=== PATIENT | male | born 1970 | race Caucasian/White ===

== ENCOUNTER 2016-09-14 09:40 | Emergency (ER) | payer OTHER ==
[~2016-09-14] VITALS: Ht 182.9 cm; Wt 96.2 kg
--- NOTE | 2016-09-14 10:02 | ED GI/GU/ABDOMINAL COMPLAINT ---
History of Present Illness General Chief Complaint: General Adult Stated Complaint: FOOD STUCK Source: patient Exam Limitations: no limitations Vital Signs & Intake/Output Vital Signs & Intake/Output Vital Signs Date Time Temp Pulse Resp B/P Pulse O2 O2 Flow FiO2 Ox Delivery Rate 09/14 1502 97.0 88 169/90 95 Room Air 09/14 1228 97.4 90 20 150/80 100 Room Air 09/14 1044 98.0 88 20 145/85 96 Room Air ED Intake and Output 09/15 0000 09/14 1200 Intake Total 1000 Output Total Balance 1000 Intake, IV 1000 Patient 212 lb Weight Allergies Coded Allergies: cat dander (Intermediate, HIVES 09/14/16) Uncoded Allergies: DUST (Severe, HIVES 07/12/13) Reconcile Medications Albuterol Sulfate (Proventil Hfa) 90 MCG HFA.AER.AD 2 PUF INH 4 TIMES/DAY PRN SHORTNESS OF BREATH (Reported) Bisoprolol Fumarate 10 MG TABLET 1 TAB PO DAILY HEART (Reported) Cyclobenzaprine HCl 10 MG TABLET 1 TAB PO TID MUSCLE SPASMS (Reported) Fenofibric Acid (Choline) (Trilipix) 45 MG CAPSULE.DR 1 CAP PO QPM CHOLESTEROL (Reported) Gabapentin 300 MG CAPSULE 1 CAP PO TID SEIZURES (Reported) Ibuprofen 800 MG TABLET 1 TAB PO BID PAIN (Reported) Lisinopril 10 MG TABLET 1 TAB PO DAILY HEART (Reported) Pantoprazole Sodium (Protonix) 40 MG TABLET.DR 1 TAB PO DAILY GERD Pravastatin Sodium 20 MG TABLET 1 TAB PO DAILY CHOLESTEROL (Reported) Triage Note: 46 Y/O MALE C/O "PIECE OF STEAK STUCK IN MY THROAT". STATES FELT MEAT GET STUCK AROUND 1500 YESTERDAY; POINTS TO CHEST WHEN ASKED WHERE HE FEELS IT. PT STATES HE WAS EVAL'D AT [facility] IT DIDNT WORK. THEY COULDNT GET A DOCTOR TO COME IN TO SCOPE ME SO I WAS SUPPOSED TO F/U BUT I CANT GET APPOINTMENT TO SEPTEMBER". PT STATES HE IS UNABLE TO SWALLOW WATER - HAS HALF EMPTY BOTTLE WITH HIM. SWALLOWING SECRETIONS INDEPENDENTLY WITH NO S/S DISTRESS NOTED. NO RESPIRATORY DISTRESS NOTED. SAT >96% RA. HX: FOOD IMPACTIONS REQUIRING ENDOSCOPY PER PT Triage Nurses Notes Reviewed? yes Onset: Abrupt Duration: day(s): (1) Timing: multiple episodes today Quality/Severity: moderate Location: DISTAL ESOPHAGUS Activities at Onset: EATING STEAK Modifying Factors: Worsens With: eating. Associated Symptoms: nausea/vomiting HPI: 46 year old male presents to the ER for chief complaint of feeling food is stuck after eating steak last night at 4 pm. He was seen at [facility] last night and given a shot but could not find a GI doctor to come in. They told him to follow up with a GI doctor in the morning we call and they can seem to the end of September. Patient reports vomiting more than 2 dozen times at home usually self-induced. He states he didn't drink much water but can never swallow and eventually vomited up. Secondary to that he also couldn't his medications this morning. History of pre-if endoscopies last was in May 1999 for a similar scenario. He states they did a biopsy of his lower esophagus. He knows that when he eats anything dry or hard Haily strick a lot of water but despite doing that yesterday a piece of steak got stuck. Past History Travel History Traveled to [facility] past 21 day No Medical History Any Pertinent Medical History? 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 Hx Contributory? No Review of Systems Review of Systems Constitutional: Denies: chills, fever. EENTM: Reports: no symptoms. Respiratory: Reports: no symptoms. Cardiovascular: Reports: no symptoms. GI: Reports: nausea, vomiting. Denies: abdominal pain. Genitourinary: Reports: no symptoms. Musculoskeletal: Reports: no symptoms. Skin: Reports: no symptoms. Neurological/Psychological: Denies: anxiety. Hematologic/Endocrine: Denies: bruising, bleeding. Immunologic/Allergic: Reports: no symptoms. All Other Systems: Reviewed and Negative Physical Exam Physical Exam General Appearance: well developed/nourished, alert, awake, mild distress Head: atraumatic, normal appearance Eyes: Bilateral: normal appearance, PERRL, EOMI. Ears, Nose, Throat, Mouth: hearing grossly normal, moist mucous membrane Neck: normal inspection, supple, full range of motion Respiratory: normal breath sounds, chest non-tender, no respiratory distress Cardiovascular: regular rate/rhythm Peripheral Pulses: 2+ radial (R), 2+ radial (L) Gastrointestinal: normal bowel sounds, soft, non-tender Back: normal inspection, normal range of motion, vertebral tenderness Extremities: normal range of motion Neurologic/Psych: no motor/sensory deficits, alert, oriented x 3 Skin: intact, normal color, warm/dry Core Measures ACS in differential dx? No Severe Sepsis Present: No Septic Shock Present: No Progress Differential Diagnosis: esophageal food bolus, SHATZKIS RIN, ACHALASIA Plan of Care: Orders Procedure Date/time Status Nothing by Mouth 09/14 L Active Laboratory Tests 09/14/16 1046: Anion Gap 13, Estimated GFR > 60, BUN/Creatinine Ratio 19.0, Glucose 132 H, Calcium 9.8, Total Bilirubin 0.9, AST 36, ALT 51, Alkaline Phosphatase 36, Total Protein 7.2, Albumin 4.6, Globulin 2.6, Albumin/Globulin Ratio 1.8 NITRO, GLUCAGON ORDERED. FLUIDS, LABS ORDERED. 10:[address] ARNOL REES. 10:34 AM WILL REMAIN NPO. TO GO FOR ENDOSCOPY AT 1:30/2 PM. D/W DR AMBROSE PIECE OF MEAT FOUND IN DISTAL ESOPHAGUS AND PUSHED INTO STOMACH. PATIENT RECOVERED WELL, DRINKING FLUIDS IN THE ED. (MARINA VELA,CHEPE) Initial ED EKG: none Departure Departure Time of Disposition: 1508 Disposition: HOME OR SELF CARE Condition: Stable Clinical Impression Primary Impression: Esophageal obstruction due to food impaction Referrals: SIL JEFFERSON (PCP/Family) Additional Instructions: TAKE THE PROTONIX DIRECTED EVERY AM. FOLLOW UP WIHT YOUR DOCTOR IN THE OFFICE. RETURN NEEDED. Departure Forms: Customer Survey General Discharge Information Prescriptions: Current Visit Scripts Pantoprazole Sodium (Protonix) 1 TAB PO DAILY #30 TAB Critical Care Note Critical Care Note Critical Care Time: 30-74 min
[2016-09-14] MEDS ORDERED: LISINOPRIL10 M1 PO (10:15)
[2016-09-14] MEDS ORDERED: BISOPROLOL FUMA10 M1 PO (10:15)
[2016-09-14] MEDS ORDERED: TRILIPIX45 M1 PO (10:16)
[2016-09-14] MEDS ORDERED: GABAPENTIN300 M2 PO (10:16)
[2016-09-14] MEDS ORDERED: PRAVASTATIN SOD20 M2 PO (10:16)
[2016-09-14] MEDS ORDERED: CYCLOBENZAPRINE10 M1 PO (10:17)
[2016-09-14] MEDS ORDERED: IBUPROFEN800 M1 PO (10:17)
[2016-09-14] MEDS ORDERED: PROVENTIL HFA6.7 GM INH (10:18)
[2016-09-14 10:26] LABS: ABSOLUTE BASOPHIL COUNT 0 /CUMM (0.0-0.2); ABSOLUTE EOSINOPHIL COUNT 0.2 /CUMM (0.0-0.7); ABSOLUTE GRANULOCYTE CT 10.3 /CUMM (1.4-6.5); ABSOLUTE MONOCYTE COUNT 0.6 /CUMM (0.10-0.60); BASOPHIL % 0.3 % (0.0-2.0); EOSINOPHIL % 1.4 % (0-5); HEMATOCRIT 45.7 % (42-52); MEAN CORPUSCULAR HGB 30.9 PG (27.0-31.0); MEAN CORPUSCULAR HGB CONC 34.5 G/DL (33.0-37.0); MEAN CORPUSCULAR VOLUME 89.4 FL (80.0-94.0); MEAN PLATELET VOLUME 9.9 FL (7.4-10.4); PLATELET COUNT 219 /CUMM (130-400); RBC DISTRIBUTION WIDTH 13.4 % (11.5-14.5); RED BLOOD CELL CT 5.12 /CUMM (4.70-6.10); WHITE BLOOD CELL COUNT 14.1 /CUMM (4.8-10.8)
--- NOTE | 2016-09-14 14:06 | Proc Note Endoscopy ---
Endoscopy Procedure Medical History: unchanged (see paper chart) Mental Status: alert/oriented Heart/Lung Eval Prior to Sedation: within normal limits Candidate for Sedation? Yes Procedure Date: 09/14/16 Procedure Type: EGD with foreign body removal Furniture Maker: Son Delgado MD ASA Classification: II Indications: Dysphagia, foreign body. Instrument: diagnostic gastroscope Meds Received: MAC Patient's Tolerance: good Complications: none Extent Reached: second part of duodenum Procedure: After getting written informed consent the patient was placed in the left lateral decubitus position with pulse oximetry, cardiac monitoring, and supplemental oxygen given. A bite block was inserted and IV sedation was given until the desired effect was achieved. A high definition upper Olympus endoscope was then inserted into the mouth and advanced to the distal esophagus where food bolus was encountered which was able to be pushed into the stomach using gentle pressure with the scope. The scope was unable to be advanced to the second portion of the duodenum with little difficulty. Retroflexed views and photodocumentation was obtained. Findings: Esophagus: The upper esophageal mucosa was grossly normal appearance. There was a food boulus in the lower esophagus which as stated in the procedure section of this report was able to be pushed using pressure with the endoscope into the stomach. After the food bolus was removed the underlying mucosa was very erythematous and bloody and the Z line was not able to be clearly delineated but it appeared to be around 44 cm. There were no obvious esophageal masses or strictures appreciated and after the food bolus was removed the scope was able to traverse the GE junction easily. The hiatal narrowing was at 47 cm from the incisors accounting for a 2-3 cm sliding hiatal hernia. Stomach: The gastric mucosa was grossly normal appearance. There were no ulcers , erosions, or masses appreciated. Distention and peristalsis of the stomach appeared normal. Retroflexed views revealed a small hiatal hernia. Duodenum: The duodenal bulb was mildly erythematous with a few scattered erosions, but there were no ulcers or masses appreciated. The duodenal sweep and folds were grossly normal appearance. Impression: 1. Food bolus in the lower esophagus with resulting esophagitis status post removal by pushing the food bolus into the stomach with the scope. 2. 2-3 subcentimeter sliding hiatal hernia. 3. Erosive duodenitis. Recommendations: 1. I will start Protonix 40 mg per to take regularly for the next 2 months half an hour before his first meal the day. 2. He should follow an antireflux regimen. 3. He should avoid NSAIDs 4. He should follow-up in the office in 1-2 months and consideration will be given for repeat upper endoscopy after a course of the PPI to rule out any other pathology was maybe contributing to his symptoms. CC: SIL JEFFERSON
[2016-09-14 15:02] VITALS: BP 169/90
[2016-09-14] MEDS ORDERED: PROTONIX40 M3 PO (15:09)
== END 2016-09-14 15:24 ==
LOC: ERH 09:40
PROVIDERS: Emergency Medicine
DX: T18.128A Food in esophagus causing other injury, initial encounter (principal); K20.9 Esophagitis, unspecified; K44.9 Diaphragmatic hernia without obstruction or gangrene; K29.80 Duodenitis without bleeding
CPT/HCPCS: 96361; 96374; 99291; J1610

== ENCOUNTER 2017-10-12 09:06 | Emergency (ER) | payer OTHER ==
[~2017-10-12] VITALS: Ht 182.9 cm; Wt 79.4 kg
[~2017-10-12 09:06] MED LIST: BISOPROLOL FUMA10 M1 PO; CYCLOBENZAPRINE10 M1 PO; GABAPENTIN300 M2 PO; IBUPROFEN800 M1 PO; LISINOPRIL10 M1 PO; PRAVASTATIN SOD20 M2 PO; PROTONIX40 M3 PO; PROVENTIL HFA6.7 GM INH; TRILIPIX45 M1 PO
[2017-10-12] MEDS ORDERED: CETIRIZINE HCL10 M2 PO (10:06)
[2017-10-12] MEDS ORDERED: MONTELUKAST SOD10 M1 PO (10:07)
--- NOTE | 2017-10-12 10:07 | ED GENERAL ADULT ---
History of Present Illness General Chief Complaint: Fever Stated Complaint: FEVER Source: patient Exam Limitations: no limitations Vital Signs & Intake/Output Vital Signs & Intake/Output ED Intake and Output 10/13 0000 10/12 1200 Intake Total 0 Output Total Balance 0 Intake, Oral 0 Patient 175 lb Weight Weight Reported by Patient Measurement Method Allergies Coded Allergies: No Known Drug Allergies (Intermediate, NONE 10/12/17) cat dander (Intermediate, HIVES 09/14/16) Uncoded Allergies: DUST (Severe, HIVES 07/12/13) Reconcile Medications Albuterol Sulfate (Proventil Hfa) 90 MCG HFA.AER.AD 2 PUF INH 4 TIMES/DAY PRN SHORTNESS OF BREATH (Reported) Bisoprolol Fumarate 10 MG TABLET 1 TAB PO DAILY HEART (Reported) Budesonide/Formoterol Fumarate (Symbicort 160-4.5 Mcg Inhaler) 160 MCG-4.5 MCG/ ACTUATION HFA.AER.AD 2 PUF INH BID BREATHING PROBLEMS (Reported) Cetirizine HCl 10 MG TABLET 1 TAB PO DAILY ALLERGIES (Reported) Cyclobenzaprine HCl 10 MG TABLET 1 TAB PO TID MUSCLE SPASMS (Reported) Doxycycline Hyclate 100 MG TABLET 1 TAB PO BID uri Fenofibric Acid (Choline) (Trilipix) 45 MG CAPSULE.DR 1 CAP PO QPM CHOLESTEROL (Reported) Gabapentin 300 MG CAPSULE 1 CAP PO TID SEIZURES (Reported) Ibuprofen 800 MG TABLET 1 TAB PO BID PAIN (Reported) Lisinopril 10 MG TABLET 1 TAB PO DAILY HEART (Reported) Montelukast Sodium 10 MG TABLET 1 TAB PO DAILY ALLERGIES (Reported) Pantoprazole Sodium (Protonix) 40 MG TABLET.DR 1 TAB PO DAILY GERD Plant Stanol Nasima (Cholest Off Plus) 450 MG CAPSULE (Unknown Dose) PO DAILY HIGH CHOLESTEROL (Reported) Triage Note: C/O FEVER, NAUSEA, AND SINUS CONGESTION SINCE THIS AM. Triage Nurses Notes Reviewed? yes Onset: Gradual Duration: week(s): Timing: recent history Injury Environment: home Severity: moderate HPI: 47yo male with hx of COPD, asthma, HTN presents to ED complaining of fever, myalgias beginning this AM. 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 Patient reports intermittent chills, night sweats for the past several months. He also reports history of weight loss during this time. Patient has not seen his doctor for these symptoms yet. Patient reports redness to distal right foot which he noticed a couple of days ago, he describes this area is painful. Patient denies chest pain, dyspnea, cough, sore throat, tick bite. Patient current smoker, 1 pack per day. (Violetta Bain) Past History Travel History Traveled to [place] past 21 day No Medical History Any Pertinent Medical History? 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 Hx Contributory? No (Violetta Bain) Review of Systems Review of Systems Constitutional: Reports: see HPI. EENTM: Reports: no symptoms. Respiratory: Reports: no symptoms. Cardiovascular: Reports: no symptoms. GI: Reports: no symptoms. Genitourinary: Reports: no symptoms. Musculoskeletal: Reports: no symptoms. Skin: Reports: see HPI. Neurological/Psychological: Reports: no symptoms. Hematologic/Endocrine: Reports: no symptoms. Immunologic/Allergic: Reports: no symptoms. All Other Systems: Reviewed and Negative (Violteta Bain) Physical Exam Physical Exam General Appearance: well developed/nourished, no apparent distress, alert, awake Head: atraumatic, normal appearance Eyes: Bilateral: normal appearance. Ears, Nose, Throat: normal pharynx, hearing grossly normal Neck: normal inspection, supple, full range of motion Respiratory: normal breath sounds, no respiratory distress, lungs clear Cardiovascular: regular rate/rhythm, murmur Gastrointestinal: normal bowel sounds, soft, non-tender, no organomegaly Back: normal inspection, normal range of motion Extremities: normal inspection, normal range of motion Neurologic/Psych: awake, alert, oriented x 3 Skin: 2x3cm area of erythema and warmth to skin proximal to right great toe, + tenderness Core Measures ACS in differential dx? No CVA/TIA Diagnosis: No Sepsis Present: No Sepsis Focused Exam Completed? No (Tasneem KIMBLE,Violetta Ibarra) Progress Differential Diagnoses I considered the following diagnoses in my evaluation of the patient: [Lyme disease, ehrlichiosis, anaplasmosis, sepsis, malignancy, pneumonia, tuberculosis , influenza] Plan of Care: Orders Procedure Date/time Status BLOOD CULTURE 10/12 1140 Active Add-on Test (ER Only) 10/12 1121 Active COMPREHENSIVE METABOLIC PANEL 10/12 1020 Complete CBC WITHOUT DIFFERENTIAL 10/12 1020 Complete RAPID VIRAL INFLUENZA A 10/12 1007 Complete Laboratory Tests 10/12/17 1032: Anion Gap 15, Estimated GFR > 60, BUN/Creatinine Ratio 23.8, Glucose 132 H, Calcium 9.0, Total Bilirubin 1.3, AST 30, ALT 17 L, Alkaline Phosphatase 45, Total Protein 7.2, Albumin 3.3 L, Globulin 3.9, Albumin/Globulin Ratio 0.8 L, CBC w Diff MAN DIFF ORDERED, RBC 4.78, MCV 77.2 L, MCH 25.7 L, MCHC 33.3, RDW 19.2 H, MPV 9.9, Gran % 85.2 H, Lymphocytes % 13.2 L, Monocytes % 1.2 L, Eosinophils % 0.3, Basophils % 0.1, Absolute Granulocytes 5.2, Segmented Neutrophils 75, Band Neutrophils 8 H, Absolute Lymphocytes 0.8 L, Lymphocytes 16 L, Monocytes 1 L, Absolute Monocytes 0.1, Absolute Eosinophils 0, Absolute Basophils 0, Platelet Estimate DECREASED, Normochromic RBCs VERIFIED, Microcytic Cells 1+, Ovalocytes RARE Microbiology 10/12 1212 BLOOD: Blood Culture - RECD 10/12 1210 BLOOD: Blood Culture - RECD 10/12 1015 NASOPHARYN: Influenza Virus A & B Rapid Smear - COMP Patient's chest x-ray today is unchanged from his previous chest x-ray in July. Patient's labs are stable, no leukocytosis. Rapid flu swab is negative. Has experienced malaise and fever beginning today however has significant history of night sweats and weight loss for the past several months. Patient informed that he would require close follow-up with his primary care doctor for further evaluation of the symptoms. Blood cultures sent to lab and are pending. The patient was discussed with Dr. Pelletier who agrees with this plan. Diagnostic Imaging: Viewed by Me: Radiology Read. Discussed w/RAD: Radiology Read. Radiology Impression: PATIENT: HIMANSHU CANO PRESENT AGE: 47 PATIENT ACCOUNT NO: [id number] : 70 LOCATION: [facility] ORDERING PHYSICIAN: Violetta KIMBLE SERVICE DATE: 10/12/17 EXAM TYPE: RAD - XRY-CHEST XRAY, TWO VIEWS EXAMINATION: XR CHEST, 2 VIEWS CLINICAL INFORMATION: Weight loss. Night sweats. Cough. Rule out tuberculosis, pneumonia COMPARISON: 04/28/2018 TECHNIQUE: PA and lateral views of the chest were obtained. FINDINGS: Borderline cardiomegaly is again noted. No focal consolidation. As previously noted, there is mild prominence of the bronchial markings centrally. No pneumothorax or pleural effusion. Pulmonary vasculature is unremarkable. Trachea is midline. No acute osseous findings. IMPRESSION: Borderline cardiomegaly, unchanged. Mild bronchial wall thickening centrally is unchanged from prior and could be due to reactive airways disease or viral/atypical infection. No focal consolidation. DICTATED BY: Moy Hall MD DATE/TIME DICTATED:10/12/171221 LIBRARY SERVICES ASSISTANT:YUSEF DATE/TIME TRANSCRIBED:10/12/171221 CONFIDENTIAL, DO NOT COPY WITHOUT APPROPRIATE AUTHORIZATION. <Electronically signed in Other Vendor System> SIGNED BY: Moy Hall MD 10/12/171227 Initial ED EKG: none (Tasneem KIMBLE,Violetta Ibarra) Departure Departure Disposition: HOME OR SELF CARE Condition: Stable Clinical Impression Primary Impression: Rash Secondary Impressions: Fever, Night sweats, Weight loss Referrals: Antonella Padron APRN (PCP/Family) Additional Instructions: Take full course of antibiotics. Follow-up with your primary care doctor. It is also recommended you make an appointment with [facility]. If rash is worsening after 48 hours on antibiotics please return to the emergency department. Return with any other worsening symptoms or concerns. Please note that there might be incidental findings in your evaluation that are unrelated to the current emergency department visit. Please notify your primary care doctor about this emergency department visit in order to obtain and review all of the testing performed so that these incidental findings can be monitored as needed. If you had an x-ray performed, please understand that some fractures may not be seen on the initial set of x-rays. If your symptoms persist you might need a repeat set of x-rays to check for such a fracture. If you had a laceration evaluated, please understand that foreign bodies such as glass or wood may not be visible to the naked eye or on plain x-rays. If the wound becomes red, swollen, increasingly more painful or if there is any drainage from the wound, please have it reevaluated by a physician for the possibility of a retained foreign body. If you're unable to follow up as outlined in the discharge instructions please return to the emergency department. Thank you for choosing the [facility] Emergency Department for your care. It was a pleasure to serve you today. Departure Forms: Customer Survey General Discharge Information Prescriptions: Current Visit Scripts Doxycycline Hyclate 1 TAB PO BID #20 TAB (Tasneem KIMBLE,Violetta Ibarra) Departure Comments 10/13/17 1:34 PM I was notified by the lab that the patient's blood cultures were positive. He was called and told to return to the emergency department for reevaluation and admission. (Alok Pelletier DO) Critical Care Note Critical Care Note Critical Care Time: 30-74 min (Violetta Bain)
[2017-10-12] MEDS ORDERED: SYMBICORT 16010.2 GM INH (10:08)
[2017-10-12 10:38] LABS: ABSOLUTE BASOPHIL COUNT 0 /CUMM (0.0-0.2); ABSOLUTE EOSINOPHIL COUNT 0 /CUMM (0.0-0.7); ABSOLUTE GRANULOCYTE CT 5.2 /CUMM (1.4-6.5); ABSOLUTE LYMPH COUNT 0.8 /CUMM (1.2-3.4); ABSOLUTE MONOCYTE COUNT 0.1 /CUMM (0.10-0.60); BASOPHIL % 0.1 % (0.0-2.0); EOSINOPHIL % 0.3 % (0-5); GRANULOCYTE % 85.2 % (42.2-75.2); HEMATOCRIT 36.9 % (42-52); MEAN CORPUSCULAR HGB 25.7 PG (27.0-31.0); MEAN CORPUSCULAR HGB CONC 33.3 G/DL (33.0-37.0); MEAN CORPUSCULAR VOLUME 77.2 FL (80.0-94.0); MEAN PLATELET VOLUME 9.9 FL (7.4-10.4); PLATELET COUNT 89 /CUMM (130-400); RBC DISTRIBUTION WIDTH 19.2 % (11.5-14.5); RED BLOOD CELL CT 4.78 /CUMM (4.70-6.10); WHITE BLOOD CELL COUNT 6.1 /CUMM (4.8-10.8)
[2017-10-12 12:27] VITALS: BP 109/73
--- NOTE | 2017-10-12 12:28 | RADIOLOGY REPORT ---
EXAMINATION: XR CHEST, 2 VIEWS CLINICAL INFORMATION: Weight loss. Night sweats. Cough. Rule out tuberculosis, pneumonia COMPARISON: 04/28/2018 TECHNIQUE: PA and lateral views of the chest were obtained. FINDINGS: Borderline cardiomegaly is again noted. No focal consolidation. As previously noted, there is mild prominence of the bronchial markings centrally. No pneumothorax or pleural effusion. Pulmonary vasculature is unremarkable. Trachea is midline. No acute osseous findings. IMPRESSION: Borderline cardiomegaly, unchanged. Mild bronchial wall thickening centrally is unchanged from prior and could be due to reactive airways disease or viral/atypical infection. No focal consolidation.
[2017-10-12] MEDS ORDERED: DOXYCYCLINE HY100 M4 PO (13:16)
[2017-10-13] MEDS ORDERED: PRAVASTATIN SOD40 M2 PO (20:17)
[2017-10-13] MEDS ORDERED: CHOLEST OFF PL450 MG PO (20:23)
== END 2017-10-12 13:28 ==
LOC: ERH 09:06
PROVIDERS: Physician Assistant
DX: R21 Rash and other nonspecific skin eruption (principal); R50.9 Fever, unspecified; R61 Generalized hyperhidrosis; R63.4 Abnormal weight loss
CPT/HCPCS: 86317; 87798; 71046; 87040; 87147; 87804; 87804-59

== ENCOUNTER 2017-10-13 15:11 | Inpatient (IN) | payer OTHER ==
[~2017-10-13] VITALS: Ht 185.4 cm; Wt 76.4 kg
[~2017-10-13 15:11] MED LIST changes: +CETIRIZINE HCL10 M2 PO; +DOXYCYCLINE HY100 M4 PO; +MONTELUKAST SOD10 M1 PO; +SYMBICORT 16010.2 GM INH
--- NOTE | 2017-10-13 16:00 | ED GENERAL ADULT ---
History of Present Illness General Chief Complaint: General Adult Stated Complaint: SENT IN BY MD HERRING FOR HIGH WBC Source: patient Exam Limitations: no limitations Vital Signs & Intake/Output Vital Signs & Intake/Output Vital Signs Date Time Temp Pulse Resp B/P B/P Pulse O2 O2 Flow FiO2 Mean Ox Delivery Rate 10/13 1926 88 18 113/69 99 Room Air 10/13 1749 97.8 89 22 112/72 100 Room Air 10/13 1526 97.6 95 12 113/75 97 Room Air Allergies Coded Allergies: No Known Drug Allergies (Intermediate, NONE 10/12/17) cat dander (Intermediate, HIVES 09/14/16) Uncoded Allergies: DUST (Severe, HIVES 07/12/13) Reconcile Medications Albuterol Sulfate (Proventil Hfa) 90 MCG HFA.AER.AD 2 PUF INH 4 TIMES/DAY PRN SHORTNESS OF BREATH (Reported) Bisoprolol Fumarate 10 MG TABLET 1 TAB PO DAILY HEART (Reported) Budesonide/Formoterol Fumarate (Symbicort 160-4.5 Mcg Inhaler) 160 MCG-4.5 MCG/ ACTUATION HFA.AER.AD 2 PUF INH BID BREATHING PROBLEMS (Reported) Cetirizine HCl 10 MG TABLET 1 TAB PO DAILY ALLERGIES (Reported) Cyclobenzaprine HCl 10 MG TABLET 1 TAB PO TID MUSCLE SPASMS (Reported) Doxycycline Hyclate 100 MG TABLET 1 TAB PO BID uri Fenofibric Acid (Choline) (Trilipix) 45 MG CAPSULE.DR 1 CAP PO QPM CHOLESTEROL (Reported) Gabapentin 300 MG CAPSULE 1 CAP PO TID SEIZURES (Reported) Ibuprofen 800 MG TABLET 1 TAB PO BID PAIN (Reported) Lisinopril 10 MG TABLET 1 TAB PO DAILY HEART (Reported) Montelukast Sodium 10 MG TABLET 1 TAB PO DAILY ALLERGIES (Reported) Pantoprazole Sodium (Protonix) 40 MG TABLET.DR 1 TAB PO DAILY GERD Triage Note: PT HERE FOR HIGH WBC. PT STATES THEY THINK HE HAS A BLOOD INFECTION. Triage Nurses Notes Reviewed? yes Onset: Abrupt Duration: week(s): Timing: recent history HPI: 09/13/17 47-year-old man recalled for positive blood cultures. He was seen and evaluated in the ED yesterday. He has chronic persistent cough and chills. Has a past medical history of a heart murmur. He is being admitted for positive blood cultures and bacteremia. Rule out endocarditis Past History Travel History Traveled to [place] past 21 day No Medical History Any Pertinent Medical History? 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 Hx Contributory? No Review of Systems Review of Systems Constitutional: Reports: fever. EENTM: Reports: no symptoms. Respiratory: Reports: no symptoms. GI: Denies: abdominal pain. Genitourinary: Reports: no symptoms. Musculoskeletal: Reports: no symptoms. Skin: Denies: rash. Neurological/Psychological: Reports: no symptoms. Hematologic/Endocrine: Reports: no symptoms. Immunologic/Allergic: Reports: no symptoms. Physical Exam Physical Exam General Appearance: alert, awake, anxious, mild distress Head: atraumatic, normal appearance Eyes: Bilateral: normal appearance, PERRL, EOMI. Ears, Nose, Throat: normal pharynx, normal ENT inspection Neck: normal inspection, supple, full range of motion Respiratory: normal breath sounds, chest non-tender, no respiratory distress Cardiovascular: regular rate/rhythm, murmur Peripheral Pulses: 3+ radial (R), 3+ radial (L) Gastrointestinal: non-tender Back: normal range of motion Extremities: no edema Neurologic/Psych: no motor/sensory deficits, awake, alert, oriented x 3 Skin: intact, normal color, warm/dry Core Measures ACS in differential dx? No CVA/TIA Diagnosis: No Sepsis Present: No Sepsis Focused Exam Completed? No Progress Differential Diagnoses I considered the following diagnoses in my evaluation of the patient: [ BACTEREMIA, R/O endocarditis] Plan of Care: Orders Procedure Date/time Status Heart Healthy Diet 10/14 B Active LACTIC ACID 10/13 1914 Active Patient Data 10/13 1900 Active Admit to inpatient 10/13 1845 Active Vital Signs 10/13 1845 Active Code Status 10/13 1845 Active TROPONIN LEVEL 10/13 1725 Complete LACTIC ACID 10/13 1725 Complete Intake & Output 10/13 1724 Active STREP PNEUMO URINARY ANTIGEN 10/13 1637 Complete CULTURE,URINE 10/13 1630 Active URINALYSIS 10/13 1630 Complete EKG 10/13 161 Active BLOOD CULTURE 10/13 1600 Active COMPREHENSIVE METABOLIC PANEL 10/13 1546 Complete CBC WITHOUT DIFFERENTIAL 10/13 154 Complete Laboratory Tests 10/13/17 175: Urine Color YEL, Urine Clarity HAZY H, Urine pH 6.0, Ur Specific Red Level <= 1.005, Urine Protein TRACE H, Urine Ketones NEG, Urine Nitrite NEG, Urine Bilirubin NEG, Urine Urobilinogen 0.2, Ur Leukocyte Esterase NEG, Ur Microscopic SEDIMENT EXAMINED, Urine RBC 1-3, Urine WBC 1-3 H, Urine Hemoglobin LARGE H, Urine Glucose NEG 10/13/17 172: Anion Gap 16, Estimated GFR > 60, BUN/Creatinine Ratio 17.8, Glucose 89, Lactic Acid 1.3, Calcium 9.2, Total Bilirubin 1.1, AST 36, ALT 17 L, Alkaline Phosphatase 52, Troponin I 0.02, Total Protein 7.8, Albumin 3.7, Globulin 4.1, Albumin/Globulin Ratio 0.9 L, CBC w Diff NO MAN DIFF REQ, RBC 5.01, MCV 77.3 L , MCH 25.1 L, MCHC 32.5 L, RDW 19.5 H, MPV 10.3, Gran % 73.5, Lymphocytes % 21.2, Monocytes % 4.1, Eosinophils % 0.9, Basophils % 0.3, Absolute Granulocytes 4.1, Absolute Lymphocytes 1.2, Absolute Monocytes 0.2, Absolute Eosinophils 0, Absolute Basophils 0 10/13/17 1617: Troponin I Cancelled 10/13/17 1615: Lactic Acid Cancelled Microbiology 10/13 175 URINE ROUT: Streptococcus pneumoniae Antigen (M - COMP 10/13 175 URINE ROUT: Urine Culture - RECD 10/13 172 BLOOD: Blood Culture - RECD 10/13 1710 BLOOD: Blood Culture - RECD Initial ED EKG: pending Departure Departure Disposition: STILL A PATIENT Condition: Stable Clinical Impression Primary Impression: Bacteremia Referrals: Antonella Padron APRN (PCP/Family) Departure Forms: Customer Survey General Discharge Information Admission Note Spoke With: Anant VELA,Arnulfo Documentation of Exam: Documentation of any treatments & extenuating circumstances including Concerns Regarding Discharge (functional status, medication knowledge or non-compliance, living conditions, etc.) that warrant an admission rather than observation: [The patient needs admission for IV antibiotics, infectious disease consultation, and echocardiogram,] Critical Care Note Critical Care Note Critical Care Time: non-applicable
[2017-10-13 17:52] LABS: ABSOLUTE BASOPHIL COUNT 0 /CUMM (0.0-0.2); ABSOLUTE EOSINOPHIL COUNT 0 /CUMM (0.0-0.7); ABSOLUTE GRANULOCYTE CT 4.1 /CUMM (1.4-6.5); ABSOLUTE LYMPH COUNT 1.2 /CUMM (1.2-3.4); ABSOLUTE MONOCYTE COUNT 0.2 /CUMM (0.10-0.60); BASOPHIL % 0.3 % (0.0-2.0); EOSINOPHIL % 0.9 % (0-5); GRANULOCYTE % 73.5 % (42.2-75.2); HEMATOCRIT 38.8 % (42-52); MEAN CORPUSCULAR HGB 25.1 PG (27.0-31.0); MEAN CORPUSCULAR HGB CONC 32.5 G/DL (33.0-37.0); MEAN CORPUSCULAR VOLUME 77.3 FL (80.0-94.0); MEAN PLATELET VOLUME 10.3 FL (7.4-10.4); RBC DISTRIBUTION WIDTH 19.5 % (11.5-14.5); WHITE BLOOD CELL COUNT 5.6 /CUMM (4.8-10.8)
--- NOTE | 2017-10-13 17:55 | Admission Certification ---
Admission Certification Certification Statement - As attending physician, I certify that at the time of - admission, based on clinical presentation, severity of - symptoms, need for further diagnostic testing and - therapeutic interventions, and risk of adverse outcomes - without in-hospital treatment, in my clinical assessment, - this patient requires an acute hospital stay for a minimum - of two nights or longer. I have also considered psychsocial - factors such as support system, advanced age, financial - issues, cognitive issues, and failed out-patient treatments, - past re-admission history, safety of patient, and lack of - compliance as applicable. Specific rationale supporting this admission is: Suspected endocarditis
--- NOTE | 2017-10-13 18:04 | PN- Att Addend ---
Attending Addendum Attending Brief Note Patient seen and examined. Plan of care discussed with the medical team and the patient. Available lab work and radiology test reports were reviewed. In summary this is 47-year-old male with history of hypertension hypokalemia and a known heart murmur and follows up with Dr. Gaston. Patient is very weak in his history. He vaguely remembers being sick off and on since last March. He gave up his work in the last March due to back pain. At on she started to develop sweats mostly at night and pains in multiple spots in his body. He recently went to see Dr. Gaston for follow-up of his heart murmur and he was told to go to emergency room. He was seen in ED yesterday where cultures were obtained and patient was discharged home. Today culture turn positive and he was called back to emergency room. Patient currently denies any sore throat. He does admit to having chills at night he did he also has been noticing spots on his skin mostly lower legs and arms and forearms. These spots are painful to touch. Patient continues to smoke but does not drink and does not abuse any drugs. He did have a admission for alcohol abuse at this hospital. His family history is positive for leukemia in aunt and uncle with throat cancer. He currently lives alone and has no children. Reconcile Medications Albuterol Sulfate (Proventil Hfa) 90 MCG HFA.AER.AD 2 PUF INH 4 TIMES/DAY PRN SHORTNESS OF BREATH (Reported) Bisoprolol Fumarate 10 MG TABLET 1 TAB PO DAILY HEART (Reported) Budesonide/Formoterol Fumarate (Symbicort 160-4.5 Mcg Inhaler) 160 MCG-4.5 MCG/ ACTUATION HFA.AER.AD 2 PUF INH BID BREATHING PROBLEMS (Reported) Cetirizine HCl 10 MG TABLET 1 TAB PO DAILY ALLERGIES (Reported) Cyclobenzaprine HCl 10 MG TABLET 1 TAB PO TID MUSCLE SPASMS (Reported) Doxycycline Hyclate 100 MG TABLET 1 TAB PO BID uri Fenofibric Acid (Choline) (Trilipix) 45 MG CAPSULE. 1 CAP PO QPM CHOLESTEROL (Reported) Gabapentin 300 MG CAPSULE 1 CAP PO TID SEIZURES (Reported) Ibuprofen 800 MG TABLET 1 TAB PO BID PAIN (Reported) Lisinopril 10 MG TABLET 1 TAB PO DAILY HEART (Reported) Montelukast Sodium 10 MG TABLET 1 TAB PO DAILY ALLERGIES (Reported) Pantoprazole Sodium (Protonix) 40 MG TABLET.DR 1 TAB PO DAILY GERD Vital Signs Date Time Temp Pulse Resp B/P B/P Pulse O2 O2 Flow FiO2 Mean Ox Delivery Rate 10/13 1749 97.8 89 22 112/72 100 Room Air 10/13 1526 97.6 95 12 113/75 97 Room Air Intake & Output 10/13 1600 10/13 0800 10/13 0000 Intake Total Output Total Balance Patient 174 lb Weight Weight Reported by Patient Measurement Method Exam: General: Patient awake alert oriented without any distress; has poor memory recall CVS: S1 plus S2 with loud systolic ejection murmur at the apex is also heard in the aortic area Chest: Few scattered crepitation without any wheeze. There is no respiratory distress. Abdomen: Soft non-tender, bowel sound present, no guarding or rebound GALLERY OR MUSEUM GUIDE: Awake alert oriented without any focal neuro deficit and follows commands appropriately Extremities: No edema; no clubbing or cyanosis noted Skin: Multiple [place] lesions are noted; petechial lesions are noted in lower extremities; some lesions on forearms are pustular Laboratory Tests 10/13/17 172: Sodium Pending, Potassium Pending, Chloride Pending, Carbon Dioxide Pending, Anion Gap Pending, BUN Pending, Creatinine Pending, BUN/Creatinine Ratio Pending , Glucose Pending, Lactic Acid Pending, Calcium Pending, Total Bilirubin Pending , AST Pending, ALT Pending, Alkaline Phosphatase Pending, Troponin I Pending, Total Protein Pending, Albumin Pending, Globulin Pending, Albumin/Globulin Ratio Pending, CBC w Diff Pending, WBC Pending, RBC Pending, Hgb Pending, Hct Pending, MCV Pending, MCH Pending, MCHC Pending, RDW Pending, Plt Count Pending, MPV Pending 10/13/17 1617: Troponin I Cancelled 10/13/17 1615: Lactic Acid Cancelled Microbiology 10/13 1725 BLOOD: Blood Culture - RECD 10/13 1710 BLOOD: Blood Culture - RECD 10/13 1637 URINE ROUT: Streptococcus pneumoniae Antigen (M - ORD 10/13 1630 URINE ROUT: Urine Culture - ORD Culture from October 12 is growing 2 out of 2 gram-positive cocci in chain CXR: Done yesterday Mild bronchial wall thickening centrally is unchanged from prior and could be due to reactive airways disease or viral/atypical infection. No focal consolidation. 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 * Hold doxycycline at this time
[2017-10-13 18:19] LABS: PLATELET COUNT 62 /CUMM (130-400)
--- NOTE | 2017-10-13 19:59 | History & Physical ---
See Addendum Radha VELA,Dot 10/13/171957: General Information and [facility] MD Statement: I have seen and personally examined HIMANSHU CANO and documented this H&P. The patient is a 47 year old M who presented with a patient stated chief complaint of [positive blood culture-was called by [facility] to come back]. Source of Information: patient Exam Limitations: no limitations History of Present Illness: 47-year-old male with past medical history of hypertension, hyperlipidemia, heart murmur (patient cannot remember exactly what type) for which he follows up with Dr. Gaston. Who presented yesterday to [place] ED with complaints of body aches, headache and fever. Patient was discharged on doxycycline and he got 2 doses. He denies any fever after discharge however he still endorses intermittent muscle pain. Blood culture were obtained and came back positive for GPC in chains. Patient was closed to come back to the hospital today. Patient also complains of red spots on his upper and lower extremities which started 2 week ago. He reports that this is spots are painful to touch and itchy. He reports that he had dental work done 1-1/2 weeks ago but cannot remember if he had any antibiotics before it. Patient denies smoking, alcohol use, recreational drug use. Of note the patient reports that since 06/29/17 he has been feeling weak after having flu symptoms however he did not get tested for the flu. He quit his job due to severe neck pain. patient was supposed to have an appointment with Dr. Gaston for stress test during this week. Patient denies any nausea, vomiting, diarrhea or constipation. He also denies cough, expectoration, dizziness and lightheadedness or chest pain. Allergies/Medications Allergies: Coded Allergies: No Known Drug Allergies (Intermediate, NONE 10/12/17) cat dander (Intermediate, HIVES 09/14/16) Uncoded Allergies: DUST (Severe, HIVES 07/12/13) Home Med list Albuterol Sulfate (Proventil Hfa) 90 MCG HFA.AER.AD 2 PUF INH 4 TIMES/DAY PRN SHORTNESS OF BREATH (Reported) Bisoprolol Fumarate 10 MG TABLET 1 TAB PO DAILY HEART (Reported) Budesonide/Formoterol Fumarate (Symbicort 160-4.5 Mcg Inhaler) 160 MCG-4.5 MCG/ ACTUATION HFA.AER.AD 2 PUF INH BID BREATHING PROBLEMS (Reported) Cetirizine HCl 10 MG TABLET 1 TAB PO DAILY ALLERGIES (Reported) Cyclobenzaprine HCl 10 MG TABLET 1 TAB PO TID MUSCLE SPASMS (Reported) Doxycycline Hyclate 100 MG TABLET 1 TAB PO BID uri Fenofibric Acid (Choline) (Trilipix) 45 MG CAPSULE.DR 1 CAP PO QPM CHOLESTEROL (Reported) Gabapentin 300 MG CAPSULE 1 CAP PO TID SEIZURES (Reported) Ibuprofen 800 MG TABLET 1 TAB PO BID PAIN (Reported) Lisinopril 10 MG TABLET 1 TAB PO DAILY HEART (Reported) Montelukast Sodium 10 MG TABLET 1 TAB PO DAILY ALLERGIES (Reported) Pantoprazole Sodium (Protonix) 40 MG TABLET.DR 1 TAB PO DAILY GERD Plant Stanol Nasima (Cholest Off Plus) 450 MG CAPSULE (Unknown Dose) PO DAILY HIGH CHOLESTEROL (Reported) Past History Travel History Traveled to [place] past 21 day No Medical History Neurological: NONE EENT: NONE Cardiovascular: hypertension, HIGH CHOLESTEROL HEART MURMUR Respiratory: NONE Gastrointestinal: NONE Hepatic: NONE Renal: NONE Musculoskeletal: NONE Psychiatric: NONE Endocrine: NONE Blood Disorders: NONE Cancer(s): NONE 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 Psychosocial History Services at Home: None ETOH Use: denies use Illicit Drug Use: denies illicit drug use Review of Systems Review of Systems Constitutional: Reports: chills, diaphoresis, fever, malaise, weakness. Cardiovascular: Denies: no symptoms. Respiratory: Denies: no symptoms. GI: Denies: no symptoms. Genitourinary: Denies: no symptoms. Musculoskeletal: Denies: no symptoms. Skin: Reports: see HPI, lesions. Exam & Diagnostic Data Last 24 Hrs of Vital Signs/I&O Vital Signs Date Time Temp Pulse Resp B/P B/P Pulse O2 O2 Flow FiO2 Mean Ox Delivery Rate 10/13 2108 97.9 93 20 102/70 97 Room Air 10/13 1926 88 18 113/69 99 Room Air 10/13 1749 97.8 89 22 112/72 100 Room Air 10/13 1526 97.6 95 12 113/75 97 Room Air Intake & Output 10/14 0800 05/17 0000 10/13 1600 Intake Total 1220 Output Total Balance 1220 Intake, IV 1100 Intake, Oral 120 Patient 174 lb 174 lb Weight Weight Reported by Patient Measurement Method Physical Exam General Appearance Alert, Oriented X3, Cooperative, No Acute Distress Skin multiple erythematous pin point spots on both UE and LE, bluish tender lesion most likely janway lesion on the right foot HEENT Atraumatic, PERRLA, EOMI, Mucous Membr. moist/pink Neck Supple, No JVD, No thryomegaly Cardiovascular Normal S1, Normal S2, ejection systolic murmur in the left parasternal area and aortic area Lungs Clear to Auscultation Abdomen Normal Bowel Sounds, Soft, No Tenderness Neurological Normal Speech, Strength at 5/5 X4 Ext, Normal Tone, Sensation Intact, Cranial Nerves 3-12 NL, Reflexes 2+ Extremities No Clubbing, No Cyanosis, No Edema Body Front and Back (Adult) 1) 2) 3) 4) 5) 6) Last 24 Hrs of Labs/Harsha: Laboratory Tests 10/13/17 2217: Lactic Acid 1.1 10/13/17 1751: Urine Color YEL, Urine Clarity HAZY H, Urine pH 6.0, Ur Specific [place] <= 1.005, Urine Protein TRACE H, Urine Ketones NEG, Urine Nitrite NEG, Urine Bilirubin NEG, Urine Urobilinogen 0.2, Ur Leukocyte Esterase NEG, Ur Microscopic SEDIMENT EXAMINED, Urine RBC 1-3, Urine WBC 1-3 H, Urine Hemoglobin LARGE H, Urine Glucose NEG 10/13/17 1725: Anion Gap 16, Estimated GFR > 60, BUN/Creatinine Ratio 17.8, Glucose 89, Lactic Acid 1.3, Calcium 9.2, Total Bilirubin 1.1, AST 36, ALT 17 L, Alkaline Phosphatase 52, Troponin I 0.02, Total Protein 7.8, Albumin 3.7, Globulin 4.1, Albumin/Globulin Ratio 0.9 L, CBC w Diff NO MAN DIFF REQ, RBC 5.01, MCV 77.3 L , MCH 25.1 L, MCHC 32.5 L, RDW 19.5 H, MPV 10.3, Gran % 73.5, Lymphocytes % 21.2, Monocytes % 4.1, Eosinophils % 0.9, Basophils % 0.3, Absolute Granulocytes 4.1, Absolute Lymphocytes 1.2, Absolute Monocytes 0.2, Absolute Eosinophils 0, Absolute Basophils 0 10/13/17 1617: Troponin I Cancelled 10/13/17 1615: Lactic Acid Cancelled Microbiology 10/13 1751 URINE ROUT: Streptococcus pneumoniae Antigen (M - COMP 10/13 1751 URINE ROUT: Urine Culture - RECD 10/13 1725 BLOOD: Blood Culture - RECD 10/13 1710 BLOOD: Blood Culture - RECD Diagnostic Data CXR Results Borderline cardiomegaly, unchanged. Mild bronchial wall thickening centrally is unchanged from prior and could be due to reactive airways disease or viral/atypical infection. No focal consolidation. Assessment/Plan Assessment: 47-year-old male with past medical history of hypertension, hyperlipidemia, heart murmur (patient cannot remember exactly what type) for which he follows up with Dr. Gaston. Who presented yesterday to [place] ED with complaints of body aches, headache and fever. Patient was discharged on doxycycline and he got 2 doses. He denies any fever after discharge however he still endorses intermittent muscle pain. Blood culture were obtained and came back positive for GPC. in chains. Physical exam was positive for ejection systolic murmur heard at the aortic area, widespread erythematous pitecheal rash in both upper and lower extremity. In addition to few Janway lesions. Given the patient history of heart murmur, fever, positive blood culture makes infective endocarditis more likely. However his rash might be due to thrombocytopenia. Vital signs on admission: Blood pressure 115/75, pulse 95, temperature 97.6, pulse 97 on room air, Labs on admission: CBC showed WBC 5.6, hemoglobin 12.6, hematocrit 38.8, platelets 62, BP was normal, UA was positive only for hemoglobin. Chest x-ray from 0 10/12 showed:Borderline cardiomegaly, unchanged. Mild bronchial wall thickening centrally is unchanged from prior and could be due to reactive airways disease or viral/atypical infection. No focal consolidation. EKG: Normal sinus rhythm, heart rate 88, CT 148, QTc 480, no STT wave changes Problem list: GPC bacteremia (? Infective endocarditis) Thrombocytopenia (his platelets dropped from 219 on 09/14 to 62) with no clear reason History of heart murmur Hypertension Hyperlipidemia Chronic back pain Plan: Admit to general medicine floor Vitals every shift Repeat 2 sets of blood culture before starting antibiotics Repeat blood culture in a.m. Start ceftriaxone 2 g IV daily Hold doxycycline Follow-up on the sensitivity results of the blood culture From 0 10/12 Follow-up on urine culture follow up on d-dimer, PT,PTT,FSP Echocardiogram (patient might need JOHNY to rule out vegetations) Can onsider ID cardiology consult appreciated (Dr. Gaston was informed please confirm with him ) Continue home meds Full code Heart healthy diet DVT ALPs As Ranked By This Provider Problem List: 1. Bacteremia 2. Thrombocythemia Core Measures/Misc (02/14) Acute Coronary Syndrome ACS Diagnosis: No Congestive Heart Failure Congestive Heart Failure Diagnosis No Cerebrovascular Accident CVA/TIA Diagnosis: No VTE (View Protocol) VTE Risk Factors Age>40 No Mechanical VTE Prophylaxis d/t N/A MechProphylax Ordered No VTE Pharm Prophylaxis d/t NA PharmProphylax ordered Sepsis (View protocol) Sepsis Present: No Faustino Ruiz MD 10/13/172023: Resident Review Statement Resident Statement: examined this patient, discussed with project intern, agreed with project intern, reviewed EMR data (avail), discussed with nursing, reviewed images, amended to note Other Findings: 47 yo active smoker M with pmh of GERD with esophagitis, duodenitis (sec to NSAIDs), HTN, HLD, ?COPD (no records), known heart murmur (?type) scheduled to follow Dr Gaston, had presented to the ED yesterday with fever, nasal congestion , and muslce pain, was sent home with abx (Doxycycline, received 2 doses so far) after negative flu-test and blood culture submission. His CBC, BEP were WNL, except low platelets (89). His CXR then showed borderline cardiomegaly, and unchanged central bronchial wall thickening. His blood cultures were notified to the ED to be positive and was thus called in for reevaluation and admission. On questioning, he mentions that he has been feeling feverish, and weak, and has many spots (painful as well as painless) over skin on/off since May 2017 when he had flu-like illness but did not get tested for it. He has had dental procedures , including a recent one for dental bridging. He denies IVDU, sick contacts, exotic travels, sore throat, insect bite, Vitals, labs, and images as mentioned above. PE significant for loud harsh systolic murmur more over parasternal area, also heard over apex; multiple reddish, non-tender, non-banching spots (avg diameter 1 mm), over erickson, feet including planter aspect of some toes, forearm, some over anterior abdomen; one lesions over abdomen has central pus; a painful 2 mm scab-like lesion over ball of Right foot with 1 cm diameter erythema (?Osler's node); mild tenderness on deep palpation over RUQ and LUQ but no definite border of either liver or spleen could be found by me. EKG:::::::::::::::::::::::::::::::::::::::::::::: Two sets of blood cultures were sent from the ED today again and he received IV Unasyn 3 gm once AFTER the blood cultures. VSS. He is being admitted to the general medical floor for the following issues: # GPC Bacteremia, to rule out infective endocarditis Patient has non-specific symptoms with fever and ablood culture positive for Gram positive cocci in chains, likely Strep. He has a murmur, with recent dental work, not sure under antibiotic coverage, all of which makes infective endocarditis likely. Although he received Doxycycline, Unasyn so far, he needs abx directed to GPC with higher dose. * Admit to general medical floor * Monitor vitals, intake/output regularly * IV ceftriaxone 3 g daily, pending final culture reports * Echocardiogram, TTE for now * Cardiology consultation * Infectious disease consultation * Cultures need to be repeated until sterile * Another set of blood culture ordered for the morning * Previous antibiotics already discontinued. #Thrombocytopenia Patient's last normal platelet count was in August 2016 with 219, yesterday's was 89, today is 62. This could be related to his bacteremic state, but he is not in sepsis. He does not have exposure to Heparin products recently. No anemia, no abnormal LFT. Patient is NOT bleeding currently. * LDH, peripheral smear (to look for schistocytes) added on * PT, PTT, DIC panel sent * Will watch closely, repeat CBC in AM #We are continuing rest of his home medications for now, no NSAIDs though. Plans to quit smoking from today. Housekeeping: Diet: Heart healthy diet DVT ppx: ALPS only, given his low plt Code status: Full code
[2017-10-13] MEDS ORDERED: PRAVASTATIN SOD40 M2 PO (20:17)
[2017-10-13] MEDS ORDERED: CHOLEST OFF PL450 MG PO (20:23)
[2017-10-13 21:09] VITALS: BP 102/70
[2017-10-14 01:42] LABS: RED BLOOD CELL CT 5.01 /CUMM (4.70-6.10)
[2017-10-14 02:19] LABS: PT 12.1 SEC (9.4-12.5); PTT 28 SEC (25-37)
[2017-10-14 06:56] VITALS: BP 106/64
[2017-10-14 08:40] LABS: ABSOLUTE BASOPHIL COUNT 0 /CUMM (0.0-0.2); ABSOLUTE EOSINOPHIL COUNT 0 /CUMM (0.0-0.7); ABSOLUTE MONOCYTE COUNT 0.2 /CUMM (0.10-0.60); MEAN CORPUSCULAR HGB CONC 33.2 G/DL (33.0-37.0)
[2017-10-14 08:47] LABS: ABSOLUTE GRANULOCYTE CT 2.6 /CUMM (1.4-6.5); ABSOLUTE LYMPH COUNT 0.7 /CUMM (1.2-3.4); BASOPHIL % 0.3 % (0.0-2.0); EOSINOPHIL % 1.4 % (0-5); GRANULOCYTE % 72.1 % (42.2-75.2); MEAN CORPUSCULAR HGB 25.4 PG (27.0-31.0); MEAN CORPUSCULAR VOLUME 76.5 FL (80.0-94.0); RBC DISTRIBUTION WIDTH 19.5 % (11.5-14.5); RED BLOOD CELL CT 4.36 /CUMM (4.70-6.10); WHITE BLOOD CELL COUNT 3.6 /CUMM (4.8-10.8)
[2017-10-14 09:19] LABS: HEMATOCRIT 33.4 % (42-52)
--- NOTE | 2017-10-14 10:41 | PN- Att Addend ---
Attending Addendum Attending Brief Note Patient seen and examined. Plan of care discussed with the medical team and the patient. Available lab work and radiology test reports were reviewed. Patient feels much better and denies any recent fever chills or chest pain difficult breathing. No reported nausea vomiting or abdominal pain. Exam: General: Patient awake alert oriented without any distress; CVS: S1 plus S2 with loud systolic ejection murmur at the apex is also heard in the aortic area Chest: Few scattered crepitation without any wheeze. There is no respiratory distress. 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 It is considered a poor prognostic sign * Possible DIC given elevated d-dimer and fibrinogen level Plan * Continue ceftriaxone 2 g IV daily * Check echocardiogram to confirm endocarditis * Repeat cultures in a.m. * Please obtain echocardiogram report from Dr. Gaston's office * Repeat CBC in a.m. * urine for red cell cast * Check rheumatoid factor Current Medications Sig/Lizzie Start time Last Medication Dose Route Stop Time Status Admin Acetaminophen 650 MG Q6P PRN 10/13 2014 AC 10/14 PO 0611 Acetaminophen 1,000 MG Q6P PRN 10/13 2014 AC IV Acetaminophen 0 .STK-MED ONE 10/13 1924 DC IV Acetaminophen 1,000 MG ONCE ONE 10/13 1845 DC 10/13 IV 10/13 1846 1920 Ampicillin Sodium/ 0 .STK-MED ONE 10/13 1728 DC Sulbactam Sodium .ROUTE Ampicillin Sodium/ 3,000 MG ONCE ONE 10/13 1645 DC 10/13 Sulbactam Sodium IV 10/13 1714 1748 Sodium Chloride 100 ML Bisoprolol Fumarate 10 MG DAILY 10/14 0900 AC 10/14 PO 0831 Budesonide/ 2 PUF BID 10/14 0900 AC 10/14 Formoterol Fumarate INH 0831 Ceftriaxone Sodium 2,000 MG 2200 10/13 2200 AC 10/13 IV 2338 Cyclobenzaprine HCl 10 MG TID 10/14 899 AC 10/14 PO 0830 Enoxaparin Sodium 40 MG DAILY 10/14 09 CAN SC Fenofibrate 48 MG DAILY 10/14 09 AC 10/14 PO 0831 Gabapentin 300 MG TID 10/13 2214 AC 10/14 PO 0830 Lisinopril 10 MG DAILY 10/14 899 AC 10/14 PO 0831 Montelukast Sodium 10 MG DAILY 10/14 09 AC 10/14 PO 0831 Omeprazole 20 MG DAILY AC 10/14 0700 AC 10/14 PO 0608 Sodium Chloride 1,000 ML BOLUS ONE 10/13 1600 DC 10/13 IV 10/13 1659 1748 Laboratory Tests 10/14/17 0746: Anion Gap 13, Estimated GFR > 60, BUN/Creatinine Ratio 16.7, Direct Bilirubin Pending, C-Reactive Prot, Quant Pending, C-React Prot High Sens > 15.0 H, CBC w Diff MAN DIFF ORDERED, RBC 4.36 L, MCV 76.5 L, MCH 25.4 L, MCHC 33.2, RDW 19.5 H, Gran % 72.1, Lymphocytes % 20.8, Monocytes % 5.4, Eosinophils % 1.4, Basophils % 0.3, Absolute Granulocytes 2.6, Segmented Neutrophils Pending, Absolute Lymphocytes 0.7 L, Absolute Monocytes 0.2, Absolute Eosinophils 0, Absolute Basophils 0, ESR Westergren Pending 10/14/17 0600: Haptoglobin Pending 10/14/17 0145: PT 12.1, INR 1.11, APTT 28, Fibrinogen Activity 434 H, D-Dimer High Sensitivty 950 H 10/14/17 0137: D-Dimer High Sensitivty Cancelled 10/14/17 0132: Fibrinogen Activity Cancelled 10/13/17 2217: Lactic Acid 1.1 10/13/17 1751: Urine Color YEL, Urine Clarity HAZY H, Urine pH 6.0, Ur Specific [place] <= 1.005, Urine Protein TRACE H, Urine Ketones NEG, Urine Nitrite NEG, Urine Bilirubin NEG, Urine Urobilinogen 0.2, Ur Leukocyte Esterase NEG, Ur Microscopic SEDIMENT EXAMINED, Urine RBC 1-3, Urine WBC 1-3 H, Urine Hemoglobin LARGE H, Urine Glucose NEG 10/13/17 1725: Anion Gap 16, Estimated GFR > 60, BUN/Creatinine Ratio 17.8, Glucose 89, Lactic Acid 1.3, Calcium 9.2, Total Bilirubin 1.1, AST 36, ALT 17 L, Alkaline Phosphatase 52, Lactate Dehydrogenase 567, Troponin I 0.02, Total Protein 7.8, Albumin 3.7, Globulin 4.1, Albumin/Globulin Ratio 0.9 L, CBC w Diff NO MAN DIFF REQ, RBC 5.01, MCV 77.3 L, MCH 25.1 L, MCHC 32.5 L, RDW 19.5 H, MPV 10.3, Gran % 73.5, Lymphocytes % 21.2, Monocytes % 4.1, Eosinophils % 0.9, Basophils % 0.3, Absolute Granulocytes 4.1, Absolute Lymphocytes 1.2, Absolute Monocytes 0.2 , Absolute Eosinophils 0, Absolute Basophils 0 10/13/17 1617: Troponin I Cancelled 10/13/17 1615: Lactic Acid Cancelled Microbiology 10/14 0859 BLOOD: Blood Culture - RECD 10/14 0746 BLOOD: Blood Culture - RECD 10/13 175 URINE ROUT: Streptococcus pneumoniae Antigen (M - COMP 10/13 175 URINE ROUT: Urine Culture - RES 10/13 1725 BLOOD: Blood Culture - RECD 10/13 1710 BLOOD: Blood Culture - RECD Vital Signs Date Time Temp Pulse Resp B/P B/P Pulse O2 O2 Flow FiO2 Mean Ox Delivery Rate 10/14 0831 94 110/68 10/14 0656 98.0 94 18 106/64 94 10/13 2109 97.9 93 20 102/70 97 Room Air 10/13 1926 88 18 113/69 99 Room Air 10/13 1749 97.8 89 22 112/72 100 Room Air 10/13 1526 97.6 95 12 113/75 97 Room Air Intake & Output 10/14 1600 10/14 0800 10/14 0000 Intake Total 200 1220 Output Total Balance 200 1220 Intake, IV 1100 Intake, Oral 200 120 Patient 165 lb 174 lb Weight
--- NOTE | 2017-10-14 11:19 | PN- Housestaff ---
Subjective Follow-up For: sepsis 2/2 suspected endocarditis Review of Systems Constitutional: Reports: no symptoms. Objective Last 24 Hrs of Vital Signs/I&O Vital Signs Date Time Temp Pulse Resp B/P B/P Pulse O2 O2 Flow FiO2 Mean Ox Delivery Rate 10/14 1354 97.6 102 20 116/78 95 Room Air 10/14 0831 94 110/68 10/14 0656 98.0 94 18 106/64 94 10/13 2109 97.9 93 20 102/70 97 Room Air 10/13 1926 88 18 113/69 99 Room Air 10/13 1749 97.8 89 22 112/72 100 Room Air Intake & Output 10/14 1600 10/14 0800 10/14 0000 Intake Total 1540 424 7628 Output Total Balance 5070 564 2388 Intake, IV 1100 Intake, Oral 1000 200 120 Patient 165 lb 174 lb Weight Physical Exam General Appearance: Alert, Oriented X3, Cooperative, No Acute Distress Assessment/Plan Assessment: 47-year-old male with past medical history of hypertension, hyperlipidemia, heart murmur (patient cannot remember exactly what type) for which he follows up with Dr. Gaston. Who presented yesterday to [facility] with complaints of body aches, headache and fever. Patient was discharged on doxycycline and he got 2 doses. He denies any fever after discharge however he still endorses intermittent muscle pain. Blood culture were obtained and came back positive for GPC. in chains. Physical exam was positive for ejection systolic murmur heard at the aortic area, widespread erythematous pitecheal rash in both upper and lower extremity. In addition to few Janway lesions. Given the patient history of heart murmur, fever, positive blood culture makes infective endocarditis more likely. However his rash might be due to thrombocytopenia. Vital signs on admission: Blood pressure 115/75, pulse 95, temperature 97.6, pulse 97 on room air, Labs on admission: CBC showed WBC 5.6, hemoglobin 12.6, hematocrit 38.8, platelets 62, BP was normal, UA was positive only for hemoglobin. Chest x-ray from 0 10/12 showed:Borderline cardiomegaly, unchanged. Mild bronchial wall thickening centrally is unchanged from prior and could be due to reactive airways disease or viral/atypical infection. No focal consolidation. EKG: Normal sinus rhythm, heart rate 88, [place] 148, QTc 480, no STT wave changes Problem list: GPC bacteremia (? Infective endocarditis) Thrombocytopenia (his platelets dropped from 219 on 09/14 to 62) with no clear reason History of heart murmur Hypertension Hyperlipidemia Chronic back pain Plan: Admit to general medicine floor Vitals every shift Repeat 2 sets of blood culture before starting antibiotics Repeat blood culture in a.m. Start ceftriaxone 2 g IV daily Hold doxycycline Follow-up on the sensitivity results of the blood culture From 0 10/12 Follow-up on urine culture follow up on d-dimer, PT,PTT,FSP Echocardiogram (patient might need JOHNY to rule out vegetations) Can onsider ID cardiology consult appreciated (Dr. Gaston was informed please confirm with him ) Continue home meds Full code Heart healthy diet DVT ALPs Problem List: 1. Thrombocythemia 2. Bacteremia Pain Ratin Pain Location: na Pain Goal: Remain pain free Pain Plan: na Tomorrow's Labs & Rationales: cbc
[2017-10-14 12:54] LABS: ABSOLUTE BASOPHIL COUNT 0 /CUMM (0.0-0.2); ABSOLUTE EOSINOPHIL COUNT 0 /CUMM (0.0-0.7); ABSOLUTE GRANULOCYTE CT 2.7 /CUMM (1.4-6.5); ABSOLUTE LYMPH COUNT 0.8 /CUMM (1.2-3.4); ABSOLUTE MONOCYTE COUNT 0.2 /CUMM (0.10-0.60); BASOPHIL % 0.5 % (0.0-2.0); EOSINOPHIL % 1.2 % (0-5); GRANULOCYTE % 72.2 % (42.2-75.2); HEMATOCRIT 33.6 % (42-52); MEAN CORPUSCULAR HGB 25.6 PG (27.0-31.0); MEAN CORPUSCULAR HGB CONC 33.5 G/DL (33.0-37.0); MEAN CORPUSCULAR VOLUME 76.6 FL (80.0-94.0); MEAN PLATELET VOLUME 10.9 FL (7.4-10.4); RBC DISTRIBUTION WIDTH 19.5 % (11.5-14.5); RED BLOOD CELL CT 4.39 /CUMM (4.70-6.10); WHITE BLOOD CELL COUNT 3.8 /CUMM (4.8-10.8)
[2017-10-14 13:54] VITALS: BP 116/78
--- NOTE | 2017-10-14 16:19 | Cons- Infect Disease ---
General Information and HPI Consulting Request Date of Consult: 10/14/17 Requested By: Anant VELA,Arnulfo Reason for Consult: Positive blood cultures for alpha strep Source of Information: patient, old records History of Present Illness: This is a 47-year-old man with a history of a systolic murmur secondary to mitral valve prolapse, low back pain for the past 6 months, attributed to a work injury, and several months of various complaints including fevers, sweats, anorexia, weight loss and petechial skin lesions, seen in the emergency room one day prior to admission with the acute onset of congestion and nausea, found to be febrile to 100.9, with a platelet count of 89,000 and a negative chest x-ray, discharged on Doxycycline, admitted on October 13 after he was called back to the emergency room because of positive blood cultures for gram-positive cocci in chains. On admission he was afebrile. Laboratory data revealed a white blood cell count of 6000, H&H 13 and 39, platelets 62,000, BUN/creatinine 16 and 0.9, with normal liver enzymes. Urinalysis 1-3 RBC/1-3 WBCs. He was given a dose of Unasyn and then begun on Ceftriaxone. He has remained afebrile since admission and offers no specific complaints at this time. He does report having a lot of dental work over the past several months, most recently 3 weeks prior to admission, and he does report taking antibiotics prior to the dental work. He has had no injections or other medical procedures recently and denies any IV drug abuse. Allergies/Medications Allergies: Coded Allergies: No Known Drug Allergies (Intermediate, NONE 10/12/17) cat dander (Intermediate, HIVES 09/14/16) Uncoded Allergies: DUST (Severe, HIVES 07/12/13) Home Med List: Albuterol Sulfate (Proventil Hfa) 90 MCG HFA.AER.AD 2 PUF INH 4 TIMES/DAY PRN SHORTNESS OF BREATH (Reported) Bisoprolol Fumarate 10 MG TABLET 1 TAB PO DAILY HEART (Reported) Budesonide/Formoterol Fumarate (Symbicort 160-4.5 Mcg Inhaler) 160 MCG-4.5 MCG/ ACTUATION HFA.AER.AD 2 PUF INH BID BREATHING PROBLEMS (Reported) Cetirizine HCl 10 MG TABLET 1 TAB PO DAILY ALLERGIES (Reported) Cyclobenzaprine HCl 10 MG TABLET 1 TAB PO TID MUSCLE SPASMS (Reported) Doxycycline Hyclate 100 MG TABLET 1 TAB PO BID uri Fenofibric Acid (Choline) (Trilipix) 45 MG CAPSULE.DR 1 CAP PO QPM CHOLESTEROL (Reported) Gabapentin 300 MG CAPSULE 1 CAP PO TID SEIZURES (Reported) Ibuprofen 800 MG TABLET 1 TAB PO BID PAIN (Reported) Lisinopril 10 MG TABLET 1 TAB PO DAILY HEART (Reported) Montelukast Sodium 10 MG TABLET 1 TAB PO DAILY ALLERGIES (Reported) Pantoprazole Sodium (Protonix) 40 MG TABLET.DR 1 TAB PO DAILY GERD Plant Stanol Nasima (Cholest Off Plus) 450 MG CAPSULE (Unknown Dose) PO DAILY HIGH CHOLESTEROL (Reported) Past History Travel History Traveled to [place] past 21 day No Medical History Blood Transfusion Hx: No Neurological: NONE EENT: NONE Cardiovascular: hypertension, HIGH CHOLESTEROL, mitral valve prolapse Respiratory: NONE Gastrointestinal: NONE Hepatic: NONE Renal: NONE Musculoskeletal: NONE Psychiatric: NONE Endocrine: NONE Blood Disorders: NONE Cancer(s): NONE 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 Psychosocial History Where Do You Live? Home Services at Home: None Smoking Status: Unknown If Ever Smoked ETOH Use: denies use Illicit Drug Use: denies illicit drug use Review of Systems Review of Systems Cardiovascular: Denies: chest pain. Respiratory: Denies: cough, short of breath. GI: Denies: abdominal pain, diarrhea, changes in stool, vomiting. Genitourinary: Reports: no symptoms. Musculoskeletal: Reports: back pain, muscle pain. Denies: joint pain. Skin: Reports: rash (petecchial). All Other Systems: Reviewed and Negative Exam & Diagnostic Data Last 24 Hrs of Vital Signs/I&O Vital Signs Date Time Temp Pulse Resp B/P B/P Pulse O2 O2 Flow FiO2 Mean Ox Delivery Rate 10/14 1354 97.6 102 20 116/78 95 Room Air 10/14 0831 94 110/68 10/14 0656 98.0 94 18 106/64 94 10/13 2109 97.9 93 20 102/70 97 Room Air 10/13 1926 88 18 113/69 99 Room Air 05/16 1749 97.8 89 22 112/72 100 Room Air Intake & Output 10/14 1600 10/14 0800 10/14 0000 Intake Total 9158 408 9905 Output Total Balance 7183 141 7052 Intake, IV 1100 Intake, Oral 1000 200 120 Patient 165 lb 174 lb Weight Physical Exam Other Physical Findings: He is awake and alert in no acute distress. He is afebrile. Skin reveals scattered petechial lesions on his lower extremities. HEENT exam is negative. Neck is supple with no adenopathy. Lungs are clear. Heart regular rhythm with a 3/6 holosystolic murmur. Abdomen is soft, nontender with positive bowel sounds. Back no CVA tenderness. Extremities no cyanosis, clubbing or edema. Neuro is without focality. Last 24 Hours of Lab Results: Laboratory Tests 10/14 10/14 1036 0746 Chemistry Sodium (137 - 145 mmol/L) 140 Potassium (3.5 - 5.1 mmol/L) 4.4 Chloride (98 - 107 mmol/L) 106 Carbon Dioxide (22 - 30 mmol/L) 21 L Anion Gap (5 - 16) 13 BUN (9 - 20 mg/dL) 15 Creatinine (0.7 - 1.2 mg/dL) 0.9 Estimated GFR (>60 ml/min) > 60 BUN/Creatinine Ratio (7 - 25 %) 16.7 Direct Bilirubin (< 0.4 mg/dL) 0.4 C-Reactive Prot, Quant (<1.0 mg/dL) 5.8 H C-React Prot High Sens (1.0 - 3.0 mg/L) > 15.0 H Hematology CBC w Diff NO MAN DIFF REQ MAN DIFF ORDERED WBC (4.8 - 10.8 /CUMM) 3.8 L 3.6 L RBC (4.70 - 6.10 /CUMM) 4.39 L 4.36 L Hgb (14.0 - 18.0 G/DL) 11.3 L 11.1 L Hct (42 - 52 %) 33.6 L 33.4 L MCV (80.0 - 94.0 FL) 76.6 L 76.5 L MCH (27.0 - 31.0 PG) 25.6 L 25.4 L MCHC (33.0 - 37.0 G/DL) 33.5 33.2 RDW (11.5 - 14.5 %) 19.5 H 19.5 H Plt Count (130 - 400 /CUMM) MPV (7.4 - 10.4 FL) 10.9 H Gran % (42.2 - 75.2 %) 72.2 72.1 Lymphocytes % (20.5 - 51.1 %) 21.4 20.8 Monocytes % (1.7 - 9.3 %) 4.7 5.4 Eosinophils % (0 - 5 %) 1.2 1.4 Basophils % (0.0 - 2.0 %) 0.5 0.3 Absolute Granulocytes (1.4 - 6.5 /CUMM) 2.7 2.6 Segmented Neutrophils (42.2 - 75.2 %) 61 Band Neutrophils (0.0 - 5.0 %) 12 H Absolute Lymphocytes (1.2 - 3.4 /CUMM) 0.8 L 0.7 L Lymphocytes (20.5 - 51.1 %) 23 Monocytes (1.7 - 9.3 %) 4 Absolute Monocytes (0.10 - 0.60 /CUMM) 0.2 0.2 Absolute Eosinophils (0.0 - 0.7 /CUMM) 0 0 Absolute Basophils (0.0 - 0.2 /CUMM) 0 0 Platelet Estimate (ADEQUATE) Poikilocytosis 2+ Anisocytosis 2+ ESR Westergren (0 - 10 MM) 69 H 10/14 10/14 10/14 10/14 0600 0145 0137 0132 Coagulation PT (9.4 - 12.5 SEC) 12.1 INR (0.90 - 1.17) 1.11 APTT (25 - 37 SEC) 28 Fibrinogen Activity (200 - 393 MG/DL) 434 H Cancelled D-Dimer High Sensitivty (0 - 243 ng/ml) 950 H Cancelled Hematology Haptoglobin Pending 10/13 10/13 3107 1751 Chemistry Lactic Acid (0.7 - 2.1 mmol/L) 1.1 Urines Urine Color (YEL,AMB,STR) YEL Urine Clarity (CLEAR) HAZY H Urine pH (5.0 - 8.0) 6.0 Ur Specific Deaver (1.001 - 1.035) <= 1.005 Urine Protein (NEG,<30 MG/DL) TRACE H Urine Ketones (NEG) NEG Urine Nitrite (NEG) NEG Urine Bilirubin (NEG) NEG Urine Urobilinogen (0.1 - 1.0 EU/dl) 0.2 Ur Leukocyte Esterase (NEG) NEG Ur Microscopic SEDIMENT EXAMINED Urine RBC (0 - 5 /HPF) 1-3 Urine WBC (0 - 2 /HPF) 1-3 H Urine Hemoglobin (NEG) LARGE H Urine Glucose (N MG/DL) NEG 10/13 10/13 10/13 1725 1617 1615 Chemistry Sodium (137 - 145 mmol/L) 142 Potassium (3.5 - 5.1 mmol/L) 4.0 Chloride (98 - 107 mmol/L) 102 Carbon Dioxide (22 - 30 mmol/L) 24 Anion Gap (5 - 16) 16 BUN (9 - 20 mg/dL) 16 Creatinine (0.7 - 1.2 mg/dL) 0.9 Estimated GFR (>60 ml/min) > 60 BUN/Creatinine Ratio (7 - 25 %) 17.8 Glucose (65 - 99 mg/dL) 89 Lactic Acid (0.7 - 2.1 mmol/L) 1.3 Cancelled Calcium (8.4 - 10.2 mg/dL) 9.2 Total Bilirubin (0.2 - 1.3 mg/dL) 1.1 AST (17 - 59 U/L) 36 ALT (21 - 72 U/L) 17 L Alkaline Phosphatase (< 127 U/L) 52 Lactate Dehydrogenase (313 - 618 U/L) 567 Troponin I (<0.11 ng/ml) 0.02 Cancelled Total Protein (6.3 - 8.2 g/dL) 7.8 Albumin (3.5 - 5.0 g/dL) 3.7 Globulin (1.9 - 4.2 gm/dL) 4.1 Albumin/Globulin Ratio (1.1 - 2.2 %) 0.9 L Hematology CBC w Diff NO MAN DIFF REQ WBC (4.8 - 10.8 /CUMM) 5.6 RBC (4.70 - 6.10 /CUMM) 5.01 Hgb (14.0 - 18.0 G/DL) 12.6 L Hct (42 - 52 %) 38.8 L MCV (80.0 - 94.0 FL) 77.3 L MCH (27.0 - 31.0 PG) 25.1 L MCHC (33.0 - 37.0 G/DL) 32.5 L RDW (11.5 - 14.5 %) 19.5 H Plt Count (130 - 400 /CUMM) 62 L MPV (7.4 - 10.4 FL) 10.3 Gran % (42.2 - 75.2 %) 73.5 Lymphocytes % (20.5 - 51.1 %) 21.2 Monocytes % (1.7 - 9.3 %) 4.1 Eosinophils % (0 - 5 %) 0.9 Basophils % (0.0 - 2.0 %) 0.3 Absolute Granulocytes (1.4 - 6.5 /CUMM) 4.1 Absolute Lymphocytes (1.2 - 3.4 /CUMM) 1.2 Absolute Monocytes (0.10 - 0.60 /CUMM) 0.2 Absolute Eosinophils (0.0 - 0.7 /CUMM) 0 Absolute Basophils (0.0 - 0.2 /CUMM) 0 Last 24 Hours of Harsha Results: Blood cultures October 12 positive for alpha strep Blood cultures October 13 negative Blood cultures October 14 pending Urine culture October 13 negative Urine strep pneumo antigen October 13 negative Assessment/Plan Assessment/Plan Impression: This is a 47-year-old man with a history of a systolic murmur secondary to mitral valve prolapse, low back pain for the past 6 months and several months of various complaints including fevers, sweats, anorexia, weight loss and petechial skin lesions, admitted on October 13 after blood cultures obtained in the ER on the days prior to admission were reported positive for gram-positive cocci in chains , identified today as alpha strep. The most likely source of his infection is endocarditis, with his known murmur and history of recent dental work. Given his back pain, osteomyelitis or an epidural abscess must also be considered and, if evaluation for endocarditis is negative, further evaluation for these concerns will be necessary. He is currently on Ceftriaxone, which can be continued pending the HARSHA of the alpha strep to Penicillin, which has been requested of the lab. Suggestion: 1. Follow-up final blood cultures 2. Await echocardiogram 3. Would pursue JOHNY if the transthoracic echo is negative 4. Further evaluation of his back pain, as noted above, if above negative 5. Continue Ceftriaxone 2 g IV every 24 hours pending above Consult Acknowledgment - Thank you for your consult request.
--- NOTE | 2017-10-14 20:04 | Cons- Cardiology ---
General Information and HPI Consulting Request Date of Consult: 10/14/17 Requested By: Anant VELA,Arnulfo Reason for Consult: Suspect infective endocarditis. Source of Information: patient, old records Exam Limitations: no limitations History of Present Illness: Mr. Patrick Vidal is a 47-year-old male w/ a long-standing history of tobacco use, COPD, GERD, HTN, HLD, & MVP w/ assoc MR who presented to the ED for the 2nd time in 48 hours w/ c/o a several month h/o feeling unwell w/ "night sweats", chills/inability to get and stay warm, decreased appetite, weakness, petechial skin lesions, palpitations ("heart pounding") & SOB that got progressively worse over the past month and was associated with "congestion" and nausea. Over the past 6 months he has had multiple dental procedures (~6) w/ the last 3 weeks ago and received prophylactic amoxicillin prior to each procedure. We had seen him in 2015 and discovered MVP w/ MR of moderate to severe range on his last echocardiogram from 2015, but he failed to return for scheduled follow- up visits. 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 After his recent office visit we scheduled him for an echocardiogram to assess his left ventricular size and function, diastolic function, the degree of MVP/MR , estimated PA systolic pressure, etc., but when he came to our testing facility on 10/12/2017 was recommended ED evaluation by our staff, as he appeared unwell. He was evaluated in the ED and ultimately discharged to home, but returned on 10/13/2017 with worsening similar complaints and was found to be febrile. Allergies/Medications Allergies: Coded Allergies: No Known Drug Allergies (Intermediate, NONE 10/12/17) cat dander (Intermediate, HIVES 09/14/16) Uncoded Allergies: DUST (Severe, HIVES 07/12/13) Home Med List: Albuterol Sulfate (Proventil Hfa) 90 MCG HFA.AER.AD 2 PUF INH 4 TIMES/DAY PRN SHORTNESS OF BREATH (Reported) Bisoprolol Fumarate 10 MG TABLET 1 TAB PO DAILY HEART (Reported) Budesonide/Formoterol Fumarate (Symbicort 160-4.5 Mcg Inhaler) 160 MCG-4.5 MCG/ ACTUATION HFA.AER.AD 2 PUF INH BID BREATHING PROBLEMS (Reported) Cetirizine HCl 10 MG TABLET 1 TAB PO DAILY ALLERGIES (Reported) Cyclobenzaprine HCl 10 MG TABLET 1 TAB PO TID MUSCLE SPASMS (Reported) Doxycycline Hyclate 100 MG TABLET 1 TAB PO BID uri Fenofibric Acid (Choline) (Trilipix) 45 MG CAPSULE.DR 1 CAP PO QPM CHOLESTEROL (Reported) Gabapentin 300 MG CAPSULE 1 CAP PO TID SEIZURES (Reported) Ibuprofen 800 MG TABLET 1 TAB PO BID PAIN (Reported) Lisinopril 10 MG TABLET 1 TAB PO DAILY HEART (Reported) Montelukast Sodium 10 MG TABLET 1 TAB PO DAILY ALLERGIES (Reported) Pantoprazole Sodium (Protonix) 40 MG TABLET.DR 1 TAB PO DAILY GERD Plant Stanol Nasima (Cholest Off Plus) 450 MG CAPSULE (Unknown Dose) PO DAILY HIGH CHOLESTEROL (Reported) Review of Systems Review of Systems: A 14 point system review was obtained and was noncontributory, other than as above. 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 Psychosocial History Where Do You Live? Home Services at Home: None Smoking Status: Unknown If Ever Smoked ETOH Use: denies use Illicit Drug Use: denies illicit drug use Exam & Diagnostic Data Vital Signs and I&O Vital Signs Date Time Temp Pulse Resp B/P B/P Pulse O2 O2 Flow FiO2 Mean Ox Delivery Rate 10/14 1354 97.6 102 20 116/78 95 Room Air 10/14 0831 94 110/68 10/14 0656 98.0 94 18 106/64 94 10/13 2109 97.9 93 20 102/70 97 Room Air Intake & Output 10/14 1600 10/14 0800 10/14 0000 10/13 1600 10/13 0800 10/13 0000 Intake Total 4265 993 7072 Output Total Balance 6929 775 2451 Intake, IV 1100 Intake, Oral 1000 200 120 Patient 165 lb 174 lb 174 lb Weight Weight Reported by Patient Measurement Method Physical Exam: Well-developed, well-nourished middle-aged male in no acute distress. Vital signs: See above. Skin: Multiple small petechial hemorrhages. HEENT: Normocephalic, atraumatic, EOMI, slightly dry mucous membranes. Neck: No JVD, no bruits. Lungs: Clear to auscultation bilaterally. Heart: S1, S2 with grade 2/6 systolic murmur heard over the precordium. No gallop or rub appreciated. Abdomen: Soft, nontender, positive bowel sounds. Extremities: No edema. Diagnostic Data EKG Results 10/14/2017: Sinus rhythm and within normal limits. CXR Results 10/12/2017: Borderline cardiomegaly, unchanged. Mild bronchial wall thickening centrally is unchanged from prior and could be due to reactive airways disease or viral/atypical infection. No focal consolidation. Assessment/Plan Assessment/Plan [id number] w/ hx of long-standing tobacco use, COPD, GERD, HTN, HLD, & MVP w/ assoc MR who presented to the ED for the 2nd time in 48 hours w/ c/o a several month h/o feeling unwell w/ "night sweats", chills/inability to get and stay warm, decreased appetite, weakness, petechial skin lesions, palpitations ( "heart pounding") & SOB that got progressively worse over the past month and whose 1st 2 blood cultures were positive for alpha strep raising the suspicion of infective endocarditis. Recommendation: * Follow-up blood cultures. * Transthoracic echocardiogram (TTE) to assess for infective endocarditis (IE). * Transesophageal echocardiogram (JOHNY) if TTE negative for IE given strong suspicion that this is present. * Follow-up on ID recommendations regarding dosage and duration of antimicrobial therapy. * Repeat ECG and CXR in a.m. * Check NT-PRO BNP. * DVT prophylaxis. Further recommendations will follow, Thank you. Consult Acknowledgment - Thank you for your consult request.
[2017-10-14 20:10] LABS: ABSOLUTE BASOPHIL COUNT 0 /CUMM (0.0-0.2); ABSOLUTE EOSINOPHIL COUNT 0 /CUMM (0.0-0.7); ABSOLUTE GRANULOCYTE CT 2.9 /CUMM (1.4-6.5); ABSOLUTE LYMPH COUNT 0.9 /CUMM (1.2-3.4); ABSOLUTE MONOCYTE COUNT 0.2 /CUMM (0.10-0.60); BASOPHIL % 0.3 % (0.0-2.0); EOSINOPHIL % 1.2 % (0-5); GRANULOCYTE % 72.5 % (42.2-75.2); HEMATOCRIT 33.3 % (42-52); MEAN CORPUSCULAR HGB 25.5 PG (27.0-31.0); MEAN CORPUSCULAR VOLUME 77.3 FL (80.0-94.0); RBC DISTRIBUTION WIDTH 19.4 % (11.5-14.5); RED BLOOD CELL CT 4.31 /CUMM (4.70-6.10)
[2017-10-14 22:47] VITALS: BP 100/80
[2017-10-15 06:59] VITALS: BP 124/86
--- NOTE | 2017-10-15 07:41 | PN- Housestaff ---
Subjective Follow-up For: sepsis secondary to suspected endocarditis Complaints: pain scale (0-10) Subjective: Patient denies any shortness of breath or chest pain, no palpitations. He does complain of back pain, lower back, but notes that this is chronic secondary to his many accidents and work related incidents. Otherwise he has no complaints. He states that his back pain is better helped by ibuprofen although the medical team has been continuing tylenol for potential platelet issues. Review of Systems Constitutional: Reports: no symptoms. EENTM: Reports: no symptoms. Cardiovascular: Reports: no symptoms. Respiratory: Reports: no symptoms. Gastrointestinal: Reports: no symptoms. Genitourinary: Reports: no symptoms. Musculoskeletal: Reports: back pain, joint pain. Skin: Reports: lesions. Neurological/Psychological: Reports: anxiety. Objective Last 24 Hrs of Vital Signs/I&O Vital Signs Date Time Temp Pulse Resp B/P B/P Pulse O2 O2 Flow FiO2 Mean Ox Delivery Rate 10/15 0846 98 126/84 10/15 0659 97.8 98 18 124/86 91 10/14 2247 97.2 85 20 100/80 95 Room Air 10/14 1354 97.6 102 20 116/78 95 Room Air Intake & Output 10/15 1600 10/15 0800 10/15 0000 Intake Total 360 500 Output Total Balance 360 500 Intake, Oral 360 500 Patient 171 lb Weight Physical Exam General Appearance: Alert, Oriented X3, Cooperative, No Acute Distress Skin: No Rashes, No Breakdown, No Significant Lesion Skin Temp/Moisture Exam: Warm/Dry Sepsis Skin Exam (color): Normal for Ethnicity HEENT: Atraumatic, EOMI, Mucous Membr. moist/pink Neck: Supple, No JVD Assessment/Plan Assessment: 47-year-old male with past medical history of hypertension, hyperlipidemia, MVP heart murmur for which he follows up with Dr. 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 Patient was discharged on doxycyclin. He denied any fever after discharge however he still endorses intermittent muscle pain. Blood culture were obtained and came back positive for GPC in chains so he was called back to the hospital. Physical exam was positive for ejection systolic murmur heard at the aortic area, widespread erythematous pitecheal rash in both upper and lower extremity, and few tender nodules on hands and feet. Given the patient history of heart murmur, fever, positive blood culture infective endocarditis was likely so patient admitted. He was found to have low platelet cound, elevated ddimer and fibirinogen making his "rash" possibly secondary to thrombocytopenia. Vital signs on admission: Blood pressure 115/75, pulse 95, temperature 97.6, pulse 97 on room air, Labs on admission: CBC showed WBC 5.6, hemoglobin 12.6, hematocrit 38.8, platelets 62, BP was normal, UA was positive only for hemoglobin. Chest x-ray from 0 10/12 showed: Borderline cardiomegaly, unchanged. Mild bronchial wall thickening centrally is unchanged from prior and could be due to reactive airways disease or viral/atypical infection. No focal consolidation. EKG: Normal sinus rhythm, heart rate 88, DE 148, QTc 480, no STT wave changes Patient was started on ceftriaxone 2g IV qd. Today his TTE returned positive for MVP vegetation. Patient was admitted to the general medicine floors for evaluation and treatment of the following: Infective endocarditis -ESHA for pcn done, strep viridans, antibiotic switched to pcn g 3 million units q4h. -Follow cultures taken yesterday and the day before but as per ID no new cultures. As per Dr. Heredia, following blood cultures daily is usually done for MRSA and not viridans. -Vitals every shift Thrombocytopenia (his platelets dropped from 219 on 09/14 to 62) with no clear reason -Peripheral smear was done with EDTA to declump platelets, nothing was seen other than some poikilocytes and decreased platelet number. Patient has no history of bleeding or clotting problems, no family history. No alcohol use. -Possibly due to acute infection. Thrombocytopenia may be a prognostic indicator. -Platelets increased to 76 today. Hypertension and hyperlipidemia -Continue home medications Chronic back pain -Patient was on tylenol but stated that ibuprofen works better. -Ibuprofen 600mg bid prn Full code Heart healthy diet DVT ALPs Problem List: 1. Thrombocythemia 2. Bacteremia 3. Endocarditis Pain Ratin Pain Location: LOWER BACK FROM CHRONIC INJURIES Pain Goal: Pain 4 or less Pain Plan: ibuprofen Tomorrow's Labs & Rationales: cbc
[2017-10-15 08:41] LABS: ABSOLUTE BASOPHIL COUNT 0 /CUMM (0.0-0.2); ABSOLUTE EOSINOPHIL COUNT 0.1 /CUMM (0.0-0.7); ABSOLUTE GRANULOCYTE CT 4.7 /CUMM (1.4-6.5); ABSOLUTE LYMPH COUNT 1.4 /CUMM (1.2-3.4); ABSOLUTE MONOCYTE COUNT 0.3 /CUMM (0.10-0.60); BASOPHIL % 0.4 % (0.0-2.0); EOSINOPHIL % 0.9 % (0-5); GRANULOCYTE % 72.7 % (42.2-75.2); HEMATOCRIT 37.8 % (42-52); MEAN CORPUSCULAR HGB 25.1 PG (27.0-31.0); MEAN CORPUSCULAR HGB CONC 32.4 G/DL (33.0-37.0); MEAN CORPUSCULAR VOLUME 77.4 FL (80.0-94.0); MEAN PLATELET VOLUME 10.6 FL (7.4-10.4); RBC DISTRIBUTION WIDTH 19.6 % (11.5-14.5); RED BLOOD CELL CT 4.88 /CUMM (4.70-6.10)
[2017-10-15 09:37] LABS: PLATELET COUNT 76 /CUMM (130-400); WHITE BLOOD CELL COUNT 6.4 /CUMM (4.8-10.8)
--- NOTE | 2017-10-15 10:15 | RADIOLOGY REPORT ---
EXAMINATION: XR PORTABLE CHEST CLINICAL INFORMATION: Sepsis. COMPARISON: Chest done on 10/12/2017. TECHNIQUE: Portable frontal semierect 80 degrees view of the chest was obtained. FINDINGS: The cardiomediastinal silhouette is mildly enlarged. There is mild pulmonary venous congestion present. Both lung choi are symmetrically expanded and are clear. There is no pleural effusion identified. Please note that both lateral CP angles are not optimally included within the [id number] and accordingly evaluation for small effusion is limited. IMPRESSION: Persistent stable mild enlargement of the cardiomediastinal silhouette. Mild pulmonary venous congestion. No focal airspace disease.
--- NOTE | 2017-10-15 14:15 | PN- Att Addend ---
Attending Addendum Attending Brief Note Patient seen and examined. Plan of care discussed with the medical team and the patient. Available lab work and radiology test reports were reviewed. Patient feels much better and denies any recent fever chills or chest pain difficult breathing. No reported nausea vomiting or abdominal pain. He felt anxious this morning and felt like he was having panic attack. Exam: General: Patient awake alert oriented without any distress; slightly anxious CVS: S1 plus S2 with loud systolic ejection murmur at the apex is also heard in the aortic area Chest: Few scattered crepitation without any wheeze. There is no respiratory distress. 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 It is considered a poor prognostic sign * Possible DIC given elevated d-dimer and fibrinogen level Plan * Continue ceftriaxone 2 g IV daily; patient ultimately will need to penicillin which would be optimal therapy for alpha strep; * Check echocardiogram to confirm endocarditis; if negative patient only JOHNY * Repeat cultures in a.m. and repeat cultures daily until cultures are negative * Repeat CBC in a.m. Current Medications Sig/Lizzie Start time Last Medication Dose Route Stop Time Status Admin Acetaminophen 650 MG Q6P PRN 10/13 2014 DC 10/14 PO 1316 Acetaminophen 1,000 MG Q6P PRN 10/13 2014 AC IV Alprazolam 0.25 MG BID PRN 10/15 0930 AC PO 10/22 0929 Bisoprolol Fumarate 10 MG DAILY 10/14 09 AC 10/15 PO 0846 Budesonide/ 2 PUF BID 10/14 899 AC 10/15 Formoterol Fumarate INH 0846 Ceftriaxone Sodium 2,000 MG 0 10/13 2199 AC 10/14 IV 2147 Cyclobenzaprine HCl 10 MG TID 10/14 09 AC 10/15 PO 1322 Fenofibrate 48 MG DAILY 10/14 09 AC 10/15 PO 0846 Gabapentin 300 MG TID 10/13 2214 AC 10/15 PO 1322 Ibuprofen 600 MG TID 10/15 1011 AC 10/15 PO 1025 Lisinopril 10 MG DAILY 10/14 0900 AC 10/15 PO 0846 Montelukast Sodium 10 MG DAILY 10/14 09 AC 10/15 PO 0846 Omeprazole 20 MG DAILY AC 10/14 0700 AC 10/15 PO 0629 Laboratory Tests 10/15/17 0800: CBC w Diff NO MAN DIFF REQ, RBC 4.88, MCV 77.4 L, MCH 25.1 L, MCHC 32.4 L, RDW 19.6 H, MPV 10.6 H, Gran % 72.7, Lymphocytes % 21.6, Monocytes % 4.4, Eosinophils % 0.9, Basophils % 0.4, Absolute Granulocytes 4.7, Absolute Lymphocytes 1.4, Absolute Monocytes 0.3, Absolute Eosinophils 0.1, Absolute Basophils 0 10/14/17 1837: CBC w Diff NO MAN DIFF REQ, RBC 4.31 L, MCV 77.3 L, MCH 25.5 L, MCHC 33.0, RDW 19.4 H, MPV , Gran % 72.5, Lymphocytes % 21.6, Monocytes % 4.4, Eosinophils % 1.2, Basophils % 0.3, Absolute Granulocytes 2.9, Absolute Lymphocytes 0.9 L, Absolute Monocytes 0.2, Absolute Eosinophils 0, Absolute Basophils 0 10/14/17 1622: Tiq-P-Jxtojekktwd Pept 5790 H, Rheum Factor Semi-Quant 11.0, HIV 1&2 Ab Western Blot NONREACTIVE 10/14/17 1036: CBC w Diff NO MAN DIFF REQ, RBC 4.39 L, MCV 76.6 L, MCH 25.6 L, MCHC 33.5, RDW 19.5 H, MPV 10.9 H, Gran % 72.2, Lymphocytes % 21.4, Monocytes % 4.7, Eosinophils % 1.2, Basophils % 0.5, Absolute Granulocytes 2.7, Absolute Lymphocytes 0.8 L, Absolute Monocytes 0.2, Absolute Eosinophils 0, Absolute Basophils 0 10/14/17 0746: Anion Gap 13, Estimated GFR > 60, BUN/Creatinine Ratio 16.7, Direct Bilirubin 0.4, C-Reactive Prot, Quant 5.8 H, C-React Prot High Sens > 15.0 H, CBC w Diff MAN DIFF ORDERED, RBC 4.36 L, MCV 76.5 L, MCH 25.4 L, MCHC 33.2, RDW 19.5 H, Gran % 72.1, Lymphocytes % 20.8, Monocytes % 5.4, Eosinophils % 1.4, Basophils % 0.3, Absolute Granulocytes 2.6, Segmented Neutrophils 61, Band Neutrophils 12 H , Absolute Lymphocytes 0.7 L, Lymphocytes 23, Monocytes 4, Absolute Monocytes 0.2, Absolute Eosinophils 0, Absolute Basophils 0, Platelet Estimate , Poikilocytosis 2+, Anisocytosis 2+, ESR Westergren 69 H 10/14/17 0600: Haptoglobin Pending 10/14/17 0145: PT 12.1, INR 1.11, APTT 28, Fibrinogen Activity 434 H, D-Dimer High Sensitivty 950 H 10/14/17 0137: D-Dimer High Sensitivty Cancelled 10/14/17 0132: Fibrinogen Activity Cancelled 10/13/17 2217: Lactic Acid 1.1 10/13/17 1751: Urine Color YEL, Urine Clarity HAZY H, Urine pH 6.0, Ur Specific Max <= 1.005, Urine Protein TRACE H, Urine Ketones NEG, Urine Nitrite NEG, Urine Bilirubin NEG, Urine Urobilinogen 0.2, Ur Leukocyte Esterase NEG, Ur Microscopic SEDIMENT EXAMINED, Urine RBC 1-3, Urine WBC 1-3 H, Urine Hemoglobin LARGE H, Urine Glucose NEG 10/13/17 1725: Anion Gap 16, Estimated GFR > 60, BUN/Creatinine Ratio 17.8, Glucose 89, Lactic Acid 1.3, Calcium 9.2, Total Bilirubin 1.1, AST 36, ALT 17 L, Alkaline Phosphatase 52, Lactate Dehydrogenase 567, Troponin I 0.02, Total Protein 7.8, Albumin 3.7, Globulin 4.1, Albumin/Globulin Ratio 0.9 L, CBC w Diff NO MAN DIFF REQ, RBC 5.01, MCV 77.3 L, MCH 25.1 L, MCHC 32.5 L, RDW 19.5 H, MPV 10.3, Gran % 73.5, Lymphocytes % 21.2, Monocytes % 4.1, Eosinophils % 0.9, Basophils % 0.3, Absolute Granulocytes 4.1, Absolute Lymphocytes 1.2, Absolute Monocytes 0.2 , Absolute Eosinophils 0, Absolute Basophils 0 10/13/17 1617: Troponin I Cancelled 10/13/17 1615: Lactic Acid Cancelled Microbiology 10/15 0827 BLOOD: Blood Culture - RECD 10/15 0800 BLOOD: Blood Culture - RECD 10/14 0859 BLOOD: Blood Culture - RES 10/14 0746 BLOOD: Blood Culture - RES 10/13 175 URINE ROUT: Streptococcus pneumoniae Antigen (M - COMP 10/13 175 URINE ROUT: Urine Culture - COMP 10/13 172 BLOOD: Blood Culture - RES GRAM POSITIVE COCCI 10/13 171 BLOOD: Blood Culture - RES GRAM POSITIVE COCCI Vital Signs Date Time Temp Pulse Resp B/P B/P Pulse O2 O2 Flow FiO2 Mean Ox Delivery Rate 10/15 0846 98 126/84 10/15 0659 97.8 98 18 124/86 91 10/14 2247 97.2 85 20 100/80 95 Room Air Intake & Output 10/15 1600 10/15 0800 10/15 0000 Intake Total 1000 360 500 Output Total Balance 1000 360 500 Intake, Oral 1000 360 500 Patient 171 lb Weight
[2017-10-15 15:11] VITALS: BP 110/70
--- NOTE | 2017-10-15 15:55 | ECHOCARDIOGRAM REPORT ---
HIMANSHU CANO Age: 47 : 1970 Gender: M Exam Date: 10/14/2017 20:00 Exam Location: [address] [place] [address] Ht (in): 75 Wt (lb): 165 BSA: 1.98 BP: 116 / 78 Ordering Physician: Iveth Whitmore MD Referring Physician: Sudheer Gaston MD Technologist: Teresa Botello [facility] Room Number: 215-01 Indications: CARDIOMYOPATHY Rhythm: Sinus Technical Quality: good FINDINGS Left Ventricle Normal left ventricular size with mild left ventricular hypertrophy. Normal systolic function with no obvious regional wall motion abnormalities. Normal left ventricular diastolic filling pattern for age. The ejection fraction is visually estimated at 60%. Right Ventricle The right ventricle is mildly enlarged with normal function. Right Atrium The right atrium is moderately enlarged. Left Atrium The left atrium is severely enlarged. The interatrial septum is intact. Mitral Valve The mitral valve demonstrates mild prolapse of the posterior leaflet with a vegetation on the leaflet tips. There is severe mitral regurgitation with its jet extending into the pulmonary veins. Aortic Valve Structurally normal aortic valve without significant sclerosis or stenosis. There is no aortic regurgitation. Tricuspid Valve The tricuspid valve is normal in structure and function. There is trace to mild tricuspid regurgitation. Pulmonary artery systolic pressure is moderately elevated to 55mmHg. Pulmonic Valve Structurally normal pulmonic valve. There is trace pulmonic regurgitation. Pericardium Normal pericardium without effusion. No pleural effusion. Great Vessels Normal aortic root dimension. The aortic arch and great vessels are well seen and are normal. CONCLUSIONS 1. Normal EF of 60%. 2. Mild left ventricular hypertrophy. 3. Mild right ventricular enlargement. 4. Moderate right atrial and severe left atrial enlargement. 5. Severe mitral regurgitation. Prolapse of the posterior mitral valve leaflet with a vegetation. 6. Trace to mild tricuspid regurgitation. 7. Trace pulmonic regurgitation. 8. Moderate pulmonary hypertension. Gerardo Wilde M.D. (Electronically Signed) Final Date: 15 Oct 2017 15:54 MEASUREMENTS (Male / Female) Normal Values 2D ECHO LV Diastolic Diameter PLAX 5.6 cm 4.2 - 5.9 / 3.9 - 5.3 cm LV Systolic Diameter PLAX 3.2 cm 2.1 - 4.0 cm LV Fractional Shortening PLAX 42.9 % 25 - 46 % LV Ejection Fraction 2D Teich 73.3 % IVS Diastolic Thickness 1.4 cm LVPW Diastolic Thickness 1.4 cm LV Relative Wall Thickness 0.5 RV Internal Dim ED PLAX 4.0 cm 1.9 - 3.8 cm LVOT Diameter 2.2 cm Aortic Root Diameter 3.5 cm LA Systolic Diameter LX 5.4 cm 3.0 - 4.0 / 2.7 - 3.8 cm LA Volume 98.0 cm 18 - 58 / 22 - 52 cm Ascending Aorta Diameter 3.0 cm DOPPLER AV Peak Velocity 89.6 cm/s AV Peak Gradient 3.2 mmHg AV Mean Velocity 59.0 cm/s AV Mean Gradient 2.0 mmHg AV Velocity Time Integral 15.9 cm LVOT Peak Velocity 76.7 cm/s LVOT Peak Gradient 2.4 mmHg LVOT Mean Velocity 55.7 cm/s LVOT Mean Gradient 1.0 mmHg LVOT Velocity Time Integral 12.5 cm LVOT Stroke Volume 47.5 cm AV Area Cont Eq vti 3.0 cm AV Area Cont Eq pk 3.3 cm MV Peak Velocity 220.0 cm/s MV Peak Gradient 19.4 mmHg MV Mean Velocity 110.0 cm/s MV Mean Gradient 6.0 mmHg Mitral E Point Velocity 172.0 cm/s MV PHT Velocity 228.0 cm/s MV Deceleration [place] 868.0 cm/s MV Pressure Half Time 78.8 ms MV Area PHT 2.8 cm MV Deceleration Time 335.0 ms TR Peak Velocity 352.0 cm/s TR Peak Gradient 49.6 mmHg Right Atrial Pressure 5.0 mmHg Pulmonary Artery Systolic Pressu 54.6 mmHg Right Ventricular Systolic Press 54.6 mmHg PV Peak Velocity 71.0 cm/s PV Peak Gradient 2.0 mmHg PV Mean Velocity 51.7 cm/s PV Mean Gradient 1.0 mmHg PV Velocity Time Integral 14.7 cm LV E' Lateral Velocity 12.4 cm/s Mitral E to LV E' Lateral Ratio 13.9 LV E' Septal Velocity 6.2 cm/s Mitral E to LV E' Septal Ratio 27.6
--- NOTE | 2017-10-15 15:57 | PN- Infect Dx ---
Subjective Subjective: Afebrile. He continues to complain of low back pain. Objective Last 24 Hrs of Vital Signs/I&O Vital Signs Date Time Temp Pulse Resp B/P B/P Pulse O2 O2 Flow FiO2 Mean Ox Delivery Rate 10/15 1511 98.9 95 18 110/70 96 10/15 0846 98 126/84 10/15 0659 97.8 98 18 124/86 91 10/14 2247 97.2 85 20 100/80 95 Room Air Intake & Output 10/15 1600 10/15 0800 10/15 0000 Intake Total 1000 360 500 Output Total Balance 1000 360 500 Intake, Oral 1000 360 500 Patient 171 lb Weight Physical Exam Other Physical Findings: He appears comfortable in no acute distress Skin scattered petechial lesions Lungs are clear Heart no change in his 3/6 holosystolic murmur Extremities no cyanosis, clubbing or edema Results Last 24 Hours of Lab Results: Laboratory Tests 10/15 10/14 0800 1837 Hematology CBC w Diff NO MAN DIFF REQ NO MAN DIFF REQ WBC (4.8 - 10.8 /CUMM) 6.4 4.0 L RBC (4.70 - 6.10 /CUMM) 4.88 4.31 L Hgb (14.0 - 18.0 G/DL) 12.3 L 11.0 L Hct (42 - 52 %) 37.8 L 33.3 L MCV (80.0 - 94.0 FL) 77.4 L 77.3 L MCH (27.0 - 31.0 PG) 25.1 L 25.5 L MCHC (33.0 - 37.0 G/DL) 32.4 L 33.0 RDW (11.5 - 14.5 %) 19.6 H 19.4 H Plt Count (130 - 400 /CUMM) 76 L MPV (7.4 - 10.4 FL) 10.6 H Gran % (42.2 - 75.2 %) 72.7 72.5 Lymphocytes % (20.5 - 51.1 %) 21.6 21.6 Monocytes % (1.7 - 9.3 %) 4.4 4.4 Eosinophils % (0 - 5 %) 0.9 1.2 Basophils % (0.0 - 2.0 %) 0.4 0.3 Absolute Granulocytes (1.4 - 6.5 /CUMM) 4.7 2.9 Absolute Lymphocytes (1.2 - 3.4 /CUMM) 1.4 0.9 L Absolute Monocytes (0.10 - 0.60 /CUMM) 0.3 0.2 Absolute Eosinophils (0.0 - 0.7 /CUMM) 0.1 0 Absolute Basophils (0.0 - 0.2 /CUMM) 0 0 10/14 1622 Chemistry Odz-N-Bwgflqhkyrn Pept (<125 pg/mL) 5790 H Immunology Rheum Factor Semi-Quant (<12 IU/Ml) 11.0 Serology HIV 1&2 Ab Western Blot (NONREACTIVE) NONREACTIVE Last 24 Hours of Harsha Results: Blood cultures October 12 positive for strep mutans, with an HARSHA to Penicillin of less than 0.03 Blood cultures x2 October 13 positive for gram-positive cocci in chains Blood cultures October 14 negative Urine culture October 13 negative Recent Imaging Studies: Chest x-ray October 15 mild pulmonary venous congestion with no focal airspace disease Echocardiogram (per Cardiology) reveals a mitral valve vegetation Assessment/Plan ID Impression: Stable, with temperatures and white blood cell count normal, on Ceftriaxone, 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 His platelet count remains low, though increased from 2 days ago, and is presumably secondary to his infection. His most recent blood cultures are negative and, as long as they remain so, he should not require further blood cultures. Suggestion: 1. Await Cardiology follow-up regarding his vegetation 2.. Discontinue Ceftriaxone 3. Begin Penicillin 3 million units IV every 4 hours
--- NOTE | 2017-10-15 18:56 | PN- Cardiology ---
Subjective Subjective: Feels about the same. Denies shortness of breath at rest. Objective Vital Signs and I&Os Vital Signs Date Time Temp Pulse Resp B/P B/P Pulse O2 O2 Flow FiO2 Mean Ox Delivery Rate 10/15 1511 98.9 95 18 110/70 96 10/15 0846 98 126/84 10/15 0659 97.8 98 18 124/86 91 10/14 2247 97.2 85 20 100/80 95 Room Air Intake & Output 10/15 1600 10/15 0800 10/15 0000 10/14 1600 10/14 0800 10/14 0000 Intake Total 1000 256 444 1225 200 1220 Output Total Balance 1000 948 186 0853 200 1220 Intake, IV 1100 Intake, Oral 1000 419 512 0601 200 120 Patient 171 lb 165 lb 174 lb Weight Physical Exam: Well-developed, well-nourished middle-aged male in no acute distress. Vital signs: See above. Skin: Multiple small petechial hemorrhages. HEENT: Normocephalic, atraumatic, EOMI, slightly dry mucous membranes. Neck: No JVD, no bruits. Lungs: Clear to auscultation bilaterally. Heart: S1, S2 with grade 2-3/6 systolic murmur heard over the precordium. No gallop or rub appreciated. Abdomen: Soft, nontender, positive bowel sounds. Extremities: No edema. Current Medications: Current Medications Sig/Lizzie Start time Last Medication Dose Route Stop Time Status Admin Acetaminophen 650 MG Q6P PRN 10/13 2014 DC 10/14 PO 1316 Acetaminophen 1,000 MG Q6P PRN 10/13 2014 AC IV Alprazolam 0.25 MG BID PRN 10/15 09 AC PO 10/22 0929 Bisoprolol Fumarate 10 MG DAILY 10/14 899 AC 10/15 PO 0846 Budesonide/ 2 PUF BID 10/14 899 AC 10/15 Formoterol Fumarate INH 0846 Ceftriaxone Sodium 2,000 MG 0 10/13 2199 DC 10/14 IV 214 Cyclobenzaprine HCl 10 MG TID 10/14 899 AC 10/15 PO 1322 Fenofibrate 48 MG DAILY 10/14 09 AC 10/15 PO 0846 Gabapentin 300 MG TID 10/13 2214 AC 10/15 PO 1322 Ibuprofen 600 MG .STK-MED ONE 10/15 1757 DC PO 10/15 1758 Ibuprofen 600 MG BID PRN 10/15 1425 AC PO Ibuprofen 600 MG TID 10/15 1011 DC 10/15 PO 1025 Lisinopril 10 MG DAILY 10/14 0900 AC 10/15 PO 0846 Montelukast Sodium 10 MG DAILY 10/14 0900 AC 10/15 PO 0846 Omeprazole 20 MG DAILY AC 10/14 0700 AC 10/15 PO 0629 Patient Medication 1 ED ONE ONE 10/15 1500 NE Teaching ED 10/15 1501 Penicillin G 3 MU Q4 10/15 1800 AC 10/15 Potassium IV 1820 Dextrose/Water 100 ML Results Recent Imaging Studies: CXR 10/15/2017: Persistent stable mild enlargement of the cardiomediastinal silhouette. Mild pulmonary venous congestion. No focal airspace disease. Echocardiogram 10/14/2017: 1. Normal EF of 60%. 2. Mild left ventricular hypertrophy. 3. Mild right ventricular enlargement. 4. Moderate right atrial and severe left atrial enlargement. 5. Severe mitral regurgitation. Prolapse of the posterior mitral valve leaflet with a vegetation. 6. Trace to mild tricuspid regurgitation. 7. Trace pulmonic regurgitation. 8. Moderate pulmonary hypertension. Assessment/Plan Assessment/Plan [id number] w/ hx of long-standing tobacco use, COPD, GERD, HTN, HLD, & MVP w/ assoc MR who presented to the ED for the 2nd time in 48 hours w/ c/o a several month h/o feeling unwell w/ "night sweats", chills/inability to get and stay warm, decreased appetite, weakness, petechial skin lesions, palpitations ( "heart pounding") & SOB that got progressively worse over the past month and whose 1st 2 blood cultures were positive for alpha strep w/ echocardiogram performed on 10/14/2017 c/w probable vegetation on the mitral valve. In patients w/ IE, risk factors for embolization include vegetation size > 10 mm , vegetation mobility, vegetation location on the anterior mitral valve leaflet, prior embolization, and infection with staph aureus, strep bovis, or fungus. Recommendations: * Transfer to telemetry. * Continue antimicrobial therapy as per ID. * CT surgical consultation- Miller Alcantara M.D. called to evaluate patient. * Continue TAO inhibitor, beta-rose, fabric acid derivative fenofibrate * Follow-up blood cultures. * Repeat CXR in a.m. or with complaints of shortness of breath. * Gently diurese. * Continue DVT prophylaxis. Continue telemetry? Yes
[2017-10-15 20:03] VITALS: BP 106/76
[2017-10-15 22:14] VITALS: BP 106/74
[2017-10-16 06:51] VITALS: BP 110/68
--- NOTE | 2017-10-16 08:11 | PN- Housestaff ---
See Addendum Subjective Follow-up For: endocarditis Tele-Events Since Last Visit: NSR 86-94. No overnight events. Subjective: Feels well. Offers no complaints. Review of Systems Constitutional: Reports: no symptoms. Objective Last 24 Hrs of Vital Signs/I&O Vital Signs Date Time Temp Pulse Resp B/P B/P Pulse O2 O2 Flow FiO2 Mean Ox Delivery Rate 10/16 0906 88 110/68 10/16 0651 97.9 88 18 110/68 95 Room Air 10/16 0104 99.0 10/16 0057 99.0 10/15 2255 101.0 10/15 2214 98.8 101 22 106/74 96 10/15 2003 98.1 97 18 106/76 95 10/15 1511 98.9 95 18 110/70 96 Intake & Output 10/16 1600 10/16 0800 10/16 0000 Intake Total 360 1120 Output Total Balance 360 1120 Intake, IV 240 200 Intake, Oral 120 920 Patient 171 lb Weight Physical Exam General Appearance: Alert, Oriented X3, Cooperative, No Acute Distress Skin: No Rashes, No Breakdown Skin Temp/Moisture Exam: Warm/Dry Sepsis Skin Exam (color): Normal for Ethnicity HEENT: Atraumatic Cardiovascular: Normal S1, Normal S2, holosystolic murmur Lungs: Clear to Auscultation, Normal Air Movement Abdomen: Soft, No Tenderness Neurological: Normal Speech Extremities: No Edema Last 24 Hrs of Lab/Harsha Results Last 24 Hrs of Labs/Mics: Laboratory Tests 10/16/17 0630: CBC w Diff NO MAN DIFF REQ, RBC 4.58 L, MCV 77.0 L, MCH 25.6 L, MCHC 33.2, RDW 19.7 H, MPV 10.4, Gran % 69.6, Lymphocytes % 25.2, Monocytes % 3.7, Eosinophils % 1.1, Basophils % 0.4, Absolute Granulocytes 4.8, Absolute Lymphocytes 1.7, Absolute Monocytes 0.3, Absolute Eosinophils 0.1, Absolute Basophils 0 Assessment/Plan Assessment: 47-year-old male with past medical history of hypertension, hyperlipidemia, MVP heart murmur for which he follows up with Dr. Gaston, who presented to [facility] ED with complaints of body aches, headache and fever. Assessment and Plan: Infective endocarditis: - TTE showed vegetation on the leaflet tips of mitral valve - Blood cultures were positive for alpha strep - Continue IV Penicillin G 3MU q4 - cardiology input appreciated Thrombocytopenia: -Possibly due to acute infection. -Platelets increased to 76 yesterday. - unable to be assessed today due to clumping - Monitor daily CBC Hypertension and hyperlipidemia -Continue home medications Chronic back pain -Patient was on tylenol but stated that ibuprofen works better. -Ibuprofen 600mg bid prn Full code Heart healthy diet DVT prophylaxis: ALPs due to thrombocytopenia Problem List: 1. Endocarditis Pain Ratin Pain Location: none Pain Goal: Remain pain free Pain Plan: none Tomorrow's Labs & Rationales: CBC, BEP
[2017-10-16 08:38] LABS: ABSOLUTE BASOPHIL COUNT 0 /CUMM (0.0-0.2); ABSOLUTE EOSINOPHIL COUNT 0.1 /CUMM (0.0-0.7); ABSOLUTE GRANULOCYTE CT 4.8 /CUMM (1.4-6.5); ABSOLUTE LYMPH COUNT 1.7 /CUMM (1.2-3.4); ABSOLUTE MONOCYTE COUNT 0.3 /CUMM (0.10-0.60); BASOPHIL % 0.4 % (0.0-2.0); EOSINOPHIL % 1.1 % (0-5); GRANULOCYTE % 69.6 % (42.2-75.2); HEMATOCRIT 35.2 % (42-52); MEAN CORPUSCULAR HGB 25.6 PG (27.0-31.0); MEAN CORPUSCULAR HGB CONC 33.2 G/DL (33.0-37.0); MEAN PLATELET VOLUME 10.4 FL (7.4-10.4); RBC DISTRIBUTION WIDTH 19.7 % (11.5-14.5); RED BLOOD CELL CT 4.58 /CUMM (4.70-6.10); WHITE BLOOD CELL COUNT 6.8 /CUMM (4.8-10.8)
--- NOTE | 2017-10-16 12:01 | Cons- Thoracic Surgery ---
General Information and HPI Consulting Request Date of Consult: 10/16/17 Requested By: Anant VELA,Arnulfo Reason for Consult: Cardiac surgical evaluation of infection of mitral valve. Source of Information: patient, old records, PCP Exam Limitations: no limitations History of Present Illness: The patient is a 47-year-old gentleman who is been followed as an outpatient by Dr. Gaston for mitral valve regurgitation with known prolapse of the mitral valve. He was recently scheduled for outpatient evaluation in their office with echocardiography. Because of him being generally unwell he was sent to the emergency room and discharged to home. He was called back to the hospital the next day when he developed gram-positive cocci in his blood cultures. Further evaluation including trans-thoracic echocardiography has shown a mitral valve vegetation and cardiac surgical evaluation is asked for help in management and treatment. Allergies/Medications Allergies: Coded Allergies: No Known Drug Allergies (Intermediate, NONE 10/12/17) cat dander (Intermediate, HIVES 09/14/16) Uncoded Allergies: DUST (Severe, HIVES 07/12/13) Home Med List: Albuterol Sulfate (Proventil Hfa) 90 MCG HFA.AER.AD 2 PUF INH 4 TIMES/DAY PRN SHORTNESS OF BREATH (Reported) Bisoprolol Fumarate 10 MG TABLET 1 TAB PO DAILY HEART (Reported) Budesonide/Formoterol Fumarate (Symbicort 160-4.5 Mcg Inhaler) 160 MCG-4.5 MCG/ ACTUATION HFA.AER.AD 2 PUF INH BID BREATHING PROBLEMS (Reported) Cetirizine HCl 10 MG TABLET 1 TAB PO DAILY ALLERGIES (Reported) Cyclobenzaprine HCl 10 MG TABLET 1 TAB PO TID MUSCLE SPASMS (Reported) Doxycycline Hyclate 100 MG TABLET 1 TAB PO BID uri Fenofibric Acid (Choline) (Trilipix) 45 MG CAPSULE.DR 1 CAP PO QPM CHOLESTEROL (Reported) Gabapentin 300 MG CAPSULE 1 CAP PO TID SEIZURES (Reported) Ibuprofen 800 MG TABLET 1 TAB PO BID PAIN (Reported) Lisinopril 10 MG TABLET 1 TAB PO DAILY HEART (Reported) Montelukast Sodium 10 MG TABLET 1 TAB PO DAILY ALLERGIES (Reported) Pantoprazole Sodium (Protonix) 40 MG TABLET.DR 1 TAB PO DAILY GERD Plant Stanol Nasima (Cholest Off Plus) 450 MG CAPSULE (Unknown Dose) PO DAILY HIGH CHOLESTEROL (Reported) Current Medications: Current Medications Sig/Lizzie Start time Last Medication Dose Route Stop Time Status Admin Acetaminophen 1,000 MG .STK-MED ONE 10/15 2252 DC IV 10/15 2253 Acetaminophen 1,000 MG Q6P PRN 10/13 2014 AC 10/15 IV 2255 Alprazolam 0.25 MG BID PRN 10/15 0930 AC PO 10/22 0929 Bisoprolol Fumarate 10 MG DAILY 10/14 09 AC 10/16 PO 0907 Budesonide/ 2 PUF BID 10/14 0900 AC 10/16 Formoterol Fumarate INH 0908 Ceftriaxone Sodium 2,000 MG 2200 10/13 2200 DC 10/14 IV 2147 Cyclobenzaprine HCl 10 MG TID 10/14 09 AC 10/16 PO 0906 Fenofibrate 48 MG DAILY 10/14 09 AC 10/16 PO 0906 Furosemide 20 MG DAILY 10/15 2059 AC 10/16 PO 0907 Gabapentin 300 MG TID 10/13 2214 AC 10/16 PO 0905 Ibuprofen 600 MG .STK-MED ONE 10/15 1757 DC PO 10/15 1758 Ibuprofen 600 MG BID PRN 10/15 1425 AC 10/16 PO 0912 Ibuprofen 600 MG TID 10/15 1011 DC 10/15 PO 1025 Lisinopril 10 MG DAILY 10/14 0900 AC 10/16 PO 0906 Montelukast Sodium 10 MG DAILY 10/14 0900 AC 10/16 PO 0907 Omeprazole 20 MG DAILY AC 10/14 0700 AC 10/16 PO 0542 Patient Medication 1 ED ONE ONE 10/15 1500 AL Teaching ED 10/15 1501 Penicillin G 3 MU Q4 10/15 1800 AC 10/16 Potassium IV 1137 Dextrose/Water 100 ML Past History Medical History Blood Transfusion Hx: No Neurological: NONE EENT: NONE Cardiovascular: hypertension, HIGH CHOLESTEROL mitral valve prolapse Respiratory: NONE Gastrointestinal: NONE Hepatic: NONE Renal: NONE Musculoskeletal: NONE Psychiatric: NONE Endocrine: NONE Blood Disorders: NONE Cancer(s): NONE 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 Psychosocial History Where Do You Live? Home Services at Home: None Smoking Status: Unknown If Ever Smoked ETOH Use: denies use Illicit Drug Use: denies illicit drug use Review of Systems Review of Systems: Review of systems is notable for his presenting complaints of feeling unwell with night sweats chills decreased appetite weakness and noted skin lesions. He is also described palpitations with a feeling of his heart pounding and progressive exertional dyspnea that has gotten worse over the past month. Of note is that he has had multiple dental procedures in the last 3 weeks and did receive prophylactic antibiotics according to his it technical specialist. The rest of the 12 point review of systems is unremarkable. Exam & Diagnostic Data Vital Signs and I&O Vital Signs Date Time Temp Pulse Resp B/P B/P Pulse O2 O2 Flow FiO2 Mean Ox Delivery Rate 10/16 0906 88 110/68 10/16 0651 97.9 88 18 110/68 95 Room Air 10/16 0104 99.0 10/16 0057 99.0 10/15 2255 101.0 10/15 2214 98.8 101 22 106/74 96 10/15 2002 98.1 97 18 106/76 95 10/15 1511 98.9 95 18 110/70 96 Intake & Output 10/16 1600 10/16 0800 10/16 0000 10/15 1600 10/15 0800 10/15 0000 Intake Total 360 1120 1000 360 500 Output Total Balance 360 1120 1000 360 500 Intake, IV 240 200 Intake, Oral 972 454 7925 360 500 Patient 171 lb 171 lb Weight Physical Exam: On physical examination he appears well. His skin shows multiple small petechial hemorrhage areas. There is no cervical or supraclavicular lymphadenopathy. His breath sounds are clear bilaterally with no wheezes rhonchi noted. The cardiac exam shows a regular rhythm and rate with a grade 2- 3 systolic murmur heard over the precordium. The abdomen is soft and nontender with no masses. The periphery shows no cyanosis clubbing or edema. His neurologic exam is grossly normal motor and sensory function. Last 24 Hours of Labs: Laboratory Tests 10/16 06 Hematology CBC w Diff NO MAN DIFF REQ WBC (4.8 - 10.8 /CUMM) 6.8 RBC (4.70 - 6.10 /CUMM) 4.58 L Hgb (14.0 - 18.0 G/DL) 11.7 L Hct (42 - 52 %) 35.2 L MCV (80.0 - 94.0 FL) 77.0 L MCH (27.0 - 31.0 PG) 25.6 L MCHC (33.0 - 37.0 G/DL) 33.2 RDW (11.5 - 14.5 %) 19.7 H Plt Count (130 - 400 /CUMM) MPV (7.4 - 10.4 FL) 10.4 Gran % (42.2 - 75.2 %) 69.6 Lymphocytes % (20.5 - 51.1 %) 25.2 Monocytes % (1.7 - 9.3 %) 3.7 Eosinophils % (0 - 5 %) 1.1 Basophils % (0.0 - 2.0 %) 0.4 Absolute Granulocytes (1.4 - 6.5 /CUMM) 4.8 Absolute Lymphocytes (1.2 - 3.4 /CUMM) 1.7 Absolute Monocytes (0.10 - 0.60 /CUMM) 0.3 Absolute Eosinophils (0.0 - 0.7 /CUMM) 0.1 Absolute Basophils (0.0 - 0.2 /CUMM) 0 Imaging Results: PATIENT: HIMANSHU CANO PRESENT AGE: 47 PATIENT ACCOUNT NO: [id number] : 70 LOCATION: [facility] ORDERING PHYSICIAN: Iveth Whitmore MD SERVICE DATE: 10/14/17 EXAM TYPE: CARD - ECHOCARDIOGRAM HIMANSHU CANO Age: 47 : 1970 Gender: M Exam Date: 10/14/2017 20:00 Exam Location: [address] [address] Ht (in): 75 Wt (lb): 165 BSA: 1.98 BP: 116 / 78 Ordering Physician: Iveth Whitmore MD Referring Physician: Sudheer Gaston MD Technologist: Teresa Botello [facility] Room Number: [id number] Indications: CARDIOMYOPATHY Rhythm: Sinus Technical Quality: good FINDINGS Left Ventricle Normal left ventricular size with mild left ventricular hypertrophy. Normal systolic function with no obvious regional wall motion abnormalities. Normal left ventricular diastolic filling pattern for age. The ejection fraction is visually estimated at 60%. Right Ventricle The right ventricle is mildly enlarged with normal function. Right Atrium The right atrium is moderately enlarged. Left Atrium The left atrium is severely enlarged. The interatrial septum is intact. Mitral Valve The mitral valve demonstrates mild prolapse of the posterior leaflet with a vegetation on the leaflet tips. There is severe mitral regurgitation with its jet extending into the pulmonary veins. Aortic Valve Structurally normal aortic valve without significant sclerosis or stenosis. There is no aortic regurgitation. Tricuspid Valve The tricuspid valve is normal in structure and function. There is trace to mild tricuspid regurgitation. Pulmonary artery systolic pressure is moderately elevated to 55mmHg. Pulmonic Valve Structurally normal pulmonic valve. There is trace pulmonic regurgitation. Pericardium Normal pericardium without effusion. No pleural effusion. Great Vessels Normal aortic root dimension. The aortic arch and great vessels are well seen and are normal. CONCLUSIONS 1. Normal EF of 60%. 2. Mild left ventricular hypertrophy. 3. Mild right ventricular enlargement. 4. Moderate right atrial and severe left atrial enlargement. 5. Severe mitral regurgitation. Prolapse of the posterior mitral valve leaflet with a vegetation. 6. Trace to mild tricuspid regurgitation. 7. Trace pulmonic regurgitation. 8. Moderate pulmonary hypertension. Gerardo Wilde M.D. (Electronically Signed) Final Date: 15 Oct 2017 15:54 MEASUREMENTS (Male / Female) Normal Values 2D ECHO LV Diastolic Diameter PLAX 5.6 cm 4.2 - 5.9 / 3.9 - 5.3 cm LV Systolic Diameter PLAX 3.2 cm 2.1 - 4.0 cm LV Fractional Shortening PLAX 42.9 % 25 - 46 % LV Ejection Fraction 2D Teich 73.3 % IVS Diastolic Thickness 1.4 cm LVPW Diastolic Thickness 1.4 cm LV Relative Wall Thickness 0.5 RV Internal Dim ED PLAX 4.0 cm 1.9 - 3.8 cm LVOT Diameter 2.2 cm Aortic Root Diameter 3.5 cm LA Systolic Diameter LX 5.4 cm 3.0 - 4.0 / 2.7 - 3.8 cm LA Volume 98.0 cm 18 - 58 / 22 - 52 cm Ascending Aorta Diameter 3.0 cm DOPPLER AV Peak Velocity 89.6 cm/s AV Peak Gradient 3.2 mmHg AV Mean Velocity 59.0 cm/s AV Mean Gradient 2.0 mmHg AV Velocity Time Integral 15.9 cm LVOT Peak Velocity 76.7 cm/s LVOT Peak Gradient 2.4 mmHg LVOT Mean Velocity 55.7 cm/s LVOT Mean Gradient 1.0 mmHg LVOT Velocity Time Integral 12.5 cm LVOT Stroke Volume 47.5 cm AV Area Cont Eq vti 3.0 cm AV Area Cont Eq pk 3.3 cm MV Peak Velocity 220.0 cm/s MV Peak Gradient 19.4 mmHg MV Mean Velocity 110.0 cm/s MV Mean Gradient 6.0 mmHg Mitral E Point Velocity 172.0 cm/s MV PHT Velocity 228.0 cm/s MV Deceleration Baldwin 868.0 cm/s MV Pressure Half Time 78.8 ms MV Area PHT 2.8 cm MV Deceleration Time 335.0 ms TR Peak Velocity 352.0 cm/s TR Peak Gradient 49.6 mmHg Right Atrial Pressure 5.0 mmHg Pulmonary Artery Systolic Pressu 54.6 mmHg Right Ventricular Systolic Press 54.6 mmHg PV Peak Velocity 71.0 cm/s PV Peak Gradient 2.0 mmHg PV Mean Velocity 51.7 cm/s PV Mean Gradient 1.0 mmHg PV Velocity Time Integral 14.7 cm LV E' Lateral Velocity 12.4 cm/s Mitral E to LV E' Lateral Ratio 13.9 LV E' Septal Velocity 6.2 cm/s Mitral E to LV E' Septal Ratio 27.6 DICTATED BY: Andry VELA PHD,Gerardo Castrejon DATE/TIME DICTATED:10/15/171554 SALESPERSON SHEET MUSIC:YUSEF DATE/TIME TRANSCRIBED:10/15/171554 CONFIDENTIAL, DO NOT COPY WITHOUT APPROPRIATE AUTHORIZATION. 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 I think a mitral valve surgery is indicated. Based upon the appearance of the echocardiogram there is always the possibility of mitral valve repair for treatment if he can remove the sepsis completely. These decisions usually made intraoperatively depending upon the extent of infection. My one thought is that the patient has had complaints of back pain and I know it is a chronic complaint relating to some work that was done in the fall but there is always the concern that there might be evidence of spine sepsis and abscess. I will leave it at the discretion of infectious disease as to whether or not this needs to be evaluated further. His blood cultures appear to have sterilized and I think transfer should be made according to cardiology wishes in the near future to allow for cardiac catheterization and the mitral valve surgery. Consult Acknowledgment - Thank you for your consult request.
--- NOTE | 2017-10-16 13:32 | PN- Infect Dx ---
Subjective Subjective: T-max 101. He does note occasional pounding of his heart but denies any shortness of breath. Objective Last 24 Hrs of Vital Signs/I&O Vital Signs Date Time Temp Pulse Resp B/P B/P Pulse O2 O2 Flow FiO2 Mean Ox Delivery Rate 10/16 0906 88 110/68 10/16 0651 97.9 88 18 110/68 95 Room Air 10/16 0104 99.0 10/16 0057 99.0 10/15 2255 101.0 10/15 2214 98.8 101 22 106/74 96 10/15 2003 98.1 97 18 106/76 95 10/15 1511 98.9 95 18 110/70 96 Intake & Output 10/16 1600 10/16 0800 10/16 0000 Intake Total 360 1120 Output Total Balance 360 1120 Intake, IV 240 200 Intake, Oral 120 920 Patient 171 lb Weight Physical Exam Other Physical Findings: He appears comfortable in no acute distress Skin scattered petechial lesions persist on the extremities Lungs are clear Heart regular rhythm with a 3/6 systolic murmur Extremities no cyanosis, clubbing or edema Results Last 24 Hours of Lab Results: Laboratory Tests 10/16 629 Hematology CBC w Diff NO MAN DIFF REQ WBC (4.8 - 10.8 /CUMM) 6.8 RBC (4.70 - 6.10 /CUMM) 4.58 L Hgb (14.0 - 18.0 G/DL) 11.7 L Hct (42 - 52 %) 35.2 L MCV (80.0 - 94.0 FL) 77.0 L MCH (27.0 - 31.0 PG) 25.6 L MCHC (33.0 - 37.0 G/DL) 33.2 RDW (11.5 - 14.5 %) 19.7 H Plt Count (130 - 400 /CUMM) MPV (7.4 - 10.4 FL) 10.4 Gran % (42.2 - 75.2 %) 69.6 Lymphocytes % (20.5 - 51.1 %) 25.2 Monocytes % (1.7 - 9.3 %) 3.7 Eosinophils % (0 - 5 %) 1.1 Basophils % (0.0 - 2.0 %) 0.4 Absolute Granulocytes (1.4 - 6.5 /CUMM) 4.8 Absolute Lymphocytes (1.2 - 3.4 /CUMM) 1.7 Absolute Monocytes (0.10 - 0.60 /CUMM) 0.3 Absolute Eosinophils (0.0 - 0.7 /CUMM) 0.1 Absolute Basophils (0.0 - 0.2 /CUMM) 0 Last 24 Hours of Harsha Results: Blood cultures October 14 negative Blood cultures October 15 negative Assessment/Plan ID Impression: Fever overnight, with white blood cell count remaining normal, now on Penicillin , Day 3 of treatment for strep viridans endocarditis, with his echocardiogram revealing a vegetation on the posterior mitral valve leaflet with severe mitral regurgitation. He has been evaluated by Cardiothoracic surgery, who is recommending surgery. Suggestion: 1. Await decision regarding valve replacement/repair 2. Continue Penicillin
[2017-10-16 14:03] VITALS: BP 110/60
--- NOTE | 2017-10-16 15:43 | PN- Cardiology ---
Subjective Subjective: No chest pain. No shortness of breath. No palpitations. No diaphoresis. Objective Vital Signs and I&Os Vital Signs Date Time Temp Pulse Resp B/P B/P Pulse O2 O2 Flow FiO2 Mean Ox Delivery Rate 10/16 1403 97.9 89 20 110/60 96 Room Air 10/16 0906 88 110/68 10/16 0651 97.9 88 18 110/68 95 Room Air 10/16 0104 99.0 10/16 0057 99.0 10/15 2255 101.0 10/15 2214 98.8 101 22 106/74 96 10/15 2002 98.1 97 18 106/76 95 Intake & Output 10/16 1600 10/16 0800 10/16 0000 10/15 1600 10/15 0800 10/15 0000 Intake Total 360 1120 1000 360 500 Output Total Balance 360 1120 1000 360 500 Intake, IV 240 200 Intake, Oral 066 588 2891 360 500 Patient 171 lb 171 lb Weight Physical Exam: Gen: NAD HEENT: normal Lungs: clear to auscultation, normal resp. effort Heart: RRR, S1, S2, 2 out of 6 systolic murmur Abdomen: Soft, nontender, no masses Extremities: No clubbing, cyanosis, or edema. Neuro: Alert and oriented x 3, cranial nerves intact Current Medications: Current Medications Sig/Lizzie Start time Last Medication Dose Route Stop Time Status Admin Acetaminophen 1,000 MG .STK-MED ONE 10/16 2251 DC IV 10/15 225 Acetaminophen 1,000 MG Q6P PRN 10/13 2014 10/15 IV 2255 Alprazolam 0.25 MG BID PRN 10/15 929 AC PO 10/22 09 Bisoprolol Fumarate 10 MG DAILY 10/14 899 AC 10/16 PO 0907 Budesonide/ 2 PUF BID 10/14 899 10/16 Formoterol Fumarate INH 0908 Ceftriaxone Sodium 2,000 MG 0 10/13 2199 DC 10/14 IV 214 Cyclobenzaprine HCl 10 MG TID 10/14 899 AC 10/16 PO 1400 Fenofibrate 48 MG DAILY 10/14 899 AC 10/16 PO 0906 Furosemide 20 MG DAILY 10/15 2058 AC 10/16 PO 0907 Gabapentin 300 MG TID 10/13 2213 AC 10/16 PO 1400 Ibuprofen 600 MG .STK-MED ONE 10/15 1757 DC PO 10/15 1758 Ibuprofen 600 MG BID PRN 10/15 1425 AC 10/16 PO 0912 Lisinopril 10 MG DAILY 10/14 09 AC 10/16 PO 09 Montelukast Sodium 10 MG DAILY 10/14 0900 AC 10/16 PO 09 Omeprazole 20 MG DAILY AC 10/14 0700 AC 10/16 PO 0542 Penicillin G 3 MU Q4 10/15 1800 AC 10/16 Potassium IV 1400 Dextrose/Water 100 ML Results Last 48 Hrs of Labs/Mics: Laboratory Tests 10/16/17 0630: CBC w Diff NO MAN DIFF REQ, RBC 4.58 L, MCV 77.0 L, MCH 25.6 L, MCHC 33.2, RDW 19.7 H, MPV 10.4, Gran % 69.6, Lymphocytes % 25.2, Monocytes % 3.7, Eosinophils % 1.1, Basophils % 0.4, Absolute Granulocytes 4.8, Absolute Lymphocytes 1.7, Absolute Monocytes 0.3, Absolute Eosinophils 0.1, Absolute Basophils 0 10/15/17 0800: CBC w Diff NO MAN DIFF REQ, RBC 4.88, MCV 77.4 L, MCH 25.1 L, MCHC 32.4 L, RDW 19.6 H, MPV 10.6 H, Gran % 72.7, Lymphocytes % 21.6, Monocytes % 4.4, Eosinophils % 0.9, Basophils % 0.4, Absolute Granulocytes 4.7, Absolute Lymphocytes 1.4, Absolute Monocytes 0.3, Absolute Eosinophils 0.1, Absolute Basophils 0 10/14/17 1837: CBC w Diff NO MAN DIFF REQ, RBC 4.31 L, MCV 77.3 L, MCH 25.5 L, MCHC 33.0, RDW 19.4 H, MPV , Gran % 72.5, Lymphocytes % 21.6, Monocytes % 4.4, Eosinophils % 1.2, Basophils % 0.3, Absolute Granulocytes 2.9, Absolute Lymphocytes 0.9 L, Absolute Monocytes 0.2, Absolute Eosinophils 0, Absolute Basophils 0 10/14/17 1622: Cgq-[id number]-Mdtzxheerly Pept 5790 H, Rheum Factor Semi-Quant 11.0, HIV 1&2 Ab Western Blot NONREACTIVE Recent Imaging Studies: Echocardiogram 10/15/17: 1. Normal EF of 60%. 2. Mild left ventricular hypertrophy. 3. Mild right ventricular enlargement. 4. Moderate right atrial and severe left atrial enlargement. 5. Severe mitral regurgitation. Prolapse of the posterior mitral valve leaflet with a vegetation. 6. Trace to mild tricuspid regurgitation. 7. Trace pulmonic regurgitation. 8. Moderate pulmonary hypertension. Assessment/Plan Assessment/Plan Assessment: 1. Hypertension 2. Mitral prolapse with severe mitral regurgitation 3. Endocarditis with blood culture positive for strep viridans, and vegetation noted on posterior mitral valve leaflet Plan: * Continue antibiotic therapy as per ID * Appreciate CT surgery consult. The patient will likely need mitral valve surgery * Continue cardiac medications * Continue telemetry monitoring Continue telemetry? Yes
--- NOTE | 2017-10-16 15:52 | RADIOLOGY REPORT ---
EXAMINATION: XR PORTABLE CHEST CLINICAL INFORMATION: Rule out fluid overload. COMPARISON: Chest x-ray from 10/15/2017. TECHNIQUE: Portable frontal view of the chest was obtained. FINDINGS: The cardiac silhouette remains enlarged. Mediastinal contours are normal. No pleural effusions are seen, though the left costophrenic sulcus is excluded from view. There is normal aeration within the lungs. No vascular congestion is evident. No new airspace opacities are seen. The osseous structures are unremarkable. IMPRESSION: Stable cardiomegaly. No airspace opacities. No new pleural effusions. No pulmonary vascular congestion.
[2017-10-16 22:08] VITALS: BP 108/64
[2017-10-17 06:56] VITALS: BP 98/62
[2017-10-17 08:35] LABS: ABSOLUTE BASOPHIL COUNT 0 /CUMM (0.0-0.2); ABSOLUTE EOSINOPHIL COUNT 0.1 /CUMM (0.0-0.7); ABSOLUTE GRANULOCYTE CT 5.9 /CUMM (1.4-6.5); ABSOLUTE LYMPH COUNT 1.7 /CUMM (1.2-3.4); ABSOLUTE MONOCYTE COUNT 0.3 /CUMM (0.10-0.60); BASOPHIL % 0.4 % (0.0-2.0); EOSINOPHIL % 1.3 % (0-5); GRANULOCYTE % 73.4 % (42.2-75.2); HEMATOCRIT 35.4 % (42-52); MEAN CORPUSCULAR HGB 25.8 PG (27.0-31.0); MEAN CORPUSCULAR HGB CONC 33.1 G/DL (33.0-37.0); MEAN PLATELET VOLUME 10.9 FL (7.4-10.4); RBC DISTRIBUTION WIDTH 20.2 % (11.5-14.5); RED BLOOD CELL CT 4.54 /CUMM (4.70-6.10)
--- NOTE | 2017-10-17 09:06 | PN- Housestaff ---
Rachel VELA,Aj 10/17/17 0906: Subjective Follow-up For: infective endocarditis GPC bacteremia Tele-Events Since Last Visit: sinus rhythm HR 80s, no events Subjective: no overnight events patient has some pruritic new papules on the elbows bilaterally afebrile Review of Systems Constitutional: Reports: see HPI. Objective Last 24 Hrs of Vital Signs/I&O Vital Signs Date Time Temp Pulse Resp B/P B/P Pulse O2 O2 Flow FiO2 Mean Ox Delivery Rate 10/17 0810 89 98/62 10/17 0656 97.6 89 18 98/62 96 Room Air 10/16 2208 97.5 91 18 108/64 97 Room Air 10/16 1403 97.9 89 20 110/60 96 Room Air Intake & Output 10/17 1600 10/17 0800 10/17 0000 Intake Total 760 610 Output Total Balance 760 610 Intake, IV 260 130 Intake, Oral 500 480 Patient 76.459 kg Weight Weight Bed scale Measurement Method Physical Exam General Appearance: Alert, Oriented X3, Cooperative, No Acute Distress Cardiovascular: Regular Rate, Normal S1, Normal S2, 4/6 systolic murmur all choi loudest apical Lungs: Clear to Auscultation, Normal Air Movement Abdomen: Normal Bowel Sounds, Soft, No Tenderness, No Masses Extremities: No Clubbing, No Cyanosis, No Edema, Normal Pulses Current Medications: Current Medications Sig/Lizzie Start time Last Medication Dose Route Stop Time Status Admin Acetaminophen 1,000 MG Q6P PRN 10/13 2014 AC 10/15 IV 2255 Alprazolam 0.25 MG BID PRN 10/15 929 AC PO 10/22 09 Bisoprolol Fumarate 10 MG DAILY 10/14 899 AC 10/16 PO 0907 Budesonide/ 2 PUF BID 10/14 899 AC 10/17 Formoterol Fumarate INH 0811 Cyclobenzaprine HCl 10 MG TID 10/14 899 AC 10/16 PO 204 Fenofibrate 48 MG DAILY 10/14 899 AC 10/17 PO 08 Furosemide 20 MG DAILY 10/15 2058 AC 10/17 PO 08 Gabapentin 300 MG TID 10/13 2213 AC 10/17 PO 0809 Ibuprofen 600 MG BID PRN 10/15 1425 AC 10/16 PO 0912 Lisinopril 10 MG DAILY 10/14 899 AC 10/17 PO 0810 Montelukast Sodium 10 MG DAILY 10/14 0900 AC 10/17 PO 0809 Omeprazole 20 MG DAILY AC 10/14 0700 AC 10/17 PO 0537 Penicillin G 3 MU Q4 10/15 1800 AC 10/17 Potassium IV 0939 Dextrose/Water 100 ML Last 24 Hrs of Lab/Harsha Results Last 24 Hrs of Labs/Mics: Laboratory Tests 10/17/17 0614: Anion Gap 10, Estimated GFR > 60, BUN/Creatinine Ratio 23.3, CBC w Diff NO MAN DIFF REQ, RBC 4.54 L, MCV 78.0 L, MCH 25.8 L, MCHC 33.1, RDW 20.2 H, MPV 10.9 H, Gran % 73.4, Lymphocytes % 21.7, Monocytes % 3.2, Eosinophils % 1.3, Basophils % 0.4, Absolute Granulocytes 5.9, Absolute Lymphocytes 1.7, Absolute Monocytes 0.3, Absolute Eosinophils 0.1, Absolute Basophils 0 Assessment/Plan Assessment: 47-year-old male with past medical history of hypertension, hyperlipidemia, MVP heart murmur for which he follows up with Dr. Gaston, who presented to [place] ED with complaints of body aches, headache and fever. Infective endocarditis: TTE showed vegetation on the leaflet tips of mitral valve LVEF wnl, moderate right atrial and severe left atrial enlargement. Pulmonary HTN Severe mitral regurgitation. Prolapse of the posterior mitral valve leaflet with a vegetation. Blood cultures were positive for alpha strep Continue IV Penicillin G 3MU q4 Cardiology consulted, may need valve replacement after antibiotic therapy Infectious disease consulted, continue antibiotics Bacteremia resolved, blood cultures 10/15/17 NGTD Chest x-ray improved vascular congestion Plan for PICC line placement tomorrow Heart healthy diet DVT ppx-ALPs Full code Problem List: 1. Endocarditis 2. Thrombocythemia 3. Fever 4. Hypertension Pain Ratin Pain Location: n/a Pain Goal: Pain 4 or less Pain Plan: prn Tomorrow's Labs & Rationales: none Tien VELA,Amir 10/17/17 1256: Attending MD Review Statement Attending Statement Attending MD Statement: examined this patient, discuss w/resident/PA/CONTRACT WRITER, agreed w/resident/PA/CONTRACT WRITER, reviewed EMR data (avail), discussed with nursing Attending Assessment/Plan: Pt was seen and examined. Remained afebrile, reports noticing some tiny skin spots over elbow. WBC stable. So far blx cx NGT. Tolerating IV abx OK. Repeat CXR without effusion --will likely need PICC --f/u Cards eval --rest of the plan as per resident's note
[2017-10-17 14:25] VITALS: BP 102/68
--- NOTE | 2017-10-17 15:18 | PN- Cardiology ---
Subjective Subjective: The patient reports that he is comfortable. Shortness of breath. No chest pain. No palpitations. No diaphoresis. No nausea or vomiting. No lightheadedness or dizziness Objective Vital Signs and I&Os Vital Signs Date Time Temp Pulse Resp B/P B/P Pulse O2 O2 Flow FiO2 Mean Ox Delivery Rate 10/17 1425 97.9 88 20 102/68 94 Room Air 10/17 0810 89 98/62 05 0656 97.6 89 18 98/62 96 Room Air 10/16 2208 97.5 91 18 108/64 97 Room Air Intake & Output 10/17 1600 10/17 0800 10/17 0000 10/16 1600 10/16 0800 10/16 0000 Intake Total 760 610 453 255 4132 Output Total Balance 760 610 989 252 9168 Intake, IV 260 130 240 200 Intake, Oral 500 480 400 120 920 Patient 169 lb 171 lb Weight Weight Bed scale Measurement Method Physical Exam: Gen: NAD HEENT: normal Lungs: clear to auscultation, normal resp. effort Heart: RRR, S1, S2, 2 out of 6 systolic murmur Abdomen: Soft, nontender, no masses Extremities: No clubbing, cyanosis, or edema. Neuro: Alert and oriented x 3, cranial nerves intact Current Medications: Current Medications Sig/Lizzie Start time Last Medication Dose Route Stop Time Status Admin Acetaminophen 1,000 MG Q6P PRN 10/13 2014 AC 10/15 IV 2255 Alprazolam 0.25 MG BID PRN 10/15 929 AC PO 10/22 09 Bisoprolol Fumarate 10 MG DAILY 10/14 899 AC 10/16 PO 0907 Budesonide/ 2 PUF BID 10/14 899 AC 10/17 Formoterol Fumarate INH 0811 Cyclobenzaprine HCl 10 MG TID 10/14 899 AC 10/16 PO 2041 Fenofibrate 48 MG DAILY 10/14 899 AC 10/17 PO 08 Furosemide 20 MG DAILY 10/15 2058 AC 10/17 PO 08 Gabapentin 300 MG TID 10/13 2213 AC 10/17 PO 0809 Ibuprofen 600 MG BID PRN 10/15 142 AC 10/16 PO 0912 Lisinopril 10 MG DAILY 10/14 899 AC 10/17 PO 0810 Montelukast Sodium 10 MG DAILY 10/14 899 AC 10/17 PO 0809 Omeprazole 20 MG DAILY AC 10/14 0700 AC 10/17 PO 0537 Penicillin G 3 MU Q4 10/15 1800 AC 10/17 Potassium IV 0939 Dextrose/Water 100 ML Results Last 48 Hrs of Labs/Mics: Laboratory Tests 10/17/17 0614: Anion Gap 10, Estimated GFR > 60, BUN/Creatinine Ratio 23.3, CBC w Diff NO MAN DIFF REQ, RBC 4.54 L, MCV 78.0 L, MCH 25.8 L, MCHC 33.1, RDW 20.2 H, MPV 10.9 H, Gran % 73.4, Lymphocytes % 21.7, Monocytes % 3.2, Eosinophils % 1.3, Basophils % 0.4, Absolute Granulocytes 5.9, Absolute Lymphocytes 1.7, Absolute Monocytes 0.3, Absolute Eosinophils 0.1, Absolute Basophils 0 10/16/17 0630: CBC w Diff NO MAN DIFF REQ, RBC 4.58 L, MCV 77.0 L, MCH 25.6 L, MCHC 33.2, RDW 19.7 H, MPV 10.4, Gran % 69.6, Lymphocytes % 25.2, Monocytes % 3.7, Eosinophils % 1.1, Basophils % 0.4, Absolute Granulocytes 4.8, Absolute Lymphocytes 1.7, Absolute Monocytes 0.3, Absolute Eosinophils 0.1, Absolute Basophils 0 Assessment/Plan Assessment/Plan Assessment: 1. Hypertension 2. Mitral prolapse with severe mitral regurgitation 3. Endocarditis with blood culture positive for strep viridans, and vegetation noted on posterior mitral valve leaflet Plan: * Continue antibiotic therapy as per ID * Will likely need cardiac catheterization and mitral valve surgery in the near future. * Continue cardiac medications * Continue telemetry monitoring Continue telemetry? Yes
[2017-10-17 22:19] VITALS: BP 98/64
[2017-10-18 07:07] VITALS: BP 100/70
--- NOTE | 2017-10-18 07:09 | PN- Housestaff ---
[place] [facility]A,[facility] 10/18/17 0709: Subjective Follow-up For: Endocarditis Thrombocytopenia Tele-Events Since Last Visit: NSR with HR 82-89. No overnight events. Subjective: Patient was seen and examined at bedside. He feels well. Mentions that he has new lesions erupting on his skin which are painless. No other complaints at this time. Review of Systems Constitutional: Reports: no symptoms. Objective Last 24 Hrs of Vital Signs/I&O Vital Signs Date Time Temp Pulse Resp B/P B/P Pulse O2 O2 Flow FiO2 Mean Ox Delivery Rate 10/18 0707 98.0 90 18 100/70 94 Room Air 10/17 2219 97.9 83 18 98/64 96 Room Air 10/17 1425 97.9 88 20 102/68 94 Room Air Intake & Output 10/18 1600 10/18 0800 10/18 0000 Intake Total 220 440 Output Total Balance 220 440 Intake, Oral 220 440 Number 1 Bowel Movements Patient 169 lb Weight Weight Bed scale Measurement Method Physical Exam General Appearance: Alert, Oriented X3, Cooperative, No Acute Distress Skin: janeway lesions Skin Temp/Moisture Exam: Warm/Dry Sepsis Skin Exam (color): Normal for Ethnicity HEENT: Atraumatic Cardiovascular: Normal S1, Normal S2, holosystolic murmur Lungs: Normal Air Movement Abdomen: Soft, No Tenderness Neurological: Normal Speech Extremities: No Edema Assessment/Plan Assessment: 47 yo male with past medical history of hypertension, hyperlipidemia, MVP with known heart murmur presented to [place] ED with complaints of body aches, headache and fever. Assessment and Plan: Infective Endocarditis: * Initial Blood cultures were positive for alpha strep * Repeat blood cultures 10/15/17 were negative for bactermia * Continue IV Penicillin G 3MU q4 * PICC line placement today as he will require antibiotics for chcf management. * TTE showed vegetation on the leaflet tips of mitral valve. * He will likely need surgery for repair of mitral valve in future. However, this is nothing urgent. * Continue PO Lasix 20mg for pulmonary edema Thrombocytopenia: * Likely due to underlying infection * Monitor daily. History of Hypertension and Hyperlipidemia: * Continue lisinopril and fenofibrate. Chronic Back Pain: * Continue Flexeril 10mg TID and Gabapentin 300mg TID Heart healthy diet DVT ppx-ALPs only because of thrombocytopenia Full code Problem List: 1. Endocarditis Pain Ratin Pain Location: none Pain Goal: Remain pain free Pain Plan: none Tomorrow's Labs & Rationales: CBC, BEP Amarilis Quintana 10/18/17 1406: Attending MD Review Statement Attending Statement Attending MD Statement: examined this patient, discuss w/resident/PA/BEAN SNIPPER, agreed w/resident/PA/BEAN SNIPPER, discussed with family, reviewed EMR data (avail), discussed with nursing, discussed with case mgmt, reviewed images, amended to note Attending Assessment/Plan: Patient is admitted here for infective endocarditis and is on iv abx with TTE showing vegetations on prolapse mitral valve with severe mitral regurgitation. Patient is hemodynamically stable with c/o shortness of breath on exertion. He is schedueld for PICC line today. Cardiology, ctvs, ID are consulted as mutlidoscpilanry approach. gi/dvt prophyalxis full code.
--- NOTE | 2017-10-18 10:10 | PN- Cardiology ---
Subjective Subjective: Feels about the same. Denies any chest discomfort, palpitations, shortness of breath at rest, etc. Objective Vital Signs and I&Os Vital Signs Date Time Temp Pulse Resp B/P B/P Pulse O2 O2 Flow FiO2 Mean Ox Delivery Rate 10/18 0944 80 96/64 10/18 0707 98.0 90 18 100/70 94 Room Air 10/17 2219 97.9 83 18 98/64 96 Room Air 10/17 1425 97.9 88 20 102/68 94 Room Air Intake & Output 10/18 1600 10/18 0800 10/18 0000 10/17 1600 10/17 0800 10/17 0000 Intake Total 220 440 400 760 610 Output Total Balance 220 440 400 760 610 Intake, IV 260 130 Intake, Oral 220 440 400 500 480 Number 1 Bowel Movements Patient 169 lb 169 lb Weight Weight Bed scale Bed scale Measurement Method Physical Exam: Well-developed, well-nourished middle-aged male in no acute distress. Vital signs: See above. Skin: Multiple small petechial hemorrhages. HEENT: Normocephalic, atraumatic, EOMI, slightly dry mucous membranes. Neck: No JVD, no bruits. Lungs: Clear to auscultation bilaterally. Heart: S1, S2 with grade 2-3/6 systolic murmur heard over the precordium. No gallop or rub appreciated. Abdomen: Soft, nontender, positive bowel sounds. Extremities: No edema. Current Medications: Current Medications Sig/Lizzie Start time Last Medication Dose Route Stop Time Status Admin Acetaminophen 1,000 MG Q6P PRN 10/13 2014 AC 10/15 IV 2255 Alprazolam 0.25 MG BID PRN 10/15 09 AC 10/17 PO 10/22 0929 1400 Bisoprolol Fumarate 10 MG DAILY 10/14 899 AC 10/17 PO 0900 Budesonide/ 2 PUF BID 10/14 899 AC 10/18 Formoterol Fumarate INH 0915 Cyclobenzaprine HCl 10 MG TID 10/14 899 AC 10/18 PO 09 Fenofibrate 48 MG DAILY 10/14 899 AC 10/18 PO 0914 Furosemide 20 MG DAILY 10/15 2058 AC 10/18 PO 09 Gabapentin 300 MG TID 10/13 2213 AC 10/18 PO 09 Ibuprofen 600 MG BID PRN 10/15 1425 AC 10/16 PO 0912 Lisinopril 10 MG DAILY 10/14 0900 AC 10/17 PO 0810 Montelukast Sodium 10 MG DAILY 10/14 0900 AC 10/18 PO 0914 Omeprazole 20 MG DAILY AC 10/14 0700 AC 10/18 PO 0607 Penicillin G 3 MU Q4 10/15 1800 AC 10/18 Potassium IV 0945 Dextrose/Water 100 ML Results Last 48 Hrs of Labs/Mics: Laboratory Tests 10/17/1714: Anion Gap 10, Estimated GFR > 60, BUN/Creatinine Ratio 23.3, CBC w Diff NO MAN DIFF REQ, RBC 4.54 L, MCV 78.0 L, MCH 25.8 L, MCHC 33.1, RDW 20.2 H, MPV 10.9 H, Gran % 73.4, Lymphocytes % 21.7, Monocytes % 3.2, Eosinophils % 1.3, Basophils % 0.4, Absolute Granulocytes 5.9, Absolute Lymphocytes 1.7, Absolute Monocytes 0.3, Absolute Eosinophils 0.1, Absolute Basophils 0 Assessment/Plan Assessment/Plan Assessment/Plan [id number] w/ hx of long-standing tob use, COPD, GERD, HTN, HLD, & MVP w/ assoc MR who presented w/ c/o a several month h/o feeling unwell w/ "night sweats", chills/inability to get and stay warm, decreased appetite, weakness, petechial skin lesions, palpitations ("heart pounding") & SOB that got progressively worse over the past month and whose 1st 2 blood cultures were positive for Strep viridans w/ echo on 10/14/2017 c/w probable vegetation on the MV. Fortunately, he remains hemodynamically stable and the plan will be to continue Abx Rx to hopefully sterilize the valve and then plan for MV repair/replacement. Recommendations: * Continue on telemetry. * Increase activity with close attention to oxygen saturations. * Continue antimicrobial therapy as per ID. Continue telemetry? Yes
--- NOTE | 2017-10-18 13:37 | PN- Student ---
Subjective Subjective: Patient reported being comfortable overnight and getting enough sleep. He complained of backpain, for which he normally gets prescribed a lidocaine patch. He also noted some new painful red bumps on his elbow as of this weekend. Patient also reports a little SOB, can present at rest or after exertion and was given lorazepam which helped that symptom. ROS was negative for chills, palpatations, chest pain, nausea, vomiting, abdominal pain, diarrhea, and dysuria. Objective Objective: Constitutional: Well developed, well nourished in no acute distress Pulmonary: Lungs clear to auscultation throughout Cardiovascular: 4/6 holosystolic murmur heard best at the apex, soft S1, no gallops or rubs, No pedal edema MSK: Raised peticial rash on shins and elbows, no tenderness Results Results: Vital Signs Date Time Temp Pulse Resp B/P B/P Pulse O2 O2 Flow FiO2 Mean Ox Delivery Rate 10/18 0944 80 96/64 10/18 0707 98.0 90 18 100/70 94 Room Air 10/17 2219 97.9 83 18 98/64 96 Room Air 10/17 1425 97.9 88 20 102/68 94 Room Air Intake & Output 10/18 1600 10/18 0800 10/18 0000 Intake Total 220 440 Output Total Balance 220 440 Intake, Oral 220 440 Number 1 Bowel Movements Patient 169 lb Weight Weight Bed scale Measurement Method Laboratory Tests 10/17/17 0614: Anion Gap 10, Estimated GFR > 60, BUN/Creatinine Ratio 23.3, CBC w Diff NO MAN DIFF REQ, RBC 4.54 L, MCV 78.0 L, MCH 25.8 L, MCHC 33.1, RDW 20.2 H, MPV 10.9 H, Gran % 73.4, Lymphocytes % 21.7, Monocytes % 3.2, Eosinophils % 1.3, Basophils % 0.4, Absolute Granulocytes 5.9, Absolute Lymphocytes 1.7, Absolute Monocytes 0.3, Absolute Eosinophils 0.1, Absolute Basophils 0 10/16/17 0630: CBC w Diff NO MAN DIFF REQ, RBC 4.58 L, MCV 77.0 L, MCH 25.6 L, MCHC 33.2, RDW 19.7 H, MPV 10.4, Gran % 69.6, Lymphocytes % 25.2, Monocytes % 3.7, Eosinophils % 1.1, Basophils % 0.4, Absolute Granulocytes 4.8, Absolute Lymphocytes 1.7, Absolute Monocytes 0.3, Absolute Eosinophils 0.1, Absolute Basophils 0 Assessment/Plan Assessment: 47 yo male with past medical history of HTN, hyperlipidemia, known MVP following up with Dr. Gaston presented to the [facility] ED 10/12 with complaints of headaches , fevers, and body aches. Patient was discharged with 2 doses of doxycycline and then admitted 10/13 after 2 positive blood cultures for gram (+) cocci in chains, TTE was positive for vegitation on posterior mitral valve leaflet. He is currently being treated for alpha-hemolytic strep (viridans) with negative blood cultures as of October 14, and has remained hemodynamically stable. Plan: 1. Vegetation on mitral valve: continue IV penicillin G, monitor vitals and leukocytes to ensure good reponse to antibiotic. The current guidelines for infectious endocarditis with penicillin suseptible strep viridans is 4 weeks of antibiotic treatment from the first day the first negative blood culture is obtained. He should also remain on the tele floor for monitoring in case his heart function were to worsen because of the vegitation inducing stress on the valve. 2. Mitral valve prolapse with severe reguritation: plan for valve replacement. The patient has not development any symptoms of heart failure and his ejection fraction as of 10/14 is normal (60%). He does not require emergency surgery but because he has significant reguritation he should undergo valve replacement. Now that he has negative blood cultures and is in the window of antibiotic treatment he can be considered for valve replacement at any time. According to current guidelines, young age being a huge factor he should recieve a mechanical prosthetic valve rather than a biosynthetic one. 3. HTN: reduce his home dose of beta rose in half. The patient has been presenting with low blood pressure and is currently taking the beta rose dose equivalent of 100mg of metoprolol, this being the case he should be put on a lower dose as his infection may be affecting his volume status.
[2017-10-18 14:00] VITALS: BP 110/80
--- NOTE | 2017-10-18 14:28 | Patient Discharge Instructions ---
Discharge Instructions General Discharge Information You were seen/treated for: Endocarditis spinal osteomylitis Thrombocytopenia Special Instructions: Please follow up with your PCP and casualty underwriter within one week of discharge. Continue Penicillin on a 6 week course of treatment (until November 25). Have your CBC checked in one week Please come back if any signs of bleeding is to start. Please follow up with hematology to further address you low platelet count please follow with infection disease doctor within 1-2 weeks. Diet Continue normal diet: Yes Recommended Diet: Heart Healthy Activity Full Activity/No Limits: Yes Acute Coronary Syndrome Inclusion Criteria At DC or during hospital stay patient has or had the following: ACS DIAGNOSIS No Discharge Core Measures Meds if any: Prescribed or Continued at Discharge Meds if any: NOT Prescribed or Continued at Discharge Congestive Heart Failure Inclusion Criteria At DC or during hospital stay patient has or had the following: CHF DIAGNOSIS No Discharge Core Measures Meds if any: Prescribed or Continued at Discharge Meds if any: NOT Prescribed or Continued at Discharge Cerebrovascular accident Inclusion Criteria At DC or during hospital stay patient has or had the following: CVA/TIA Diagnosis No Discharge Core Measures Meds if any: Prescribed or Continued at Discharge Meds if any: NOT Prescribed or Continued at Discharge Venous thromboembolism Inclusion Criteria VTE Diagnosis No VTE Type NONE VTE Confirmed by (Test) NONE Discharge Core Measures - Per Current guidelines, there needs to be overlap - treatment for the first 5 days of Warfarin therapy. - If discharged on Warfarin prior to 5 days of - overlap therapy, the patient will need to be - assessed for post discharge needs including - *Post discharge parental anticoagulation - *Warfarin and/or parental anticoagulation education - *Follow up date to check INR post discharge At least 5 days overlap therapy as Inpatient No Meds if any: Prescribed or Continued at Discharge Note: Overlap Therapy is Warfarin and Anticoagulant Meds if any: NOT Prescribed or Continued at Discharge
--- NOTE | 2017-10-18 14:32 | Discharge Summary ---
Visit Information Visit Dates Admission Date: 10/13/17 Discharge Date: 10/20/17 Hospital Course Course Attending Physician: Amarilis Quintana MD Primary Care Physician: Antonella Padron APRN Hospital Course: Mr Vidal is a 47 yo male with past medical history of hypertension, hyperlipidemia, MVP with known heart murmur presented to [facility] ED with complaints of body aches, headache and fever. Below is a list of conditions he was seen and treated for: Infective Endocarditis: On admission patient presented with fever, chills and body aches. His initial blood cultures showed alpha strep. He was initially started on IV Ceftriaxone but then switched to IV Penicillin G. Given his history of MVP and recent dental work, an echocardiogram was performed which showed endocarditis on the mitral valve leaflets with severe mitral regurgitation. As this requires shelter antibiotics, a PICC line was placed for the purpose. He will likely need surgical repair of mitral valve as well as cardiac cath in future. He also had complains of back pain. Given his clinical picture, a MRI of the lumbar spine was performed which was concerning for osteomyelitis. He will need to continue his antibiotics till November 25. He was discharged in stable disposition. Thrombocytopenia: His Platelets were found to be low on admisison. This could be likely in the setting of underlying infection. He was given a referral for hematology and recommended to follow up as an outpatient. History of Hypertension and Hyperlipidemia: Continued on Lisinopril and Fenofibrate. Chronic Back Pain: Continued on Flexeril 10mg TID and Gabapentin 300mg TID Allergies: Coded Allergies: No Known Drug Allergies (Intermediate, NONE 10/12/17) cat dander (Intermediate, HIVES 09/14/16) Uncoded Allergies: DUST (Severe, HIVES 07/12/13) Significant Procedures: SERVICE DATE: 10/20/17-799 EXAM TYPE: MRI - MRI-LUMBAR SPINE W & W/O ALONZO FINDINGS: At L2-L3 there is opposing endplate irregularity, diffuse edema within the endplates and bone marrow and corresponding enhancement. There is no epidural collection. No intradiscal collection is seen. There is mild enhancement within the paravertebral space but no defined paraspinal collection or psoas abscess is seen. There is increased STIR signal within the posterior paraspinal muscles which is nonspecific but may reflect myositis. There is mild disc height loss posteriorly at L5-S1. The L3-L4 disc is desiccated. The remaining disc heights are preserved. Apart from L2-L3 no bone marrow edema is seen. The distal spinal cord appears normal. The conus medullaris terminates normally at the upper L2 level. The retroperitoneal structures appear normal. SPINAL LEVELS: L1-L2: No posterior disc abnormality. No spinal canal or neural foraminal stenosis. L2-L3: Partial collapse of the disc space with mild underlying disc bulging and bilateral facet arthropathy. Mild neural foraminal stenosis bilaterally without foraminal nerve root compression. No spinal canal stenosis. L3-L4: Mild disc bulging and mild facet arthropathy. Mild bilateral neural foraminal stenosis without foraminal nerve root compression. No spinal canal stenosis. L4-L5: Mild disc bulging. Mild bilateral facet arthropathy. Mild bilateral neural foraminal stenosis without foraminal nerve root compression. L5-S1: Disc bulging with superimposed central disc protrusion. Mild facet arthropathy. No significant spinal canal or neural foraminal stenosis. IMPRESSION: - At L2-L3 there is opposing endplate irregularity and endplate and bone marrow edema and enhancement which in the setting of sepsis is compatible with discitis osteomyelitis. No evidence of epidural or paravertebral abscess. - No significant spinal canal or neural foraminal stenosis. SERVICE DATE: 10/16/1706 EXAM TYPE: RAD - XRY-PORTABLE CHEST XRAY FINDINGS: The cardiac silhouette remains enlarged. Mediastinal contours are normal. No pleural effusions are seen, though the left costophrenic sulcus is excluded from view. There is normal aeration within the lungs. No vascular congestion is evident. No new airspace opacities are seen. The osseous structures are unremarkable. IMPRESSION: Stable cardiomegaly. No airspace opacities. No new pleural effusions. No pulmonary vascular congestion. SERVICE DATE: 10/15/17- EXAM TYPE: RAD - XRY-PORTABLE CHEST XRAY FINDINGS: The cardiomediastinal silhouette is mildly enlarged. There is mild pulmonary venous congestion present. Both lung choi are symmetrically expanded and are clear. There is no pleural effusion identified. Please note that both lateral CP angles are not optimally included within the [id number] and accordingly evaluation for small effusion is limited. IMPRESSION: Persistent stable mild enlargement of the cardiomediastinal silhouette. Mild pulmonary venous congestion. No focal airspace disease. SERVICE DATE: 10/14/17 EXAM TYPE: CARD - ECHOCARDIOGRAM FINDINGS Left Ventricle Normal left ventricular size with mild left ventricular hypertrophy. Normal systolic function with no obvious regional wall motion abnormalities. Normal left ventricular diastolic filling pattern for age. The ejection fraction is visually estimated at 60%. Right Ventricle The right ventricle is mildly enlarged with normal function. Right Atrium The right atrium is moderately enlarged. Left Atrium The left atrium is severely enlarged. The interatrial septum is intact. Mitral Valve The mitral valve demonstrates mild prolapse of the posterior leaflet with a vegetation on the leaflet tips. There is severe mitral regurgitation with its jet extending into the pulmonary veins. Aortic Valve Structurally normal aortic valve without significant sclerosis or stenosis. There is no aortic regurgitation. Tricuspid Valve The tricuspid valve is normal in structure and function. There is trace to mild tricuspid regurgitation. Pulmonary artery systolic pressure is moderately elevated to 55mmHg. Pulmonic Valve Structurally normal pulmonic valve. There is trace pulmonic regurgitation. Pericardium Normal pericardium without effusion. No pleural effusion. Great Vessels Normal aortic root dimension. The aortic arch and great vessels are well seen and are normal. CONCLUSIONS 1. Normal EF of 60%. 2. Mild left ventricular hypertrophy. 3. Mild right ventricular enlargement. 4. Moderate right atrial and severe left atrial enlargement. 5. Severe mitral regurgitation. Prolapse of the posterior mitral valve leaflet with a vegetation. 6. Trace to mild tricuspid regurgitation. 7. Trace pulmonic regurgitation. 8. Moderate pulmonary hypertension. Disposition Summary Disposition Principal Diagnosis: Endocarditis Thrombocytopenia Osteomyelitis Additional Diagnosis: hypertension hyperlipidemia Chronic Back Pain Mitral Valve Prolapse Discharge Disposition: home health services Discharge Instructions General Discharge Information Code Status: Full Code Patient's Diet: Heart Healthy Patient's Activity: As tolerated Follow-Up Instructions/Appts: Please follow up with your PCP and immunology teacher within one week of discharge. Continue Penicillin on a 6 week course of treatment (until November 25). Have your CBC checked in one week Please come back if any signs of bleeding is to start. Please follow up with hematology to further address you low platelet count please follow with infection disease doctor within 1-2 weeks. Medications at Discharge Discharge Medications: Stop taking the following medications: Lisinopril (Lisinopril) 10 MG TABLET ORAL DAILY Qty = 90 Bisoprolol Fumarate (Bisoprolol Fumarate) 10 MG TABLET ORAL DAILY Qty = 30 Doxycycline Hyclate (Doxycycline Hyclate) 100 MG TABLET ORAL TWICE DAILY Qty = 20 Continue taking these medications: Fenofibric Acid (Choline) (Trilipix) 45 MG CAPSULE.DR 1 Capsule ORAL Every night Qty = 90 Comments: Last Taken: 10/20/17 Time: 9:50 AM Gabapentin (Gabapentin) 300 MG CAPSULE 1 Capsule ORAL THREE TIMES DAILY Qty = 90 Comments: Last Taken: 10/20/17 Time: 9:50 AM Cyclobenzaprine HCl (Cyclobenzaprine HCl) 10 MG TABLET 1 Tablet ORAL THREE TIMES DAILY Qty = 90 Comments: Last Taken: 10/20/17 Time: 9:50 AM Ibuprofen (Ibuprofen) 800 MG TABLET 1 Tablet ORAL TWICE DAILY Qty = 60 Comments: Last Taken: 10/20/17 Time: 9:50 AM Albuterol Sulfate (Proventil Hfa) 90 MCG HFA.AER.AD 2 Puff Inhale through mouth 4 TIMES A DAY as needed for SHORTNESS OF BREATH Comments: Last Taken: NOT GIVEN IN HOSPITAL Time: Pantoprazole Sodium (Protonix) 40 MG TABLET.DR 1 Tablet ORAL DAILY Qty = 30 Comments: Last Taken: 10/20/17 Time: 5:20 AM Cetirizine HCl (Cetirizine HCl) 10 MG TABLET 1 Tablet ORAL DAILY Comments: Last Taken: NOT GIVEN IN HOSPITAL Time: Montelukast Sodium (Montelukast Sodium) 10 MG TABLET 1 Tablet ORAL DAILY Comments: Last Taken: 10/20/17 Time: 9:50 AM Budesonide/Formoterol Fumarate (Symbicort 160-4.5 Mcg Inhaler) 160 MCG-4.5 MCG/ ACTUATION HFA.AER.AD 2 Puff Inhale through mouth TWICE DAILY Qty = 10 Comments: Last Taken: 10/20/17 Time: 9:50 AM Plant Stanol Nasima (Cholest Off Plus) 450 MG CAPSULE Unknown Dose ORAL DAILY Comments: Last Taken: NOT GIVEN IN HOSPITAL Time: Start taking the following new medications: Lisinopril (Lisinopril) 2.5 MG TABLET 1 Tablet ORAL DAILY Qty = 30 No Refills Comments: Last Taken: 10/20/17 Time: 9:50 AM Furosemide (Lasix) 20 MG TABLET 1 Tablet ORAL DAILY Qty = 30 No Refills Comments: Last Taken: 10/20/17 Time: 11:15 AM Penicillin G Potassium (Penicillin G Potassium) 5 MILLION UNIT VIAL 3 Million Units INTRAVEN Every 4 hours Qty = 30 No Refills Instructions: take until Nov 25 Lidocaine (Lidocaine) 5 % ADH..PATCH 1 Patch On the skin DAILY Qty = 7 No Refills Comments: Last Taken: 10/20/17 Time: 9:50 AM Copies To: Antonella Padron APRN Attending MD Review Statement Documenting Attending: Amarilis Quintana MD
--- NOTE | 2017-10-18 14:46 | PN- Infect Dx ---
Subjective Subjective: Afebrile. He reports no chest discomfort or shortness of breath. Objective Last 24 Hrs of Vital Signs/I&O Vital Signs Date Time Temp Pulse Resp B/P B/P Pulse O2 O2 Flow FiO2 Mean Ox Delivery Rate 10/18 0944 80 96/64 10/18 0707 98.0 90 18 100/70 94 Room Air 10/17 2219 97.9 83 18 98/64 96 Room Air Intake & Output 10/18 1600 10/18 0800 10/18 0000 Intake Total 220 440 Output Total Balance 220 440 Intake, Oral 220 440 Number 1 Bowel Movements Patient 168 lb 169 lb Weight Weight Bed scale Measurement Method Physical Exam Other Physical Findings: He appears comfortable in no acute distress on room air Lungs are clear Heart no change in his 3/6 to 4/6 systolic murmur Extremities no cyanosis, clubbing or edema Results Last 24 Hours of Lab Results: Laboratory Tests 10/17 0514 Chemistry Sodium (137 - 145 mmol/L) 138 Potassium (3.5 - 5.1 mmol/L) 4.7 Chloride (98 - 107 mmol/L) 103 Carbon Dioxide (22 - 30 mmol/L) 25 Anion Gap (5 - 16) 10 BUN (9 - 20 mg/dL) 21 H Creatinine (0.7 - 1.2 mg/dL) 0.9 Estimated GFR (>60 ml/min) > 60 BUN/Creatinine Ratio (7 - 25 %) 23.3 Hematology CBC w Diff NO MAN DIFF REQ WBC (4.8 - 10.8 /CUMM) 8.0 RBC (4.70 - 6.10 /CUMM) 4.54 L Hgb (14.0 - 18.0 G/DL) 11.7 L Hct (42 - 52 %) 35.4 L MCV (80.0 - 94.0 FL) 78.0 L MCH (27.0 - 31.0 PG) 25.8 L MCHC (33.0 - 37.0 G/DL) 33.1 RDW (11.5 - 14.5 %) 20.2 H Plt Count (130 - 400 /CUMM) MPV (7.4 - 10.4 FL) 10.9 H Gran % (42.2 - 75.2 %) 73.4 Lymphocytes % (20.5 - 51.1 %) 21.7 Monocytes % (1.7 - 9.3 %) 3.2 Eosinophils % (0 - 5 %) 1.3 Basophils % (0.0 - 2.0 %) 0.4 Absolute Granulocytes (1.4 - 6.5 /CUMM) 5.9 Absolute Lymphocytes (1.2 - 3.4 /CUMM) 1.7 Absolute Monocytes (0.10 - 0.60 /CUMM) 0.3 Absolute Eosinophils (0.0 - 0.7 /CUMM) 0.1 Absolute Basophils (0.0 - 0.2 /CUMM) 0 Last 24 Hours of Harsha Results: Blood cultures October 14 negative Blood cultures October 15 negative Recent Imaging Studies: Chest x-ray October 16 negative Assessment/Plan ID Impression: Stable, with temperatures and white blood cell count remaining normal, on Penicillin, 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 He is felt by Cardiothoracic surgery to be a candidate for valve replacement or repair, though it is felt that this can be done semi-electively. Suggestion: 1. Would pursue placement of a PICC 2. Continue Penicillin to plan on a 4 week course of treatment from his negative blood cultures (until November 11)
--- NOTE | 2017-10-18 15:21 | RADIOLOGY REPORT ---
EXAMINATION: CHEST 1 VIEW CLINICAL INFORMATION: PICC line placement. COMPARISON: October 15 and 2017. TECHNIQUE: An AP view of the chest is provided. FINDINGS: The cardiac silhouette is stable. A right PICC line is in place. The tip terminates within the distal SVC. The mediastinal and hilar contours are unremarkable. There are neither pleural effusions nor pneumothoraces. There are no consolidations. The osseous structures are unremarkable. IMPRESSION: Right-sided PICC line in place. No evidence for acute disease.
[2017-10-18 16:14] LABS: ABSOLUTE BASOPHIL COUNT 0 /CUMM (0.0-0.2); ABSOLUTE EOSINOPHIL COUNT 0.1 /CUMM (0.0-0.7); ABSOLUTE GRANULOCYTE CT 5.3 /CUMM (1.4-6.5); ABSOLUTE LYMPH COUNT 1.5 /CUMM (1.2-3.4); ABSOLUTE MONOCYTE COUNT 0.2 /CUMM (0.10-0.60); BASOPHIL % 0.4 % (0.0-2.0); EOSINOPHIL % 1.3 % (0-5); GRANULOCYTE % 74.1 % (42.2-75.2); MEAN CORPUSCULAR HGB 25.6 PG (27.0-31.0); MEAN CORPUSCULAR HGB CONC 32.8 G/DL (33.0-37.0); MEAN CORPUSCULAR VOLUME 78.2 FL (80.0-94.0); RBC DISTRIBUTION WIDTH 20.1 % (11.5-14.5); RED BLOOD CELL CT 4.22 /CUMM (4.70-6.10); WHITE BLOOD CELL COUNT 7.2 /CUMM (4.8-10.8)
[2017-10-18 16:29] LABS: PT 11.7 SEC (9.4-12.5); PTT 27 SEC (25-37)
[2017-10-18 22:22] VITALS: BP 112/70
[2017-10-19 06:34] VITALS: BP 120/92
--- NOTE | 2017-10-19 07:08 | PN- Housestaff ---
[place] VELA,[facility] 10/19/17 0707: Subjective Follow-up For: Endocarditis Thrombocytopenia Tele-Events Since Last Visit: NSR with HR 87-93. No overnight events. Subjective: Patient was seen and examined at bedside. States he feels the same. Offers no complaints. Looks forward to be discharged home. Review of Systems Constitutional: Reports: no symptoms. Objective Last 24 Hrs of Vital Signs/I&O Vital Signs Date Time Temp Pulse Resp B/P B/P Pulse O2 O2 Flow FiO2 Mean Ox Delivery Rate 10/19 0634 92 120/92 10/19 0600 4.0 10/18 2222 97.8 86 21 112/70 95 10/18 1400 98.7 91 20 110/80 94 10/18 0944 80 96/64 Intake & Output 10/19 0800 10/19 0000 10/18 1600 Intake Total 1040 620 700 Output Total Balance 1040 620 700 Intake, IV 240 220 Intake, Oral 800 400 700 Patient 164 lb 168 lb Weight Physical Exam General Appearance: Alert, Oriented X3, Cooperative, No Acute Distress Skin: No Rashes, No Breakdown Skin Temp/Moisture Exam: Warm/Dry Sepsis Skin Exam (color): Normal for Ethnicity HEENT: Atraumatic Cardiovascular: Normal S1, Normal S2, pansystolic murmur Lungs: Clear to Auscultation, Normal Air Movement Abdomen: Soft, No Tenderness Neurological: Normal Speech Extremities: No Edema Last 24 Hrs of Lab/Harsha Results Last 24 Hrs of Labs/Mics: Laboratory Tests 10/19/17 1015: CBC w Diff NO MAN DIFF REQ, RBC 4.29 L, MCV 78.9 L, MCH 26.0 L, MCHC 32.9 L, RDW 19.9 H, MPV 9.8, Gran % 77.4 H, Lymphocytes % 17.2 L, Monocytes % 3.9, Eosinophils % 1.2, Basophils % 0.3, Absolute Granulocytes 6.3, Absolute Lymphocytes 1.4, Absolute Monocytes 0.3, Absolute Eosinophils 0.1, Absolute Basophils 0 10/19/17 0605: Anion Gap 11, Estimated GFR > 60, BUN/Creatinine Ratio 19.0, CBC w Diff NO MAN DIFF REQ, RBC 4.24 L, MCV 78.9 L, MCH 25.9 L, MCHC 32.8 L, RDW 19.9 H, Gran % 77.9 H, Lymphocytes % 17.9 L, Monocytes % 2.5, Eosinophils % 1.1, Basophils % 0.6, Absolute Granulocytes 7.7 H, Absolute Lymphocytes 1.8, Absolute Monocytes 0.2, Absolute Eosinophils 0.1, Absolute Basophils 0.1, VERONICA Titer Pending, Anti-Nuclear Antibody Pending 10/18/17 1550: Anion Gap 11, Estimated GFR > 60, BUN/Creatinine Ratio 16.4, Iron 67, TIBC 394, Ferritin 144.0, Lactate Dehydrogenase 505, PT 11.7, INR 1.07, APTT 27, Fibrinogen Activity 494 H, CBC w Diff NO MAN DIFF REQ, RBC 4.22 L, MCV 78.2 L , MCH 25.6 L, MCHC 32.8 L, RDW 20.1 H, Gran % 74.1, Lymphocytes % 21.1, Monocytes % 3.1, Eosinophils % 1.3, Basophils % 0.4, Absolute Granulocytes 5.3, Absolute Lymphocytes 1.5, Absolute Monocytes 0.2, Absolute Eosinophils 0.1, Absolute Basophils 0 Assessment/Plan Assessment: 47 yo male with past medical history of hypertension, hyperlipidemia, MVP with known heart murmur presented to [facility] with complaints of body aches, headache and fever. Assessment and Plan: mild protein malnutrition Infective Endocarditis: * Initial Blood cultures were positive for alpha strep * Repeat blood cultures 10/15/17 were negative for bactermia * Continue IV Penicillin G 3MU q4 for a 4 week course until November 11 * TTE showed vegetation on the leaflet tips of mitral valve. * He will likely need surgery for repair of mitral valve in future. However, this is nothing urgent. * Continue PO Lasix 20mg for pulmonary edema * His blood pressure has been on the low side. Can discontinue his BB and go down on his Lisinopril. Thrombocytopenia: * Likely due to underlying infection * Improved to 128K today. * Continue to follow. Microcytic Anemia * MCV <80 * Will obtain iron studies History of Hypertension and Hyperlipidemia: * Continue lisinopril and fenofibrate. Chronic Back Pain: * Continue Flexeril 10mg TID and Gabapentin 300mg TID Heart healthy diet DVT ppx-ALPs only because of thrombocytopenia Full code Problem List: 1. Thrombocythemia Pain Ratin Pain Location: none Pain Goal: Remain pain free Pain Plan: none Tomorrow's Labs & Rationales: CBC, BEP Amarilis Quintana 10/19/17 1106: Attending MD Review Statement Attending Statement Attending MD Statement: examined this patient, discuss w/resident/PA/PROGRAMMING DEVELOPMENT PROJECT MANAGER, agreed w/resident/PA/PROGRAMMING DEVELOPMENT PROJECT MANAGER, discussed with family, reviewed EMR data (avail), discussed with nursing, discussed with case mgmt, reviewed images, amended to note Attending Assessment/Plan: Patient is admitted here for infective endocarditis and is on iv abx with TTE showing vegetations on prolapse mitral valve with severe mitral regurgitation. Patient is hemodynamically stable with c/o shortness of breath on exertion. On room air. He is s/p PICC line for iv penicillin as per ID. Hypertension : bp meds on hold. Ask cardiology to resume/choice meds. Thrombocytopenia :His platelet counts were undetectable, obtain repeat sample. fibrinogen activity 490s. Ask ID if ok to use penicillins. Cardiology, ctvs, ID are consulted as mutlidiscpilanry approach. gi/dvt prophyalxis full code.
[2017-10-19 07:56] LABS: ABSOLUTE BASOPHIL COUNT 0.1 /CUMM (0.0-0.2); ABSOLUTE EOSINOPHIL COUNT 0.1 /CUMM (0.0-0.7); ABSOLUTE GRANULOCYTE CT 7.7 /CUMM (1.4-6.5); ABSOLUTE LYMPH COUNT 1.8 /CUMM (1.2-3.4); ABSOLUTE MONOCYTE COUNT 0.2 /CUMM (0.10-0.60); BASOPHIL % 0.6 % (0.0-2.0); EOSINOPHIL % 1.1 % (0-5); GRANULOCYTE % 77.9 % (42.2-75.2); HEMATOCRIT 33.5 % (42-52); MEAN CORPUSCULAR HGB 25.9 PG (27.0-31.0); MEAN CORPUSCULAR HGB CONC 32.8 G/DL (33.0-37.0); MEAN CORPUSCULAR VOLUME 78.9 FL (80.0-94.0); RBC DISTRIBUTION WIDTH 19.9 % (11.5-14.5); RED BLOOD CELL CT 4.24 /CUMM (4.70-6.10); WHITE BLOOD CELL COUNT 9.8 /CUMM (4.8-10.8)
[2017-10-19 10:44] LABS: ABSOLUTE BASOPHIL COUNT 0 /CUMM (0.0-0.2); ABSOLUTE EOSINOPHIL COUNT 0.1 /CUMM (0.0-0.7); ABSOLUTE GRANULOCYTE CT 6.3 /CUMM (1.4-6.5); ABSOLUTE LYMPH COUNT 1.4 /CUMM (1.2-3.4); ABSOLUTE MONOCYTE COUNT 0.3 /CUMM (0.10-0.60); BASOPHIL % 0.3 % (0.0-2.0); EOSINOPHIL % 1.2 % (0-5); GRANULOCYTE % 77.4 % (42.2-75.2); HEMATOCRIT 33.8 % (42-52); MEAN CORPUSCULAR HGB CONC 32.9 G/DL (33.0-37.0); MEAN CORPUSCULAR VOLUME 78.9 FL (80.0-94.0); MEAN PLATELET VOLUME 9.8 FL (7.4-10.4); RBC DISTRIBUTION WIDTH 19.9 % (11.5-14.5); RED BLOOD CELL CT 4.29 /CUMM (4.70-6.10); WHITE BLOOD CELL COUNT 8.2 /CUMM (4.8-10.8)
[2017-10-19 11:03] LABS: PLATELET COUNT 128 /CUMM (130-400)
--- NOTE | 2017-10-19 13:54 | PN- Infect Dx ---
Subjective Subjective: Afebrile. He complains of fatigue and occasional episodes of shortness of breath. He also complains of his usual, chronic low back pain. Objective Last 24 Hrs of Vital Signs/I&O Vital Signs Date Time Temp Pulse Resp B/P B/P Pulse O2 O2 Flow FiO2 Mean Ox Delivery Rate 10/19 0817 97 112/84 10/19 0634 92 120/92 10/19 0600 4.0 10/18 2222 97.8 86 21 112/70 95 10/18 1400 98.7 91 20 110/80 94 Intake & Output 10/19 1600 10/19 0800 10/19 0000 Intake Total 1040 620 Output Total Balance 1040 620 Intake, IV 240 220 Intake, Oral 800 400 Patient 164 lb Weight Physical Exam Other Physical Findings: He appears comfortable in no acute distress Skin facial flushing Lungs are clear Heart regular rhythm with a 3/6 to 4/6 systolic murmur Extremities no cyanosis, clubbing or edema; PICC in place in the right upper extremity Results Last 24 Hours of Lab Results: Laboratory Tests 10/19 10/19 1015 0605 Chemistry Sodium (137 - 145 mmol/L) 142 Potassium (3.5 - 5.1 mmol/L) 4.9 Chloride (98 - 107 mmol/L) 103 Carbon Dioxide (22 - 30 mmol/L) 28 Anion Gap (5 - 16) 11 BUN (9 - 20 mg/dL) 19 Creatinine (0.7 - 1.2 mg/dL) 1.0 Estimated GFR (>60 ml/min) > 60 BUN/Creatinine Ratio (7 - 25 %) 19.0 Hematology CBC w Diff NO MAN DIFF REQ NO MAN DIFF REQ WBC (4.8 - 10.8 /CUMM) 8.2 9.8 RBC (4.70 - 6.10 /CUMM) 4.29 L 4.24 L Hgb (14.0 - 18.0 G/DL) 11.1 L 11.0 L Hct (42 - 52 %) 33.8 L 33.5 L MCV (80.0 - 94.0 FL) 78.9 L 78.9 L MCH (27.0 - 31.0 PG) 26.0 L 25.9 L MCHC (33.0 - 37.0 G/DL) 32.9 L 32.8 L RDW (11.5 - 14.5 %) 19.9 H 19.9 H Plt Count (130 - 400 /CUMM) 128 L MPV (7.4 - 10.4 FL) 9.8 Gran % (42.2 - 75.2 %) 77.4 H 77.9 H Lymphocytes % (20.5 - 51.1 %) 17.2 L 17.9 L Monocytes % (1.7 - 9.3 %) 3.9 2.5 Eosinophils % (0 - 5 %) 1.2 1.1 Basophils % (0.0 - 2.0 %) 0.3 0.6 Absolute Granulocytes (1.4 - 6.5 /CUMM) 6.3 7.7 H Absolute Lymphocytes (1.2 - 3.4 /CUMM) 1.4 1.8 Absolute Monocytes (0.10 - 0.60 /CUMM) 0.3 0.2 Absolute Eosinophils (0.0 - 0.7 /CUMM) 0.1 0.1 Absolute Basophils (0.0 - 0.2 /CUMM) 0 0.1 Immunology VERONICA Titer Pending Anti-Nuclear Antibody Pending 10/18 1550 Chemistry Sodium (137 - 145 mmol/L) 141 Potassium (3.5 - 5.1 mmol/L) 4.0 Chloride (98 - 107 mmol/L) 102 Carbon Dioxide (22 - 30 mmol/L) 28 Anion Gap (5 - 16) 11 BUN (9 - 20 mg/dL) 18 Creatinine (0.7 - 1.2 mg/dL) 1.1 Estimated GFR (>60 ml/min) > 60 BUN/Creatinine Ratio (7 - 25 %) 16.4 Iron (49 - 181 ug/dL) 67 TIBC (261 - 462 ug/dL) 394 Ferritin (17.9 - 464 ng/mL) 144.0 Lactate Dehydrogenase (313 - 618 U/L) 505 Coagulation PT (9.4 - 12.5 SEC) 11.7 INR (0.90 - 1.17) 1.07 APTT (25 - 37 SEC) 27 Fibrinogen Activity (200 - 393 MG/DL) 494 H Hematology CBC w Diff NO MAN DIFF REQ WBC (4.8 - 10.8 /CUMM) 7.2 RBC (4.70 - 6.10 /CUMM) 4.22 L Hgb (14.0 - 18.0 G/DL) 10.8 L Hct (42 - 52 %) 33.0 L MCV (80.0 - 94.0 FL) 78.2 L MCH (27.0 - 31.0 PG) 25.6 L MCHC (33.0 - 37.0 G/DL) 32.8 L RDW (11.5 - 14.5 %) 20.1 H Plt Count (130 - 400 /CUMM) Gran % (42.2 - 75.2 %) 74.1 Lymphocytes % (20.5 - 51.1 %) 21.1 Monocytes % (1.7 - 9.3 %) 3.1 Eosinophils % (0 - 5 %) 1.3 Basophils % (0.0 - 2.0 %) 0.4 Absolute Granulocytes (1.4 - 6.5 /CUMM) 5.3 Absolute Lymphocytes (1.2 - 3.4 /CUMM) 1.5 Absolute Monocytes (0.10 - 0.60 /CUMM) 0.2 Absolute Eosinophils (0.0 - 0.7 /CUMM) 0.1 Absolute Basophils (0.0 - 0.2 /CUMM) 0 Last 24 Hours of Harsha Results: Blood cultures October 14 negative Blood cultures October 15 negative Recent Imaging Studies: Chest x-ray October 18 negative Assessment/Plan ID Impression: Stable, with temperatures and white blood cell count remaining normal, on Penicillin, Day 6 of treatment for strep viridans mitral valve endocarditis, with severe mitral regurgitation also noted. He is felt by Cardiothoracic surgery to be a candidate for valve replacement or repair, which apparently will be scheduled semi-electively. His back pain is chronic, but the possibility of osteomyelitis or an epidural abscess could be considered, and it may be reasonable to do an MRI at some point. Suggestion: 1. Would pursue an MRI of the lumbosacral spine (can do as an outpatient) 2. Continue Penicillin to complete a 4 week course of treatment from his negative blood cultures (until November 11)
[2017-10-19 14:00] VITALS: BP 120/80
--- NOTE | 2017-10-19 19:00 | PN- Cardiology ---
Subjective Subjective: Still complaining of some back discomfort. Ambulating with acceptable O2 saturations. Objective Vital Signs and I&Os Vital Signs Date Time Temp Pulse Resp B/P B/P Pulse O2 O2 Flow FiO2 Mean Ox Delivery Rate 10/19 1400 97.9 95 20 120/80 94 10/19 0817 97 112/84 10/19 0634 92 120/92 10/19 0600 4.0 10/18 2221 97.8 86 21 112/70 95 Intake & Output 10/19 1600 10/19 0800 10/19 0000 10/18 1600 10/18 0800 10/18 0000 Intake Total 1040 620 700 220 440 Output Total Balance 1040 620 700 220 440 Intake, IV 240 220 Intake, Oral 800 400 700 220 440 Number 1 Bowel Movements Patient 164 lb 168 lb 169 lb Weight Weight Bed scale Measurement Method Physical Exam: Well-developed, well-nourished middle-aged male in no acute distress. Vital signs: See above. Skin: Multiple small petechial hemorrhages. HEENT: Normocephalic, atraumatic, EOMI, slightly dry mucous membranes. Neck: No JVD, no bruits. Lungs: Clear to auscultation bilaterally. Heart: S1, S2 with grade 2-3/6 systolic murmur heard over the precordium. No gallop or rub appreciated. Abdomen: Soft, nontender, positive bowel sounds. Extremities: No edema. Current Medications: Current Medications Sig/Lizzie Start time Last Medication Dose Route Stop Time Status Admin Acetaminophen 1,000 MG Q6P PRN 10/13 2014 AC 10/15 IV 2255 Alprazolam 0.25 MG BID PRN 10/15 929 AC 10/17 PO 10/22 0929 1400 Bisoprolol Fumarate 10 MG DAILY 10/14 899 AC 10/17 PO 09 Budesonide/ 2 PUF BID 10/14 899 AC 10/19 Formoterol Fumarate INH 0819 Cyclobenzaprine HCl 10 MG TID 10/14 899 AC 10/19 PO 1419 Fenofibrate 48 MG DAILY 10/14 09 AC 10/19 PO 0815 Furosemide 20 MG DAILY 10/15 2058 AC 10/19 PO 0815 Gabapentin 300 MG TID 10/13 2213 AC 10/19 PO 1419 Ibuprofen 600 MG .STK-MED ONE 10/19 022 DC PO 05/22 0222 Ibuprofen 600 MG BID PRN 10/15 1425 AC 10/19 PO 0600 Lidocaine 1 PAT DAILY 10/19 0900 AC 10/19 EXT 0821 Lisinopril 10 MG DAILY 10/14 0900 AC 10/17 PO 0810 Montelukast Sodium 10 MG DAILY 10/14 0900 AC 10/19 PO 0816 Omeprazole 20 MG DAILY AC 10/14 0700 AC 10/19 PO 0600 Penicillin G 3 MU Q4 10/15 1800 AC 10/19 Potassium IV 1706 Dextrose/Water 100 ML Results Last 48 Hrs of Labs/Mics: Laboratory Tests 10/19/17 1015: CBC w Diff NO MAN DIFF REQ, RBC 4.29 L, MCV 78.9 L, MCH 26.0 L, MCHC 32.9 L, RDW 19.9 H, MPV 9.8, Gran % 77.4 H, Lymphocytes % 17.2 L, Monocytes % 3.9, Eosinophils % 1.2, Basophils % 0.3, Absolute Granulocytes 6.3, Absolute Lymphocytes 1.4, Absolute Monocytes 0.3, Absolute Eosinophils 0.1, Absolute Basophils 0 10/19/17 0605: Anion Gap 11, Estimated GFR > 60, BUN/Creatinine Ratio 19.0, Iron 59, TIBC 367, Ferritin 134.0, CBC w Diff NO MAN DIFF REQ, RBC 4.24 L, MCV 78.9 L, MCH 25.9 L, MCHC 32.8 L, RDW 19.9 H, Gran % 77.9 H, Lymphocytes % 17.9 L, Monocytes % 2.5, Eosinophils % 1.1, Basophils % 0.6, Absolute Granulocytes 7.7 H, Absolute Lymphocytes 1.8, Absolute Monocytes 0.2, Absolute Eosinophils 0.1, Absolute Basophils 0.1, VERONICA Titer Pending, Anti-Nuclear Antibody Pending 10/18/17 1550: Anion Gap 11, Estimated GFR > 60, BUN/Creatinine Ratio 16.4, Iron 67, TIBC 394, Ferritin 144.0, Lactate Dehydrogenase 505, PT 11.7, INR 1.07, APTT 27, Fibrinogen Activity 494 H, CBC w Diff NO MAN DIFF REQ, RBC 4.22 L, MCV 78.2 L , MCH 25.6 L, MCHC 32.8 L, RDW 20.1 H, Gran % 74.1, Lymphocytes % 21.1, Monocytes % 3.1, Eosinophils % 1.3, Basophils % 0.4, Absolute Granulocytes 5.3, Absolute Lymphocytes 1.5, Absolute Monocytes 0.2, Absolute Eosinophils 0.1, Absolute Basophils 0 Recent Imaging Studies: CXR 10/18/2017: Right-sided PICC line in place. No evidence for acute disease. Assessment/Plan Assessment/Plan [id number] w/ hx of long-standing tob use, COPD, GERD, HTN, HLD, & MVP w/ assoc MR who presented w/ c/o a several month h/o feeling unwell w/ "night sweats", chills/inability to get and stay warm, decreased appetite, weakness, petechial skin lesions, palpitations ("heart pounding") & SOB that got progressively worse over the past month and whose 1st 2 blood cultures were positive for Strep viridans w/ echo on 10/14/2017 c/w probable vegetation on the MV. Fortunately, he remains hemodynamically stable and the plan will be to continue Abx Rx to hopefully sterilize the valve and then plan for MV repair/replacement. Recommendations: * Continue on telemetry. * Increase activity with close attention to oxygen saturations. * Continue antimicrobial therapy as per ID. * DVT prophylaxis. Continue telemetry? Yes
[2017-10-19 23:26] VITALS: BP 118/80
[2017-10-20 06:17] LABS: ABSOLUTE BASOPHIL COUNT 0 /CUMM (0.0-0.2); ABSOLUTE EOSINOPHIL COUNT 0.1 /CUMM (0.0-0.7); ABSOLUTE LYMPH COUNT 1.5 /CUMM (1.2-3.4); ABSOLUTE MONOCYTE COUNT 0.3 /CUMM (0.10-0.60); BASOPHIL % 0.3 % (0.0-2.0); EOSINOPHIL % 0.9 % (0-5); GRANULOCYTE % 78.9 % (42.2-75.2); HEMATOCRIT 33.9 % (42-52); MEAN CORPUSCULAR HGB 26.1 PG (27.0-31.0); MEAN CORPUSCULAR HGB CONC 32.8 G/DL (33.0-37.0); MEAN CORPUSCULAR VOLUME 79.5 FL (80.0-94.0); MEAN PLATELET VOLUME 10.3 FL (7.4-10.4); RBC DISTRIBUTION WIDTH 20.4 % (11.5-14.5); RED BLOOD CELL CT 4.26 /CUMM (4.70-6.10); WHITE BLOOD CELL COUNT 8.8 /CUMM (4.8-10.8)
[2017-10-20 06:47] VITALS: BP 120/80
--- NOTE | 2017-10-20 07:08 | PN- Housestaff ---
See Addendum Subjective Follow-up For: Endocarditis Thrombocytopenia Tele-Events Since Last Visit: NSR with HR 86-97. No further events. Subjective: Patient seen and examined. Reports feeling well. Offers no complaints. Is eager to go home today. Review of Systems Constitutional: Reports: no symptoms. Objective Last 24 Hrs of Vital Signs/I&O Vital Signs Date Time Temp Pulse Resp B/P B/P Pulse O2 O2 Flow FiO2 Mean Ox Delivery Rate 10/20 0947 98 114/70 10/20 0647 97.9 96 20 120/80 96 Room Air 10/19 2326 97.6 85 16 118/80 94 Room Air 10/19 1400 97.9 95 20 120/80 94 Intake & Output 10/20 1600 10/20 0800 10/20 0000 Intake Total 340 100 Output Total Balance 340 100 Intake, IV 240 Intake, Oral 100 100 Patient 168 lb Weight Weight Bed scale Measurement Method Physical Exam General Appearance: Alert, Oriented X3, Cooperative, No Acute Distress Skin: No Rashes, No Breakdown Skin Temp/Moisture Exam: Warm/Dry Sepsis Skin Exam (color): Normal for Ethnicity HEENT: Atraumatic Cardiovascular: Normal S1, Normal S2, holosystolic murmur Lungs: Clear to Auscultation, Normal Air Movement Abdomen: Soft, No Tenderness Neurological: Normal Speech Extremities: No Edema Last 24 Hrs of Lab/Harsha Results Last 24 Hrs of Labs/Mics: Laboratory Tests 10/20/17 1236: CBC w Diff NO MAN DIFF REQ, RBC 4.23 L, MCV 79.2 L, MCH 26.0 L, MCHC 32.9 L, RDW 20.3 H, MPV 10.2, Gran % 81.2 H, Lymphocytes % 13.9 L, Monocytes % 3.5, Eosinophils % 1.2, Basophils % 0.2, Absolute Granulocytes 8.2 H, Absolute Lymphocytes 1.4, Absolute Monocytes 0.4, Absolute Eosinophils 0.1, Absolute Basophils 0, ESR Westergren Pending 10/20/17 0520: CBC w Diff MAN DIFF ORDERED, RBC 4.26 L, MCV 79.5 L, MCH 26.1 L, MCHC 32.8 L , RDW 20.4 H, MPV 10.3, Gran % 78.9 H, Lymphocytes % 17.0 L, Monocytes % 2.9, Eosinophils % 0.9, Basophils % 0.3, Absolute Granulocytes 7.0 H, Absolute Lymphocytes 1.5, Absolute Monocytes 0.3, Absolute Eosinophils 0.1, Absolute Basophils 0, Platelet Estimate DECREASED, Polychromasia 1+, Anisocytosis 1+ Assessment/Plan Assessment: 47 yo male with past medical history of hypertension, hyperlipidemia, MVP with known heart murmur presented to [facility] ED with complaints of body aches, headache and fever. Assessment and Plan: mild protein malnutrition Infective Endocarditis: * Initial Blood cultures were positive for alpha strep * Repeat blood cultures 10/15/17 were negative for bactermia * MRI of lumbar spine today is concerning of osteomyelitis. * Continue IV Penicillin G 3MU q4 for a 6 week course now to treat possible underlying osteomyelitis. * He will likely need surgery for repair of mitral valve in future. However, this is nothing urgent. * Continue PO Lasix 20mg for pulmonary edema. Would continue this on discharge. His blood pressure has been on the low side. He's off beta rose now and lisinopril has been decreased to 2.5mg. Thrombocytopenia: resolved * Improved to 130 today. Microcytic Anemia * MCV 79.2 * Iron studies wnl. History of Hypertension and Hyperlipidemia: * Continue lisinopril and fenofibrate. Chronic Back Pain: * Continue Flexeril 10mg TID and Gabapentin 300mg TID Heart healthy diet DVT ppx-ALPs only because of thrombocytopenia Full code Problem List: 1. Endocarditis Pain Ratin Pain Location: none Pain Goal: Remain pain free Pain Plan: none Tomorrow's Labs & Rationales: none
[2017-10-20] MEDS ORDERED: LISINOPRIL5 M1 PO (08:10)
[2017-10-20] MEDS ORDERED: LISINOPRIL2.5 M1 PO ×2 (08:53→09:59)
[2017-10-20] MEDS ORDERED: LASIX20 M1 PO ×2 (08:53→09:59)
[2017-10-20 09:47] VITALS: BP 114/70
[2017-10-20] MEDS ORDERED: [UNRECOGNIZED DRUG - CODE] IV ×2 (10:01→12:31)
[2017-10-20] MEDS ORDERED: LIDOCAINE1 EACH TOP (10:11)
--- NOTE | 2017-10-20 11:41 | PN- Infect Dx ---
See Addendum Subjective Subjective: Afebrile. He continues to complain of back pain but otherwise feels improved, with no complaints of chest pain or shortness of breath. Objective Last 24 Hrs of Vital Signs/I&O Vital Signs Date Time Temp Pulse Resp B/P B/P Pulse O2 O2 Flow FiO2 Mean Ox Delivery Rate 10/20 0947 98 114/70 10/20 0647 97.9 96 20 120/80 96 Room Air 10/19 2326 97.6 85 16 118/80 94 Room Air 10/19 1400 97.9 95 20 120/80 94 Intake & Output 10/20 1600 10/20 0800 10/20 0000 Intake Total 340 100 Output Total Balance 340 100 Intake, IV 240 Intake, Oral 100 100 Patient 168 lb Weight Weight Bed scale Measurement Method Physical Exam Other Physical Findings: He appears comfortable in no acute distress Lungs are clear Heart regular rhythm with no change in his 3/6 to 4/6 systolic murmur Extremities no cyanosis, clubbing or edema; PICC in the right upper extremity with no inflammation at the site Results Last 24 Hours of Lab Results: Laboratory Tests 10/20 0520 Hematology CBC w Diff MAN DIFF ORDERED WBC (4.8 - 10.8 /CUMM) 8.8 RBC (4.70 - 6.10 /CUMM) 4.26 L Hgb (14.0 - 18.0 G/DL) 11.1 L Hct (42 - 52 %) 33.9 L MCV (80.0 - 94.0 FL) 79.5 L MCH (27.0 - 31.0 PG) 26.1 L MCHC (33.0 - 37.0 G/DL) 32.8 L RDW (11.5 - 14.5 %) 20.4 H Plt Count (130 - 400 /CUMM) 64 L MPV (7.4 - 10.4 FL) 10.3 Gran % (42.2 - 75.2 %) 78.9 H Lymphocytes % (20.5 - 51.1 %) 17.0 L Monocytes % (1.7 - 9.3 %) 2.9 Eosinophils % (0 - 5 %) 0.9 Basophils % (0.0 - 2.0 %) 0.3 Absolute Granulocytes (1.4 - 6.5 /CUMM) 7.0 H Absolute Lymphocytes (1.2 - 3.4 /CUMM) 1.5 Absolute Monocytes (0.10 - 0.60 /CUMM) 0.3 Absolute Eosinophils (0.0 - 0.7 /CUMM) 0.1 Absolute Basophils (0.0 - 0.2 /CUMM) 0 Platelet Estimate (ADEQUATE) DECREASED Polychromasia 1+ Anisocytosis 1+ Last 24 Hours of Harsha Results: Blood cultures since October 14 remain negative Assessment/Plan ID Impression: Stable, with temperatures and white blood cell count remaining normal, on Penicillin, Day 7 of treatment for strep viridans mitral valve endocarditis, with severe mitral regurgitation also noted. His thrombocytopenia persists, most likely secondary to infection, but could also be secondary to one of his medications. He is felt by Cardiothoracic surgery to be a candidate for valve replacement or repair, which apparently will be scheduled semi-electively. His back pain is chronic but he is scheduled for an MRI today to rule out the possibility that he has seeded the spine to cause an osteomyelitis or epidural abscess. Suggestion: 1. Await MRI of the lumbosacral spine 2. Reevaluate and discontinue all nonessential medications 3. Continue Penicillin to complete a 4 week course of treatment from his negative blood cultures (until November 11) 4. Will need follow-up CBCs to follow his platelet count
--- NOTE | 2017-10-20 12:05 | PN- Cardiology ---
See Addendum Subjective Subjective: Back from MRI where lumbo-sacral spine was imaged. Admits to some low back pain, but is otherwise without complaints. Denies any shortness of breath. Objective Vital Signs and I&Os Vital Signs Date Time Temp Pulse Resp B/P B/P Pulse O2 O2 Flow FiO2 Mean Ox Delivery Rate 10/20 0847 98 114/70 10/20 0647 97.9 96 20 120/80 96 Room Air 10/19 2326 97.6 85 16 118/80 94 Room Air 10/19 1400 97.9 95 20 120/80 94 Intake & Output 10/20 1600 10/20 0800 10/20 0000 10/19 1600 10/19 0800 10/19 0000 Intake Total 860 413 8784 620 Output Total Balance 032 562 3947 620 Intake, IV 240 240 220 Intake, Oral 100 100 800 400 Patient 168 lb 164 lb Weight Weight Bed scale Measurement Method Physical Exam: Well-developed, well-nourished middle-aged male in no acute distress. Vital signs: See above. Neck: No JVD, no bruits. Lungs: Clear to auscultation. Heart: S1, S2 with grade 2-3/6 systolic murmur heard over the precordium. Abdomen: Soft, nontender, positive bowel sounds. Extremities: No edema. Current Medications: Current Medications Sig/Lizzie Start time Last Medication Dose Route Stop Time Status Admin Acetaminophen 1,000 MG Q6P PRN 10/13 2014 AC 10/15 IV 2255 Alprazolam 0.25 MG BID PRN 10/15 929 AC 10/17 PO 10/22 0929 1400 Bisoprolol Fumarate 10 MG DAILY 10/14 899 DC 10/17 PO 09 Budesonide/ 2 PUF BID 10/14 899 AC 10/20 Formoterol Fumarate INH 0947 Cyclobenzaprine HCl 10 MG TID 10/14 899 AC 10/20 PO 0943 Fenofibrate 48 MG DAILY 10/14 899 AC 10/20 PO 0947 Furosemide 20 MG DAILY 10/15 2058 AC 10/20 PO 1136 Gabapentin 300 MG TID 10/13 2213 AC 10/20 PO 0944 Ibuprofen 600 MG BID PRN 10/15 1425 AC 10/20 PO 0953 Lidocaine 1 PAT DAILY 10/19 899 AC 10/20 EXT 0944 Lisinopril 5 MG DAILY 10/20 899 DC PO Lisinopril 2.5 MG DAILY 10/20 09 AC 10/20 PO 09 Lisinopril 10 MG DAILY 10/14 09 DC 10/17 PO 0810 Montelukast Sodium 10 MG DAILY 10/14 09 AC 10/20 PO 09 Omeprazole 20 MG DAILY AC 10/14 0700 AC 10/20 PO 0521 Penicillin G 3 MU Q4 10/15 1800 AC 10/20 Potassium IV 0939 Dextrose/Water 100 ML Results Last 48 Hrs of Labs/Mics: Laboratory Tests 10/20/17 0520: CBC w Diff MAN DIFF ORDERED, RBC 4.26 L, MCV 79.5 L, MCH 26.1 L, MCHC 32.8 L , RDW 20.4 H, MPV 10.3, Gran % 78.9 H, Lymphocytes % 17.0 L, Monocytes % 2.9, Eosinophils % 0.9, Basophils % 0.3, Absolute Granulocytes 7.0 H, Absolute Lymphocytes 1.5, Absolute Monocytes 0.3, Absolute Eosinophils 0.1, Absolute Basophils 0, Platelet Estimate DECREASED, Polychromasia 1+, Anisocytosis 1+ 10/19/17 1015: CBC w Diff NO MAN DIFF REQ, RBC 4.29 L, MCV 78.9 L, MCH 26.0 L, MCHC 32.9 L, RDW 19.9 H, MPV 9.8, Gran % 77.4 H, Lymphocytes % 17.2 L, Monocytes % 3.9, Eosinophils % 1.2, Basophils % 0.3, Absolute Granulocytes 6.3, Absolute Lymphocytes 1.4, Absolute Monocytes 0.3, Absolute Eosinophils 0.1, Absolute Basophils 0 10/19/17 0605: Anion Gap 11, Estimated GFR > 60, BUN/Creatinine Ratio 19.0, Iron 59, TIBC 367, Ferritin 134.0, CBC w Diff NO MAN DIFF REQ, RBC 4.24 L, MCV 78.9 L, MCH 25.9 L, MCHC 32.8 L, RDW 19.9 H, Gran % 77.9 H, Lymphocytes % 17.9 L, Monocytes % 2.5, Eosinophils % 1.1, Basophils % 0.6, Absolute Granulocytes 7.7 H, Absolute Lymphocytes 1.8, Absolute Monocytes 0.2, Absolute Eosinophils 0.1, Absolute Basophils 0.1, VERONICA Titer ND, Anti-Nuclear Antibody NEG 1:40 IFA ASSAY 10/18/17 1550: Anion Gap 11, Estimated GFR > 60, BUN/Creatinine Ratio 16.4, Iron 67, TIBC 394, Ferritin 144.0, Lactate Dehydrogenase 505, PT 11.7, INR 1.07, APTT 27, Fibrinogen Activity 494 H, CBC w Diff NO MAN DIFF REQ, RBC 4.22 L, MCV 78.2 L , MCH 25.6 L, MCHC 32.8 L, RDW 20.1 H, Gran % 74.1, Lymphocytes % 21.1, Monocytes % 3.1, Eosinophils % 1.3, Basophils % 0.4, Absolute Granulocytes 5.3, Absolute Lymphocytes 1.5, Absolute Monocytes 0.2, Absolute Eosinophils 0.1, Absolute Basophils 0 Assessment/Plan Assessment/Plan [id number] w/ hx of long-standing tob use, COPD, GERD, HTN, HLD, & MVP w/ assoc MR who presented w/ c/o a several month h/o feeling unwell w/ "night sweats", chills/inability to get and stay warm, decreased appetite, weakness, petechial skin lesions, palpitations ("heart pounding") & SOB that got progressively worse over the past month and whose 1st 2 blood cultures were positive for Strep viridans w/ echo on 10/14/2017 c/w probable vegetation on the MV. Fortunately, he remains hemodynamically stable and the plan will be to continue Abx Rx to hopefully sterilize the valve and then plan for MV repair/replacement. Recommendations: * Continue on telemetry. * Follow-up MRI results. * Continue present management. * Probable discharge to home later today. * Will follow-up in the office within the week. * DVT prophylaxis until discharge. Continue telemetry? Yes
--- NOTE | 2017-10-20 12:10 | MRI REPORT ---
EXAMINATION: MR LUMBAR SPINE WITHOUT AND WITH CONTRAST CLINICAL INFORMATION: Rule out osteomyelitis. COMPARISON: Lumbar spine radiographs April 26, 2017. TECHNIQUE: MRI of the lumbar spine was obtained using routine sequences without and with intravenous contrast. A total of contrast mL Gadavist was intravenously administered. FINDINGS: At L2-L3 there is opposing endplate irregularity, diffuse edema within the endplates and bone marrow and corresponding enhancement. There is no epidural collection. No intradiscal collection is seen. There is mild enhancement within the paravertebral space but no defined paraspinal collection or psoas abscess is seen. There is increased STIR signal within the posterior paraspinal muscles which is nonspecific but may reflect myositis. There is mild disc height loss posteriorly at L5-S1. The L3-L4 disc is desiccated. The remaining disc heights are preserved. Apart from L2-L3 no bone marrow edema is seen. The distal spinal cord appears normal. The conus medullaris terminates normally at the upper L2 level. The retroperitoneal structures appear normal. SPINAL LEVELS: L1-L2: No posterior disc abnormality. No spinal canal or neural foraminal stenosis. L2-L3: Partial collapse of the disc space with mild underlying disc bulging and bilateral facet arthropathy. Mild neural foraminal stenosis bilaterally without foraminal nerve root compression. No spinal canal stenosis. L3-L4: Mild disc bulging and mild facet arthropathy. Mild bilateral neural foraminal stenosis without foraminal nerve root compression. No spinal canal stenosis. L4-L5: Mild disc bulging. Mild bilateral facet arthropathy. Mild bilateral neural foraminal stenosis without foraminal nerve root compression. L5-S1: Disc bulging with superimposed central disc protrusion. Mild facet arthropathy. No significant spinal canal or neural foraminal stenosis. IMPRESSION: - At L2-L3 there is opposing endplate irregularity and endplate and bone marrow edema and enhancement which in the setting of sepsis is compatible with discitis osteomyelitis. No evidence of epidural or paravertebral abscess. - No significant spinal canal or neural foraminal stenosis.
[2017-10-20 12:57] LABS: ABSOLUTE BASOPHIL COUNT 0 /CUMM (0.0-0.2); ABSOLUTE EOSINOPHIL COUNT 0.1 /CUMM (0.0-0.7); ABSOLUTE GRANULOCYTE CT 8.2 /CUMM (1.4-6.5); ABSOLUTE LYMPH COUNT 1.4 /CUMM (1.2-3.4); ABSOLUTE MONOCYTE COUNT 0.4 /CUMM (0.10-0.60); BASOPHIL % 0.2 % (0.0-2.0); EOSINOPHIL % 1.2 % (0-5); HEMATOCRIT 33.5 % (42-52); MEAN CORPUSCULAR HGB CONC 32.9 G/DL (33.0-37.0); MEAN CORPUSCULAR VOLUME 79.2 FL (80.0-94.0); MEAN PLATELET VOLUME 10.2 FL (7.4-10.4); RBC DISTRIBUTION WIDTH 20.3 % (11.5-14.5); RED BLOOD CELL CT 4.23 /CUMM (4.70-6.10); WHITE BLOOD CELL COUNT 10.1 /CUMM (4.8-10.8)
[2017-10-20 13:16] LABS: GRANULOCYTE % 81.2 % (42.2-75.2); PLATELET COUNT 130 /CUMM (130-400)
== END 2017-10-20 13:10 | disposition home health service (06) | DRG 193 ==
LOC: ERH 15:11 → ERHI 18:45 → 2NB 18:45 → 1NO 18:45 → ENRESERV 19:14 → ENTRNSPT 20:07 → EDTRNSPTSTS 20:12 → EDTRNSPT 20:23 → 2NB 20:31 → CMPTRNSPT 20:38 → 1NO 10-15 19:57 → ENPENDDIS 10-20 12:38 → ENTRNSPT 10-20 12:53 → EDTRNSPTSTS 10-20 13:01 → EDTRNSPT 10-20 13:01 → 1NO 10-20 13:10 → CMPTRNSPT 10-20 13:16
PROVIDERS: Emergency Medicine; Internal Medicine; Student in an Organized Health Care Education/Training Program
PROC: 02HV33Z Insertion of Infusion Device into Superior Vena Cava, Percutaneous Approach (ICD-10-PCS; principal; 2017-10-18)
DX: I33.0 Acute and subacute infective endocarditis (principal); R78.81 Bacteremia; I10 Essential (primary) hypertension; E78.5 Hyperlipidemia, unspecified; Z72.0 Tobacco use; D69.6 Thrombocytopenia, unspecified; R01.1 Cardiac murmur, unspecified; K21.0 Gastro-esophageal reflux disease with esophagitis; B95.4 Other streptococcus as the cause of diseases classified elsewhere; I34.0 Nonrheumatic mitral (valve) insufficiency; E44.1 Mild protein-calorie malnutrition; Z68.22 Body mass index [BMI] 22.0-22.9, adult; D50.9 Iron deficiency anemia, unspecified; M54.9 Dorsalgia, unspecified
CPT/HCPCS: 1NSP; 2NBSP; 72149; 36415; 36592; 71045; 72158; 81001; 82436; 83010; 86431; 87040; 87071; 87086; 87147; 87389; 87450; 93005; 93010; 93306; 94060-59; 94726; 96365; 96366; 96375; 99406-59; A9579; C1769; J0131; J0696; J1650; J3490

== ENCOUNTER 2017-12-22 08:31 | Inpatient (IN) | payer OTHER ==
[~2017-12-22] VITALS: Ht 182.9 cm; Wt 82.4 kg
[~2017-12-22 08:31] MED LIST changes: +CHOLEST OFF PL450 MG PO; +LASIX20 M1 PO; +LIDOCAINE1 EACH TOP; +LISINOPRIL2.5 M1 PO; +LISINOPRIL5 M1 PO; +PRAVASTATIN SOD40 M2 PO; +[UNRECOGNIZED DRUG - CODE] IV
--- NOTE | 2017-12-22 09:16 | ED DYSPNEA/ASTHMA COMPLAINT ---
History of Present Illness General Chief Complaint: Dyspnea (COPD, CHF, Other) Stated Complaint: SIB DR CAMACHO FOR SOB Source: patient, old records Exam Limitations: no limitations Vital Signs & Intake/Output Vital Signs & Intake/Output Vital Signs Date Time Temp Pulse Resp B/P B/P Pulse O2 O2 Flow FiO2 Mean Ox Delivery Rate 12/24 0800 89 120/90 12/24 0612 97.1 89 18 120/90 92 Room Air 12/23 2240 97.9 92 20 124/82 92 Room Air ED Intake and Output 12/24 0000 12/23 1200 Intake Total 600 220 Output Total 600 Balance 0 220 Intake, Oral 600 220 Output, Urine 600 Patient 186 lb Weight Weight Bed scale Measurement Method Allergies Coded Allergies: Penicillins (RASH 12/22/17) Reconcile Medications Albuterol Sulfate (Proventil Hfa) 90 MCG HFA.AER.AD 2 PUF INH 4 TIMES/DAY PRN SHORTNESS OF BREATH (Reported) Bisoprolol Fumarate 5 MG TABLET 0.5 TAB PO DAILY HEART (Reported) Budesonide/Formoterol Fumarate (Symbicort 160-4.5 Mcg Inhaler) 160 MCG-4.5 MCG/ ACTUATION HFA.AER.AD 2 PUF INH BID BREATHING PROBLEMS (Reported) Cetirizine HCl 10 MG TABLET 1 TAB PO DAILY ALLERGIES (Reported) Cyclobenzaprine HCl 10 MG TABLET 1 TAB PO TID MUSCLE SPASMS (Reported) Fenofibric Acid (Choline) (Trilipix) 45 MG CAPSULE.DR 1 CAP PO QPM CHOLESTEROL (Reported) Furosemide (Lasix) 20 MG TABLET 1 TAB PO DAILY Fluid Overload Gabapentin 300 MG CAPSULE 1 CAP PO TID SEIZURES (Reported) Ibuprofen 800 MG TABLET 1 TAB PO BID PAIN (Reported) Lidocaine 5 % ADH..PATCH 1 PAT TOP DAILY Back Pain Lisinopril 2.5 MG TABLET 1 TAB PO DAILY Heart Health Montelukast Sodium 10 MG TABLET 1 TAB PO DAILY ALLERGIES (Reported) Pantoprazole Sodium (Protonix) 40 MG TABLET.DR 1 TAB PO DAILY GERD Plant Stanol Nasima (Cholest Off Plus) 450 MG CAPSULE (Unknown Dose) PO DAILY HIGH CHOLESTEROL (Reported) Triage Note: PT TO ED C/O DIFF BREATHING, SOB X 1 WEEK. STATES WORSE WITH EXERTION. SENT TO ED BY DR CAMACHO. PT DENIES CHEST PAIN, ONLY C/O LBP. PT HAD BLOOD INFECTION AFTER DENTAL WORK 1 MONTH AGO. PT WAS ON IV PCN FOR 6 WEEKS, LAST DOSE 11/25. NO OBVIOUS RESP DISTRESS NOTED. RA SATS 94%. TAKEN FOR EKG. Triage Nurses Notes Reviewed? yes Onset: Gradual Duration: week(s): Timing: recent history Severity: moderate HPI: 47yo male with hx of HTN, COPD, presents to ED complaining of worsening dyspnea x 1 week. Patient was admitted 10/13-10/20 for sepsis with ?endocarditis. He was discharged with picc line and was receieving IV PCN for osteomyelitis. Patient finished antibiotics 11/25. Patient states he was feeling better at that time. Patient states that for the past week he has increasing shortness of breath, worse with exertion. Patient also reports increasing malaise, night sweats. Patient states his low back pain relating to osteomyelitis improved however he does suffer from chronic low back pain. Patient informed his horticultural manager, Dr. Camacho who referred him here to emergency department for repeat sepsis workup. Patient denies chest pain, vomiting, diarrhea. (Violetta Bain) Past History Travel History Traveled to [place] past 21 day No Medical History Any Pertinent Medical History? see below for history Neurological: NONE EENT: NONE Cardiovascular: hypertension, HIGH CHOLESTEROL mitral valve prolapse Respiratory: NONE Gastrointestinal: NONE Hepatic: NONE Renal: NONE Musculoskeletal: NONE Psychiatric: NONE Endocrine: NONE Blood Disorders: NONE Cancer(s): NONE ROBOTIC WELDER/Reproductive: NONE History of MRSA: No History of VRE: No History of CDIFF: No Surgical History Surgical History: non-contributory Psychosocial History Who do you live with Family Services at Home None What is your primary language Belarusian Tobacco Use: Quit >30 days ago ETOH Use: denies use Illicit Drug Use: denies illicit drug use Family History Family History, If Any: aunt (cancer thyroid). Hx Contributory? No (Violetta Bain) Review of Systems Review of Systems Constitutional: Reports: see HPI. EENTM: Reports: no symptoms. Respiratory: Reports: see HPI. Cardiovascular: Reports: see HPI. GI: Reports: no symptoms. Genitourinary: Reports: no symptoms. Musculoskeletal: Reports: see HPI. Skin: Reports: no symptoms. Neurological/Psychological: Reports: no symptoms. Hematologic/Endocrine: Reports: no symptoms. Immunologic/Allergic: Reports: no symptoms. All Other Systems: Reviewed and Negative (Warriors Mark PA,Violetta Ibarra) Physical Exam Physical Exam General Appearance: well developed/nourished, no apparent distress, alert, awake Head: atraumatic, normal appearance Eyes: Bilateral: normal appearance. Ears, Nose, Throat: hearing grossly normal Neck: normal inspection, supple, full range of motion Respiratory: normal breath sounds, no respiratory distress, lungs clear Cardiovascular: regular rate/rhythm, systolic murmur Gastrointestinal: normal bowel sounds, soft, non-tender, no organomegaly Extremities: normal inspection, normal capillary refill Neurologic/Psych: no motor/sensory deficits Skin: intact, normal color, warm/dry Core Measures ACS in differential dx? Yes CVA/TIA Diagnosis No Sepsis Present: No Sepsis Focused Exam Completed? No (Tasneem KIMBLE,Violetta Ibarra) Progress Differential Diagnosis: asthma, AMI, bronchitis, COPD, pulmonary embolism, pneumonia, unstable angina, endocarditis, sepsis Plan of Care: Orders Procedure Date/time Status MAGNESIUM 12/25 0600 Active CBC WITHOUT DIFFERENTIAL 12/25 0600 Active BASIC ELECTROLYTES PLUS BUN&CR 12/25 0600 Active Heart Healthy Diet 12/24 L Active LIPID PANEL 12/24 1100 Complete PARTIAL THROMBOPLASTIN TIME 12/24 1057 Complete PROTHROMBIN TIME 12/24 1057 Complete URINALYSIS 12/24 1056 Complete CBC WITHOUT DIFFERENTIAL 12/24 1056 Complete TROPONIN LEVEL 12/24 1049 Complete BASIC ELECTROLYTES PLUS BUN&CR 12/24 1049 Complete EKG 12/24 1046 Active SWALLOW EVALUATION 12/24 UNK Active NIH Stroke Scale 12/24 UNK Active Current Medications Sig/Lizzie Start time Last Medication Dose Stop Time Status Admin Aspirin 81 MG DAILY 12/25 0900 AC (Aspirin) Furosemide 40 MG DAILY 12/25 0900 AC (Lasix) Atorvastatin Calcium 40 MG 1700 12/24 1700 AC (Lipitor) Benzocaine/Menthol 1 JORDAN Q4 HRS NEEDED PRN 12/23 1900 AC 12/23 (Chloraseptic 1917 Lozenges) Fenofibrate 48 MG DAILY 12/23 0900 AC 12/24 (Tricor) 0801 Heparin Sodium 5,000 UNIT Q8 12/22 2200 AC 12/24 (Porcine) 0512 Budesonide/ 2 PUF BID 12/22 2100 AC 12/24 Formoterol Fumarate 0759 (Symbicort) Cyclobenzaprine HCl 10 MG TID 12/22 2100 AC 12/24 (Flexeril 10MG Tab) 0800 Acetaminophen 650 MG Q4P PRN 12/22 1530 AC 12/23 (Tylenol) 1846 Acetaminophen 1,000 MG Q6P PRN 12/22 153 AC (Ofirmev) N/A 1 UNIT (No Carrier) Morphine Sulfate 2 MG Q6P PRN 12/22 1530 AC (MORPHINE SULFATE) Albuterol Sulfate 2 PUF 4 TIMES/DAY PRN 12/22 151 AC (Ventolin) Omeprazole 40 MG DAILY AC 12/22 1515 AC 12/24 (Prilosec) 0511 Gabapentin 300 MG TID 12/22 151 AC 12/24 (Neurontin) 08 Lisinopril 2.5 MG DAILY 12/22 151 AC 12/24 (Prinivil) 08 Laboratory Tests 12/24/17 1110: Urine Color STRAW, Urine Clarity CLEAR, Urine pH 7.5, Ur Specific Luna 1.010, Urine Protein NEG, Urine Ketones NEG, Urine Nitrite NEG, Urine Bilirubin NEG, Urine Urobilinogen 0.2, Ur Leukocyte Esterase NEG, Ur Microscopic SEDIMENT EXAMINED, Urine RBC 1-3, Urine Bacteria RARE H, Urine Hemoglobin SMALL H, Urine Glucose NEG 12/24/17 1100: Anion Gap 14, Estimated GFR > 60, BUN/Creatinine Ratio 26.4 H, Troponin I < 0.01, Triglycerides 101, Cholesterol 140, LDL Cholesterol, Calc 98, HDL Cholesterol 22 L, Cholesterol/HDL Ratio 6 H, PT 13.5 H, INR 1.24 H, APTT 28, CBC w Diff NO MAN DIFF REQ, RBC 4.63 L, MCV 80.6, MCH 26.6 L, MCHC 33.0, RDW 17.3 H, Gran % 83.3 H, Lymphocytes % 13.5 L, Monocytes % 2.3, Eosinophils % 0.9, Basophils % 0, Absolute Granulocytes 10.4 H, Absolute Lymphocytes 1.7, Absolute Monocytes 0.3, Absolute Eosinophils 0.1, Absolute Basophils 0 12/24/17 1056: Triglycerides Cancelled, Cholesterol Cancelled, LDL Cholesterol, Calc Cancelled, HDL Cholesterol Cancelled, Cholesterol/HDL Ratio Cancelled 12/24/17 0635: Anion Gap 16, Estimated GFR > 60, BUN/Creatinine Ratio 28.2 H, CBC w Diff NO MAN DIFF REQ, RBC 4.48 L, MCV 81.3, MCH 26.7 L, MCHC 32.8 L, RDW 17.6 H, Gran % 76.3 H, Lymphocytes % 19.1 L, Monocytes % 3.4, Eosinophils % 0.8, Basophils % 0.4, Absolute Granulocytes 8.8 H, Absolute Lymphocytes 2.2, Absolute Monocytes 0.4, Absolute Eosinophils 0.1, Absolute Basophils 0.1 Patient's chest x-ray shows mild effusion, labs show leukocytosis of 14. This is elevated compared to old labs. Remainder of labs show elevated d-dimer. Given patient's recent history of endocarditis at Hospital admission will assess for PE with CTA. CTA shows no evidence of pulmonary embolism. Spoke with on-call horticultural manager Dr. Wilde regarding this patient. He agrees with plan for hospital stay given the patient's recent history. He recommends telemetry admission. Likely repeat echocardiogram. Dr. Ivy spoke with hospitalist, Dr. Vu regarding telemetry admission. Diagnostic Imaging: Viewed by Me: Radiology Read, CT Scan. Discussed w/RAD: Radiology Read, CT Scan. Radiology Impression: PATIENT: HIMANSHU CANO PRESENT AGE: 47 PATIENT ACCOUNT NO: [id number] : 70 LOCATION: [facility] ORDERING PHYSICIAN: Violetta KIMBLE SERVICE DATE: 12/22/17 EXAM TYPE: CAT - CTA CHEST-PULMONARY EMBOLISM EXAMINATION: CT CHEST PE STUDY CLINICAL INFORMATION : Dyspnea. Recent endocarditis. Rule out PE. COMPARISON: Chest x-ray dated 12/22. TECHNIQUE: Prior to contrast administration, localization images were obtained. After the administration of 95 mL of intravenous Optiray 320, multidetector CT volume acquisition of the chest was performed. 3-D postprocessing was performed with multiplanar reconstructions and MIP images obtained at the acquisition workstation under concurrent physician supervision. DLP: 513.84 mGy-cm. FINDINGS: Pulmonary arteries: The bolus timing on this study was acceptable for visualization of the pulmonary arterial tree. There are no intraluminal pulmonary arterial filling defects present to suggest pulmonary embolism in the main pulmonary artery, right and left main pulmonary artery, lobar and segmental branches. Lungs: There is a small right sided pleural effusion, which is seen layering posteriorly up to the level of the aortic arch and appears simple with no visceral or parietal pleural thickening or nodularity or abnormal enhancement seen. Subjacent areas of dependent groundglass opacities are seen in the right lower lobe, consistent with subsegmental atelectasis. There are also linear areas of subsegmental atelectasis in the left lower lobe. No focal lung consolidation is seen. Biapical irregular pleural-based reticular nodular opacities are noted, most consistent with scarring. There are also multiple subtle groundglass opacity centrilobular nodules seen in the upper lobes with underlying mild centrilobular emphysema. Findings raise the suspicion of subtle respiratory bronchiolitis. No suspicious pulmonary nodules, masses, or pneumothorax. The central airways are patent. Aorta and heart: The heart is enlarged with primarily left heart chamber enlargement seen. Right atrium is also slightly enlarged. There is reflux of contrast seen into the IVC and intrahepatic veins, which are mildly dilated. These findings may be due to subtle right heart strain versus forceful injection of the contrast. No intraventricular septal bowing to the left side is seen. The aorta and great vessels are normal in caliber. There is no pericardial effusion Lymphatic structures: There are several mediastinal lymph nodes, several of which are borderline enlarged, including a right upper paratracheal lymph node (series 2, image 181), measuring 1.1 cm in short axis and a subcarinal/azygous esophageal lymph node, measuring 1.3 cm (series 2, image 267. In addition, bilateral right greater than left hilar lymph nodes are seen measuring up to 1.2 cm on the right side and 0.9 cm on the left side. No significant axillary adenopathy is seen. Upper abdomen: Limited evaluation of the upper abdominal viscera demonstrates no focal abnormality. Bones: Moderate vertebral endplate spurring is seen in the lower thoracic spine and mild vertebral endplate spurring in the upper and mid thoracic spine. No suspicious bone findings. IMPRESSION: 1. No evidence of pulmonary embolism. 2. Mild centrilobular emphysema and subtle bilateral upper lobe groundglass opacity nodular densities seen, suggesting subtle respiratory bronchiolitis. 3. No focal pneumonia. 4. Enlarged heart. Reflux of contrast into the intrahepatic IVC and hepatic veins, either related to forceful contrast injection versus elevated right heart pressures. Clinical correlation requested. 5. Multiple borderline enlarged mediastinal and bilateral hilar lymph nodes are seen. Findings may be due to reactive adenopathy. Other inflammatory or neoplastic etiologies (including lymphoma) are not completely excluded and short interval follow-up CT scan in 3 months is recommended for reassessment. VTE: Negative. DICTATED BY: Kalina Hernandez MD DATE/TIME DICTATED:12/22/171220 PHYTOPATHOLOGY TEACHER:YUSEF DATE/TIME TRANSCRIBED:12/22/171220 CONFIDENTIAL, DO NOT COPY WITHOUT APPROPRIATE AUTHORIZATION. <Electronically signed in Other Vendor System> SIGNED BY: Kalina Hernandez MD 12/22/17 1246 CXR Impression: PATIENT: HIMANSHU CANO PRESENT AGE: 47 PATIENT ACCOUNT NO: [id number] : 70 LOCATION: [facility] ORDERING PHYSICIAN: Violetta KIMBLE SERVICE DATE: 12/22/17 EXAM TYPE: RAD - XRY-CHEST XRAY, TWO VIEWS EXAMINATION: XR CHEST CLINICAL INFORMATION: Dyspnea. Night sweats. COMPARISON: 10/18/2017 TECHNIQUE: 2 views of the chest were obtained. FINDINGS: Stable cardiomegaly and pulmonary venous congestion without overt edema. Small right pleural effusion. No discrete consolidation. No pneumothorax. No acute or suspicious osseous abnormalities. IMPRESSION: 1. No focal consolidation. 2. Stable cardiomegaly and pulmonary venous congestion without overt edema. 3. Small right pleural effusion. DICTATED BY: MODE VAZQUEZ MD DATE/TIME DICTATED:12/22/17951 PHYTOPATHOLOGY TEACHER:YUSEF DATE/TIME TRANSCRIBED:12/22/17951 CONFIDENTIAL, DO NOT COPY WITHOUT APPROPRIATE AUTHORIZATION. <Electronically signed in Other Vendor System> SIGNED BY: MODE VAZQUEZ MD 12/22/17 0957 Initial ED EKG: sinus rhythm @93bpm, nonspecific ST changes Prior EKG: unchanged (10/15/17) (Tasneem KIMBLE,Violetta Ibarra) Departure Departure Disposition: STILL A PATIENT Condition: Stable Clinical Impression Primary Impression: Dyspnea Qualifiers: Dyspnea type: unspecified Qualified Code: R06.00 - Dyspnea, unspecified Secondary Impressions: Night sweats, Weakness Referrals: Antonella Padron APRN (PCP/Family) Departure Forms: Customer Survey General Discharge Information Admission Note Spoke With: Faizan Vu MD Documentation of Exam: Documentation of any treatments & extenuating circumstances including Concerns Regarding Discharge (functional status, medication knowledge or non-compliance, living conditions, etc.) that warrant an admission rather than observation: [ patient with history of recent sepsis with likely endocarditis and osteomyelitis returns with worsening similar symptoms including dyspnea, night sweats, weakness requiring sepsis/endocarditis work up, follow-up with blood cultures, echocardiogram, cardiology consult, premature discharge medically unsafe] (Violetta Bain) PA/BEAUTY CONSULTANT Co-Sign Statement Statement: ED Attending supervision documentation- [] I saw and evaluated the patient. I have also reviewed all the pertinent lab results and diagnostic results. I agree with the findings and the plan of care as documented in the PA's/BEAUTY CONSULTANT's documentation. [X] I have reviewed the ED Record and agree with the PA's/BEAUTY CONSULTANT's documentation. [] Additions or exceptions (if any) to the PAs/BEAUTY CONSULTANT's note and plan are summarized below: [] (Jimy Ivy DO) Critical Care Note Critical Care Note Critical Care Time: 30-74 min (Violetta Bain)
[2017-12-22] MEDS ORDERED: BISOPROLOL FUMAR5 M1 PO (09:43)
--- NOTE | 2017-12-22 09:57 | RADIOLOGY REPORT ---
EXAMINATION: XR CHEST CLINICAL INFORMATION: Dyspnea. Night sweats. COMPARISON: 10/18/2017 TECHNIQUE: 2 views of the chest were obtained. FINDINGS: Stable cardiomegaly and pulmonary venous congestion without overt edema. Small right pleural effusion. No discrete consolidation. No pneumothorax. No acute or suspicious osseous abnormalities. IMPRESSION: 1. No focal consolidation. 2. Stable cardiomegaly and pulmonary venous congestion without overt edema. 3. Small right pleural effusion.
[2017-12-22 10:22] LABS: ABSOLUTE BASOPHIL COUNT 0 /CUMM (0.0-0.2); ABSOLUTE EOSINOPHIL COUNT 0.1 /CUMM (0.0-0.7); ABSOLUTE GRANULOCYTE CT 11.6 /CUMM (1.4-6.5); ABSOLUTE LYMPH COUNT 2.4 /CUMM (1.2-3.4); ABSOLUTE MONOCYTE COUNT 0.4 /CUMM (0.10-0.60); BASOPHIL % 0.3 % (0.0-2.0); EOSINOPHIL % 0.3 % (0-5); GRANULOCYTE % 80.2 % (42.2-75.2); HEMATOCRIT 36.7 % (42-52); MEAN CORPUSCULAR HGB 26.7 PG (27.0-31.0); MEAN CORPUSCULAR HGB CONC 32.7 G/DL (33.0-37.0); MEAN CORPUSCULAR VOLUME 81.8 FL (80.0-94.0); MEAN PLATELET VOLUME 11.6 FL (7.4-10.4); PLATELET COUNT 190 /CUMM (130-400); RBC DISTRIBUTION WIDTH 17.3 % (11.5-14.5); RED BLOOD CELL CT 4.49 /CUMM (4.70-6.10); WHITE BLOOD CELL COUNT 14.4 /CUMM (4.8-10.8)
--- NOTE | 2017-12-22 12:46 | CT SCAN REPORT ---
EXAMINATION: CT CHEST PE STUDY CLINICAL INFORMATION: Dyspnea. Recent endocarditis. Rule out PE. COMPARISON: Chest x-ray dated 12/22/2017. TECHNIQUE: Prior to contrast administration, localization images were obtained. After the administration of 95 mL of intravenous Optiray 320, multidetector CT volume acquisition of the chest was performed. 3-D postprocessing was performed with multiplanar reconstructions and MIP images obtained at the acquisition workstation under concurrent physician supervision. DLP: 513.84 mGy-cm. FINDINGS: Pulmonary arteries: The bolus timing on this study was acceptable for visualization of the pulmonary arterial tree. There are no intraluminal pulmonary arterial filling defects present to suggest pulmonary embolism in the main pulmonary artery, right and left main pulmonary artery, lobar and segmental branches. Lungs: There is a small right sided pleural effusion, which is seen layering posteriorly up to the level of the aortic arch and appears simple with no visceral or parietal pleural thickening or nodularity or abnormal enhancement seen. Subjacent areas of dependent groundglass opacities are seen in the right lower lobe, consistent with subsegmental atelectasis. There are also linear areas of subsegmental atelectasis in the left lower lobe. No focal lung consolidation is seen. Biapical irregular pleural-based reticular nodular opacities are noted, most consistent with scarring. There are also multiple subtle groundglass opacity centrilobular nodules seen in the upper lobes with underlying mild centrilobular emphysema. Findings raise the suspicion of subtle respiratory bronchiolitis. No suspicious pulmonary nodules, masses, or pneumothorax. The central airways are patent. Aorta and heart: The heart is enlarged with primarily left heart chamber enlargement seen. Right atrium is also slightly enlarged. There is reflux of contrast seen into the IVC and intrahepatic veins, which are mildly dilated. These findings may be due to subtle right heart strain versus forceful injection of the contrast. No intraventricular septal bowing to the left side is seen. The aorta and great vessels are normal in caliber. There is no pericardial effusion Lymphatic structures: There are several mediastinal lymph nodes, several of which are borderline enlarged, including a right upper paratracheal lymph node (series 2, image 181), measuring 1.1 cm in short axis and a subcarinal/azygous esophageal lymph node, measuring 1.3 cm (series 2, image 267. In addition, bilateral right greater than left hilar lymph nodes are seen measuring up to 1.2 cm on the right side and 0.9 cm on the left side. No significant axillary adenopathy is seen. Upper abdomen: Limited evaluation of the upper abdominal viscera demonstrates no focal abnormality. Bones: Moderate vertebral endplate spurring is seen in the lower thoracic spine and mild vertebral endplate spurring in the upper and mid thoracic spine. No suspicious bone findings. IMPRESSION: 1. No evidence of pulmonary embolism. 2. Mild centrilobular emphysema and subtle bilateral upper lobe groundglass opacity nodular densities seen, suggesting subtle respiratory bronchiolitis. 3. No focal pneumonia. 4. Enlarged heart. Reflux of contrast into the intrahepatic IVC and hepatic veins, either related to forceful contrast injection versus elevated right heart pressures. Clinical correlation requested. 5. Multiple borderline enlarged mediastinal and bilateral hilar lymph nodes are seen. Findings may be due to reactive adenopathy. Other inflammatory or neoplastic etiologies (including lymphoma) are not completely excluded and short interval follow-up CT scan in 3 months is recommended for reassessment. VTE: Negative.
--- NOTE | 2017-12-22 14:44 | History & Physical ---
Hernan Benitez 12/22/17 1443: General Information and HPI MD Statement: I have seen and personally examined HIMANSHU VIDAL and documented this H&P. The patient is a 47 year old M who presented with a patient stated chief complaint of [Weakness & Dyspnea]. Source of Information: patient Exam Limitations: no limitations History of Present Illness: Mr. Vidal is a 47 year old male with a past history of COPD, HTN, HLD who was admitted to [facility] in September of this year for bacterial endocarditis with mitral valve vegitations and insufficiency. He finished his course of antibiotics on 11/25 of this year and is now presenting to the ED with c/o generalized weakness and dyspnea. These symptoms started approximately one week prior to admission, when the patient began noticing increasing shortness of breath with activity, and needing to rest after walking short distances of approximately 30 feet. Prior to this, the patient was able to do yard work without discomfort. Over this same period, the patient reports a pressure-like sensation in his chest and back. The patient went to his black off worker's office and was instructed to go to the ED for these symptoms, but waited overnight and came in the next day as these symptoms persisted. He denies orthopnea, peripheral edema, headache, abdominal pain, but endorses night sweats that began about the same time as the weakness. He also reports a 20lb weight gain over the last month. The patient has a history of being outdoors recently, having gone on a camping trip in early November. He reports cutting back on his smoking since his admission in September, when he smoked a pack per day, but now states that he only occasionally "cheats" and has a cigarette. The patient occasionally drinks alcohol, but his last drink was approximately 2 weeks prior to the start of symptoms. Allergies/Medications Allergies: Coded Allergies: Penicillins (RASH 12/22/17) Home Med list Albuterol Sulfate (Proventil Hfa) 90 MCG HFA.AER.AD 2 PUF INH 4 TIMES/DAY PRN SHORTNESS OF BREATH (Reported) Bisoprolol Fumarate 5 MG TABLET 0.5 TAB PO DAILY HEART (Reported) Budesonide/Formoterol Fumarate (Symbicort 160-4.5 Mcg Inhaler) 160 MCG-4.5 MCG/ ACTUATION HFA.AER.AD 2 PUF INH BID BREATHING PROBLEMS (Reported) Cetirizine HCl 10 MG TABLET 1 TAB PO DAILY ALLERGIES (Reported) Cyclobenzaprine HCl 10 MG TABLET 1 TAB PO TID MUSCLE SPASMS (Reported) Fenofibric Acid (Choline) (Trilipix) 45 MG CAPSULE.DR 1 CAP PO QPM CHOLESTEROL (Reported) Furosemide (Lasix) 20 MG TABLET 1 TAB PO DAILY Fluid Overload Gabapentin 300 MG CAPSULE 1 CAP PO TID SEIZURES (Reported) Ibuprofen 800 MG TABLET 1 TAB PO BID PAIN (Reported) Lidocaine 5 % ADH..PATCH 1 PAT TOP DAILY Back Pain Lisinopril 2.5 MG TABLET 1 TAB PO DAILY Heart Health Montelukast Sodium 10 MG TABLET 1 TAB PO DAILY ALLERGIES (Reported) Pantoprazole Sodium (Protonix) 40 MG TABLET.DR 1 TAB PO DAILY GERD Plant Stanol Nasima (Cholest Off Plus) 450 MG CAPSULE (Unknown Dose) PO DAILY HIGH CHOLESTEROL (Reported) Compliance With Home Meds: GOOD Past History Travel History Traveled to [place] past 21 day No Medical History Neurological: NONE EENT: NONE Cardiovascular: hypertension, HIGH CHOLESTEROL mitral valve prolapse Respiratory: NONE Gastrointestinal: NONE Hepatic: NONE Renal: NONE Musculoskeletal: NONE Psychiatric: NONE Endocrine: NONE Blood Disorders: NONE Cancer(s): NONE 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 Psychosocial History Services at Home: None Smoking Status: Current Some Day Smoker ETOH Use: occasional use Illicit Drug Use: denies illicit drug use Living Will? no Review of Systems Review of Systems Constitutional: Reports: weakness. Denies: chills, fever, unexplained weight loss. EENTM: Denies: visual changes. Cardiovascular: Reports: chest pain, palpitations. Denies: orthopena, peripheral edema, syncope. Respiratory: Reports: cough, short of breath. Denies: orthopnea. GI: Denies: abdominal pain, constipation, diarrhea, melena, nausea, vomiting. Musculoskeletal: Denies: joint swelling, muscle stiffness, neck pain. Neurological/Psychological: Denies: confusion, headache, numbness, paresthesia. Exam & Diagnostic Data Last 24 Hrs of Vital Signs/I&O Vital Signs Date Time Temp Pulse Resp B/P B/P Pulse O2 O2 Flow FiO2 Mean Ox Delivery Rate 12/22 1358 97.8 87 20 124/93 96 Room Air 12/22 1104 94 18 136/79 95 Room Air 12/22 0838 97.1 97 20 122/83 94 Room Air Intake & Output 12/22 1600 12/22 0800 12/22 0000 Intake Total 0 Output Total Balance 0 Intake, Oral 0 Patient 63.276 kg Weight Weight Reported by Patient Measurement Method Physical Exam General Appearance Alert, Oriented X3, Cooperative, No Acute Distress HEENT Atraumatic, PERRLA, EOMI Neck Supple, No JVD, No thryomegaly, +2 Carotid Pulse wo Bruit, No LAD Lymphatic Axillary nl, Cervical nl Cardiovascular Regular Rate, Normal S1, Normal S2, Loud systolic murmur 4/6 Lungs Clear to Auscultation, Faint crackles at the bases bilaterally Abdomen Normal Bowel Sounds, Soft, No Tenderness Neurological Normal Gait, Normal Speech, Strength at 5/5 X4 Ext, Normal Tone, Sensation Intact Extremities No Clubbing, No Cyanosis, No Edema, Faint DP and PT pulses, normal radial pulse Last 24 Hrs of Labs/Harsha: Laboratory Tests 12/22/17 1634: Troponin I < 0.01 12/22/17 1010: Anion Gap 15, Estimated GFR > 60, BUN/Creatinine Ratio 28.3 H, Glucose 105 H, Calcium 9.4, Total Bilirubin 1.0, AST 35, ALT 29, Alkaline Phosphatase 34, Troponin I < 0.01, Total Protein 7.6, Albumin 4.3, Globulin 3.3, Albumin/ Globulin Ratio 1.3, D-Dimer High Sensitivty 378 H, CBC w Diff NO MAN DIFF REQ, RBC 4.49 L, MCV 81.8, MCH 26.7 L, MCHC 32.7 L, RDW 17.3 H, MPV 11.6 H, Gran % 80.2 H, Lymphocytes % 16.3 L, Monocytes % 2.9, Eosinophils % 0.3, Basophils % 0.3, Absolute Granulocytes 11.6 H, Absolute Lymphocytes 2.4, Absolute Monocytes 0.4, Absolute Eosinophils 0.1, Absolute Basophils 0 Microbiology 12/22 1020 BLOOD: Blood Culture - RECD 12/22 1010 BLOOD: Blood Culture - RECD Assessment/Plan Assessment: 47 year old male with history of COPD, recently seen in September of this year for bacterial endocarditis and mitral valve prolapse, presenting with dyspnea, weakness and night sweats. Patient denied orthopnea, exam was without peripheral edema. CXR in the ED showed stable cardiomegaly and pulmonary venous congestion without overt edema, and small right pleural effusion. WBC's also elevated at 14.4, but patient has remained afebrile. Problems: 1. Mitral valvular insufficiency 2. Recent history of bacterial endocarditis 3. Chest/back pain Plan: * Cardiology consulted * Lasix 20mg IV daily * Serial troponins & EKG's * Echocardiogram * ID consulted * Follow-up blood cultures * Continue home dose of Lisinopril, Symbicort, Ventolin, Fenofibrate Full code Labs: CBC & BEP Prophylaxis: ALPS & Heparin DVT prophylaxis Diet: Regular As Ranked By This Provider Problem List: 1. Weakness 2. Dyspnea Qualifiers Dyspnea type: unspecified Qualified Code: R06.00 - Dyspnea, unspecified 3. Night sweats 4. Mitral insufficiency Core Measures/Misc (02/14) Acute Coronary Syndrome ACS Diagnosis: No Congestive Heart Failure Congestive Heart Failure Diagnosis No Cerebrovascular Accident CVA/TIA Diagnosis: No VTE (View Protocol) VTE Risk Factors Age>40 No Mechanical VTE Prophylaxis d/t N/A MechProphylax Ordered No VTE Pharm Prophylaxis d/t NA PharmProphylax ordered Sepsis (View protocol) Sepsis Present: No If YES complete Sepsis Event Note If YES complete Sepsis Event Note Gill Keller MD 12/22/17 1444: Core Measures/Misc (02/14) Sepsis (View protocol) If YES complete Sepsis Event Note If YES complete Sepsis Event Note Resident Review Statement Other Findings: 47-year-old male with past medical history of hypertension, hyperlipidemia, COPD , mitral valve prolapse, infective endocarditis in September 2017 for which he follows up with Dr. Gaston. Patient was in usual state of health until a week ago following which he developed sore throat, felt warm, chills. He gives history of camping on December 05. He does not remember any tick bite. Patient did not take any medications for the above symptoms. He felt very short of breath yesterday and went to Dr. Gaston's office who suggested to come to ER, but decided to stay at home and came to [facility] today morning. He denies chest pain, chest pressure, headache, fall, loss of consciousness, palpitations, diarrhea, vomiting. He gave a history of 20 pound weight gain in the last 2-3 weeks. History of chronic back pain which is the same for the past few weeks. He also gives history of redness following removal of his PICC line but no evidence of any rash. Patient was last admitted in September for endocarditis and treated with penicillin. Admission vitals Temperature 97.1, pulse rate 97, respiratory rate 20, blood pressure 122/83, saturation 94 at room air. Admission labs WBC 14.4, hemoglobin 12, platelet count 190, sodium 142, potassium 4.3, BUN 34, creatinine 1.2, calcium 9.4, total bilirubin 1, troponin 0 0.01 Chest x-ray 1. No focal consolidation. 2. Stable cardiomegaly and pulmonary venous congestion without overt edema. 3. Small right pleural effusion. Chest CTA 1. No evidence of pulmonary embolism. 2. Mild centrilobular emphysema and subtle bilateral upper lobe groundglass opacity nodular densities seen, suggesting subtle respiratory bronchiolitis. 3. No focal pneumonia. 4. Enlarged heart. Reflux of contrast into the intrahepatic IVC and hepatic veins, either related to forceful contrast injection versus elevated right heart pressures. Clinical correlation requested. 5. Multiple borderline enlarged mediastinal and bilateral hilar lymph nodes are seen. Findings may be due to reactive adenopathy. Other inflammatory or neoplastic etiologies (including lymphoma) are not completely excluded and short interval follow-up CT scan in 3 months is recommended for reassessment. Examination Patient comfortable at rest, not in acute distress. Saturating 98% on room air. Head To Toe-no evidence of any rash. CVS-S1-S2, systolic murmur. Vitals-normal vesicular breath sounds Abdomen-soft Bilateral extremities-pulses felt no pedal edema Assessment and plan 1. Shortness of breath-this can be secondary due to his previous history of endocarditis pushing him into heart failure. Patient was seen by Dr. Gaston who suggested mitral valve repair. This can also be a relapse of his endocarditis. We will do echocardiogram and get a cardiology consult. We will will ID on board. Follow-up blood cultures. Follow-up ESR. Serial troponins and EKG. First set of troponin EKG negative. We will continue Lasix IV. For hypertension we will continue lisinopril. For his back pain gabapentin and morphine and Tylenol as needed. 2. Heart healthy diet. 3. Full code 4. DVT prophylaxis-heparin. Max VELA,Olaugustoshar 12/22/17 1557: Core Measures/Misc (02/14) Sepsis (View protocol) If YES complete Sepsis Event Note If YES complete Sepsis Event Note Attending MD Review Statement Attending Statement Attending MD Statement: examined this patient, discuss w/resident/PA/PUBLIC SAFETY POLICE, agreed w/resident/PA/PUBLIC SAFETY POLICE, reviewed EMR data (avail), discussed with nursing, discussed with case mgmt, amended to note Attending Assessment/Plan: 70-year-old male with history of hypertension, mitral valve prolapse. Admitted to [facility] in September when he was found to have alpha strep bacteremia. Echocardiogram revealed mitral valve endocarditis with severe regurgitation. PICC line was placed and he completed 6 weeks of antibiotic therapy with penicillin G. He reports doing well following discharge. He reports that as recently as last week he was up on a roof doing routine household work. Within the last few days he complained of progressive shortness of breath. It has progressed to the point where he is short of breath with minimal exertion. Denies any orthopnea. Denies any leg swelling. Denies any fever but does admit to chills and night sweats. Presented for evaluation today. In the emergency room he arrived afebrile hemodynamically stable. WBC was elevated at 14,000. Was referred to medical service for further evaluation. On examination he does not appear to be in acute distress at rest. His require oxygen supplementation. He has no jugular venous distention. Heart sounds are regular with a loud 3/6 systolic normal. Lungs are clear to auscultation bilaterally. Abdomen is distended soft, nontender with normal bowel sounds. He has no peripheral edema. Imaging reveals. Suggestive of bronchiolitis. No focal pneumonia. Reactive adenopathy rule out neoplastic etiology such as lymphoma or inflammatory disease. Problems: 1. Dyspnea; likely due to further decompensation of his valvular heart disease. 2. Mitral valve prolapse 3. Recent mitral valve endocarditis. Plan: -Admit to the inpatient medical service. -Telemetry monitoring. -2 sets of blood cultures. Hold off antibiotic therapy for now. ID consultation. -Cardiology consultation. Will likely benefit from earlier surgical intervention for his MVP. -Continue bronchodilator regimen. No evidence of bronchospasm at present. -Recommend diuresis with Lasix 20 mg IV daily. DVT prophylaxis.
--- NOTE | 2017-12-22 16:38 | Cons- Infect Disease ---
General Information and HPI Consulting Request Date of Consult: 12/22/17 Requested By: Nan Santana MD Reason for Consult: History of endocarditis Source of Information: patient, old records History of Present Illness: This is a 47-year-old man with a history of mitral valve prolapse, hypertension and chronic low back pain, hospitalized 2 months prior to admission with a several month history of various complaints including fevers, sweats, anorexia, weight loss and petechial skin lesions, found to have mitral valve endocarditis secondary to strep viridans, with severe mitral regurgitation on echocardiogram, and L2/L3 discitis/osteomyelitis, discharged on Lasix 20 mg daily and treated with a 6 week course of Penicillin, with a decrease in his ESR from 76 to 19, admitted today after returning to the emergency room with 1 week of increasing shortness of breath, with chest and back "heaviness", early satiety, sweats, with no documented fevers, and a 20 pound weight gain. On admission he was afebrile. Laboratory data revealed a white blood cell count of 14,000, BUN/ creatinine 34 and 1.2, with normal liver enzymes, troponin less than 0.01. Chest x-ray revealed pulmonary venous congestion. CTA of the chest was negative for pulmonary embolism but revealed a small right pleural effusion, evidence of atelectasis in both lower lobes and multiple subtle groundglass opacities and centrilobular nodules in the upper lobes with underlying mild centrilobular emphysema, suspicious for subtle respiratory bronchiolitis. Allergies/Medications Allergies: Coded Allergies: Penicillins (RASH 12/22/17) Home Med List: Albuterol Sulfate (Proventil Hfa) 90 MCG HFA.AER.AD 2 PUF INH 4 TIMES/DAY PRN SHORTNESS OF BREATH (Reported) Bisoprolol Fumarate 5 MG TABLET 0.5 TAB PO DAILY HEART (Reported) Budesonide/Formoterol Fumarate (Symbicort 160-4.5 Mcg Inhaler) 160 MCG-4.5 MCG/ ACTUATION HFA.AER.AD 2 PUF INH BID BREATHING PROBLEMS (Reported) Cetirizine HCl 10 MG TABLET 1 TAB PO DAILY ALLERGIES (Reported) Cyclobenzaprine HCl 10 MG TABLET 1 TAB PO TID MUSCLE SPASMS (Reported) Fenofibric Acid (Choline) (Trilipix) 45 MG CAPSULE.DR 1 CAP PO QPM CHOLESTEROL (Reported) Furosemide (Lasix) 20 MG TABLET 1 TAB PO DAILY Fluid Overload Gabapentin 300 MG CAPSULE 1 CAP PO TID SEIZURES (Reported) Ibuprofen 800 MG TABLET 1 TAB PO BID PAIN (Reported) Lidocaine 5 % ADH..PATCH 1 PAT TOP DAILY Back Pain Lisinopril 2.5 MG TABLET 1 TAB PO DAILY [facility] Montelukast Sodium 10 MG TABLET 1 TAB PO DAILY ALLERGIES (Reported) Pantoprazole Sodium (Protonix) 40 MG TABLET.DR 1 TAB PO DAILY GERD Plant Stanol Nasima (Cholest Off Plus) 450 MG CAPSULE (Unknown Dose) PO DAILY HIGH CHOLESTEROL (Reported) Past History Travel History Traveled to [place] past 21 day No Medical History Neurological: NONE EENT: NONE Cardiovascular: hypertension, HIGH CHOLESTEROL mitral valve prolapse Respiratory: NONE Gastrointestinal: NONE Hepatic: NONE Renal: NONE Musculoskeletal: chronic back pain Psychiatric: NONE Endocrine: NONE Blood Disorders: NONE Cancer(s): NONE 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 Psychosocial History Services at Home: None ETOH Use: denies use Illicit Drug Use: denies illicit drug use Review of Systems Review of Systems Constitutional: Denies: chills, fever. GI: Reports: bloating. All Other Systems: Reviewed and Negative Exam & Diagnostic Data Last 24 Hrs of Vital Signs/I&O Vital Signs Date Time Temp Pulse Resp B/P B/P Pulse O2 O2 Flow FiO2 Mean Ox Delivery Rate 12/22 1358 97.8 87 20 124/93 96 Room Air 12/22 1104 94 18 136/79 95 Room Air 12/22 0838 97.1 97 20 122/83 94 Room Air Intake & Output 12/22 1600 12/22 0800 12/22 0000 Intake Total 0 Output Total Balance 0 Intake, Oral 0 Patient 140 lb Weight Weight Reported by Patient Measurement Method Physical Exam Other Physical Findings: He is awake and alert in no acute distress. He is afebrile. Skin reveals no rash. HEENT exam is negative. Neck is supple with no adenopathy. Lungs are clear. Heart regular rhythm with a 3/6 to 4/6 holoystolic murmur. Abdomen is distended, nontender, with positive bowel sounds. Back no CVA tenderness. Extremities no cyanosis, clubbing or edema. Neuro is without focality. Last 24 Hours of Lab Results: Laboratory Tests 12/22 1010 Chemistry Sodium (137 - 145 mmol/L) 142 Potassium (3.5 - 5.1 mmol/L) 4.3 Chloride (98 - 107 mmol/L) 105 Carbon Dioxide (22 - 30 mmol/L) 22 Anion Gap (5 - 16) 15 BUN (9 - 20 mg/dL) 34 H Creatinine (0.7 - 1.2 mg/dL) 1.2 Estimated GFR (>60 ml/min) > 60 BUN/Creatinine Ratio (7 - 25 %) 28.3 H Glucose (65 - 99 mg/dL) 105 H Calcium (8.4 - 10.2 mg/dL) 9.4 Total Bilirubin (0.2 - 1.3 mg/dL) 1.0 AST (17 - 59 U/L) 35 ALT (21 - 72 U/L) 29 Alkaline Phosphatase (< 127 U/L) 34 Troponin I (<0.11 ng/ml) < 0.01 Total Protein (6.3 - 8.2 g/dL) 7.6 Albumin (3.5 - 5.0 g/dL) 4.3 Globulin (1.9 - 4.2 gm/dL) 3.3 Albumin/Globulin Ratio (1.1 - 2.2 %) 1.3 Coagulation D-Dimer High Sensitivty (0 - 243 ng/ml) 378 H Hematology CBC w Diff NO MAN DIFF REQ WBC (4.8 - 10.8 /CUMM) 14.4 H RBC (4.70 - 6.10 /CUMM) 4.49 L Hgb (14.0 - 18.0 G/DL) 12.0 L Hct (42 - 52 %) 36.7 L MCV (80.0 - 94.0 FL) 81.8 MCH (27.0 - 31.0 PG) 26.7 L MCHC (33.0 - 37.0 G/DL) 32.7 L RDW (11.5 - 14.5 %) 17.3 H Plt Count (130 - 400 /CUMM) 190 MPV (7.4 - 10.4 FL) 11.6 H Gran % (42.2 - 75.2 %) 80.2 H Lymphocytes % (20.5 - 51.1 %) 16.3 L Monocytes % (1.7 - 9.3 %) 2.9 Eosinophils % (0 - 5 %) 0.3 Basophils % (0.0 - 2.0 %) 0.3 Absolute Granulocytes (1.4 - 6.5 /CUMM) 11.6 H Absolute Lymphocytes (1.2 - 3.4 /CUMM) 2.4 Absolute Monocytes (0.10 - 0.60 /CUMM) 0.4 Absolute Eosinophils (0.0 - 0.7 /CUMM) 0.1 Absolute Basophils (0.0 - 0.2 /CUMM) 0 Last 24 Hours of Harsha Results: Blood cultures December 22 negative Diagnostic Data Recent Imaging Findings: Chest x-ray revealed pulmonary venous congestion. CTA of the chest was negative for pulmonary embolism but revealed a small right pleural effusion, evidence of atelectasis in both lower lobes and multiple subtle groundglass opacities and centrilobular nodules in the upper lobes with underlying mild centrilobular emphysema, suspicious for subtle respiratory bronchiolitis. Assessment/Plan Assessment/Plan Impression: This is a 47-year-old man hospitalized 2 months prior to admission with mitral valve endocarditis secondary to strep viridans, with severe mitral regurgitation on echocardiogram, and L2/L3 discitis/osteomyelitis, treated with a 6 week course of Penicillin, with a decrease in his ESR from 76 to 19, admitted today with 1 week of increasing shortness of breath, chest and back "heaviness", early satiety, sweats, with no documented fevers, and a 20 pound weight gain, found to be afebrile with a mild leukocytosis, a chest x-ray with mild pulmonary congestion and a CTA of the chest with multiple subtle groundglass opacities and centrilobular nodules in the upper lobes. His clinical presentation is suggestive of congestive heart failure, likely secondary to the severe mitral regurgitation noted on his echocardiogram on his recent admission, which likely worsened secondary to the endocarditis. Of note cardiothoracic surgery evaluation on his last admission suggested the need for valve surgery (repair or replacement) at some point, but this was not felt to be urgent. The possibility of a relapse of his endocarditis must be considered, though he did receive an adequate course of treatment with 6 weeks of Penicillin. His back pain has improved significantly, but the possibility of a persistent infection in the lumbar spine could also be considered. He does have a mild leukocytosis but this may be multifactorial and, in the absence of any obvious infection, feel that he can be followed off antibiotics. Suggestion: 1. Echocardiogram 2. Repeat ESR 3. Aggressive diuresis per Cardiology 4. Follow-up recent blood cultures 5. Consider Cardiothoracic surgery evaluation based on above 6. Follow off antibiotics pending above Consult Acknowledgment - Thank you for your consult request.
[2017-12-22 21:43] VITALS: BP 116/94
--- NOTE | 2017-12-23 06:18 | PN- Housestaff ---
Hernan Benitez 12/23/1718: Subjective Follow-up For: Dyspnea Mitral valve insufficiency History of bacterial endocarditis Tele-Events Since Last Visit: Overnight the patient was in normal sinus rhythm Subjective: Patient seen resting comfortably in the bed. His mother is visiting this morning. He reports that he is feeling better already, and that he can walk to and from the kitchen to get some coffee without losing his breath. However, during the exam, the patient complained that his shortness of breath had returned, and he was sitting in the bed for the duration of the exam. He denies chest pain, fever, dizziness, nausea/vomiting. Review of Systems Constitutional: Denies: chills, fever, weakness. Cardiovascular: Denies: chest pain, orthopena, palpitations. Respiratory: Reports: cough. Denies: sputum production. Gastrointestinal: Denies: abdominal pain, nausea, vomiting. Objective Last 24 Hrs of Vital Signs/I&O Vital Signs Date Time Temp Pulse Resp B/P B/P Pulse O2 O2 Flow FiO2 Mean Ox Delivery Rate 12/23 1332 97.1 95 18 130/94 97 Room Air 12/23 0900 88 128/90 12/23 0630 97.5 88 18 118/86 96 12/23 0000 Room Air 12/22 2143 97.5 90 18 116/94 96 12/22 2100 Room Air 12/22 2000 87 116/81 12/22 2000 98.6 87 16 116/81 99 Intake & Output 12/23 1600 12/23 0800 12/23 0000 Intake Total 480 220 250 Output Total 650 Balance 480 220 -400 Intake, Oral 480 220 250 Output, Urine 650 Patient 86.891 kg Weight Weight Bed scale Measurement Method Physical Exam General Appearance: Alert, Oriented X3, Cooperative, No Acute Distress Neck: Supple, No thryomegaly, +JVD Cardiovascular: Regular Rate, Loud systolic murmur Lungs: Clear to Auscultation Abdomen: Normal Bowel Sounds, Soft, No Tenderness Neurological: Normal Gait, Normal Speech, Strength at 5/5 X4 Ext, Normal Tone Extremities: No Clubbing, No Cyanosis, No Edema, Normal Pulses Assessment/Plan Assessment: 47 year old male with history of COPD, HTN, HLD who was admitted to [facility] in September of this year for bacterial endocarditis with mitral valve vegitations and insufficiency, presenting for dyspnea and generalized weakness. On exam, the patient had a clear murmur of mitral regurgitation, and prior echo showed severe mitral insufficiency, but the patient did not demonstrate janeway lesions or osler nodes. Significantly, the patient did demonstrate visible JVD, although he does not demonstrate peripheral edema, he may benefit from diuresis. WBC count today to 13.5, down from 14.4, patient was afebrile overnight. Serial troponins and EKG's were negative, as was CTA performed last night in the ED Problems: 1. Mitral valvular insufficiency 2. Recent history of bacterial endocarditis 3. Chest/back pain Plan: * Lasix 40mg IV daily * Monitor creatinine while patient is being diuresed * Follow-up Echocardiogram * Off antibiotics for now * Follow-up blood cultures Problem List: 1. Mitral insufficiency 2. Weakness 3. Dyspnea Pain Ratin Pain Location: none Pain Goal: Pain 4 or less Pain Plan: per pathway Tomorrow's Labs & Rationales: CBC & BEP Amarilis Quintana 12/23/17 1239: Attending MD Review Statement Attending Statement Attending MD Statement: examined this patient, discuss w/resident/PA/DINING ROOM HELPER, agreed w/resident/PA/DINING ROOM HELPER, discussed with family, reviewed EMR data (avail), discussed with nursing, discussed with case mgmt, reviewed images, amended to note Attending Assessment/Plan: Patient with h/o mitral valve prolapse with endocardties followed by ID and cardiology Dr Gaston as outpatient comes with generlased weakness. Afebrile, no complaints. vitals stable. Patient seen by ID and cardiology which recommend to obtain ECHO and if valve dysfunction/persitent vegetations consider CTVS consult for possible valve replacement. Follow blood cultures, f/u ID. Contineu current care..
[2017-12-23 06:30] VITALS: BP 118/86
--- NOTE | 2017-12-23 07:37 | Cons- Cardiology ---
General Information and HPI Consulting Request Date of Consult: 12/23/17 Requested By: Max VELA,Nan History of Present Illness: Mr. Vidal is a 47 year old male with history of COPD, hypertension, dyslipidemia and mitral valve prolapse with MR who was recently treated for strep virideans endocarditis with penicillin. He finished his antibiotics on November 25. Over the past few days this patient has noted exercise intolerance characterized by shotness of breath that occurs after walking just a couple steps. He also has mild orthopnea. Otherwise he is without any exertional chest discomfort. He also has some mild lightheadedness and has noted palpitations for an extended period of time which are unchanged. He does report diaphoresis and anorexia but not subjective fever or chills. He was also noted to have a discitis/osteomyelitis at the time of his prior hospital admission. We had seen him in 2016 and discovered MVP w/ MR of moderate to severe range on his last echocardiogram from 2015, but he failed to return for scheduled follow- up visits. Allergies/Medications Allergies: Coded Allergies: Penicillins (RASH 12/22/17) Home Med List: Albuterol Sulfate (Proventil Hfa) 90 MCG HFA.AER.AD 2 PUF INH 4 TIMES/DAY PRN SHORTNESS OF BREATH (Reported) Bisoprolol Fumarate 5 MG TABLET 0.5 TAB PO DAILY HEART (Reported) Budesonide/Formoterol Fumarate (Symbicort 160-4.5 Mcg Inhaler) 160 MCG-4.5 MCG/ ACTUATION HFA.AER.AD 2 PUF INH BID BREATHING PROBLEMS (Reported) Cetirizine HCl 10 MG TABLET 1 TAB PO DAILY ALLERGIES (Reported) Cyclobenzaprine HCl 10 MG TABLET 1 TAB PO TID MUSCLE SPASMS (Reported) Fenofibric Acid (Choline) (Trilipix) 45 MG CAPSULE.DR 1 CAP PO QPM CHOLESTEROL (Reported) Furosemide (Lasix) 20 MG TABLET 1 TAB PO DAILY Fluid Overload Gabapentin 300 MG CAPSULE 1 CAP PO TID SEIZURES (Reported) Ibuprofen 800 MG TABLET 1 TAB PO BID PAIN (Reported) Lidocaine 5 % ADH..PATCH 1 PAT TOP DAILY Back Pain Lisinopril 2.5 MG TABLET 1 TAB PO DAILY Heart Health Montelukast Sodium 10 MG TABLET 1 TAB PO DAILY ALLERGIES (Reported) Pantoprazole Sodium (Protonix) 40 MG TABLET.DR 1 TAB PO DAILY GERD Plant Stanol Nasima (Cholest Off Plus) 450 MG CAPSULE (Unknown Dose) PO DAILY HIGH CHOLESTEROL (Reported) Review of Systems Review of Systems: A twelve point review of systems is unremarkable. 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 Psychosocial History Where Do You Live? Home Services at Home: None Smoking Status: Current Some Day Smoker ETOH Use: occasional use Illicit Drug Use: denies illicit drug use Living Will? no Exam & Diagnostic Data Vital Signs and I&O Vital Signs Date Time Temp Pulse Resp B/P B/P Pulse O2 O2 Flow FiO2 Mean Ox Delivery Rate 12/23 0630 97.5 88 18 118/86 96 12/23 0000 Room Air 12/22 2143 97.5 90 18 116/94 96 12/22 2100 Room Air 12/22 2000 87 116/81 12/22 2000 98.6 87 16 116/81 99 12/22 1358 97.8 87 20 124/93 96 Room Air 12/22 1104 94 18 136/79 95 Room Air 12/22 0838 97.1 97 20 122/83 94 Room Air Intake & Output 12/23 0812/23 0000 12/22 1600 12/22 0800 12/22 0000 12/21 1600 Intake Total 250 0 Output Total 650 Balance -400 0 Intake, Oral 250 0 Output, Urine 650 Patient 192 lb 140 lb Weight Weight Bed scale Reported by Patient Measurement Method Physical Exam: General; WD/WN male in NAD; alert and oriented x 3 HEENT: NC/AT, PERRL, EOMI Neck: no JVD, no carotid bruit Heart: RRR with 3/6 systolic murmur at the LLSB and RUSB Lungs: clear bilaterally Abdomen: soft, NT, +ve bowel sounds Extremities: no edema Assessment/Plan Assessment/Plan * This patient has symptoms similar to those noted during his prior bout of endocarditis and he does have an elevated WBC count and increased sedimentation rate. I suspect he has an incompletely treated bout of endocarditis. Begin antibiotics if recommended by Dr. Heredia and obtain an echocardiogram. This patient will likely benefit from a mitral valve replacement if no active bacteremia. Obtain blood cultures. * I do not think this patient has significant decompensated left heart failure but he does have increased RV pressures related to his MR and this will cause shortness of breath. He may feel better bringing down these pressures by diuresis. Begin Lasix 40mg IV daily. Consult Acknowledgment - Thank you for your consult request.
[2017-12-23 08:11] LABS: ABSOLUTE BASOPHIL COUNT 0.1 /CUMM (0.0-0.2); ABSOLUTE EOSINOPHIL COUNT 0.1 /CUMM (0.0-0.7); ABSOLUTE GRANULOCYTE CT 10.3 /CUMM (1.4-6.5); ABSOLUTE LYMPH COUNT 2.7 /CUMM (1.2-3.4); ABSOLUTE MONOCYTE COUNT 0.4 /CUMM (0.10-0.60); BASOPHIL % 0.5 % (0.0-2.0); EOSINOPHIL % 0.6 % (0-5); GRANULOCYTE % 76.4 % (42.2-75.2); HEMATOCRIT 35.8 % (42-52); MEAN CORPUSCULAR HGB 26.6 PG (27.0-31.0); MEAN CORPUSCULAR HGB CONC 32.5 G/DL (33.0-37.0); MEAN CORPUSCULAR VOLUME 81.9 FL (80.0-94.0); RBC DISTRIBUTION WIDTH 17.6 % (11.5-14.5); RED BLOOD CELL CT 4.36 /CUMM (4.70-6.10); WHITE BLOOD CELL COUNT 13.5 /CUMM (4.8-10.8)
--- NOTE | 2017-12-23 11:27 | PN- Infect Dx ---
Subjective Subjective: Afebrile. He feels improved with no further chest discomfort and with decreased shortness of breath. Objective Last 24 Hrs of Vital Signs/I&O Vital Signs Date Time Temp Pulse Resp B/P B/P Pulse O2 O2 Flow FiO2 Mean Ox Delivery Rate 12/23 0900 88 128/90 12/23 0630 97.5 88 18 118/86 96 12/23 0000 Room Air 12/22 2143 97.5 90 18 116/94 96 12/22 2100 Room Air 12/22 2000 87 116/81 12/22 2000 98.6 87 16 116/81 99 12/22 1358 97.8 87 20 124/93 96 Room Air Intake & Output 12/23 1600 12/23 0800 12/23 0000 Intake Total 220 250 Output Total 650 Balance 220 -400 Intake, Oral 220 250 Output, Urine 650 Patient 192 lb Weight Weight Bed scale Measurement Method Physical Exam Other Physical Findings: He appears comfortable in no acute distress Lungs are clear Heart regular rhythm with a 4/6 systolic murmur Abdomen is distended, nontender with positive bowel sounds Extremities no cyanosis, clubbing or edema Results Last 24 Hours of Lab Results: Laboratory Tests 12/23 12/22 12/22 0600 2215 1634 Chemistry Sodium (137 - 145 mmol/L) 141 Potassium (3.5 - 5.1 mmol/L) 4.6 Chloride (98 - 107 mmol/L) 104 Carbon Dioxide (22 - 30 mmol/L) 23 Anion Gap (5 - 16) 14 BUN (9 - 20 mg/dL) 35 H Creatinine (0.7 - 1.2 mg/dL) 1.3 H Estimated GFR (>60 ml/min) 59 L BUN/Creatinine Ratio (7 - 25 %) 26.9 H Troponin I (<0.11 ng/ml) < 0.01 < 0.01 Hematology CBC w Diff NO MAN DIFF REQ WBC (4.8 - 10.8 /CUMM) 13.5 H RBC (4.70 - 6.10 /CUMM) 4.36 L Hgb (14.0 - 18.0 G/DL) 11.6 L Hct (42 - 52 %) 35.8 L MCV (80.0 - 94.0 FL) 81.9 MCH (27.0 - 31.0 PG) 26.6 L MCHC (33.0 - 37.0 G/DL) 32.5 L RDW (11.5 - 14.5 %) 17.6 H Plt Count (130 - 400 /CUMM) MPV (7.4 - 10.4 FL) 12.0 H Gran % (42.2 - 75.2 %) 76.4 H Lymphocytes % (20.5 - 51.1 %) 19.8 L Monocytes % (1.7 - 9.3 %) 2.7 Eosinophils % (0 - 5 %) 0.6 Basophils % (0.0 - 2.0 %) 0.5 Absolute Granulocytes (1.4 - 6.5 /CUMM) 10.3 H Absolute Lymphocytes (1.2 - 3.4 /CUMM) 2.7 Absolute Monocytes (0.10 - 0.60 /CUMM) 0.4 Absolute Eosinophils (0.0 - 0.7 /CUMM) 0.1 Absolute Basophils (0.0 - 0.2 /CUMM) 0.1 ESR Westergren (0 - 10 MM) 35 H Last 24 Hours of Harsha Results: Blood cultures x 2 December 22 negative Assessment/Plan ID Impression: Stable, with temperatures remaining normal but with a persistent leukocytosis, off antibiotics, with his blood cultures so far negative. His presenting complaints and chest x-ray are suggestive of fluid overload, and he is being diuresed more aggressively. Suspect that his worsening CHF is secondary to severe mitral regurgitation, for which he will likely require surgery. The possibility of a relapse of his endocarditis must be considered and will await his recent blood culture results. Suggestion: 1. Follow-up Echocardiogram 2. Further diuresis per Cardiology 3. Follow-up recent blood cultures 4. Cardiothoracic surgery evaluation based on above 5. Continue to follow off antibiotics pending above
--- NOTE | 2017-12-23 11:48 | PN- Student ---
Subjective Subjective: is a 47 y/o male with a past medical history of a dental procedure complicated by endocarditis for which he frecently finished a 6 weeks course of Penicillin for on 11/25/17. He also has COPD, HTN, and HLD. The patient presented to the ER with a 1 week history of SoB, abdominal distension, weakness, non-productive cough, and night sweats. He reports gaining. He rated the severity of his shortness of breath as 8/10 and finds relief in using his symbicort inhaler. The patient also reported tingling sensations of his shoulders when performing strenuous exercises. The patient has a smoking history of 33 pack years but recently quit; he occassionally smokes a cigarette. He used to doesnt drink alcohol anymore; December 01 was the last reported time he used alcohol. He does not use any drugs for recreational purposes. His moms side of the family has a history of cancer. His fathers side has a history of arthritis. The patient is currently taking the following medicatoins: Albuterol (90mcg PRN SoB), Bisoprolol (5mg PO daily), Cetirizine (10mg PO daily), Cyclobenzaprine ( 10mg TID), Fenofibric (45mg qPM), Furosemide (20mg PO daily), Gabapentin (300mg TID), Ibuprofen (800mg PO BID), Lidocaine (5% patch), Lisinopril (2.5mg PO daily ), Montelukast (10mg PO daily), Pantoprazole (40mg PO daily), Plant Stanol Nasima (450mg PO daily) Objective Objective: Wheezing was heard diffusely upon ascultating the patients lung choi. A grade 3/6 holosystolic murmur was appreciated upon asculating the patients LLSB. Vivas a-waves were prominent upon inspection. No oral cyanosis was appreciated on examination. No janeway lesions or oslar nodes. No cervical lymphadenopathy. No pedal edema. CXR showes mild pulmonary congestion. [facility] CTA was negative for PE but revealed a small right pleural effusion and mild centrilobar emphysema. ESR high (35) WBC high (14.4) Troponin 0.01 Temperature 97.5 Blood cultures pending Results Results: Laboratory Tests 12/23/17 0600: Anion Gap 14, Estimated GFR 59 L, BUN/Creatinine Ratio 26.9 H, CBC w Diff NO MAN DIFF REQ, RBC 4.36 L, MCV 81.9, MCH 26.6 L, MCHC 32.5 L, RDW 17.6 H, MPV 12.0 H, Gran % 76.4 H, Lymphocytes % 19.8 L, Monocytes % 2.7, Eosinophils % 0.6, Basophils % 0.5, Absolute Granulocytes 10.3 H, Absolute Lymphocytes 2.7, Absolute Monocytes 0.4, Absolute Eosinophils 0.1, Absolute Basophils 0.1 12/22/17 2215: Troponin I < 0.01, ESR Westergren 35 H 12/22/17 1634: Troponin I < 0.01 12/22/17 1010: Anion Gap 15, Estimated GFR > 60, BUN/Creatinine Ratio 28.3 H, Glucose 105 H, Calcium 9.4, Total Bilirubin 1.0, AST 35, ALT 29, Alkaline Phosphatase 34, Troponin I < 0.01, Total Protein 7.6, Albumin 4.3, Globulin 3.3, Albumin/ Globulin Ratio 1.3, D-Dimer High Sensitivty 378 H, CBC w Diff NO MAN DIFF REQ, RBC 4.49 L, MCV 81.8, MCH 26.7 L, MCHC 32.7 L, RDW 17.3 H, MPV 11.6 H, Gran % 80.2 H, Lymphocytes % 16.3 L, Monocytes % 2.9, Eosinophils % 0.3, Basophils % 0.3, Absolute Granulocytes 11.6 H, Absolute Lymphocytes 2.4, Absolute Monocytes 0.4, Absolute Eosinophils 0.1, Absolute Basophils 0 Microbiology 12/22 1020 BLOOD: Blood Culture - RECD 12/22 1010 BLOOD: Blood Culture - RECD Assessment/Plan Assessment: Obtain echo; if persistent vegetations or valve dysfunction then consider valve replacement. Awaiting blood cultures; follow up with infectious disease if needed. Patient is recieving IV Lasix 40mg.
[2017-12-23 13:32] VITALS: BP 130/94
--- NOTE | 2017-12-23 15:43 | Patient Discharge Instructions ---
Discharge Instructions General Discharge Information You were seen/treated for: Mitral regurgitation Infectious endocarditis Watch for these problems: With sudden chest pain, shortness of breath, dizziness, palpitations, dizziness, please go to your nearest emergency room. Special Instructions: Please follow up with your primary care provider and boilers inspector after discharge. Diet Continue normal diet: Yes Recommended Diet: Heart Healthy Activity Full Activity/No Limits: No Activity Self Limited: Yes Acute Coronary Syndrome Inclusion Criteria At DC or during hospital stay patient has or had the following: ACS DIAGNOSIS No Discharge Core Measures Meds if any: Prescribed or Continued at Discharge Meds if any: NOT Prescribed or Continued at Discharge Congestive Heart Failure Inclusion Criteria At DC or during hospital stay patient has or had the following: CHF DIAGNOSIS No Discharge Core Measures Meds if any: Prescribed or Continued at Discharge Meds if any: NOT Prescribed or Continued at Discharge Cerebrovascular accident Inclusion Criteria At DC or during hospital stay patient has or had the following: CVA/TIA Diagnosis No Discharge Core Measures Meds if any: Prescribed or Continued at Discharge Meds if any: NOT Prescribed or Continued at Discharge Venous thromboembolism Inclusion Criteria VTE Diagnosis No VTE Type NONE VTE Confirmed by (Test) NONE Discharge Core Measures - Per Current guidelines, there needs to be overlap - treatment for the first 5 days of Warfarin therapy. - If discharged on Warfarin prior to 5 days of - overlap therapy, the patient will need to be - assessed for post discharge needs including - *Post discharge parental anticoagulation - *Warfarin and/or parental anticoagulation education - *Follow up date to check INR post discharge At least 5 days overlap therapy as Inpatient No Meds if any: Prescribed or Continued at Discharge Note: Overlap Therapy is Warfarin and Anticoagulant Meds if any: NOT Prescribed or Continued at Discharge
--- NOTE | 2017-12-23 16:29 | Cons- Thoracic Surgery ---
General Information and HPI Consulting Request Date of Consult: 12/23/17 Requested By: Nan Santana MD Reason for Consult: Cardiac surgical evaluation for patient with history of mitral valve endocarditis and severe mitral regurgitation. Source of Information: patient, old records, PCP Exam Limitations: no limitations History of Present Illness: Patient is a 47-year-old gentleman with a history of mitral valve endocarditis. I evaluated him in September when he was admitted with that episode. He has a known history of moderate to severe mitral regurgitation and the evaluation at that time was for him to complete his therapy and then be reevaluated according to his mitral valve status for possible surgery. He has completed his antibiotics. He came into the emergency room yesterday with complaints of weakness and dyspnea. He was found to be in heart failure. A cardiac surgical evaluation is asked for help in management and treatment. Allergies/Medications Allergies: Coded Allergies: Penicillins (RASH 12/22/17) Home Med List: Albuterol Sulfate (Proventil Hfa) 90 MCG HFA.AER.AD 2 PUF INH 4 TIMES/DAY PRN SHORTNESS OF BREATH (Reported) Bisoprolol Fumarate 5 MG TABLET 0.5 TAB PO DAILY HEART (Reported) Budesonide/Formoterol Fumarate (Symbicort 160-4.5 Mcg Inhaler) 160 MCG-4.5 MCG/ ACTUATION HFA.AER.AD 2 PUF INH BID BREATHING PROBLEMS (Reported) Cetirizine HCl 10 MG TABLET 1 TAB PO DAILY ALLERGIES (Reported) Cyclobenzaprine HCl 10 MG TABLET 1 TAB PO TID MUSCLE SPASMS (Reported) Fenofibric Acid (Choline) (Trilipix) 45 MG CAPSULE.DR 1 CAP PO QPM CHOLESTEROL (Reported) Furosemide (Lasix) 20 MG TABLET 1 TAB PO DAILY Fluid Overload Gabapentin 300 MG CAPSULE 1 CAP PO TID SEIZURES (Reported) Ibuprofen 800 MG TABLET 1 TAB PO BID PAIN (Reported) Lidocaine 5 % ADH..PATCH 1 PAT TOP DAILY Back Pain Lisinopril 2.5 MG TABLET 1 TAB PO DAILY Heart Health Montelukast Sodium 10 MG TABLET 1 TAB PO DAILY ALLERGIES (Reported) Pantoprazole Sodium (Protonix) 40 MG TABLET.DR 1 TAB PO DAILY GERD Plant Stanol Nasima (Cholest Off Plus) 450 MG CAPSULE (Unknown Dose) PO DAILY HIGH CHOLESTEROL (Reported) Current Medications: Current Medications Sig/Lizzie Start time Last Medication Dose Route Stop Time Status Admin Acetaminophen 650 MG Q4P PRN 12/22 1530 AC 12/22 PO 2113 Acetaminophen 1,000 MG Q6P PRN 12/22 1530 AC N/A 1 UNIT IV Albuterol Sulfate 2 PUF 4 TIMES/DAY PRN 12/22 1515 AC INH Budesonide/ 2 PUF BID 12/22 2100 AC 12/23 Formoterol Fumarate INH 0859 Cyclobenzaprine HCl 10 MG TID 12/22 2100 AC 12/23 PO 1410 Fenofibrate 48 MG DAILY 12/23 0900 AC 12/23 PO 0900 Furosemide 40 MG BID 12/23 2100 CAN IV Furosemide 40 MG DAILY 12/23 1149 AC IV Furosemide 20 MG ONCE ONE 12/23 1045 DC 12/23 IV 12/23 1046 1242 Furosemide 0 .STK-MED ONE 12/22 1950 DC IV Furosemide 20 MG DAILY 12/22 1530 DC 12/23 IV 0900 Gabapentin 0 .STK-MED ONE 12/22 1950 DC PO Gabapentin 300 MG TID 12/22 1510 AC 12/23 PO 1410 Heparin Sodium 5,000 UNIT Q8 12/22 2200 AC 12/23 (Porcine) SC 1410 Lisinopril 2.5 MG DAILY 12/22 1510 AC 12/23 PO 0900 Morphine Sulfate 2 MG Q6P PRN 12/22 1530 AC IV Omeprazole 0 .STK-MED ONE 12/22 1951 DC PO Omeprazole 40 MG DAILY AC 12/22 1515 AC 12/23 PO 0526 Past History Medical History Blood Transfusion Hx: No Neurological: migraine EENT: allergies Cardiovascular: hypertension, HIGH CHOLESTEROL mitral valve prolapse Respiratory: COPD, pneumonia Gastrointestinal: NONE, GERD Hepatic: NONE Renal: NONE Musculoskeletal: chronic back pain, NECK FRACTURE Psychiatric: NONE, alcohol dependence, CLEAR FOR 2 YEARS Endocrine: NONE Blood Disorders: NONE 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 Psychosocial History Where Do You Live? Home Services at Home: None Smoking Status: Current Some Day Smoker ETOH Use: occasional use Illicit Drug Use: denies illicit drug use Living Will? no Review of Systems Review of Systems: Notable for the dyspnea which is been progressive. He has had a 20 pound weight gain over the last month. He has had a general chest heaviness but no anginal type chest pain. The dyspnea is calm with very short distances of approximately 30 feet of walking. Prior to this the patient was able to do yard work without any problems. He has had no fevers night sweats or chills. The rest of his 12 point review of systems is unremarkable. Exam & Diagnostic Data Vital Signs and I&O Vital Signs Date Time Temp Pulse Resp B/P B/P Pulse O2 O2 Flow FiO2 Mean Ox Delivery Rate 12/23 1332 97.1 95 18 130/94 97 Room Air 12/23 0900 88 128/90 12/23 0630 97.5 88 18 118/86 96 12/23 0000 Room Air 12/22 2143 97.5 90 18 116/94 96 12/22 2100 Room Air 12/22 2000 87 116/81 12/22 2000 98.6 87 16 116/81 99 Intake & Output 12/23 1600 12/23 0800 12/23 0000 12/22 1600 12/22 0800 12/22 0000 Intake Total 480 220 250 0 Output Total 650 Balance 480 220 -400 0 Intake, Oral 480 220 250 0 Output, Urine 650 Patient 192 lb 140 lb Weight Weight Bed scale Reported by Patient Measurement Method Physical Exam: On physical examination he appears well. His skin is warm and well perfused no suspicious lesions noted. The sclerae are anicteric his mucous membranes are moist. There is no cervical or subclavicular lymphadenopathy. His breath sounds are showing some crackles at both bases with no wheezes noted. His cardiac exam shows a regular rhythm and rate with a fairly prominent systolic ejection murmur. The abdomen is soft and nontender with no masses. The periphery shows no cyanosis clubbing and some faint peripheral edema. His neurologic exam is grossly normal for motor and sensory function. Last 24 Hours of Labs: Laboratory Tests 12/23 12/22 12/22 0600 2215 1634 Chemistry Sodium (137 - 145 mmol/L) 141 Potassium (3.5 - 5.1 mmol/L) 4.6 Chloride (98 - 107 mmol/L) 104 Carbon Dioxide (22 - 30 mmol/L) 23 Anion Gap (5 - 16) 14 BUN (9 - 20 mg/dL) 35 H Creatinine (0.7 - 1.2 mg/dL) 1.3 H Estimated GFR (>60 ml/min) 59 L BUN/Creatinine Ratio (7 - 25 %) 26.9 H Troponin I (<0.11 ng/ml) < 0.01 < 0.01 Hematology CBC w Diff NO MAN DIFF REQ WBC (4.8 - 10.8 /CUMM) 13.5 H RBC (4.70 - 6.10 /CUMM) 4.36 L Hgb (14.0 - 18.0 G/DL) 11.6 L Hct (42 - 52 %) 35.8 L MCV (80.0 - 94.0 FL) 81.9 MCH (27.0 - 31.0 PG) 26.6 L MCHC (33.0 - 37.0 G/DL) 32.5 L RDW (11.5 - 14.5 %) 17.6 H Plt Count (130 - 400 /CUMM) MPV (7.4 - 10.4 FL) 12.0 H Gran % (42.2 - 75.2 %) 76.4 H Lymphocytes % (20.5 - 51.1 %) 19.8 L Monocytes % (1.7 - 9.3 %) 2.7 Eosinophils % (0 - 5 %) 0.6 Basophils % (0.0 - 2.0 %) 0.5 Absolute Granulocytes (1.4 - 6.5 /CUMM) 10.3 H Absolute Lymphocytes (1.2 - 3.4 /CUMM) 2.7 Absolute Monocytes (0.10 - 0.60 /CUMM) 0.4 Absolute Eosinophils (0.0 - 0.7 /CUMM) 0.1 Absolute Basophils (0.0 - 0.2 /CUMM) 0.1 ESR Westergren (0 - 10 MM) 35 H Other Results: I reviewed his echocardiogram with Dr. Wilde. The vegetation that was present and may appears resolved. He has severe mitral regurgitation with a probable P2 torn cord. There is a fair amount of tricuspid regurgitation. Assessment/Plan Assessment/Plan 47-year-old with severe mitral regurgitation which is now symptomatic. I think the endocarditis is resolved. He needs aggressive medical management and fluid mobilization. It is clear that over the last month his situation has worsened and he is probably now in a position of needing consideration for elective valve surgery. The ideal circumstances always want of mitral valve repair. However in the setting of endocarditis this can be somewhat difficult. Obviously a patient in this age group you would not want to have to re-intervene on the valve so mechanical valve would probably be the choice. For right now there is no indication for any urgent interventions. He needs to be medically optimized and could even be considered for outpatient catheterization and then consideration for surgery. I discussed this plan with Dr. Wilde and he agrees and we will see how his clinical course is in terms of management of his congestive heart failure. Copies To: Andry VELA PHD,Gerardo Castrejon Consult Acknowledgment - Thank you for your consult request.
[2017-12-23 22:40] VITALS: BP 124/82
[2017-12-24 06:12] VITALS: BP 120/90
--- NOTE | 2017-12-24 06:34 | PN- Housestaff ---
Hernan Benitez 12/24/17 0633: Subjective Follow-up For: Dyspnea Mitral Regurgitation History of bacterial endocarditis Tele-Events Since Last Visit: Normal sinus rhythm, with sinus tachycardia to 101 bpm overnight. Subjective: Patient seen resting comfortably in the bed. In no acute distress. He currently complains of a sore throat, denies cough. He also denies chest pain, but reports that he still is experiencing shortness of breath, is able to walk to the kitchen at back for coughing. Denies fever, dizziness, nausea/vomiting. Review of Systems Constitutional: Reports: weakness. Denies: chills, fever. Cardiovascular: Denies: chest pain, edema, orthopena, palpitations. Respiratory: Reports: short of breath. Denies: cough, sputum production. Gastrointestinal: Denies: abdominal pain, nausea, vomiting. Objective Last 24 Hrs of Vital Signs/I&O Vital Signs Date Time Temp Pulse Resp B/P B/P Pulse O2 O2 Flow FiO2 Mean Ox Delivery Rate 12/24 0612 97.1 89 18 120/90 92 Room Air 12/23 2240 97.9 92 20 124/82 92 Room Air 12/23 1332 97.1 95 18 130/94 97 Room Air 12/23 0900 88 128/90 Intake & Output 12/24 0800 12/24 0000 12/23 1600 Intake Total 120 120 480 Output Total 700 600 Balance -580 -480 480 Intake, Oral 120 120 480 Output, Urine 700 600 Patient 84.397 kg Weight Weight Bed scale Measurement Method Physical Exam General Appearance: Alert, Oriented X3, Cooperative, No Acute Distress HEENT: Atraumatic, PERRLA, EOMI, Mucous Membr. moist/pink Neck: Supple, No thryomegaly, +JVD Cardiovascular: Regular Rate, Loud murmur of mitral regurgitation, 4/6 Lungs: Clear to Auscultation, Normal Air Movement Abdomen: Normal Bowel Sounds, Soft, No Tenderness Neurological: Normal Gait, Normal Speech, Strength at 5/5 X4 Ext, Normal Tone, Sensation Intact Extremities: No Clubbing, No Cyanosis, No Edema, Normal Pulses Assessment/Plan Assessment: 47 year old male with history of COPD, HTN, HLD who was admitted to [facility] in September of this year for bacterial endocarditis with mitral valve vegitations and insufficiency, presenting for dyspnea and generalized weakness. On exam, the patient has a clear murmur of mitral regurgitation, current echocardiogram showed likely torn P2 cord. Significantly, the patient does demonstrate visible JVD, although he does not demonstrate peripheral edema currently receiving Lasix for diuresis. WBC count today to 12.5, up from 11.6, patient was afebrile overnight. Serial troponins and EKG's were negative, as was CTA performed last night in the ED. Nursing visited the patient and called with concern about left facial droop and confusion this morning. Upon assessment, these findings were confirmed and found to be concerning for possible stroke. Stroke code was called, please see event note. CT head found no acute bleed. MRI was negative for acute intracranial abnormality. Bilateral duplex carotid ultrasound was also within normal limits, showing patent arteries bilaterally without significant stenosis. Head and neck CTA were also found to be normal. The patient's symptoms resolved shortly after the stroke code was called, NIH stroke score was 1. His workup was negative and bedside swallow evaluation for dysphagia was also negative, so diet was resumed. Problems: 1. Mitral valvular insufficiency 2. Recent history of bacterial endocarditis 3. Chest/back pain 4. Possible TIA Plan: * Lasix 40mg PO daily * Start aspirin one-time dose 325 mg, daily dose 81 mg * Monitor creatinine while patient is being diuresed * Follow-up Echocardiogram * Off antibiotics for now * Serial neuro checks * Follow-up blood cultures Full code Heart healthy diet CBC, magnesium and BEP Heparin DVT prophylaxis Problem List: 1. Mitral insufficiency 2. Weakness 3. Dyspnea Pain Ratin Pain Location: none Pain Goal: Pain 4 or less Pain Plan: per pathway Tomorrow's Labs & Rationales: cbc & BEP Amarilis Quintana 12/24/17 1202: Attending MD Review Statement Attending Statement Attending MD Statement: examined this patient, discuss w/resident/PA/PEGGER, agreed w/resident/PA/PEGGER, discussed with family, reviewed EMR data (avail), discussed with nursing, discussed with case mgmt, reviewed images, amended to note Attending Assessment/Plan: Patient with h/o mitral valve prolapse with endocardties followed by ID and cardiology Dr Gaston as outpatient comes with generlased weakness. Patient had transient episode of dizziness following lasix administration this am, stroke alert called. CT head negative. NIHSS score 1. He improved thereafter. Neurology consulted. Afebrile, Vitals stable. Patient seen by ID and cardiology. He is being monitored off antibiotics. ECHO obtained suggestive with MVP. Plan for Valve replacement as per cardiology/CTVS. Plan for cardiac catheterization as per cardiology. Follow blood cultures, f/u ID. Continue current care..
--- NOTE | 2017-12-24 07:40 | ECHOCARDIOGRAM REPORT ---
HIMANSHU CANO Age: 47 : 1970 Gender: M Exam Date: 12/22/2017 19:52 Exam Location: 1 [address] Ht (in): 72 Wt (lb): 139 BSA: 1.78 BP: 124 / 93 Ordering Physician: Gill Keller MD Referring Physician: Sudheer Gaston MD Technologist: [facility] Room Number: 179-01 Indications: Valvular disease Rhythm: Sinus Technical Quality: good FINDINGS Left Ventricle Normal left ventricular size, wall thickness and systolic function with no obvious regional wall motion abnormalities. Normal left ventricular diastolic filling pattern for age. The ejection fraction is visually estimated at 60%. Right Ventricle The right ventricle is normal in size and function. Right Atrium The right atrium is mildly enlarged. Left Atrium The left atrium is markedly enlarged. The interatrial septum is intact. Mitral Valve The mitral valve is demonstrate moderate prolapse of the posterior mitral valve leaflet with a suspected torn chordae. No obvious vegetation. There is severe mitral regurgitation. Aortic Valve Structurally normal aortic valve without significant sclerosis or stenosis. There is no aortic regurgitation. Tricuspid Valve The tricuspid valve is normal in structure and function. There is mild tricuspid regurgitation. Pulmonary artery systolic pressure is severely elevated to 67mmHg. Pulmonic Valve Structurally normal pulmonic valve. There is mild pulmonic regurgitation. Pericardium Normal pericardium without effusion. No pleural effusion. Great Vessels Normal aortic root dimension. The aortic arch and great vessels are well seen and are normal. CONCLUSIONS 1. Normal EF of 60%. 2. Mild right atrial and severe left atrial enlargement. 3. Severe mitral regurgitation with prolapse of the posterior mitral valve leaflet and suspected torn chordae. 4. Mild tricuspid regurgitation. 5. Mild pulmonic regurgitation. 6. Severe pulmonary hypertension. Gerardo Wilde M.D. (Electronically Signed) Final Date: 24 December 2017 07:38 MEASUREMENTS (Male / Female) Normal Values 2D ECHO LV Diastolic Diameter PLAX 6.3 cm 4.2 - 5.9 / 3.9 - 5.3 cm LV Systolic Diameter PLAX 3.6 cm 2.1 - 4.0 cm LV Fractional Shortening PLAX 42.9 % 25 - 46 % LV Ejection Fraction 2D Teich 72.9 % IVS Diastolic Thickness 1.2 cm LVPW Diastolic Thickness 1.2 cm LV Relative Wall Thickness 0.4 RV Internal Dim ED PLAX 5.3 cm 1.9 - 3.8 cm LVOT Diameter 2.1 cm Aortic Root Diameter 3.4 cm LA Systolic Diameter LX 5.3 cm 3.0 - 4.0 / 2.7 - 3.8 cm LA Volume 136.0 cm 18 - 58 / 22 - 52 cm Ascending Aorta Diameter 2.8 cm DOPPLER AV Peak Velocity 334.0 cm/s AV Peak Gradient 44.6 mmHg AV Mean Velocity 255.0 cm/s AV Mean Gradient 29.0 mmHg AV Velocity Time Integral 72.1 cm LVOT Peak Velocity 102.0 cm/s LVOT Peak Gradient 4.2 mmHg LVOT Mean Velocity 65.5 cm/s LVOT Mean Gradient 2.0 mmHg LVOT Velocity Time Integral 13.8 cm LVOT Stroke Volume 47.8 cm AV Area Cont Eq vti 0.7 cm AV Area Cont Eq pk 1.1 cm MV Peak Velocity 233.0 cm/s MV Peak Gradient 21.7 mmHg MV Mean Velocity 125.0 cm/s MV Mean Gradient 8.0 mmHg Mitral E Point Velocity 178.0 cm/s MV PHT Velocity 241.0 cm/s MV Deceleration [place] 823.0 cm/s MV Pressure Half Time 87.8 ms MV Area PHT 2.5 cm MV Deceleration Time 211.0 ms TR Peak Velocity 395.0 cm/s TR Peak Gradient 62.4 mmHg Right Atrial Pressure 5.0 mmHg Pulmonary Artery Systolic Pressure 67.4 mmHg Right Ventricular Systolic Pressure 67.4 mmHg PV Peak Velocity 248.0 cm/s PV Peak Gradient 24.6 mmHg PV Mean Velocity 172.0 cm/s PV Mean Gradient 14.0 mmHg PV Velocity Time Integral 62.4 cm LV E' Lateral Velocity 10.7 cm/s Mitral E to LV E' Lateral Ratio 16.6 LV E' Septal Velocity 12.7 cm/s Mitral E to LV E' Septal Ratio 14.0
[2017-12-24 08:19] LABS: ABSOLUTE BASOPHIL COUNT 0.1 /CUMM (0.0-0.2); ABSOLUTE EOSINOPHIL COUNT 0.1 /CUMM (0.0-0.7); ABSOLUTE GRANULOCYTE CT 8.8 /CUMM (1.4-6.5); ABSOLUTE LYMPH COUNT 2.2 /CUMM (1.2-3.4); ABSOLUTE MONOCYTE COUNT 0.4 /CUMM (0.10-0.60); BASOPHIL % 0.4 % (0.0-2.0); EOSINOPHIL % 0.8 % (0-5); GRANULOCYTE % 76.3 % (42.2-75.2); HEMATOCRIT 36.4 % (42-52); MEAN CORPUSCULAR HGB 26.7 PG (27.0-31.0); MEAN CORPUSCULAR HGB CONC 32.8 G/DL (33.0-37.0); MEAN CORPUSCULAR VOLUME 81.3 FL (80.0-94.0); RBC DISTRIBUTION WIDTH 17.6 % (11.5-14.5); RED BLOOD CELL CT 4.48 /CUMM (4.70-6.10)
[2017-12-24 08:56] LABS: WHITE BLOOD CELL COUNT 11.6 /CUMM (4.8-10.8)
--- NOTE | 2017-12-24 09:22 | PN- Infect Dx ---
Subjective Subjective: Afebrile. He feels improved with decreased shortness of breath and no further complaints of early satiety. Objective Last 24 Hrs of Vital Signs/I&O Vital Signs Date Time Temp Pulse Resp B/P B/P Pulse O2 O2 Flow FiO2 Mean Ox Delivery Rate 12/24 0800 89 120/90 12/24 0612 97.1 89 18 120/90 92 Room Air 12/23 2240 97.9 92 20 124/82 92 Room Air 12/23 1332 97.1 95 18 130/94 97 Room Air Intake & Output 12/24 1600 12/24 0800 12/24 0000 Intake Total 120 120 Output Total 700 600 Balance -580 -480 Intake, Oral 120 120 Output, Urine 700 600 Patient 186 lb Weight Weight Bed scale Measurement Method Physical Exam Other Physical Findings: He appears comfortable in no acute distress Lungs bibasilar crackles Heart regular rhythm with a 4/6 systolic murmur Extremities no cyanosis, clubbing or edema Results Last 24 Hours of Lab Results: Laboratory Tests 12/24 0635 Chemistry Sodium (137 - 145 mmol/L) 145 Potassium (3.5 - 5.1 mmol/L) 4.3 Chloride (98 - 107 mmol/L) 103 Carbon Dioxide (22 - 30 mmol/L) 26 Anion Gap (5 - 16) 16 BUN (9 - 20 mg/dL) 31 H Creatinine (0.7 - 1.2 mg/dL) 1.1 Estimated GFR (>60 ml/min) > 60 BUN/Creatinine Ratio (7 - 25 %) 28.2 H Hematology CBC w Diff NO MAN DIFF REQ WBC (4.8 - 10.8 /CUMM) 11.6 H RBC (4.70 - 6.10 /CUMM) 4.48 L Hgb (14.0 - 18.0 G/DL) 11.9 L Hct (42 - 52 %) 36.4 L MCV (80.0 - 94.0 FL) 81.3 MCH (27.0 - 31.0 PG) 26.7 L MCHC (33.0 - 37.0 G/DL) 32.8 L RDW (11.5 - 14.5 %) 17.6 H Plt Count (/CUMM) Gran % (42.2 - 75.2 %) 76.3 H Lymphocytes % (20.5 - 51.1 %) 19.1 L Monocytes % (1.7 - 9.3 %) 3.4 Eosinophils % (0 - 5 %) 0.8 Basophils % (0.0 - 2.0 %) 0.4 Absolute Granulocytes (1.4 - 6.5 /CUMM) 8.8 H Absolute Lymphocytes (1.2 - 3.4 /CUMM) 2.2 Absolute Monocytes (0.10 - 0.60 /CUMM) 0.4 Absolute Eosinophils (0.0 - 0.7 /CUMM) 0.1 Absolute Basophils (0.0 - 0.2 /CUMM) 0.1 Last 24 Hours of Harsha Results: Blood cultures x 2 December 22 remain negative Recent Imaging Studies: Echocardiogram December 22 reveals severe mitral regurgitation with prolapse of the posterior mitral valve leaflet and suspected torn chordae, with an ejection fraction of 60% Assessment/Plan ID Impression: Stable, with temperatures remaining normal and white blood cell count decreasing , off antibiotics, with his blood cultures remaining negative. His presenting complaints and chest x-ray were suggestive of congestive heart failure, and he appears to be improving with diuresis. Cardiothoracic surgery evaluation noted, with plans for valve surgery at some point in the near future. Suggestion: 1. Follow-up recent blood cultures 2. Continue diuresis per Cardiology 3. Eventual valve replacement per Cardiothoracic surgery 4. Continue to follow off antibiotics pending above
--- NOTE | 2017-12-24 10:50 | Event Note ---
Event Note Event Note: Situation-a rapid response was called at 10:40 AM today in view of garbled speech and left angle of mouth drooping and dizziness for the past 10-15 minutes. Background-Mr. Vidal is a 47 year old male with a past history of COPD, HTN, HLD who was admitted to [facility] in September of this year for bacterial endocarditis with mitral valve vegitations and insufficiency. He finished his course of antibiotics on 11/25, and presented this admission with complaints of weakness, shortness of breath and chest discomfort. Assessment-patient conscious, oriented 3. Slurring of speech present. No facial weakness. Cranial nerves III to XII-intact. Sensation intact. Cerebellar signs-negative. Cardiovascular [id number] systolic murmur Respiratory system-normal vesicular breath sounds Abdomen-soft bowel sounds heard. Plan-stroke alert was called. Spoke to on-call neurologist Dr. Peterson who advised to take a stat CAT scan of the head, MRA of the head, ultrasound Doppler. Aspirin and statin. Core Measures/Misc (02/14) Acute Coronary Syndrome ACS Diagnosis: No Congestive Heart Failure Congestive Heart Failure Diagnosis No Cerebrovascular Accident CVA/TIA Diagnosis: Yes NIH Stroke Scale: Total 1 Date Last Known Well: 12/24/17 Symptom Start Date: 12/24/17 tPA Risk/Benefit discussion I have discussed the risks, benefits, and alternatives of Alteplase treatment including: - If given promptly, can resolve or have major improvement in stroke symptoms. - Bleeding (hemorrhage) is the most common risk that can occur. - Bleeding may occur into the brain and cause~terminal manager serious disability~ including - this is rare, affecting about 1% of patients. - Alternative treatments with proven benefit for patients with stroke include aspirin and care in a specialized unit where staff members pay careful attention to a variety of basic aspects of care. tPA given? No Reason tPA not ordered Medical Contraindication Swallow Evaluation Pass Current/Past Hx AFib/AFlutter No VTE (View Protocol) VTE Risk Factors Age>40 No Mechanical VTE Prophylaxis d/t Other No VTE Pharm Prophylaxis d/t Other Sepsis (View protocol) Sepsis Present: No If YES complete Sepsis Event Note If YES complete Sepsis Event Note
[2017-12-24 11:10] LABS: ABSOLUTE BASOPHIL COUNT 0 /CUMM (0.0-0.2); ABSOLUTE EOSINOPHIL COUNT 0.1 /CUMM (0.0-0.7); ABSOLUTE GRANULOCYTE CT 10.4 /CUMM (1.4-6.5); ABSOLUTE LYMPH COUNT 1.7 /CUMM (1.2-3.4); ABSOLUTE MONOCYTE COUNT 0.3 /CUMM (0.10-0.60); BASOPHIL % 0 % (0.0-2.0); EOSINOPHIL % 0.9 % (0-5); HEMATOCRIT 37.3 % (42-52); MEAN CORPUSCULAR HGB 26.6 PG (27.0-31.0); MEAN CORPUSCULAR VOLUME 80.6 FL (80.0-94.0); RBC DISTRIBUTION WIDTH 17.3 % (11.5-14.5); RED BLOOD CELL CT 4.63 /CUMM (4.70-6.10); WHITE BLOOD CELL COUNT 12.4 /CUMM (4.8-10.8)
[2017-12-24 11:27] LABS: PT 13.5 SEC (9.4-12.5); PTT 28 SEC (25-37)
--- NOTE | 2017-12-24 11:30 | CT SCAN REPORT ---
EXAMINATION: CT HEAD WITHOUT CONTRAST CLINICAL INFORMATION: Dizziness. Stroke alert. COMPARISON: None TECHNIQUE: Contiguous axial imaging was performed from the skull base to vertex without intravenous administration of contrast. DLP: 606 mGy-cm FINDINGS: There is no evidence of acute intracranial hemorrhage or territorial infarction. No abnormal mass effect or midline shift is seen. Coleman to white matter differentiation is well preserved. No extra-axial fluid collections are identified. The ventricles are normal in size. There is no abnormal attenuation within the brain parenchyma. The osseous structures and soft tissues are normal. The mastoid air cells, middle ear cavities, and visualized portions of the paranasal sinuses are well aerated. IMPRESSION: No acute intracranial pathology. This critical result was communicated with Dr. Benitez at 11:26AM on 12/24/2017 and the content and urgency was understood at the time of direct communication.
[2017-12-24 11:31] LABS: GRANULOCYTE % 83.3 % (42.2-75.2)
--- NOTE | 2017-12-24 12:18 | CT SCAN REPORT ---
EXAMINATION: CT HEAD ANGIOGRAM, CT NECK ANGIOGRAM CLINICAL INFORMATION: Dizziness. Confusion. Left facial droop. Evaluate for stroke. COMPARISON: CT head 12/24/2017. TECHNIQUE: Television Specialist images were obtained. A CT angiogram of the head and neck was performed in the arterial phase after the intravenous administration of 95 mL Optiray 320. Postcontrast images of the head were also obtained. MIP reconstructions were generated in multiple orientations at the acquisition workstation. Multiple three-dimensional surface rendered images and maximum intensity projection images were generated on a dedicated 3-D lab workstation. Arterial stenoses are measured in accordance with NASCET criteria or similar method if applicable. Total exam dose-length product 2016.16 mGy-cm FINDINGS: Head: Postcontrast images reveal no abnormal intracranial mass or enhancement. There is no intracranial mass effect or midline shift. Lateral and third ventricles are normal. No hydrocephalus. Coleman-white matter differentiation is grossly preserved and there is no evidence of acute territorial infarct. The calvarium and skull base are intact. Mastoid air cells and middle ear cavities are well aerated. Visualized paranasal sinuses are well-aerated. CT angiogram neck: The aortic arch apex is normal and the origins of the major aortic branches are widely patent. Common carotid arteries and carotid bifurcations are normal. No stenosis of the cervical carotid or vertebral arteries. CT angiogram head: The intracranial internal carotid arteries are widely patent. Intradural vertebral artery segments and basilar artery are patent. Anterior, middle, and posterior cerebral artery complexes are normal. No high-grade stenosis or proximal occlusion is visualized within the intracranial vessels. IMPRESSION: Normal CT angiogram of the head and neck.
--- NOTE | 2017-12-24 12:52 | ULTRASOUND REPORT ---
EXAMINATION: BILATERAL DUPLEX CAROTID ULTRASOUND CLINICAL INDICATION: Stroke. Dizziness. Confusion. Subtle facial droop. COMPARISON: None. TECHNIQUE: TECHNIQUE: Real-time ultrasound and Doppler techniques (integrating B-mode 2D vascular images, Doppler spectral analysis and color flow Doppler imaging) were utilized to interrogate the extracranial carotid and vertebral arteries bilaterally. The degree of stenosis determined by criteria similar to NASCET. FINDINGS: On the right, there is no significant plaque present at the carotid bifurcation. In the distal CCA, the peak systolic velocity is 119 cm/sec. In the proximal ICA, the peak systolic velocity is 69.9 cm/sec, and the end diastolic velocity is 35.4 cm/sec. The ICA/CCA ratio is 0.87. On the LEFT, there is minimal atherosclerotic plaque noted at the distal left common carotid artery. In the distal CCA, the peak systolic velocity is 133 cm/sec. In the proximal ICA, the peak systolic velocity is 72 cm/sec, and the end diastolic velocity is 29 cm/sec. The ICA/CCA ratio is 0.54. The vertebral arteries show antegrade flow with normal waveforms bilaterally. IMPRESSION: 1. The right carotid arterial tree appears normal. 2. The left internal carotid artery shows no hemodynamically significant stenosis. 3. Both vertebral arteries are patent and show antegrade flow.
--- NOTE | 2017-12-24 13:40 | MRI REPORT ---
EXAMINATION: MR BRAIN WITHOUT CONTRAST CLINICAL INFORMATION: Code stroke. Dizziness, confusion, subtle facial droop. COMPARISON: CTA of the head and neck and head CTA from 12/24/2017. TECHNIQUE: MRI of the brain without contrast was obtained. Of note a FLAIR sequence is not included. FINDINGS: There is no acute brain ischemia. There are punctate foci of susceptibility artifact in the inferior right cerebellar hemisphere and in the left thalamus without CT correlate, compatible with foci of hemosiderin or cavernomas. There is no associated edema. The ventricles, sulci, and extra-axial series of spaces appear normal in caliber and configuration. Signal within the brain parenchyma otherwise appears unremarkable. No extra-axial collection, mass effect, or shift of the normally midline structures. The major arterial and venous flow voids are maintained. The craniocervical junction and supersellar region appear unremarkable. Marrow signal is preserved. No upper cervical adenopathy. There is mild mucosal thickening in the right maxillary sinus with a few retention cysts. The nasal cavity, nasopharynx, and mastoid air cells are clear. The orbits appear unremarkable. IMPRESSION: No acute intercranial abnormality. Specifically, no acute brain ischemia.
[2017-12-24 14:00] VITALS: BP 124/80
--- NOTE | 2017-12-24 15:32 | Cons- Neurology ---
General Information and HPI Consulting Request Date of Consult: 12/24/17 Requested By: Nan Santana MD Reason for Consult: transient facial droop and confusion Source of Information: patient, old records, staff Exam Limitations: no limitations History of Present Illness: This is a pleasant 47 year old man who had a recent bout of endocarditis that was treated with antibiotics in September, now in the hospital again due to SOB and chest and back heaviness. While in the hospital being evaluated for that, he developed sudden left facial droop and was confused. An MRI brain was overall normal. The symptoms went on for 3 hours than resolved. He recalls feeling wobbly and not lucid. 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 He notes that he was given a high dose of Lasix IV earlier today after which he felt cramping in hte legs and developed hte TIA like symptoms. Allergies/Medications Allergies: Coded Allergies: Penicillins (RASH 12/22/17) Home Med List: Albuterol Sulfate (Proventil Hfa) 90 MCG HFA.AER.AD 2 PUF INH 4 TIMES/DAY PRN SHORTNESS OF BREATH (Reported) Bisoprolol Fumarate 5 MG TABLET 0.5 TAB PO DAILY HEART (Reported) Budesonide/Formoterol Fumarate (Symbicort 160-4.5 Mcg Inhaler) 160 MCG-4.5 MCG/ ACTUATION HFA.AER.AD 2 PUF INH BID BREATHING PROBLEMS (Reported) Cetirizine HCl 10 MG TABLET 1 TAB PO DAILY ALLERGIES (Reported) Cyclobenzaprine HCl 10 MG TABLET 1 TAB PO TID MUSCLE SPASMS (Reported) Fenofibric Acid (Choline) (Trilipix) 45 MG CAPSULE.DR 1 CAP PO QPM CHOLESTEROL (Reported) Furosemide (Lasix) 20 MG TABLET 1 TAB PO DAILY Fluid Overload Gabapentin 300 MG CAPSULE 1 CAP PO TID SEIZURES (Reported) Ibuprofen 800 MG TABLET 1 TAB PO BID PAIN (Reported) Lidocaine 5 % ADH..PATCH 1 PAT TOP DAILY Back Pain Lisinopril 2.5 MG TABLET 1 TAB PO DAILY Heart Health Montelukast Sodium 10 MG TABLET 1 TAB PO DAILY ALLERGIES (Reported) Pantoprazole Sodium (Protonix) 40 MG TABLET.DR 1 TAB PO DAILY GERD Plant Stanol Nasima (Cholest Off Plus) 450 MG CAPSULE (Unknown Dose) PO DAILY HIGH CHOLESTEROL (Reported) Current Medications: Current Medications Sig/Lizzie Start time Last Medication Dose Route Stop Time Status Admin Acetaminophen 650 MG .STK-MED ONE 12/23 1843 DC PO 12/23 1844 Acetaminophen 650 MG Q4P PRN 12/22 1530 AC 12/23 PO 1846 Acetaminophen 1,000 MG Q6P PRN 12/22 1530 AC N/A 1 UNIT IV Albuterol Sulfate 2 PUF 4 TIMES/DAY PRN 12/22 1515 AC INH Aspirin 81 MG DAILY 12/25 0900 AC PO Aspirin 81 MG DAILY 12/24 1200 DC PO Aspirin 325 MG ONCE ONE 12/24 1130 DC PO 12/24 1131 Atorvastatin Calcium 40 MG 1700 12/24 1700 AC PO Benzocaine/Menthol 1 JORDAN Q4 HRS NEEDED PRN 12/23 1900 AC 12/23 PO 1917 Budesonide/ 2 PUF BID 12/22 2100 AC 12/24 Formoterol Fumarate INH 0759 Cyclobenzaprine HCl 10 MG TID 12/22 2100 AC 12/24 PO 0800 Fenofibrate 48 MG DAILY 12/23 0900 AC 12/24 PO 0801 Furosemide 40 MG DAILY 12/25 0900 AC PO Furosemide 40 MG DAILY 12/23 1149 DC 12/24 IV 0800 Gabapentin 300 MG TID 12/22 1510 AC 12/24 PO 0800 Heparin Sodium 5,000 UNIT Q8 12/22 2200 AC 12/24 (Porcine) SC 0512 Lisinopril 2.5 MG DAILY 12/22 1510 AC 12/24 PO 0800 Morphine Sulfate 2 MG Q6P PRN 12/22 1530 AC IV Omeprazole 40 MG DAILY AC 12/22 1515 AC 12/24 PO 0511 Patient Medication 1 ED ONE ONE 12/24 1430 DC Teaching ED 12/24 1431 Past History Travel History Traveled to [place] past 21 day No Medical History Blood Transfusion Hx: No Neurological: migraine EENT: allergies Cardiovascular: hypertension, HIGH CHOLESTEROL mitral valve prolapse Respiratory: COPD, pneumonia Gastrointestinal: NONE, GERD Hepatic: NONE Renal: NONE Musculoskeletal: chronic back pain, NECK FRACTURE Psychiatric: NONE, alcohol dependence, CLEAR FOR 2 YEARS Endocrine: NONE Blood Disorders: NONE Cancer(s): NONE 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 Psychosocial History Where Do You Live? Home Services at Home: None Smoking Status: Current Some Day Smoker ETOH Use: occasional use Illicit Drug Use: denies illicit drug use Living Will? no Exam & Diagnostic Data Vital Signs and I&O Vital Signs Date Time Temp Pulse Resp B/P B/P Pulse O2 O2 Flow FiO2 Mean Ox Delivery Rate 12/24 1400 97.8 89 20 124/80 96 12/24 0800 89 120/90 12/24 0612 97.1 89 18 120/90 92 Room Air 12/23 2240 97.9 92 20 124/82 92 Room Air Intake & Output 12/24 1600 12/24 0800 12/24 0000 Intake Total 120 120 Output Total 700 600 Balance -580 -480 Intake, Oral 120 120 Output, Urine 700 600 Patient 186 lb Weight Weight Bed scale Measurement Method Physical Exam: Alert and oriented x3. Knows current events. EOMI, BENITO, no nystagmus, face symmetric, VF intact, tongue midline and uvula raises in midline. SCM is strong. Fluent and comprehends. Can repeat. Non-dysarthric. Strength intact 5/5 throughout distribution. Reflexes symmetic. Toes down going. FNF normal. Romberg negative and gait stable. Last 48 Hours of Lab Results: Laboratory Tests 12/24 12/24 1110 1100 Chemistry Sodium (137 - 145 mmol/L) 144 Potassium (3.5 - 5.1 mmol/L) 4.0 Chloride (98 - 107 mmol/L) 101 Carbon Dioxide (22 - 30 mmol/L) 29 Anion Gap (5 - 16) 14 BUN (9 - 20 mg/dL) 29 H Creatinine (0.7 - 1.2 mg/dL) 1.1 Estimated GFR (>60 ml/min) > 60 BUN/Creatinine Ratio (7 - 25 %) 26.4 H Troponin I (<0.11 ng/ml) < 0.01 Triglycerides (<150 mg/dL) 101 Cholesterol (< 200 MG/DL) 140 LDL Cholesterol, Calc (65 - 129 mg/dL) 98 HDL Cholesterol (40 - 60 mg/dL) 22 L Cholesterol/HDL Ratio (0.00 - 4.88 %) 6 H Coagulation PT (9.4 - 12.5 SEC) 13.5 H INR (0.90 - 1.17) 1.24 H APTT (25 - 37 SEC) 28 Hematology CBC w Diff NO MAN DIFF REQ WBC (4.8 - 10.8 /CUMM) 12.4 H RBC (4.70 - 6.10 /CUMM) 4.63 L Hgb (14.0 - 18.0 G/DL) 12.3 L Hct (42 - 52 %) 37.3 L MCV (80.0 - 94.0 FL) 80.6 MCH (27.0 - 31.0 PG) 26.6 L MCHC (33.0 - 37.0 G/DL) 33.0 RDW (11.5 - 14.5 %) 17.3 H Plt Count (/CUMM) Gran % (42.2 - 75.2 %) 83.3 H Lymphocytes % (20.5 - 51.1 %) 13.5 L Monocytes % (1.7 - 9.3 %) 2.3 Eosinophils % (0 - 5 %) 0.9 Basophils % (0.0 - 2.0 %) 0 Absolute Granulocytes (1.4 - 6.5 /CUMM) 10.4 H Absolute Lymphocytes (1.2 - 3.4 /CUMM) 1.7 Absolute Monocytes (0.10 - 0.60 /CUMM) 0.3 Absolute Eosinophils (0.0 - 0.7 /CUMM) 0.1 Absolute Basophils (0.0 - 0.2 /CUMM) 0 Urines Urine Color (YEL,AMB,STR) STRAW Urine Clarity (CLEAR) CLEAR Urine pH (5.0 - 8.0) 7.5 Ur Specific [place] (1.001 - 1.035) 1.010 Urine Protein (NEG,<30 MG/DL) NEG Urine Ketones (NEG) NEG Urine Nitrite (NEG) NEG Urine Bilirubin (NEG) NEG Urine Urobilinogen (0.1 - 1.0 EU/dl) 0.2 Ur Leukocyte Esterase (NEG) NEG Ur Microscopic SEDIMENT EXAMINED Urine RBC (0 - 5 /HPF) 1-3 Urine Bacteria (NEG/NONE) RARE H Urine Hemoglobin (NEG) SMALL H Urine Glucose (N MG/DL) NEG 12/24 12/24 1056 0635 Chemistry Sodium (137 - 145 mmol/L) 145 Potassium (3.5 - 5.1 mmol/L) 4.3 Chloride (98 - 107 mmol/L) 103 Carbon Dioxide (22 - 30 mmol/L) 26 Anion Gap (5 - 16) 16 BUN (9 - 20 mg/dL) 31 H Creatinine (0.7 - 1.2 mg/dL) 1.1 Estimated GFR (>60 ml/min) > 60 BUN/Creatinine Ratio (7 - 25 %) 28.2 H Triglycerides Cancelled Cholesterol Cancelled LDL Cholesterol, Calc Cancelled HDL Cholesterol Cancelled Cholesterol/HDL Ratio Cancelled Hematology CBC w Diff NO MAN DIFF REQ WBC (4.8 - 10.8 /CUMM) 11.6 H RBC (4.70 - 6.10 /CUMM) 4.48 L Hgb (14.0 - 18.0 G/DL) 11.9 L Hct (42 - 52 %) 36.4 L MCV (80.0 - 94.0 FL) 81.3 MCH (27.0 - 31.0 PG) 26.7 L MCHC (33.0 - 37.0 G/DL) 32.8 L RDW (11.5 - 14.5 %) 17.6 H Plt Count (/CUMM) Gran % (42.2 - 75.2 %) 76.3 H Lymphocytes % (20.5 - 51.1 %) 19.1 L Monocytes % (1.7 - 9.3 %) 3.4 Eosinophils % (0 - 5 %) 0.8 Basophils % (0.0 - 2.0 %) 0.4 Absolute Granulocytes (1.4 - 6.5 /CUMM) 8.8 H Absolute Lymphocytes (1.2 - 3.4 /CUMM) 2.2 Absolute Monocytes (0.10 - 0.60 /CUMM) 0.4 Absolute Eosinophils (0.0 - 0.7 /CUMM) 0.1 Absolute Basophils (0.0 - 0.2 /CUMM) 0.1 12/23 12/22 12/22 0600 2215 1634 Chemistry Sodium (137 - 145 mmol/L) 141 Potassium (3.5 - 5.1 mmol/L) 4.6 Chloride (98 - 107 mmol/L) 104 Carbon Dioxide (22 - 30 mmol/L) 23 Anion Gap (5 - 16) 14 BUN (9 - 20 mg/dL) 35 H Creatinine (0.7 - 1.2 mg/dL) 1.3 H Estimated GFR (>60 ml/min) 59 L BUN/Creatinine Ratio (7 - 25 %) 26.9 H Troponin I (<0.11 ng/ml) < 0.01 < 0.01 Hematology CBC w Diff NO MAN DIFF REQ WBC (4.8 - 10.8 /CUMM) 13.5 H RBC (4.70 - 6.10 /CUMM) 4.36 L Hgb (14.0 - 18.0 G/DL) 11.6 L Hct (42 - 52 %) 35.8 L MCV (80.0 - 94.0 FL) 81.9 MCH (27.0 - 31.0 PG) 26.6 L MCHC (33.0 - 37.0 G/DL) 32.5 L RDW (11.5 - 14.5 %) 17.6 H Plt Count (130 - 400 /CUMM) MPV (7.4 - 10.4 FL) 12.0 H Gran % (42.2 - 75.2 %) 76.4 H Lymphocytes % (20.5 - 51.1 %) 19.8 L Monocytes % (1.7 - 9.3 %) 2.7 Eosinophils % (0 - 5 %) 0.6 Basophils % (0.0 - 2.0 %) 0.5 Absolute Granulocytes (1.4 - 6.5 /CUMM) 10.3 H Absolute Lymphocytes (1.2 - 3.4 /CUMM) 2.7 Absolute Monocytes (0.10 - 0.60 /CUMM) 0.4 Absolute Eosinophils (0.0 - 0.7 /CUMM) 0.1 Absolute Basophils (0.0 - 0.2 /CUMM) 0.1 ESR Westergren (0 - 10 MM) 35 H Imaging/Other Studies: INDINGS: There is no acute brain ischemia. There are punctate foci of susceptibility artifact in the inferior right cerebellar hemisphere and in the left thalamus without CT correlate, compatible with foci of hemosiderin or cavernomas. There is no associated edema. The ventricles, sulci, and extra-axial series of spaces appear normal in caliber and configuration. Signal within the brain parenchyma otherwise appears unremarkable. No extra-axial collection, mass effect, or shift of the normally midline structures. The major arterial and venous flow voids are maintained. The craniocervical junction and supersellar region appear unremarkable. Marrow signal is preserved. No upper cervical adenopathy. There is mild mucosal thickening in the right maxillary sinus with a few retention cysts. The nasal cavity, nasopharynx, and mastoid air cells are clear. The orbits appear unremarkable. IMPRESSION: No acute intercranial abnormality. Specifically, no acute brain ischemia. Assessment/Plan Assessment: 47 year old man with a likely TIA versus side effect of Lasix. Currently with a white count, SOB and some pain. Unclear as to what the cause is. Recommendations: 1. Continue with baby aspirin. 2. Monitor for new symptoms. 3. Elucidate source of white count. Consult Acknowledgment - Thank you for your consult request.
--- NOTE | 2017-12-24 15:45 | Discharge Summary ---
Visit Information Visit Dates Admission Date: 12/22/17 Hospital Course Course Attending Physician: Nan Santana MD Primary Care Physician: Antonella Padron APRN Allergies: Coded Allergies: adhesive tape (Mild, RASH 12/25/17) Penicillins (RASH 12/22/17) Pertinent Lab Results: Mitral leaflet thickening is present. There is marked prolapse / eversion of the midportion of the posterior mitral leaflet (P2) with obvious ruptured chordae and severe eccentric MR. Left atrial enlargement is present and there is moderate systolic flow reversal documented in multiple pulmonary veins. The left atrial appendage is normal with no evidence of thrombus. Disposition Summary Disposition Principal Diagnosis: Mitral valve prolapse Additional Diagnosis: Recent endocarditis. Discharge Instructions Medications at Discharge Discharge Medications: Stop taking the following medications: Furosemide (Lasix) 20 MG TABLET ORAL DAILY Qty = 30 Bisoprolol Fumarate (Bisoprolol Fumarate) 5 MG TABLET ORAL DAILY Qty = 15 Continue taking these medications: Fenofibric Acid (Choline) (Trilipix) 45 MG CAPSULE.DR 1 Capsule ORAL Every night Qty = 90 Comments: Last Taken: 10/20/17 Time: 9:50 AM Gabapentin (Gabapentin) 300 MG CAPSULE 1 Capsule ORAL THREE TIMES DAILY Qty = 90 Comments: Last Taken: 10/20/17 Time: 9:50 AM Cyclobenzaprine HCl (Cyclobenzaprine HCl) 10 MG TABLET 1 Tablet ORAL THREE TIMES DAILY Qty = 90 Comments: Last Taken: 10/20/17 Time: 9:50 AM Ibuprofen (Ibuprofen) 800 MG TABLET 1 Tablet ORAL TWICE DAILY Qty = 60 Comments: Last Taken: 10/20/17 Time: 9:50 AM Albuterol Sulfate (Proventil Hfa) 90 MCG HFA.AER.AD 2 Puff Inhale through mouth 4 TIMES A DAY as needed for SHORTNESS OF BREATH Comments: Last Taken: NOT GIVEN IN HOSPITAL Time: Pantoprazole Sodium (Protonix) 40 MG TABLET.DR 1 Tablet ORAL DAILY Qty = 30 Comments: Last Taken: 10/20/17 Time: 5:20 AM Cetirizine HCl (Cetirizine HCl) 10 MG TABLET 1 Tablet ORAL DAILY Comments: Last Taken: NOT GIVEN IN HOSPITAL Time: Montelukast Sodium (Montelukast Sodium) 10 MG TABLET 1 Tablet ORAL DAILY Comments: Last Taken: 10/20/17 Time: 9:50 AM Budesonide/Formoterol Fumarate (Symbicort 160-4.5 Mcg Inhaler) 160 MCG-4.5 MCG/ ACTUATION HFA.AER.AD 2 Puff Inhale through mouth TWICE DAILY Qty = 10 Comments: Last Taken: 10/20/17 Time: 9:50 AM Plant Stanol Nasima (Cholest Off Plus) 450 MG CAPSULE Unknown Dose ORAL DAILY Comments: Last Taken: NOT GIVEN IN HOSPITAL Time: Lisinopril (Lisinopril) 2.5 MG TABLET 1 Tablet ORAL DAILY Qty = 30 Comments: Last Taken: 10/20/17 Time: 9:50 AM Lidocaine (Lidocaine) 5 % ADH..PATCH 1 Patch On the skin DAILY Qty = 7 Comments: Last Taken: 10/20/17 Time: 9:50 AM Start taking the following new medications: Atorvastatin Calcium (Atorvastatin Calcium) 40 MG TABLET 1 Tablet ORAL DAILY Qty = 30 No Refills Instructions: . Metoprolol Tartrate (Metoprolol Tartrate) 25 MG TABLET 1 Tablet ORAL TWICE DAILY Qty = 60 No Refills Instructions: . Furosemide (Lasix) 40 MG TABLET 40 Milligram ORAL DAILY Qty = 30 No Refills Instructions: .. Attending MD Review Statement Documenting Attending: Max VELA,Nan Other Findings: Patient to follow-up with Gerardo Wilde MD as an outpatient.
--- NOTE | 2017-12-24 17:09 | PN- Cardiology ---
Subjective Subjective: * Shortness of breath is improved. * echo shows significant mitral regurgitation with no definite vegetation * patient had a stroke alert earlier today * increased WBC count persists Objective Vital Signs and I&Os Vital Signs Date Time Temp Pulse Resp B/P B/P Pulse O2 O2 Flow FiO2 Mean Ox Delivery Rate 12/24 1400 97.8 89 20 124/80 96 12/24 0800 89 120/90 12/24 0612 97.1 89 18 120/90 92 Room Air 12/23 2240 97.9 92 20 124/82 92 Room Air Intake & Output 12/24 1600 12/24 0800 12/24 0000 12/23 1600 12/23 0800 12/23 0000 Intake Total 600 120 120 480 220 250 Output Total 800 700 600 650 Balance -200 -580 -480 480 220 -400 Intake, Oral 600 120 120 480 220 250 Number 1 Bowel Movements Output, Urine 800 700 600 650 Patient 186 lb 192 lb Weight Weight Bed scale Bed scale Measurement Method Physical Exam: General; WD/WN male in NAD; alert and oriented x 3 HEENT: NC/AT, PERRL, EOMI Neck: no JVD, no carotid bruit Heart: RRR with 3/6 systolic murmur at the LLSB and RUSB Lungs: clear bilaterally Abdomen: soft, NT, +ve bowel sounds Extremities: no edema Assessment/Plan Assessment/Plan * This patient has symptoms similar to those noted during his prior bout of endocarditis and he does have an elevated WBC count and increased sedimentation rate. I suspect he has an incompletely treated bout of endocarditis although no obvious vegetation was noted on his echocardiogram. In consideration of a possibly embolic stroke I would begin antibiotics to ensure complete resolution of the endocarditis. This patient will likely benefit from a mitral valve replacement if no active bacteremia. Obtain blood cultures. * I do not think this patient has significant decompensated left heart failure but he does have increased RV pressures related to his MR and this will cause shortness of breath. He may feel better bringing down these pressures by diuresis. Continue Lasix 40mg IV daily. Continue telemetry? Yes
[2017-12-24 21:39] VITALS: BP 140/90
[2017-12-25 06:39] VITALS: BP 128/98
--- NOTE | 2017-12-25 08:18 | PN- Housestaff ---
See Addendum Subjective Follow-up For: Dyspnea Mitral valve regurgitation History of bacterial endocarditis Possible TIA, stroke code Subjective: Patient seen seated in the fish tank room. He is able to walk around short distances, but still complains of shortness of breath with prolonged exertion. He denies chest pain, headache, weakness or confusion. He does note a rash surrounding his IV site in the right antecubital fossa, with "bumps" extending towards his wrist. He also complains of a sore spot at his previous PICC line insertion site, and denies fever but does complain of continued night sweats. Review of Systems Constitutional: Reports: diaphoresis, weakness. Denies: chills, fever, malaise. EENTM: Denies: visual changes. Cardiovascular: Denies: chest pain, edema, orthopena, palpitations. Respiratory: Reports: short of breath. Denies: cough, wheezing. Gastrointestinal: Denies: bloating, nausea, vomiting. Objective Last 24 Hrs of Vital Signs/I&O Vital Signs Date Time Temp Pulse Resp B/P B/P Pulse O2 O2 Flow FiO2 Mean Ox Delivery Rate 12/25 0639 98.1 92 20 128/98 95 12/24 2139 98.2 90 20 140/90 94 12/24 1400 97.8 89 20 124/80 96 Intake & Output 12/25 1600 12/25 0800 12/25 0000 Intake Total 480 480 Output Total Balance 480 480 Intake, Oral 480 480 Number 1 Bowel Movements Physical Exam General Appearance: Alert, Oriented X3, Cooperative, No Acute Distress HEENT: Atraumatic, PERRLA, EOMI, Mucous Membr. moist/pink Neck: Supple, No thryomegaly, +2 Carotid Pulse wo Bruit, jvd+ Cardiovascular: Regular Rate, Normal S1, 4/6 systolic murmur, loudest at the apex Lungs: Clear to Auscultation Abdomen: Normal Bowel Sounds, Soft, No Tenderness Neurological: Normal Gait, Normal Speech, Strength at 5/5 X4 Ext Current Medications: Current Medications Sig/Lizzie Start time Last Medication Dose Route Stop Time Status Admin Acetaminophen 650 MG Q4P PRN 12/22 1530 AC 12/23 PO 1846 Acetaminophen 1,000 MG Q6P PRN 12/22 1530 AC N/A 1 UNIT IV Albuterol Sulfate 2 PUF 4 TIMES/DAY PRN 12/22 1515 AC INH Aspirin 81 MG DAILY 12/25 0900 AC PO Aspirin 81 MG DAILY 12/24 1200 DC PO Aspirin 325 MG ONCE ONE 12/24 1130 DC 12/24 PO 12/24 1131 1525 Atorvastatin Calcium 40 MG 1700 12/24 1700 AC 12/24 PO 1527 Benzocaine/Menthol 1 JORDAN Q4 HRS NEEDED PRN 12/23 1900 AC 12/24 PO 202 Budesonide/ 2 PUF BID 12/22 2100 AC 12/24 Formoterol Fumarate INH 2022 Cyclobenzaprine HCl 10 MG TID 12/22 2100 AC 12/24 PO 202 Fenofibrate 48 MG DAILY 12/23 0900 AC 12/24 PO 0801 Furosemide 40 MG DAILY 12/25 0900 AC PO Furosemide 40 MG DAILY 12/23 1149 DC 12/24 IV 0800 Gabapentin 300 MG TID 12/22 1510 AC 12/24 PO 202 Heparin Sodium 5,000 UNIT Q8 12/22 2200 AC 12/25 (Porcine) SC 0552 Lisinopril 2.5 MG DAILY 12/22 1510 AC 12/24 PO 0800 Morphine Sulfate 2 MG Q6P PRN 12/22 1530 AC IV Omeprazole 40 MG DAILY AC 12/22 1515 AC 12/25 PO 0552 Patient Medication 1 ED ONE ONE 12/24 1430 [facility] Teaching ED 12/24 1431 Last 24 Hrs of Lab/Harsha Results Last 24 Hrs of Labs/Mics: Laboratory Tests 12/25/17 0615: Sodium Pending, Potassium Pending, Chloride Pending, Carbon Dioxide Pending, Anion Gap Pending, BUN Pending, Creatinine Pending, BUN/Creatinine Ratio Pending , Magnesium Pending, CBC w Diff Pending, WBC Pending, RBC Pending, Hgb Pending, Hct Pending, MCV Pending, MCH Pending, MCHC Pending, RDW Pending, Plt Count Pending, MPV Pending 12/24/17 1110: Urine Color STRAW, Urine Clarity CLEAR, Urine pH 7.5, Ur Specific [place] 1.010, Urine Protein NEG, Urine Ketones NEG, Urine Nitrite NEG, Urine Bilirubin NEG, Urine Urobilinogen 0.2, Ur Leukocyte Esterase NEG, Ur Microscopic SEDIMENT EXAMINED, Urine RBC 1-3, Urine Bacteria RARE H, Urine Hemoglobin SMALL H, Urine Glucose NEG 12/24/17 1100: Anion Gap 14, Estimated GFR > 60, BUN/Creatinine Ratio 26.4 H, Troponin I < 0.01, Triglycerides 101, Cholesterol 140, LDL Cholesterol, Calc 98, HDL Cholesterol 22 L, Cholesterol/HDL Ratio 6 H, PT 13.5 H, INR 1.24 H, APTT 28, CBC w Diff NO MAN DIFF REQ, RBC 4.63 L, MCV 80.6, MCH 26.6 L, MCHC 33.0, RDW 17.3 H, Gran % 83.3 H, Lymphocytes % 13.5 L, Monocytes % 2.3, Eosinophils % 0.9, Basophils % 0, Absolute Granulocytes 10.4 H, Absolute Lymphocytes 1.7, Absolute Monocytes 0.3, Absolute Eosinophils 0.1, Absolute Basophils 0 12/24/17 1056: Triglycerides Cancelled, Cholesterol Cancelled, LDL Cholesterol, Calc Cancelled, HDL Cholesterol Cancelled, Cholesterol/HDL Ratio Cancelled Assessment/Plan Assessment: 47 year old male with history of COPD, HTN, HLD who was admitted to [facility] in [facility] of this year for bacterial endocarditis with mitral valve vegitations and insufficiency, presenting for dyspnea and generalized weakness. On exam, the patient has a clear murmur of mitral regurgitation, current echocardiogram showed likely torn P2 cord. Significantly, the patient does demonstrate visible JVD, although he does not demonstrate peripheral edema currently receiving Lasix for diuresis. WBC count today was back down to 10.0. BUN also improved to 23, down from 31 yesterday morning. Blood cultures found to be negative preliminary. Problems: 1. Mitral valvular insufficiency 2. Recent history of bacterial endocarditis 3. Chest/back pain 4. Possible TIA Plan: * Lasix 40mg PO daily * Aspirin daily dose 81 mg * Monitor creatinine while patient is being diuresed * Off antibiotics for now * Serial neuro checks * Follow-up blood cultures * Updated allergy list to include adhesives Full code Heart healthy diet CBC, magnesium and BEP Heparin DVT prophylaxis Problem List: 1. Mitral insufficiency 2. Weakness 3. Dyspnea 4. Endocarditis Pain Ratin Pain Location: none Pain Goal: Pain 4 or less Pain Plan: Per pathway Tomorrow's Labs & Rationales: CBC and BEP
[2017-12-25 08:19] LABS: ABSOLUTE BASOPHIL COUNT 0 /CUMM (0.0-0.2); ABSOLUTE EOSINOPHIL COUNT 0.1 /CUMM (0.0-0.7); ABSOLUTE GRANULOCYTE CT 7.7 /CUMM (1.4-6.5); ABSOLUTE LYMPH COUNT 1.8 /CUMM (1.2-3.4); ABSOLUTE MONOCYTE COUNT 0.3 /CUMM (0.10-0.60); BASOPHIL % 0.4 % (0.0-2.0); EOSINOPHIL % 1.2 % (0-5); GRANULOCYTE % 76.9 % (42.2-75.2); HEMATOCRIT 36.6 % (42-52); MEAN CORPUSCULAR HGB 26.5 PG (27.0-31.0); MEAN CORPUSCULAR HGB CONC 32.3 G/DL (33.0-37.0); RBC DISTRIBUTION WIDTH 17.1 % (11.5-14.5); RED BLOOD CELL CT 4.47 /CUMM (4.70-6.10)
--- NOTE | 2017-12-25 12:18 | PN- Cardiology ---
Subjective Subjective: Patient feels well today. No recurrent neurologic symptoms. Remains afebrile. Objective Vital Signs and I&Os Vital Signs Date Time Temp Pulse Resp B/P B/P Pulse O2 O2 Flow FiO2 Mean Ox Delivery Rate 12/25 0844 124/84 12/25 0639 98.1 92 20 128/98 95 12/24 2139 98.2 90 20 140/90 94 12/24 1400 97.8 89 20 124/80 96 Intake & Output 12/25 1600 12/25 0800 12/25 0000 12/24 1600 12/24 0812/24 0000 Intake Total 480 480 600 120 120 Output Total 800 700 600 Balance 480 480 -200 -580 -480 Intake, Oral 480 480 600 120 120 Number 1 1 Bowel Movements Output, Urine 800 700 600 Patient 186 lb Weight Weight Bed scale Measurement Method Physical Exam: General: no apparent distress. Alert. Eyes: No obvious scleral icterus. HEENT: No jugular venous distention or abnormal jugular venous pulsations. Cardiovascular: Normal intensity S1/S2. Regular, 3/6 systolic murmur Respiratory: Lungs clear to auscultation bilaterally. Abdomen: Soft, nontender with no guarding or rebound tenderness. Musculoskeletal: No clubbing or cyanosis noted Skin: warm Neurologic: No gross focal deficits noted. Current Medications: Current Medications Sig/Lizzie Start time Last Medication Dose Route Stop Time Status Admin Acetaminophen 650 MG Q4P PRN 12/22 1530 AC 12/23 PO 1846 Acetaminophen 1,000 MG Q6P PRN 12/22 1530 AC N/A 1 UNIT IV Albuterol Sulfate 2 PUF 4 TIMES/DAY PRN 12/22 1515 AC INH Aspirin 81 MG DAILY 12/25 09 AC 12/25 PO 0944 Atorvastatin Calcium 40 MG 1700 12/24 1700 AC 12/24 PO 1527 Benzocaine/Menthol 1 JORDAN Q4 HRS NEEDED PRN 12/23 1900 AC 12/24 PO 2028 Budesonide/ 2 PUF BID 12/22 2100 12/25 Formoterol Fumarate INH 0944 Cyclobenzaprine HCl 10 MG TID 12/22 2100 12/25 PO 0944 Fenofibrate 48 MG DAILY 12/23 09 AC 12/25 PO 0944 Furosemide 40 MG DAILY 12/25 09 AC 12/25 PO 0944 Gabapentin 300 MG TID 12/22 1510 AC 12/25 PO 0944 Heparin Sodium 5,000 UNIT Q8 12/22 2200 AC 12/25 (Porcine) SC 0552 Lisinopril 2.5 MG DAILY 12/22 1510 AC 12/25 PO 0944 Morphine Sulfate 2 MG Q6P PRN 12/22 1530 AC IV Omeprazole 40 MG DAILY AC 12/22 1515 12/25 PO 0552 Patient Medication 1 ED ONE ONE 12/24 1430 [place] Teaching ED 12/24 1431 Results Last 48 Hrs of Labs/Mics: Laboratory Tests 12/25/17 0615: Anion Gap 12, Estimated GFR > 60, BUN/Creatinine Ratio 20.9, Magnesium 1.9, CBC w Diff NO MAN DIFF REQ, RBC 4.47 L, MCV 82.0, MCH 26.5 L, MCHC 32.3 L, RDW 17.1 H, Gran % 76.9 H, Lymphocytes % 18.4 L, Monocytes % 3.1, Eosinophils % 1.2, Basophils % 0.4, Absolute Granulocytes 7.7 H, Absolute Lymphocytes 1.8, Absolute Monocytes 0.3, Absolute Eosinophils 0.1, Absolute Basophils 0 12/24/17 1110: Urine Color STRAW, Urine Clarity CLEAR, Urine pH 7.5, Ur Specific [place] 1.010, Urine Protein NEG, Urine Ketones NEG, Urine Nitrite NEG, Urine Bilirubin NEG, Urine Urobilinogen 0.2, Ur Leukocyte Esterase NEG, Ur Microscopic SEDIMENT EXAMINED, Urine RBC 1-3, Urine Bacteria RARE H, Urine Hemoglobin SMALL H, Urine Glucose NEG 12/24/17 1100: Anion Gap 14, Estimated GFR > 60, BUN/Creatinine Ratio 26.4 H, Troponin I < 0.01, Triglycerides 101, Cholesterol 140, LDL Cholesterol, Calc 98, HDL Cholesterol 22 L, Cholesterol/HDL Ratio 6 H, PT 13.5 H, INR 1.24 H, APTT 28, CBC w Diff NO MAN DIFF REQ, RBC 4.63 L, MCV 80.6, MCH 26.6 L, MCHC 33.0, RDW 17.3 H, Gran % 83.3 H, Lymphocytes % 13.5 L, Monocytes % 2.3, Eosinophils % 0.9, Basophils % 0, Absolute Granulocytes 10.4 H, Absolute Lymphocytes 1.7, Absolute Monocytes 0.3, Absolute Eosinophils 0.1, Absolute Basophils 0 12/24/17 1056: Triglycerides Cancelled, Cholesterol Cancelled, LDL Cholesterol, Calc Cancelled, HDL Cholesterol Cancelled, Cholesterol/HDL Ratio Cancelled 12/24/17 0635: Anion Gap 16, Estimated GFR > 60, BUN/Creatinine Ratio 28.2 H, CBC w Diff NO MAN DIFF REQ, RBC 4.48 L, MCV 81.3, MCH 26.7 L, MCHC 32.8 L, RDW 17.6 H, Gran % 76.3 H, Lymphocytes % 19.1 L, Monocytes % 3.4, Eosinophils % 0.8, Basophils % 0.4, Absolute Granulocytes 8.8 H, Absolute Lymphocytes 2.2, Absolute Monocytes 0.4, Absolute Eosinophils 0.1, Absolute Basophils 0.1 Recent Imaging Studies: Telemetry tracings were personally reviewed and shows sinus rhythm with a short wide complex run and SVT burst possibly due to aberrant conduction MRI No acute intercranial abnormality. Specifically, no acute brain ischemia. Assessment/Plan Assessment/Plan 1. Recent endocarditis 2. Severe mitral regurgitation 3. Possible TIA 4. Nonsustained arrhythmia on telemetry 5. Leukocytosis, improving No recurrent neurological complaints today. He appears euvolemic on exam. Leukocytosis is resolving. He is being monitored off antibiotics per ID. Given the nonsustained run on telemetry along with his severe mitral regurgitation recommend starting metoprolol tartrate 12.5 mg p.o. twice daily. Roman Escalera MD [facility] Continue telemetry? Yes
[2017-12-25 14:37] VITALS: BP 116/90
[2017-12-25 22:23] VITALS: BP 122/84
[2017-12-26 07:01] VITALS: BP 120/80
--- NOTE | 2017-12-26 08:10 | PN- Infect Dx ---
Subjective Subjective: Afebrile without complaints. He notes improvement in his shortness of breath. The episode of imbalance, slurred speech and facial droop on December 24 is noted, with resolution of these symptoms and with no recurrence. It appears that he has lost 20 pounds since admission. Objective Last 24 Hrs of Vital Signs/I&O Vital Signs Date Time Temp Pulse Resp B/P B/P Pulse O2 O2 Flow FiO2 Mean Ox Delivery Rate 12/26 0701 97.6 92 18 120/80 95 Room Air 12/25 2223 98.3 92 16 122/84 91 Room Air 12/25 2110 122/82 12/25 1728 100 114/90 12/25 1437 98.3 92 20 116/90 93 Room Air 12/25 0944 124/84 Intake & Output 12/26 1600 12/26 0800 12/26 0000 Intake Total 480 Output Total Balance 480 Intake, Oral 480 Patient 171 lb Weight Physical Exam Other Physical Findings: He appears comfortable in no acute distress Lungs are clear Heart regular rhythm with no change in his 4/6 systolic murmur Extremities no cyanosis, clubbing or edema Neuro without any obvious focality Results Last 24 Hours of Lab Results: Laboratory Tests 12/26 0620 Chemistry Sodium Pending Potassium Pending Chloride Pending Carbon Dioxide Pending Anion Gap Pending BUN Pending Creatinine Pending BUN/Creatinine Ratio Pending Magnesium Pending Hematology CBC w Diff Pending WBC Pending RBC Pending Hgb Pending Hct Pending MCV Pending MCH Pending MCHC Pending RDW Pending Plt Count Pending MPV Pending Last 24 Hours of Harsha Results: Blood cultures 2 December 22 remain negative Recent Imaging Studies: CT of the head December [address] angiogram of the head and neck December 24 negative MRI of the head December 24 no acute process Carotid Dopplers December 24 negative Assessment/Plan ID Impression: Stable, with his temperatures and white blood cell count now both normal, off antibiotics status post a 6 week course of IV antibiotics for strep viridans endocarditis and osteomyelitis, with his admission blood cultures remaining negative. His recent episode of slurred speech and facial droop does raise concern for an embolic process, though his imaging is negative. He has been evaluated by Cardiothoracic surgery, with plans for valve surgery in the near future. He remains on Lasix for CHF, which is the most likely explanation for his presenting symptoms, and he appears to have diuresed, with a 20 pound weight loss since admission. Suggestion: 1. Repeat blood cultures 2 2. Continue diuresis per Cardiology 3. Further decision regarding valve surgery per Cardiothoracic surgery 4. Continue to follow off antibiotics pending above [place] MD will be covering until December 29
[2017-12-26 08:40] LABS: ABSOLUTE BASOPHIL COUNT 0 /CUMM (0.0-0.2); ABSOLUTE EOSINOPHIL COUNT 0.2 /CUMM (0.0-0.7); ABSOLUTE GRANULOCYTE CT 7.1 /CUMM (1.4-6.5); ABSOLUTE LYMPH COUNT 1.9 /CUMM (1.2-3.4); ABSOLUTE MONOCYTE COUNT 0.4 /CUMM (0.10-0.60); BASOPHIL % 0.5 % (0.0-2.0); EOSINOPHIL % 1.9 % (0-5); GRANULOCYTE % 74.1 % (42.2-75.2); HEMATOCRIT 38.3 % (42-52); MEAN CORPUSCULAR HGB 26.8 PG (27.0-31.0); MEAN CORPUSCULAR HGB CONC 33.2 G/DL (33.0-37.0); MEAN CORPUSCULAR VOLUME 80.9 FL (80.0-94.0); RBC DISTRIBUTION WIDTH 16.8 % (11.5-14.5); RED BLOOD CELL CT 4.73 /CUMM (4.70-6.10); WHITE BLOOD CELL COUNT 9.6 /CUMM (4.8-10.8)
--- NOTE | 2017-12-26 09:02 | PN- Housestaff ---
Megan Barba 12/26/17 0902: Subjective Follow-up For: Dyspnea Mitral valve regurgitation History of bacterial endocarditis Possible TIA, stroke alert was called Complaints: no complaints Subjective: Pt seen & examined lying in bed in NAD. No compliants/no caute events overnight Review of Systems Constitutional: Reports: see HPI. Objective Last 24 Hrs of Vital Signs/I&O Vital Signs Date Time Temp Pulse Resp B/P B/P Pulse O2 O2 Flow FiO2 Mean Ox Delivery Rate 12/27 0820 95 118/90 12/27 0819 95 118/90 12/27 0547 97.4 94 18 112/86 94 12/26 2234 97.6 92 18 110/80 91 Room Air 12/26 1454 98.0 87 18 110/76 93 Room Air Intake & Output 12/27 1600 12/27 0800 12/27 0000 Intake Total 100 100 Output Total Balance 100 100 Intake, Oral 100 100 Patient 182 lb 182 lb Weight Physical Exam General Appearance: Alert, Oriented X3, Cooperative Skin: No Rashes, No Breakdown, No Significant Lesion HEENT: Atraumatic, Mucous Membr. moist/pink Neck: Supple Cardiovascular: Regular Rate, Normal S1, Normal S2 Lungs: Clear to Auscultation Abdomen: Soft, No Tenderness Neurological: Normal Speech Extremities: No Clubbing, No Cyanosis, No Edema Assessment/Plan Assessment: 47 year old male with history of COPD, HTN, HLD who was admitted to [facility] in September of this year for bacterial endocarditis with mitral valve vegitations and insufficiency, presenting for dyspnea and generalized weakness. On exam, the patient has a clear murmur of mitral regurgitation, current echocardiogram showed likely torn P2 cord. Significantly, the patient does demonstrate visible JVD, although he does not demonstrate peripheral edema currently receiving Lasix for diuresis. WBC count today was back down to 10.0. BUN also improved to 23, down from 31 yesterday morning. Blood cultures found to be negative preliminary. Echo: Mitral valve prolapse Vitals; stable, afebrile, on RA Problems: 1. Mitral valvular insufficiency 2. Recent history of bacterial endocarditis 3. Chest/back pain 4. Possible TIA Plan: * Leukocytosis has improved from 12.4 to 9.6 today * Lasix 40mg PO daily * Aspirin daily dose 81 mg * Serial neuro checks and cardiac monitoring * Possible cardiac cath, please follow cardiology recs * MVP: for possible replacement, folow cardiology recs please * Bld Cx havce been negative. As per ID recs, we have ordered rpt bld cx Code status: Full code Diet:Heart healthy CBC, magnesium and BEP Heparin DVT prophylaxis Problem List: 1. Endocarditis 2. Dyspnea 3. Weakness 4. Mitral insufficiency Pain Ratin Pain Location: none Pain Goal: Remain pain free Pain Plan: follow pain pathway Tomorrow's Labs & Rationales: cbc, bep Amarilis Quintana 12/26/17 1228: Attending MD Review Statement Attending Statement Attending MD Statement: examined this patient, discuss w/resident/PA/C[employer] VAN SALESPERSON, agreed w/resident/PA/C[employer] VAN SALESPERSON, discussed with family, reviewed EMR data (avail), discussed with nursing, discussed with case mgmt, reviewed images, amended to note Attending Assessment/Plan: No new complaints. Labs noted with improvement in leukocytosis. He is being monitored off antibiotics. ECHO obtained suggestive with MVP. Plan for Valve replacement as per cardiology/CTVS. Plan for cardiac catheterization as per cardiology. Follow blood cultures negative so far, f/u ID recommend repeat blood culture x 2. Continue current care..
[2017-12-26 14:54] VITALS: BP 110/76
[2017-12-26 22:34] VITALS: BP 110/80
[2017-12-27 05:47] VITALS: BP 112/86
--- NOTE | 2017-12-27 07:11 | PN- Housestaff ---
See Addendum Subjective Follow-up For: DYSPNEA WEAKNESS MITRAL INSUFFICIENCY HX OF ENDOCARDITIS Tele-Events Since Last Visit: Normal sinus rhythm overnight Subjective: Patient seen resting comfortably in the bed. In no acute distress. Overnight, no acute events. Patient still reports weakness and dyspnea when getting up walking, but feels like he can tolerate more than he could upon admission and is able to walk to the end of the hallway now. Patient denies chest pain, palpitations, dizziness, or fever. Review of Systems Constitutional: Reports: weakness. Denies: chills, fever. Objective Last 24 Hrs of Vital Signs/I&O Vital Signs Date Time Temp Pulse Resp B/P B/P Pulse O2 O2 Flow FiO2 Mean Ox Delivery Rate 12/27 0547 97.4 94 18 112/86 94 12/26 2234 97.6 92 18 110/80 91 Room Air 12/26 1454 98.0 87 18 110/76 93 Room Air 12/26 0850 118/88 12/26 0850 118/88 Intake & Output 12/27 0800 12/27 0000 12/26 1600 Intake Total 100 750 Output Total Balance 100 750 Intake, Oral 100 750 Number 1 Bowel Movements Patient 82.752 kg Weight Physical Exam General Appearance: Alert, Oriented X3, Cooperative, No Acute Distress HEENT: Atraumatic, PERRLA, EOMI Cardiovascular: Regular Rate, Normal S1, LOUD SYSTOLIC MURMUR APPRECIATED Lungs: Clear to Auscultation, Normal Air Movement Abdomen: Normal Bowel Sounds, Soft, No Tenderness Neurological: Normal Gait, Normal Speech, Strength at 5/5 X4 Ext, Normal Tone Extremities: No Clubbing, No Cyanosis, No Edema Current Medications: Current Medications Sig/Lizzie Start time Last Medication Dose Route Stop Time Status Admin Acetaminophen 650 MG Q4P PRN 12/22 1530 AC 12/23 PO 1846 Acetaminophen 1,000 MG Q6P PRN 12/22 1530 AC 12/26 N/A 1 UNIT IV 1618 Albuterol Sulfate 2 PUF 4 TIMES/DAY PRN 12/22 1515 AC INH Aspirin 81 MG DAILY 12/25 0900 AC 12/26 PO 0851 Atorvastatin Calcium 40 MG 1700 12/24 1700 AC 12/26 PO 1558 Benzocaine/Menthol 1 JORDAN Q4 HRS NEEDED PRN 12/23 1900 AC 12/25 PO 1445 Budesonide/ 2 PUF BID 12/22 2100 AC 12/26 Formoterol Fumarate INH 2103 Cyclobenzaprine HCl 10 MG TID 12/22 2100 AC 12/26 PO 2102 Diphenhydramine HCl 1 RICCO DAILY NEEDED PRN 12/25 1245 AC 12/27 TOP 0607 Fenofibrate 48 MG DAILY 12/23 0900 AC 12/26 PO 0850 Furosemide 40 MG DAILY 12/25 0900 AC 12/26 PO 0850 Gabapentin 300 MG TID 12/22 1510 AC 12/26 PO 2102 Heparin Sodium 5,000 UNIT Q8 12/22 2200 AC 12/27 (Porcine) SC 0607 Lisinopril 2.5 MG DAILY 12/22 1510 AC 12/26 PO 0850 Metoprolol Tartrate 12.5 MG BID 12/25 1530 AC 12/26 PO 2102 Morphine Sulfate 2 MG Q6P PRN 12/22 1530 AC IV Omeprazole 40 MG DAILY AC 12/22 1515 AC 12/27 PO 0606 Last 24 Hrs of Lab/Harsha Results Last 24 Hrs of Labs/Mics: Microbiology 12/26 1607 BLOOD: Blood Culture - RECD 12/26 160 BLOOD: Blood Culture - RECD Assessment/Plan Assessment: 47 year old male with history of COPD, HTN, HLD who was admitted to in September of this year for bacterial endocarditis with mitral valve vegitations and insufficiency, presenting for dyspnea and generalized weakness. WBC count today increased to 13.0, patient denies fever. BUN up to 28, but still improved from admission. First set of blood cultures found to be negative , repeating second round to rule out continued endocarditisultrasound found no evidence of vegetations, but did find torn P2 cord. Problems: 1. Mitral valvular insufficiency 2. Recent history of bacterial endocarditis 3. Chest/back pain 4. Possible TIA Plan: * Lasix 40mg PO daily * Continue metoprolol 12.5 mg p.o. twice daily * Aspirin daily dose 81 mg * Monitor creatinine while patient is being diuresed * Off antibiotics for now, follow-up second round of blood cultures * Serial neuro checks Full code Heart healthy diet CBC, magnesium and BEP Heparin DVT prophylaxis Problem List: 1. Mitral insufficiency 2. Weakness 3. Dyspnea Pain Ratin Pain Location: NONE Pain Goal: Pain 4 or less Pain Plan: Per pathway Tomorrow's Labs & Rationales: None
[2017-12-27 08:07] LABS: ABSOLUTE BASOPHIL COUNT 0.1 /CUMM (0.0-0.2); ABSOLUTE EOSINOPHIL COUNT 0.2 /CUMM (0.0-0.7); ABSOLUTE MONOCYTE COUNT 0.4 /CUMM (0.10-0.60); BASOPHIL % 0.4 % (0.0-2.0); MEAN CORPUSCULAR HGB 26.4 PG (27.0-31.0)
[2017-12-27 08:35] LABS: ABSOLUTE GRANULOCYTE CT 10.3 /CUMM (1.4-6.5); EOSINOPHIL % 1.8 % (0-5); GRANULOCYTE % 79.1 % (42.2-75.2); HEMATOCRIT 41.6 % (42-52); MEAN CORPUSCULAR HGB CONC 32.3 G/DL (33.0-37.0); MEAN CORPUSCULAR VOLUME 81.8 FL (80.0-94.0); RBC DISTRIBUTION WIDTH 17.2 % (11.5-14.5); RED BLOOD CELL CT 5.08 /CUMM (4.70-6.10)
--- NOTE | 2017-12-27 12:03 | PN- Cardiology ---
Subjective Subjective: * Events of Wednesday noted. No current complaints of chest discomfort or shortness of breath. He does report some bleeding and discoloration of his tongue. Family does not feel that he is speaking normally. * Elevated WBC count has normalized. No fever. Blood culture results pending. Objective Vital Signs and I&Os Vital Signs Date Time Temp Pulse Resp B/P B/P Pulse O2 O2 Flow FiO2 Mean Ox Delivery Rate 12/27 0820 95 118/90 12/27 0819 95 118/90 12/27 0547 97.4 94 18 112/86 94 12/26 2234 97.6 92 18 110/80 91 Room Air 12/26 1454 98.0 87 18 110/76 93 Room Air Intake & Output 12/27 1600 12/27 0800 12/27 0000 12/26 1600 12/26 0812/26 0000 Intake Total 100 100 750 480 Output Total Balance 100 100 750 480 Intake, Oral 100 100 750 480 Number 1 Bowel Movements Patient 182 lb 182 lb 171 lb Weight Physical Exam: General; WD/WN male in NAD; alert and oriented x 3 HEENT: NC/AT, PERRL, EOMI, possible thrush Neck: no JVD, no carotid bruit Heart: RRR with 3/6 systolic murmur at the LLSB and RUSB Lungs: clear bilaterally Abdomen: soft, NT, +ve bowel sounds Extremities: no edema Assessment/Plan Assessment/Plan * This patient had symptoms similar to those noted during his prior bout of endocarditis accompanied by an elevated WBC count and increased sedimentation rate. I suspect that he has an incompletely treated bout of endocarditis although no obvious vegetation was noted on his echocardiogram. In consideration of a possibly embolic stroke I would also have concern about embolism. At present we are checking his blood cultures and following expectantly off antibiotics. If his culture remain clear and he is asymptomatic then we will puruse a cardiac catheterization followed by mitral valve repair next week. * I do not think this patient has significant decompensated left heart failure but he does have increased RV pressures related to his MR and this will cause shortness of breath. He may feel better bringing down these pressures by diuresis. Continue Lasix 40mg po daily. * Begin Nystatin S and S for possible mild thrush. * The patient sounds normal to me although his mother does not think he is speaking normally. Would have neurology follow up. Continue telemetry? No
[2017-12-27] MEDS ORDERED: LASIX40 M1 PO (13:57)
[2017-12-27 14:09] VITALS: BP 129/69
--- NOTE | 2017-12-27 15:22 | PN- Infect Dx ---
Subjective Subjective: No fever. MP rash to the tape used to secure peripheral iv R arm. Denies ur sx. No CP. Review of Systems Comments: 12 points reviewed as noted, otherwise negative. Objective Last 24 Hrs of Vital Signs/I&O Vital Signs Date Time Temp Pulse Resp B/P B/P Pulse O2 O2 Flow FiO2 Mean Ox Delivery Rate 12/27 1409 98.1 96 18 129/69 92 Trach Mask 12/27 0820 95 118/90 12/27 0819 95 118/90 12/27 0547 97.4 94 18 112/86 94 12/26 2234 97.6 92 18 110/80 91 Room Air Intake & Output 12/27 1600 12/27 0800 12/27 0000 Intake Total 700 100 100 Output Total Balance 700 100 100 Intake, Oral 700 100 100 Number 1 Bowel Movements Patient 182 lb 182 lb Weight Physical Exam Other Physical Findings: He appears comfortable in no acute distress HEENT: AT, sclera anicteric Neck: No IBRAHIMA Lungs are clear, BS present, no rales Heart regular rhythm; 4/6 systolic murmur Abd: soft, NT Extremities no cyanosis, clubbing or edema Neuro without any obvious focality Results Last 24 Hours of Lab Results: Laboratory Tests 12/27 0710 Chemistry Sodium (137 - 145 mmol/L) 143 Potassium (3.5 - 5.1 mmol/L) 5.1 Chloride (98 - 107 mmol/L) 102 Carbon Dioxide (22 - 30 mmol/L) 24 Anion Gap (5 - 16) 17 H BUN (9 - 20 mg/dL) 28 H Creatinine (0.7 - 1.2 mg/dL) 1.2 Estimated GFR (>60 ml/min) > 60 BUN/Creatinine Ratio (7 - 25 %) 23.3 Hematology CBC w Diff NO MAN DIFF REQ WBC (4.8 - 10.8 /CUMM) 13.0 H RBC (4.70 - 6.10 /CUMM) 5.08 Hgb (14.0 - 18.0 G/DL) 13.4 L Hct (42 - 52 %) 41.6 L MCV (80.0 - 94.0 FL) 81.8 MCH (27.0 - 31.0 PG) 26.4 L MCHC (33.0 - 37.0 G/DL) 32.3 L RDW (11.5 - 14.5 %) 17.2 H Plt Count (/CUMM) Gran % (42.2 - 75.2 %) 79.1 H Lymphocytes % (20.5 - 51.1 %) 15.4 L Monocytes % (1.7 - 9.3 %) 3.3 Eosinophils % (0 - 5 %) 1.8 Basophils % (0.0 - 2.0 %) 0.4 Absolute Granulocytes (1.4 - 6.5 /CUMM) 10.3 H Absolute Lymphocytes (1.2 - 3.4 /CUMM) 2.0 Absolute Monocytes (0.10 - 0.60 /CUMM) 0.4 Absolute Eosinophils (0.0 - 0.7 /CUMM) 0.2 Absolute Basophils (0.0 - 0.2 /CUMM) 0.1 Last 24 Hours of Harsha Results: SPEC #: [id number] YANNA: 12/26/17 STATUS: RES RECD: 12/26/[address]: Freda VELA,[facility] SOURCE: BLOOD ENTR: 12/26/17 [facility] DR: Max VELA,Nan SPDESC: 2ND/VENOUS Antonella Padron APRN ORDERED: BLOOD CULTURE COMMENT: AEROBIC BOTTLE LEACKING IN BACTEC BOTTLE REMOVED Procedure Result > BLOOD CULTURE REPORT Preliminary 12/27/17 No growth after 1 day incubation. Specimen is examined continuously for 5 days before final report unless culture becomes positive. Recent Imaging Studies: Head MRI IMPRESSION: No acute intercranial abnormality. Specifically, no acute brain ischemia. DICTATED BY: Eneida Knowles MD DATE/TIME DICTATED:12/24/171332 CHICKEN HATCHERY HELPER:YUSEF DATE/TIME TRANSCRIBED:12/24/171332 2D echo CONCLUSIONS 1. Normal EF of 60%. 2. Mild right atrial and severe left atrial enlargement. 3. Severe mitral regurgitation with prolapse of the posterior mitral valve leaflet and suspected torn chordae. 4. Mild tricuspid regurgitation. 5. Mild pulmonic regurgitation. 6. Severe pulmonary hypertension. Gerardo Wilde M.D. 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 Congestive heart failure, likely secondary to the severe mitral regurgitation noted on his echocardiogram on his recent admission, which likely worsened secondary to the endocarditis. Of note cardiothoracic surgery evaluation on his last admission suggested the need for valve surgery (repair or replacement) at some point, but this was not felt to be urgent. The possibility of a relapse of his endocarditis must be considered, though he did receive an adequate course of treatment with 6 weeks of Penicillin. His back pain has improved significantly, but the possibility of a persistent infection in the lumbar spine could also be considered. Persistent leukocytosis but this may be multifactorial, currently followed off antibiotics. Suggestion: 1. JOHNY; f/u cardiology and cardio thoracic sx recom; valve replacement planned 2. Follow-up recent blood cultures; obtain ESR; CRP; if elevated MRI lumbar spine evaluate residiual discitis. 3. Follow off antibiotics pending above 4. Call if fever/hypotension.
[2017-12-27 23:23] VITALS: BP 108/70
[2017-12-28 06:16] VITALS: BP 106/70
--- NOTE | 2017-12-28 06:48 | PN- Housestaff ---
Hernan Benitez 12/28/17 0646: Subjective Follow-up For: Dyspnea/weakness Mitral valve insufficiency Recent history of infective endocarditis Tele-Events Since Last Visit: Normal sinus rhythm overnight Subjective: Patient seen resting comfortably in the bed. In no acute distress. Overnight he complained of continued sweating, soaking pillow. Patient also complains of some back pain, which he attributes to his position in bed. 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 If possible, the patient would be excited to be discharged before Wednesday, as he has a family reunion that day. Review of Systems Constitutional: Reports: diaphoresis, weakness. Denies: chills. Objective Last 24 Hrs of Vital Signs/I&O Vital Signs Date Time Temp Pulse Resp B/P B/P Pulse O2 O2 Flow FiO2 Mean Ox Delivery Rate 12/28 06 97.7 86 20 106/70 92 Room Air 12/27 2323 98.1 93 18 108/70 92 12/27 1409 98.1 96 18 129/69 92 Trach Mask 12/27 0820 95 118/90 12/27 0819 95 118/90 Intake & Output 12/28 0800 12/28 0000 12/27 1600 Intake Total 50 50 700 Output Total Balance 50 50 700 Intake, Oral 50 50 700 Number 1 Bowel Movements Patient 82.752 kg Weight Physical Exam General Appearance: Alert, Oriented X3, Cooperative, No Acute Distress HEENT: Atraumatic, PERRLA, EOMI Neck: Supple, No JVD Cardiovascular: Regular Rate, Normal S1, LOUD SYSTOLIC MURMUR APPRECIATED Lungs: Clear to Auscultation, Normal Air Movement Abdomen: Normal Bowel Sounds, Soft, No Tenderness Current Medications: Current Medications Sig/Lizzie Start time Last Medication Dose Route Stop Time Status Admin Acetaminophen 650 MG Q4P PRN 12/22 1530 AC 12/23 PO 1846 Acetaminophen 1,000 MG Q6P PRN 12/22 1530 AC 12/26 N/A 1 UNIT IV 1618 Albuterol Sulfate 2 PUF 4 TIMES/DAY PRN 12/22 1515 AC INH Aspirin 81 MG DAILY 12/25 09 AC 12/27 PO 0818 Atorvastatin Calcium 40 MG 1700 07/27 1700 AC 12/27 PO 1614 Benzocaine/Menthol 1 JORDAN Q4 HRS NEEDED PRN 12/23 1900 AC 12/25 PO 1445 Budesonide/ 2 PUF BID 12/22 2100 AC 12/27 Formoterol Fumarate INH 2117 Cyclobenzaprine HCl 10 MG TID 12/22 2100 AC 12/27 PO 2118 Diphenhydramine HCl 1 RICCO DAILY NEEDED PRN 12/25 1245 AC 12/27 TOP 0826 Fenofibrate 48 MG DAILY 12/23 0900 AC 12/27 PO 0820 Furosemide 40 MG DAILY 12/25 0900 AC 12/27 PO 0820 Gabapentin 300 MG TID 12/22 1510 AC 12/27 PO 2118 Heparin Sodium 5,000 UNIT Q8 12/22 2200 AC 12/28 (Porcine) SC 0627 Hydrocortisone 1 RICCO BID 12/27 0951 AC 12/27 EXT 2118 Lisinopril 2.5 MG DAILY 12/22 1510 AC 12/27 PO 0820 Metoprolol Tartrate 12.5 MG BID 12/25 1530 AC 12/27 PO 2118 Morphine Sulfate 2 MG Q6P PRN 12/22 1530 AC IV Nystatin 5 ML 4 TIMES/DAY 12/27 1700 AC 12/27 PO 2123 Omeprazole 40 MG DAILY AC 12/22 1515 AC 12/28 PO 0627 Last 24 Hrs of Lab/Harsha Results Last 24 Hrs of Labs/Mics: Laboratory Tests 12/28/17 0614: Sodium Pending, Potassium Pending, Chloride Pending, Carbon Dioxide Pending, Anion Gap Pending, BUN Pending, Creatinine Pending, BUN/Creatinine Ratio Pending , Magnesium Pending, C-React Prot High Sens Pending, CBC w Diff Pending, WBC Pending, RBC Pending, Hgb Pending, Hct Pending, MCV Pending, MCH Pending, MCHC Pending, RDW Pending, Plt Count Pending, MPV Pending, ESR Westergren Pending 12/27/17 0710: Anion Gap 17 H, Estimated GFR > 60, BUN/Creatinine Ratio 23.3, CBC w Diff NO MAN DIFF REQ, RBC 5.08, MCV 81.8, MCH 26.4 L, MCHC 32.3 L, RDW 17.2 H, Gran % 79.1 H, Lymphocytes % 15.4 L, Monocytes % 3.3, Eosinophils % 1.8, Basophils % 0.4, Absolute Granulocytes 10.3 H, Absolute Lymphocytes 2.0, Absolute Monocytes 0.4, Absolute Eosinophils 0.2, Absolute Basophils 0.1 Assessment/Plan Assessment: 47 year old male with history of COPD, HTN, HLD who was admitted to [facility] in September of this year for bacterial endocarditis with mitral valve vegitations and insufficiency, presenting for dyspnea and generalized weakness. WBC count today 10.2, patient denies fever. Creatinine today 1.1. First set of blood cultures found to be negative, repeating second round to rule out continued underlying infection. Transthoracic echocardiogram found no evidence of vegetations, but did find torn P2 cord. JOHNY ordered, will hopefully be done tomorrow, as will MRI spine to investigate continuing infection. Problems: 1. Mitral valvular insufficiency 2. Recent history of bacterial endocarditis 3. Chest/back pain 4. Possible TIA (unlikely, episode more likely side-effect of Lasix use) Plan: * For JOHNY tomorrow * For MRI spine tomorrow * Lasix 40mg PO daily * Continue metoprolol 12.5 mg p.o. twice daily * Aspirin daily dose 81 mg * Monitor creatinine while patient is being diuresed * Off antibiotics for now, follow-up second round of blood cultures * Serial neuro checks Full code Heart healthy diet CBC, magnesium and BEP Heparin DVT prophylaxis Problem List: 1. Mitral insufficiency 2. Weakness 3. Dyspnea 4. Endocarditis Pain Ratin Pain Location: none Pain Goal: Pain 4 or less Pain Plan: per pathway Tomorrow's Labs & Rationales: CBC, BEP & Mg++ [facility]10: Attending MD Review Statement Attending Statement Attending MD Statement: examined this patient, discuss w/resident/PA/[place], agreed w/resident/PA/[place], reviewed EMR data (avail), discussed with nursing, discussed with case mgmt, amended to note Attending Assessment/Plan: 6 patient seen and examined. Resting comfortably not in any acute distress. No issues overnight. No new complaints this morning. Reports feeling better. Reports being able to ambulate with less shortness of breath compared to presentation. He is afebrile he remains hemodynamically stable. Leukocytosis yesterday has resolved today. ESR however is trending up today. Based on the recommendations of the ID service patient will undergo a JOHNY to evaluate further for vegetations. He will eventually require cardiac catheterization now valvular surgery. 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 In other to further evaluate his rising ESR, he will undergo MRI to evaluate previously noted discitis.
[2017-12-28 07:49] LABS: ABSOLUTE BASOPHIL COUNT 0 /CUMM (0.0-0.2); ABSOLUTE EOSINOPHIL COUNT 0.2 /CUMM (0.0-0.7); ABSOLUTE GRANULOCYTE CT 7.8 /CUMM (1.4-6.5); ABSOLUTE LYMPH COUNT 1.7 /CUMM (1.2-3.4); ABSOLUTE MONOCYTE COUNT 0.5 /CUMM (0.10-0.60); BASOPHIL % 0.3 % (0.0-2.0); EOSINOPHIL % 2.2 % (0-5); HEMATOCRIT 38.6 % (42-52); MEAN CORPUSCULAR HGB 26.3 PG (27.0-31.0); MEAN CORPUSCULAR HGB CONC 32.4 G/DL (33.0-37.0); MEAN CORPUSCULAR VOLUME 81.4 FL (80.0-94.0); RBC DISTRIBUTION WIDTH 17.1 % (11.5-14.5); RED BLOOD CELL CT 4.74 /CUMM (4.70-6.10); WHITE BLOOD CELL COUNT 10.2 /CUMM (4.8-10.8)
[2017-12-28 08:24] LABS: GRANULOCYTE % 75.9 % (42.2-75.2)
--- NOTE | 2017-12-28 12:23 | PN- Infect Dx ---
Subjective Subjective: Patient resting comfortably in the bed. In no acute distress. Overnight he complained of continued sweating, soaking the pillow. Reports mild back pain. Review of Systems Comments: 12 points reviewed as noted, otherwise negative. Objective Last 24 Hrs of Vital Signs/I&O Vital Signs Date Time Temp Pulse Resp B/P B/P Pulse O2 O2 Flow FiO2 Mean Ox Delivery Rate 12/28 0749 90 110/60 12/28 0749 90 110/60 12/28 0616 97.7 86 20 106/70 92 Room Air 12/27 2323 98.1 93 18 108/70 92 12/27 1409 98.1 96 18 129/69 92 Trach Mask Intake & Output 12/28 1600 12/28 0800 12/28 0000 Intake Total 50 50 Output Total Balance 50 50 Intake, Oral 50 50 Physical Exam Other Physical Findings: He appears comfortable in no acute distress HEENT: AT, sclera anicteric Neck: No IBRAHIMA Lungs are clear, BS present, no rales Heart regular rhythm; 3/6 ARLENE Abd: soft, NT Extremities no cyanosis, clubbing or edema kin: mild rash R antecubital fossa and wrist (d/t allergic reaction to tape) Neuro without any obvious focality Results Last 24 Hours of Lab Results: Laboratory Tests 12/28 0614 Chemistry Sodium (137 - 145 mmol/L) 140 Potassium (3.5 - 5.1 mmol/L) 4.7 Chloride (98 - 107 mmol/L) 100 Carbon Dioxide (22 - 30 mmol/L) 28 Anion Gap (5 - 16) 12 BUN (9 - 20 mg/dL) 27 H Creatinine (0.7 - 1.2 mg/dL) 1.1 Estimated GFR (>60 ml/min) > 60 BUN/Creatinine Ratio (7 - 25 %) 24.5 Magnesium (1.6 - 2.3 mg/dL) 2.1 C-React Prot High Sens (1.0 - 3.0 mg/L) 9.3 H Hematology CBC w Diff NO MAN DIFF REQ WBC (4.8 - 10.8 /CUMM) 10.2 RBC (4.70 - 6.10 /CUMM) 4.74 Hgb (14.0 - 18.0 G/DL) 12.5 L Hct (42 - 52 %) 38.6 L MCV (80.0 - 94.0 FL) 81.4 MCH (27.0 - 31.0 PG) 26.3 L MCHC (33.0 - 37.0 G/DL) 32.4 L RDW (11.5 - 14.5 %) 17.1 H Plt Count (/CUMM) Gran % (42.2 - 75.2 %) 75.9 H Lymphocytes % (20.5 - 51.1 %) 16.7 L Monocytes % (1.7 - 9.3 %) 4.9 Eosinophils % (0 - 5 %) 2.2 Basophils % (0.0 - 2.0 %) 0.3 Absolute Granulocytes (1.4 - 6.5 /CUMM) 7.8 H Absolute Lymphocytes (1.2 - 3.4 /CUMM) 1.7 Absolute Monocytes (0.10 - 0.60 /CUMM) 0.5 Absolute Eosinophils (0.0 - 0.7 /CUMM) 0.2 Absolute Basophils (0.0 - 0.2 /CUMM) 0 ESR Westergren (0 - 10 MM) 43 H Last 24 Hours of Harsha Results: SPEC #: [id number] YANNA: 12/26/17 STATUS: RES RECD: 12/26/[address]: Freda VELA,Megan SOURCE: BLOOD ENTR: 12/26/17 [facility] DR: Max VELA,Nan SPDESC: 2ND/VENOUS Antonella Padron APRN ORDERED: BLOOD CULTURE COMMENT: AEROBIC BOTTLE LEACKING IN BACTEC BOTTLE REMOVED Procedure Result > BLOOD CULTURE REPORT Preliminary 12/27/17120 No growth after 1 day incubation. Specimen is examined continuously for 5 days before final report unless culture becomes positive. Recent Imaging Studies: Carotid US FINDINGS: On the right, there is no significant plaque present at the carotid bifurcation. In the distal CCA, the peak systolic velocity is 119 cm/sec. In the proximal ICA, the peak systolic velocity is 69.9 cm/sec, and the end diastolic velocity is 35.4 cm/sec. The ICA/CCA ratio is 0.87. On the LEFT, there is minimal atherosclerotic plaque noted at the distal left common carotid artery. In the distal CCA, the peak systolic velocity is 133 cm/sec. In the proximal ICA, the peak systolic velocity is 72 cm/sec, and the end diastolic velocity is 29 cm/sec. The ICA/CCA ratio is 0.54. The vertebral arteries show antegrade flow with normal waveforms bilaterally. IMPRESSION: 1. The right carotid arterial tree appears normal. 2. The left internal carotid artery shows no hemodynamically significant stenosis. 3. Both vertebral arteries are patent and show antegrade flow. 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 Congestive heart failure, likely secondary to the severe mitral regurgitation noted on his echocardiogram on his recent admission, which likely worsened secondary to the endocarditis. Of note cardiothoracic surgery evaluation on his last admission suggested the need for valve surgery (repair or replacement) at some point, but this was not felt to be urgent. The possibility of a relapse of his endocarditis must be considered, though he did receive an adequate course of treatment with 6 weeks of Penicillin. His back pain has improved significantly, but the possibility of a persistent infection in the lumbar spine could also be considered. Mild leukocytosis: WBC trending down, currently followed off antibiotics. Suggestion: 1. JOHNY; f/u cardiology and cardio thoracic sx recom; valve replacement planned 2. ESR trending up; obtain MRI lumbar spine evaluate residual discitis. 3. Cont to follow off antibiotics pending above 4. Call if fever/hypotension.
[2017-12-28 14:24] VITALS: BP 112/68
--- NOTE | 2017-12-28 16:10 | PN- Cardiology ---
Subjective Subjective: * Patient is now ambulating without shortness of breath. No lightheadedness. * afebrile with normal WBC count * No new neurologic deficits. Objective Vital Signs and I&Os Vital Signs Date Time Temp Pulse Resp B/P B/P Pulse O2 O2 Flow FiO2 Mean Ox Delivery Rate 12/28 1424 97.8 91 20 112/68 93 Room Air 12/28 0749 90 110/60 12/28 0749 90 110/60 12/28 0616 97.7 86 20 106/70 92 Room Air 12/27 2323 98.1 93 18 108/70 92 Intake & Output 12/28 1600 12/28 0800 12/28 0000 12/27 1600 12/27 0800 12/27 0000 Intake Total 480 50 50 700 100 100 Output Total Balance 480 50 50 700 100 100 Intake, Oral 480 50 50 700 100 100 Number 1 Bowel Movements Patient 182 lb 182 lb Weight Physical Exam: General; WD/WN male in NAD; alert and oriented x 3 HEENT: NC/AT, PERRL, EOMI, possible thrush Neck: no JVD, no carotid bruit Heart: RRR with 3/6 systolic murmur at the LLSB and RUSB Lungs: clear bilaterally Abdomen: soft, NT, +ve bowel sounds Extremities: no edema Assessment/Plan Assessment/Plan * This patient had symptoms similar to those noted during his prior bout of endocarditis accompanied by an elevated WBC count and increased sedimentation rate. I suspect that he has an incompletely treated bout of endocarditis although no obvious vegetation was noted on his echocardiogram. In consideration of a possibly embolic stroke I would also have concern about embolism. His blood cultures are negative for bacteremia. At present we are following expectantly off antibiotics. If his culture remain clear and he is asymptomatic then we will puruse a cardiac catheterization followed by mitral valve repair next week. He is also being assessed for a discitis as a source of infection. Finally, a JOHNY has been planned to assess for any residual vegetation. * I do not think this patient has significant decompensated left heart failure but he does have increased RV pressures related to his MR and this will cause shortness of breath. He may feel better bringing down these pressures by diuresis. Continue Lasix 40mg po daily. * Begin Nystatin S and S for possible mild thrush. Continue telemetry? Yes
[2017-12-28 22:07] VITALS: BP 110/70
[2017-12-29 06:59] VITALS: BP 112/80
--- NOTE | 2017-12-29 07:06 | PN- Housestaff ---
Hernan Benitez 12/29/17 0705: Subjective Follow-up For: Dyspnea/weakness Mitral valve insufficiency Recent history of infective endocarditis Tele-Events Since Last Visit: Normal sinus rhythm overnight Review of Systems Constitutional: Reports: diaphoresis. Denies: chills, fever, malaise. Objective Last 24 Hrs of Vital Signs/I&O Vital Signs Date Time Temp Pulse Resp B/P B/P Pulse O2 O2 Flow FiO2 Mean Ox Delivery Rate 12/29 0659 98.0 88 12 112/80 97 Room Air 12/28 2207 97.8 94 20 110/70 94 Room Air 12/28 2135 96 118/76 12/28 1424 97.8 91 20 112/68 93 Room Air 12/28 0749 90 110/60 12/28 0749 90 110/60 Intake & Output 12/29 0812/29 0000 12/28 1600 Intake Total 480 480 Output Total Balance 480 480 Intake, Oral 480 480 Patient 81.76 kg Weight Weight Bed scale Measurement Method Physical Exam General Appearance: Alert, Oriented X3, Cooperative, No Acute Distress Neck: Supple, No JVD Cardiovascular: Regular Rate, Normal S1, Normal S2, Loud systolic murmur Lungs: Clear to Auscultation Abdomen: Normal Bowel Sounds, Soft, No Tenderness Neurological: Normal Gait, Normal Speech, Strength at 5/5 X4 Ext Current Medications: Current Medications Sig/Lizzie Start time Last Medication Dose Route Stop Time Status Admin Acetaminophen 650 MG Q4P PRN 12/22 1530 AC 12/23 PO 1846 Acetaminophen 1,000 MG Q6P PRN 12/22 1530 AC 12/26 N/A 1 UNIT IV 1618 Albuterol Sulfate 2 PUF 4 TIMES/DAY PRN 12/22 1515 AC INH Aspirin 81 MG DAILY 12/25 0900 AC 12/28 PO 0748 Atorvastatin Calcium 40 MG 1700 12/24 1700 AC 12/28 PO 1656 Benzocaine/Menthol 1 JORDAN Q4 HRS NEEDED PRN 12/23 1900 AC 12/25 PO 1445 Budesonide/ 2 PUF BID 12/22 2100 AC 12/28 Formoterol Fumarate INH 2149 Cyclobenzaprine HCl 10 MG TID 12/22 2100 AC 12/28 PO 2135 Diphenhydramine HCl 1 RICCO DAILY NEEDED PRN 12/25 1245 AC 12/27 TOP 0826 Fenofibrate 48 MG DAILY 12/23 0900 AC 12/28 PO 0749 Furosemide 40 MG DAILY 12/25 0900 AC 12/28 PO 0748 Gabapentin 300 MG TID 12/22 1510 AC 12/28 PO 2132 Heparin Sodium 5,000 UNIT Q8 12/22 2200 AC 12/29 (Porcine) SC 0640 Hydrocortisone 1 RICCO BID 12/27 0951 AC 12/28 EXT 2135 Lisinopril 2.5 MG DAILY 12/22 1510 AC 12/28 PO 0749 Metoprolol Tartrate 12.5 MG BID 12/25 1530 AC 12/28 PO 2135 Morphine Sulfate 2 MG Q6P PRN 12/22 1530 AC IV Nystatin 5 ML 4 TIMES/DAY 12/27 1700 AC 12/28 PO 2132 Omeprazole 40 MG DAILY AC 12/22 1515 AC 12/29 PO 0640 Sodium Chloride 1,000 ML Q10H 12/28 2200 CAN IV 12/29 1400 Last 24 Hrs of Lab/Harsha Results Last 24 Hrs of Labs/Mics: Laboratory Tests 12/29/17 0649: Sodium Pending, Potassium Pending, Chloride Pending, Carbon Dioxide Pending, Anion Gap Pending, BUN Pending, Creatinine Pending, BUN/Creatinine Ratio Pending , Magnesium Pending, CBC w Diff Pending, WBC Pending, RBC Pending, Hgb Pending, Hct Pending, MCV Pending, MCH Pending, MCHC Pending, RDW Pending, Plt Count Pending, MPV Pending Assessment/Plan Assessment: 47 year old male with history of COPD, HTN, HLD who was admitted to [facility] in September of this year for bacterial endocarditis with mitral valve vegitations and insufficiency, presenting for dyspnea and generalized weakness. WBC count today 7.4, patient denies fever. Creatinine today 1.0. Second round of blood cultures still negative, pending final results. Transthoracic echocardiogram found no evidence of vegetations, but did find torn P2 cord. JOHNY and MRI spine today to investigate possible infection. If JOHNY and MRI negative, and cleared by cardiology, patient will be prepared for discharge, with instructions to follow-up with cardiology for catheterization and valve replacement. Problems: 1. Mitral valvular insufficiency 2. Recent history of bacterial endocarditis 3. Chest/back pain 4. Possible TIA (unlikely, episode more likely side-effect of Lasix use) Plan: * F/u JOHNY results * F/u MRI spine results * Continue Lasix 40mg PO daily * Continue metoprolol 12.5 mg p.o. twice daily * Aspirin daily dose 81 mg * Off antibiotics for now, follow-up second round of blood cultures * Serial neuro checks Full code Heart healthy diet CBC, magnesium and BEP Heparin DVT prophylaxis Problem List: 1. Mitral insufficiency 2. Weakness 3. Dyspnea Pain Ratin Pain Location: none Pain Goal: Pain 4 or less Pain Plan: Per pathway Tomorrow's Labs & Rationales: None Sean Santana MDchristianolester 12/29/17 1106: Attending MD Review Statement Attending Statement Attending MD Statement: examined this patient, discuss w/resident/PA/SENIOR MANAGER ASSET PROTECTION, agreed w/resident/PA/SENIOR MANAGER ASSET [employer], reviewed EMR data (avail), discussed with nursing, discussed with case mgmt, amended to note Attending Assessment/Plan: Patient resting comfortably and not in acute distress. No issues overnight. No events on telemetry monitoring. Continues to report feeling well. Continues to report ability to ambulate freely around the unit little shortness of breath. On examination he does not appear volume overloaded. Reports losing significant amount of weight since hospitalization. Weights recorded in the EHR do not appear accurate. We will continue diuresis with Lasix. He will go home on this regimen. He is scheduled to follow-up with the cardiology service as an outpatient for scheduling of cardiac catheterization and ventricle valvular heart surgery. He is afebrile and his leukocytosis has resolved. His ESR however appears to be trending upwards. There is concern from the infectious disease and cardiology service that he has incompletely treated endocarditis and is scheduled to undergo JOHNY today. He is also scheduled to undergo MRI of the lumbosacral spine today. If these diagnostic procedures fail to reveal any evidence of an infectious process it is safe to say that he is clinically stable to be discharged home today and should follow-up with the cardiology service as an outpatient. If needed of these procedures raise concern for and ongoing infectious process, need for antibiotic therapy will need to be revisited.
[2017-12-29 07:55] LABS: ABSOLUTE BASOPHIL COUNT 0 /CUMM (0.0-0.2); ABSOLUTE EOSINOPHIL COUNT 0.2 /CUMM (0.0-0.7); ABSOLUTE GRANULOCYTE CT 5.2 /CUMM (1.4-6.5); ABSOLUTE LYMPH COUNT 1.6 /CUMM (1.2-3.4); ABSOLUTE MONOCYTE COUNT 0.4 /CUMM (0.10-0.60); BASOPHIL % 0.7 % (0.0-2.0); EOSINOPHIL % 2.2 % (0-5); GRANULOCYTE % 70.5 % (42.2-75.2); MEAN CORPUSCULAR HGB 26.3 PG (27.0-31.0); MEAN CORPUSCULAR HGB CONC 32.4 G/DL (33.0-37.0); MEAN CORPUSCULAR VOLUME 81.2 FL (80.0-94.0); RBC DISTRIBUTION WIDTH 17.1 % (11.5-14.5); RED BLOOD CELL CT 4.69 /CUMM (4.70-6.10); WHITE BLOOD CELL COUNT 7.4 /CUMM (4.8-10.8)
[2017-12-29] MEDS ORDERED: ATORVASTATIN CA40 M1 PO (13:17)
[2017-12-29] MEDS ORDERED: LASIX40 M1 PO (13:17)
[2017-12-29] MEDS ORDERED: METOPROLOL TART25 M1 PO (13:44)
[2017-12-29 14:22] VITALS: BP 114/84
--- NOTE | 2017-12-29 17:21 | ECHOCARDIOGRAM REPORT ---
HIMANSHU CANO Age: 47 : Gender: M 1 Exam Date: 12/29/2017 11:35 Exam Location: [facility] Ht (in): 69 Wt (lb): 170 BSA: 1.95 BP: 118 / 84 Ordering Physician: Hernan Benitez MD Referring Physician: Hernan Benitez MD Technologist: Khang Segura [facility] Room Number: 179-1 Indications: Other nonrheumatic mitral valve disorders Rhythm: Sinus Technical Quality: good Medications Lidocaine Gully. Propofol administered by Anesthesiology. Ease of Transducer Insertion No Difficulty Complications None. Technical Difficulty FINDINGS Left Ventricle Left ventricular dilatation. Normal left ventricular ejection fraction estimated at 60-65%. Right Ventricle Right ventricular dilatation. Right Atrium Right atrial dilatation. Left Atrium Left atrial dilatation. LA Appendage Normal left atrial appendage. IA Septum Normal interatrial septum. Mitral Valve Mitral valve thickened. Severe prolapse of the posterior mitral valve leaflet. Posterior leaflet prolapse of the mitral valve involves the middle scallop. Severe mitral regurgitation. Systolic flow reversal in the pulmonary veins. Aortic Valve Trileaflet aortic valve. Diffuse thickening (sclerosis) of the aortic valve cusps without reduced excursion. No aortic stenosis. No aortic regurgitation. Tricuspid Valve Pulmonic Valve Pulmonic valve not well visualized, grossly normal. Pericardium No pericardial effusion. Great Vessels Normal size aortic root and proximal ascending aorta. Grade I plaque seen in the aortic arch. CONCLUSIONS 1. THere are no definite vegetative lesions identified on this examination. 2. Minimal to mild aortic sclerosis is present with no valvular stenosis or insufficiency. 3. Mitral leaflet thickening is present. There is marked prolapse / eversion of the midportion of the posterior mitral leaflet (P2) with obvious ruptured chordae and severe eccentric MR. Left atrial enlargement is present and there is moderate systolic flow reversal documented in multiple pulmonary veins. The left atrial appendage is normal with no evidence of thrombus. 4. There is no pericardial fluid detected. 5. The left ventricular chamber is mildly enlarged with a normal ejection fraction and no obvious focal wall motion abnormalities. 6. Right heart chamber enlargement is present with mild tricuspid insufficiency. The RV systolic pressure could not be accurately assessed on this examination. 7. There is no evidence of atrial level shunt. A contrast saline injection was not performed, however, due to poor IV access., 8. Minimal plaque is present in the distal aortic arch. 9. Although there are no obvious mitral valve vegetations detected on this examination, this study cannot completely exclude the possibility of vegetations associated with the severe PML prolapse. Samy Freeman M.D. (Electronically Signed) Final Date: 29 December 2017 17:19 MEASUREMENTS (Male / Female) Normal Values
--- NOTE | 2017-12-29 17:58 | PN- Cardiology ---
Subjective Subjective: * Doing well. Patient is ambulating without shortness of breath. * No definite vegetation on JOHNY. Afebrile with normal WBC count. Objective Vital Signs and I&Os Vital Signs Date Time Temp Pulse Resp B/P B/P Pulse O2 O2 Flow FiO2 Mean Ox Delivery Rate 12/29 1422 97.9 89 20 114/84 96 Room Air 12/29 0809 112/80 08 0808 112/80 12/29 0800 95 Room Air Room Air 12/29 0659 98.0 88 12 112/80 97 Room Air 12/28 2207 97.8 94 20 110/70 94 Room Air 12/28 2135 96 118/76 Intake & Output 12/29 1600 12/29 0812/29 0000 12/28 1600 12/28 0800 12/28 0000 Intake Total 480 20 480 480 50 50 Output Total Balance 480 20 480 480 50 50 Intake, Oral 480 20 480 480 50 50 Patient 180 lb Weight Weight Bed scale Measurement Method Physical Exam: General; WD/WN male in NAD; alert and oriented x 3 HEENT: NC/AT, PERRL, EOMI, possible thrush Neck: no JVD, no carotid bruit Heart: RRR with 3/6 systolic murmur at the LLSB and RUSB Lungs: clear bilaterally Abdomen: soft, NT, +ve bowel sounds Extremities: no edema Assessment/Plan Assessment/Plan * This patient had symptoms similar to those noted during his prior bout of endocarditis accompanied by an elevated WBC count and increased sedimentation rate. I suspected that he had an incompletely treated bout of endocarditis although no obvious vegetation was noted on his echocardiogram or JOHNY. He is afebrile and his WBC count has normalized. An MRI to assess for a discitis is pending. * I do not think this patient has significant decompensated left heart failure but he does have increased RV pressures related to his MR and this will cause shortness of breath. He has felt better after diuresis to bring down his RV pressures. Continue Lasix 40mg po daily. * The patient is stable for discharge. We will plan on an outpatient cardiac catheterization followed by mitral valve repair. Continue his current cardiac medications. Continue telemetry? No
--- NOTE | 2017-12-29 18:50 | MRI REPORT ---
MR LUMBAR SPINE WITHOUT AND WITH CONTRAST CLINICAL INFORMATION: Elevated white count, ESR, and back pain. COMPARISON: Lumbar spine MRI 10/20/2017. TECHNIQUE: MRI of the lumbar spine was obtained before and after intravenous administration of 8 mL of Gadavist FINDINGS: Progressive sclerotic changes involving the opposing L2 and L3 endplates. The degree of opposing endplate enhancement and T2 signal changes involving the opposing L2-L3 endplates is slightly decreased. Similar intradiscal enhancement at L2-L3. Best seen on the sagittal T1 noncontrast series is cortical endplate erosion at L2-L3 that is similar to the previous study. There are likely a few small opposing endplate Schmorl's nodes at this level. There is no significant paravertebral soft tissue swelling nor enhancement. No associated epidural collections. Vertebral body heights are maintained. Stable moderate posterior disc volume loss at L5-S1. Partial disc desiccation at L3-L4 and disc desiccation at L5-S1. Conus terminates at the L1 level. L1-L2: The disc contour is normal. There is no central canal stenosis and there is no foraminal stenosis. L2-L3: Diffuse annular disc bulge and mild to moderate bilateral hypertrophic facet arthropathy. There is no central canal stenosis. There is mild foraminal encroachment bilaterally. L3-L4: There is a diffuse annular disc bulge and there is mild to moderate bilateral hypertrophic facet arthropathy. There is no central canal stenosis. There is mild foraminal encroachment bilaterally. L4-L5: There is a diffuse annular disc bulge and there is moderate bilateral hypertrophic facet arthropathy. There is no central canal stenosis. There is stable moderate bilateral foraminal stenosis with probable mild mass effect on the exiting L4 nerve roots bilaterally. L5-S1: There is a shallow right paracentral disc protrusion that again likely contacts without resulting in mass effect on the traversing right S1 nerve root within the right subarticular zone. Background annular disc bulge and moderate bilateral facet arthropathy. There is no central canal stenosis. Mild right-sided foraminal encroachment. IMPRESSION: - Progressive sclerotic changes and slightly decreased though persistent enhancement and T2 signal change involving the opposing L2-L3 endplates and involving the L2-L3 intervertebral disc with associated opposing endplate erosion and probable Schmorl's node herniation. 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 Evolving sterile signal changes in the setting of Schmorl's node herniation could appear similar. There are no paravertebral abscesses and there is no epidural abscess. There is no evidence of infection elsewhere within the lumbar spine. - There is stable degenerative changes throughout the lumbar spine. At L5-S1 there is a stable shallow right paracentral disc protrusion that likely contacts without resulting in mass effect on the traversing right S1 nerve root. There is stable moderate to severe disc volume loss at L2-L3.
[2017-12-29 23:21] VITALS: BP 110/74
[2017-12-30 06:47] VITALS: BP 110/78
--- NOTE | 2017-12-30 07:14 | PN- Housestaff ---
Hernan Benitez 12/30/17 0714: Subjective Follow-up For: Dyspnea/weakness Mitral valve insufficiency Recent history of infective endocarditis Tele-Events Since Last Visit: Normal sinus rhythm overnight Subjective: Patient seen resting comfortably in the bed. In no acute distress. Patient denies chest pain, palpitations, shortness of breath, or dizziness. Patient did complain of minor back pain lower back, attributed to sleeping position. Made aware of the MRI results and the intention to discuss with infectious disease, as to whether the MRI results require further workup or if the patient is ready to be discharged home for follow-up as an outpatient cardiac catheterization with cardiology, and possible valve replacement in the future. Review of Systems Constitutional: Reports: diaphoresis, weakness. Denies: chills, fever. Objective Last 24 Hrs of Vital Signs/I&O Vital Signs Date Time Temp Pulse Resp B/P B/P Pulse O2 O2 Flow FiO2 Mean Ox Delivery Rate 12/30 0647 97.8 89 18 110/78 95 Room Air 12/29 2321 96.8 90 18 110/74 94 Room Air 12/29 2115 100 114/70 12/29 1422 97.9 89 20 114/84 96 Room Air 12/29 0809 112/80 12/29 0808 112/80 12/29 0800 95 Room Air Room Air Intake & Output 12/30 0800 12/30 0000 12/29 1600 Intake Total 500 480 Output Total Balance 500 480 Intake, Oral 500 480 Patient 82.355 kg Weight Weight Bed scale Measurement Method Physical Exam General Appearance: Alert, Oriented X3, Cooperative, No Acute Distress HEENT: Atraumatic, PERRLA, EOMI, Mucous Membr. moist/pink Neck: Supple, No JVD, No thryomegaly Cardiovascular: Regular Rate, Normal S1, Loud systolic murmur appreciated Lungs: Clear to Auscultation Abdomen: Normal Bowel Sounds, Soft, No Tenderness Neurological: Normal Gait, Normal Speech, Strength at 5/5 X4 Ext Extremities: No Clubbing, No Cyanosis, No Edema Current Medications: Current Medications Sig/Lizzie Start time Last Medication Dose Route Stop Time Status Admin Acetaminophen 650 MG Q4P PRN 12/22 1530 AC 12/23 PO 1846 Acetaminophen 1,000 MG Q6P PRN 12/22 1530 AC 12/26 N/A 1 UNIT IV 1618 Albuterol Sulfate 2 PUF 4 TIMES/DAY PRN 12/22 1515 AC INH Aspirin 81 MG DAILY 12/25 0900 AC 12/29 PO 0808 Atorvastatin Calcium 40 MG 1700 12/24 1700 AC 12/29 PO 1655 Benzocaine/Menthol 1 JORDAN Q4 HRS NEEDED PRN 12/23 1900 AC 12/25 PO 1445 Budesonide/ 2 PUF BID 12/22 2100 AC 12/29 Formoterol Fumarate INH 2116 Cyclobenzaprine HCl 10 MG TID 12/22 2100 AC 12/29 PO 2115 Diphenhydramine HCl 25 MG DAILY NEEDED PRN 12/29 0900 AC 12/29 PO 1604 Diphenhydramine HCl 1 RICCO DAILY NEEDED PRN 12/25 1245 AC 12/29 TOP 1605 Fenofibrate 48 MG DAILY 12/23 0900 AC 12/29 PO 0808 Fentanyl Citrate 0 .STK-MED ONE 12/29 1109 DC .ROUTE Furosemide 40 MG DAILY 12/25 0900 AC 12/29 PO 0808 Gabapentin 300 MG TID 12/22 1510 AC 12/29 PO 2115 Heparin Sodium 5,000 UNIT Q8 12/22 2200 AC 12/30 (Porcine) SC 0456 Hydrocortisone 1 RICCO BID 12/27 0951 AC 12/29 EXT 2116 Lidocaine 0 .STK-MED ONE 12/29 0941 DC TOP Lisinopril 2.5 MG DAILY 12/22 1510 AC 12/29 PO 0809 Metoprolol Tartrate 12.5 MG BID 12/25 1530 AC 12/29 PO 2115 Morphine Sulfate 2 MG Q6P PRN 12/22 1530 DC IV Nystatin 5 ML 4 TIMES/DAY 12/27 1700 AC 12/29 PO 2115 Omeprazole 40 MG DAILY AC 12/22 1515 AC 12/30 PO 0456 Last 24 Hrs of Lab/Harsha Results Last 24 Hrs of Labs/Mics: Laboratory Tests 12/29/17 0830: Anion Gap 15, Estimated GFR > 60, BUN/Creatinine Ratio 31.0 H, Magnesium 2.1 Assessment/Plan Assessment: 47 year old male with history of COPD, HTN, HLD who was admitted to [facility] in September of this year for bacterial endocarditis with mitral valve vegitations and insufficiency, presenting for dyspnea and generalized weakness. Second round of blood cultures still negative, pending final results. Transthoracic echocardiogram found no evidence of vegetations, but did find torn P2 cord. MRI spine had findings suggestive of possible osteomyelitis discitis, but in the setting of no fever and no white count and no acute severe back pain, infectious disease recommended follow-up as an outpatient and no antibiotics currently. Problems: 1. Mitral valvular insufficiency 2. Recent history of bacterial endocarditis 3. Chest/back pain 4. Possible TIA (unlikely, episode more likely side-effect of Lasix use) Plan: * Continue Lasix 40mg PO daily * Continue metoprolol 12.5 mg p.o. twice daily * Aspirin daily dose 81 mg * Off antibiotics for now, follow-up second round of blood cultures * Serial neuro checks Full code Heart healthy diet CBC, magnesium and BEP Heparin DVT prophylaxis Problem List: 1. Mitral insufficiency 2. Weakness 3. Dyspnea Pain Ratin Pain Location: back Pain Goal: Pain 4 or less Pain Plan: per pathway Tomorrow's Labs & Rationales: None Max VELA,Nan 12/30/17 1041: Attending MD Review Statement Attending Statement Attending MD Statement: examined this patient, discuss w/resident/PA/POULTRY SEXER, agreed w/resident/PA/POULTRY SEXER, reviewed EMR data (avail), discussed with nursing, discussed with case mgmt, amended to note Attending Assessment/Plan: Patient seen and examined. Resting comfortably not in acute distress. No issues overnight. No events on telemetry monitoring. He remains afebrile hemodynamically stable. JOHNY done yesterday showed no obvious evidence of endocarditis. MRI ordered by the ID service the lumbosacral spine showed evidence of degenerative joint disease. It also showed slightly decreased due to persistent enhancement and evidence of endplate erosions. Differentials per the radiologist include osteomyelitis. This was discussed with the ID service. Patient has completed 6 week course of antibiotic therapy. He is afebrile hemodynamically stable. Leukocytosis has resolved. Patient reports minimal loss program with this at present to warrant initiating antibiotic therapy for an acute infection. Review of this patient will be discharged home today with recommendations to follow-up with the cardiology service for his next cardiac interventions. This has been discussed in detail with the patient. He verbalized understanding. He has been advised to return to the should he develop significant shortness of breath or worsening low back pain or fever.
[2017-12-30 10:05] VITALS: BP 118/82
--- NOTE | 2017-12-30 10:09 | PN- Infect Dx ---
Subjective Subjective: Afebrile. He feels well with marked improvement in his shortness of breath since admission. He notes minimal lower back discomfort, significantly improved from his last admission (prior to his antibiotic course). Objective Last 24 Hrs of Vital Signs/I&O Vital Signs Date Time Temp Pulse Resp B/P B/P Pulse O2 O2 Flow FiO2 Mean Ox Delivery Rate 12/30 0647 97.8 89 18 110/78 95 Room Air 12/29 2321 96.8 90 18 110/74 94 Room Air 12/29 2115 100 114/70 12/29 1422 97.9 89 20 114/84 96 Room Air Intake & Output 12/30 1600 12/30 0800 12/30 0000 Intake Total 500 Output Total Balance 500 Intake, Oral 500 Patient 182 lb Weight Weight Bed scale Measurement Method Physical Exam Other Physical Findings: He appears comfortable in no acute distress Lungs are clear Heart regular rhythm with a 4/6 systolic murmur Abdomen decreased distention, nontender with positive bowel sounds Extremities no cyanosis, clubbing or edema Results Last 24 Hours of Lab Results: Laboratory Tests 12/29 12/29 0830 0649 Chemistry Sodium (137 - 145 mmol/L) 141 Potassium (3.5 - 5.1 mmol/L) 4.5 Chloride (98 - 107 mmol/L) 102 Carbon Dioxide (22 - 30 mmol/L) 24 Anion Gap (5 - 16) 15 BUN (9 - 20 mg/dL) 31 H Creatinine (0.7 - 1.2 mg/dL) 1.0 Estimated GFR (>60 ml/min) > 60 BUN/Creatinine Ratio (7 - 25 %) 31.0 H Magnesium (1.6 - 2.3 mg/dL) 2.1 Hematology CBC w Diff NO MAN DIFF REQ WBC (4.8 - 10.8 /CUMM) 7.4 RBC (4.70 - 6.10 /CUMM) 4.69 L Hgb (14.0 - 18.0 G/DL) 12.3 L Hct (42 - 52 %) 38.0 L MCV (80.0 - 94.0 FL) 81.2 MCH (27.0 - 31.0 PG) 26.3 L MCHC (33.0 - 37.0 G/DL) 32.4 L RDW (11.5 - 14.5 %) 17.1 H Plt Count (/CUMM) Gran % (42.2 - 75.2 %) 70.5 Lymphocytes % (20.5 - 51.1 %) 21.4 Monocytes % (1.7 - 9.3 %) 5.2 Eosinophils % (0 - 5 %) 2.2 Basophils % (0.0 - 2.0 %) 0.7 Absolute Granulocytes (1.4 - 6.5 /CUMM) 5.2 Absolute Lymphocytes (1.2 - 3.4 /CUMM) 1.6 Absolute Monocytes (0.10 - 0.60 /CUMM) 0.4 Absolute Eosinophils (0.0 - 0.7 /CUMM) 0.2 Absolute Basophils (0.0 - 0.2 /CUMM) 0 Last 24 Hours of Harsha Results: Blood cultures x 2 December 26 negative Recent Imaging Studies: MRI of the lumbar spine December 29 reveals progressive sclerotic changes and slightly decreased, though persistent, enhancement involving the opposing L2-L3 endplates and the L2-L3 intervertebral disc with associated opposing endplate erosion JOHNY December 29 no definite vegetations identified, with a marked prolapse/eversion of the midportion of the posterior mitral leaflet, with ruptured chordae and severe eccentric mitral regurgitation Assessment/Plan ID Impression: Remains clinically stable, with improvement in his congestive heart failure with at least a 10 pound weight loss with diuresis, and with his temperatures and white blood cell count normal off antibiotics and with his blood cultures remaining negative. His JOHNY results are noted, with no vegetations identified. The MRI results are noted but, given the marked improvement in his back pain following 6 weeks of IV antibiotics, feel that the findings on MRI will lag behind his clinical picture and, therefore, are of unclear significance. He is apparently to be scheduled for mitral valve repair and cardiac catheterization as an outpatient. Suggestion: 1. Further management with regard to cardiac catheterization and mitral valve repair per Cardiology and Cardiothoracic surgery 2. Continue diuresis per Cardiology 3. Continue to follow off antibiotics
[2017-12-30] MEDS ORDERED: METOPROLOL TART25 M1 PO (10:17)
[2017-12-30] MEDS ORDERED: LASIX40 M1 PO (10:17)
[2017-12-30] MEDS ORDERED: ATORVASTATIN CA40 M1 PO (10:17)
== END 2017-12-30 12:48 | DRG 200 ==
LOC: ERH 08:31 → ERHI 13:48 → 1NO 13:48 → ENRESERV 17:40 → 1NO 20:32 → ENPENDDIS 12-30 10:14 → 1NO 12-30 12:48
PROVIDERS: Physician Assistant; Student in an Organized Health Care Education/Training Program
PROC: B24BZZ4 Ultrasonography of Heart with Aorta, Transesophageal (ICD-10-PCS; principal; 2017-12-29)
DX: I34.1 Nonrheumatic mitral (valve) prolapse (principal); J90 Pleural effusion, not elsewhere classified; I10 Essential (primary) hypertension; F10.21 Alcohol dependence, in remission; R60.9 Edema, unspecified; R06.01 Orthopnea; G45.9 Transient cerebral ischemic attack, unspecified; Z88.0 Allergy status to penicillin; M46.26 Osteomyelitis of vertebra, lumbar region; M54.9 Dorsalgia, unspecified; K21.9 Gastro-esophageal reflux disease without esophagitis; F17.210 Nicotine dependence, cigarettes, uncomplicated; R00.0 Tachycardia, unspecified; T50.1X5A Adverse effect of loop [high-ceiling] diuretics, initial encounter
CPT/HCPCS: 1NSP; 70551; 72149; 36415; 36592; 71046; 72158; 81001; 82436; 87040; 93005; 93010; 93306; 93325; 94799; A9579; J0131; J1644; J1940; J3490